=== PATIENT | female | born 1950 | race Hispanic/Latino ===

== ENCOUNTER 2017-04-01 07:57 | Outpatient (CLI) | payer MEDICARE ==
--- NOTE | 2017-04-01 09:55 | RAD ---
PA AND LATERAL VIEWS OF CHEST: Date: 04/01/17 HISTORY: Dyspnea. FINDINGS: Comparison made with exam of 12/23/16. The heart size is enlarged. The aorta is tortuous. The lungs are well expanded without confluent are as of consolidation, pneumothorax, or pleural effusions. The mild pleural thickening on the right in the lung base with associated extrapleural fat that is better seen on the CT chest of 10/01/16 is s table. No focal areas of consolidation, pneumothorax, hakan pulmonary edema, or pleural effusions ar e identified. There are degenerative changes in the spine. IMPRESSION: No acute process. POS: JONATHAN
== END 2017-04-01 07:58 | disposition home or self-care (01) ==
LOC: RAD 07:57
PROVIDERS: ATTEND Internal Medicine Critical Care Medicine
DX: R06.00 Dyspnea, unspecified (principal)
CPT/HCPCS: 71020

== ENCOUNTER 2017-04-26 21:08 | Emergency (ER) | payer MEDICARE ==
[2017-04-26 22:30] LABS: Bilirubin Negative (Negative); Blood, Urine Small (Negative); Glucose, Urine (Dipstick) 100 mg/dL (Negative); Ketone, Urine Negative (Negative); Nitrite Positive (Negative); Protein, Urine (Dipstick) > or equal to 300 mg/dL (Neg-Trace); Urobilinogen 0.2 mg/dL (0.2-1.0)
[2017-04-26 22:42] LABS: Bacteria/HPF 4+ HPF (None Seen); Squamous Epithelial 0-3 HPF (0-3)
[2017-04-26 22:43] LABS: Hyaline Casts/LPF 0-3 HYALINE CAST LPF (0-3 Hyaline)
[2017-04-26] MEDS ORDERED: cefTRIAXone\\ROCEPHIN 1 GM VIAL ONE (22:57)
[2017-04-26] MEDS ORDERED: Sodium Chloride 0.9% 100 ML ONE (22:57)
[2017-04-26 23:20] LABS: #Basophils 0.1 thou/uL (0.0-0.2); #Eosinphils 0.3 thou/uL (0.0-0.7); #Lymphocytes 3.1 thou/uL (1.20-3.40); #Monocytes 0.9 thou/uL (0.11-0.59); #Neutrophils 5.6 thou/uL (1.40-6.50); %Basophils 0.6 % (0.0-1.0); %Eosinophils 2.9 % (0.0-10.0); %Lymphocytes 31.6 % (21.0-51.0); %Monocytes 8.8 % (0.0-10.0); Hematocrit 34.8 % (36.0-47.0); Mean Platelet Volume 7.1 fL (7.4-10.4); Red Blood Cell (RBC) Count 3.93 mill/uL (4.20-5.40)
[2017-04-26 23:34] LABS: Lactic Acid - Sepsis 0.8 mmol/L (0.5-2.2)
[2017-04-26 23:38] LABS: ALT (SGPT) 11 U/L (8-55); AST (SGOT) 18 U/L (5-34); Alkaline Phosphatase 148 U/L (40-150); Anion Gap 13 mmol/L (10-20); BUN (Urea Nitrogen) 45 mg/dL (9.8-20.1); Bilirubin, Total 0.2 mg/dL (0.2-1.2); Calc. Creatinine Clearance 0 mL/min (70-130); Calcium 8.3 mg/dL (7.8-10.44); Carbon Dioxide 20 mmol/L (23-31); Chloride 111 mmol/L (98-107); Estimated GFR-MDRD 17; Globulin 4.3 g/dL (2.4-3.5); Protein, Total 7.4 g/dL (6.0-8.3)
== END 2017-04-27 00:23 | disposition home or self-care (01) ==
LOC: ERS 21:08
DX: E11.649 Type 2 diabetes mellitus with hypoglycemia without coma (principal); N39.0 Urinary tract infection, site not specified; E78.5 Hyperlipidemia, unspecified; G51.0 Bell's palsy; I11.0 Hypertensive heart disease with heart failure; I50.9 Heart failure, unspecified; G47.30 Sleep apnea, unspecified; F41.9 Anxiety disorder, unspecified; F32.9 Major depressive disorder, single episode, unspecified; Z87.891 Personal history of nicotine dependence; Z79.82 Long term (current) use of aspirin; Z79.84 Long term (current) use of oral hypoglycemic drugs; Z79.899 Other long term (current) drug therapy
CPT/HCPCS: 36416; 80053; 81003; 81015; 83605; 85025; 87040; 87077; 87086; 87186; 96365; J0696; J7050

== ENCOUNTER 2017-06-04 18:05 | Inpatient (IN) | payer MEDICARE ==
[2017-06-04 19:01] LABS: #Basophils 0.1 thou/uL (0.0-0.2); #Eosinphils 0.3 thou/uL (0.0-0.7); #Lymphocytes 1.7 thou/uL (1.20-3.40); #Monocytes 0.6 thou/uL (0.11-0.59); #Neutrophils 3.9 thou/uL (1.40-6.50); %Basophils 1.1 % (0.0-1.0); %Eosinophils 4.1 % (0.0-10.0); %Lymphocytes 26.1 % (21.0-51.0); %Monocytes 9.8 % (0.0-10.0); Hematocrit 30.8 % (36.0-47.0); Mean Platelet Volume 6.8 fL (7.4-10.4); Red Blood Cell (RBC) Count 3.41 mill/uL (4.20-5.40); White Blood Cell (WBC) Count 6.6 thou/uL (4.8-10.8)
[2017-06-04 19:31] LABS: ALT (SGPT) 11 U/L (8-55); AST (SGOT) 27 U/L (5-34); Alkaline Phosphatase 187 U/L (40-150); Anion Gap 10 mmol/L (10-20); BUN (Urea Nitrogen) 37 mg/dL (9.8-20.1); Bilirubin, Total 0.3 mg/dL (0.2-1.2); Calc. Creatinine Clearance 0 mL/min (70-130); Calcium 7.9 mg/dL (7.8-10.44); Carbon Dioxide 21 mmol/L (23-31); Chloride 115 mmol/L (98-107); Estimated GFR-MDRD 21; Globulin 3.7 g/dL (2.4-3.5); Lipase 19 U/L (8-78); Magnesium 1.9 mg/dL (1.6-2.6); Protein, Total 6.5 g/dL (6.0-8.3)
[2017-06-04 19:34] LABS: Troponin I Less than 0.010 ng/mL (< 0.028)
--- NOTE | 2017-06-04 19:44 | RAD ---
CHEST TWO VIEW 06/04/17 HISTORY: Cough. COMPARISON: Chest two view 04/01/17. FINDINGS: The heart size is enlarged. Mild pulmonary venous congestion. No pneumothorax. There is peripheral pleural thickening along the right lateral hemithorax. This is similar. Mild spon dylosis thoracic spine. IMPRESSION: Cardiomegaly and mild edema. POS: H
[2017-06-04 20:05] LABS: Bilirubin Negative (Negative); Blood, Urine Moderate (Negative); Glucose, Urine (Dipstick) 250 mg/dL (Negative); Ketone, Urine Negative (Negative); Nitrite Negative (Negative); Protein, Urine (Dipstick) > or equal to 300 mg/dL (Neg-Trace); Urobilinogen 0.2 mg/dL (0.2-1.0)
[2017-06-04 20:07] LABS: Bacteria/HPF 4+ HPF (None Seen); Squamous Epithelial 0-3 HPF (0-3)
[2017-06-04 20:19] LABS: Hyaline Casts/LPF 0-3 HYALINE CAST LPF (0-3 Hyaline)
[2017-06-04] MEDS ORDERED: Metolazone 5 MG TAB PO SCH (20:30)
[2017-06-04] MEDS ORDERED: Meropenem 500 MG, Admixture Fee 1 EACH in Sterile Water 10 ML SLOW IVP SCH (20:45)
[2017-06-04] MEDS ORDERED: Meropenem 1 GM in Sodium Chloride 0.9% 100 ML IVPB SCH (22:00)
--- NOTE | 2017-06-04 22:32 | PDOC.EVN ---
Event Note - Event Note Event Note: [id number] h&p dictated 1. Acute on chronic diastolic CHF 2. ckd STAGE 4 3. UTI 4. Acute bronchitis plan: see orders
[2017-06-04] MEDS ORDERED: Ondansetron HCl/PF 4 MG/2 ML Vial IVP PRN (22:39)
[2017-06-04] MEDS ORDERED: Acetaminophen 325 MG TAB PO PRN (22:39)
[2017-06-04 23:20] VITALS: BMI 46.5
[2017-06-04] MEDS: cloNIDine 0.1 MG TAB PO PRN (23:50)
[2017-06-05 04:39] LABS: #Eosinphils 0.3 thou/uL (0.0-0.7); #Monocytes 0.8 thou/uL (0.11-0.59); #Neutrophils 4.5 thou/uL (1.40-6.50); %Basophils 0.6 % (0.0-1.0); %Eosinophils 4.3 % (0.0-10.0); %Lymphocytes 26.2 % (21.0-51.0); %Monocytes 10.2 % (0.0-10.0); Hematocrit 29.4 % (36.0-47.0); Mean Platelet Volume 7.4 fL (7.4-10.4); Red Blood Cell (RBC) Count 3.23 mill/uL (4.20-5.40); White Blood Cell (WBC) Count 7.6 thou/uL (4.8-10.8)
[2017-06-05 04:55] LABS: ALT (SGPT) 10 U/L (8-55); AST (SGOT) 15 U/L (5-34); Alkaline Phosphatase 165 U/L (40-150); Anion Gap 7 mmol/L (10-20); BUN (Urea Nitrogen) 35 mg/dL (9.8-20.1); BUN/Creatinine Ratio 15.49; Bilirubin, Total 0.3 mg/dL (0.2-1.2); Calc. Creatinine Clearance 41 mL/min (70-130); Calcium 7.6 mg/dL (7.8-10.44); Carbon Dioxide 22 mmol/L (23-31); Chloride 115 mmol/L (98-107); Estimated GFR-MDRD 22; Globulin 3.5 g/dL (2.4-3.5); Phosphorus 5.3 mg/dL (2.3-4.7)
[2017-06-05] MEDS ORDERED: Furosemide 40 MG/4 ML VIAL SLOW IVP SCH (06:00)
[2017-06-05] MEDS ORDERED: Meropenem 500 MG in Sodium Chloride 0.9% 100 ML IVPB SCH (06:00)
[2017-06-05] MEDS ORDERED: Meropenem 1 GM in Sodium Chloride 0.9% 100 ML IVPB SCH (06:00)
--- NOTE | 2017-06-05 06:00 | HP ---
DATE OF ADMISSION: 06/04/2017 CHIEF COMPLAINT: Bilateral lower extremity swelling, dyspnea. HISTORY OF PRESENT ILLNESS: The patient is a 67-year-old female with past medical history of CKD, di abetes mellitus type 2, hypertension, chronic respiratory failure, obstructive sleep apnea now came t o the ER complaining of bilateral lower extremity swelling. The patient always has bilateral lower e xtremity swelling, but the swelling got more pronounced at last few weeks. The patient also complain s of dyspnea more pronounced, last few days. Denies any chest pain. Denies any palpations. Complai ns some cough, cough with some sputum production, sputum green in color. Denies any chills. Denies any fever, complains of some runny nose. Denies any chest pain, denies any chest tightness. Complai ns of some dysuria also. PAST MEDICAL HISTORY: As per HPI. PAST SURGICAL HISTORY: Cholecystectomy. SOCIAL HISTORY: Denies smoking, denies alcohol, illicit drugs. FAMILY HISTORY: Denes any heart problems. REVIEW OF SYSTEMS: Constitutional: Denies any fever, denies any chills. Eyes: Denies any vision p roblems. Ears: Denies any hearing loss. Neck: Denies any neck pain. Cardiovascular System: Claude es any chest pain. Respiratory System: Positive for dyspnea. Positive for cough and sputum product ion. Gastrointestinal: Denies nausea, vomiting. Musculoskeletal: Positive for bilateral lower ext remity swelling. Cranial Nerve System: Denies syncope. Psychiatric: Denies anxiety. Integument: Denies any rash. Genitourinary: Denies dysuria. All other review of systems are reviewed and nega tive. PHYSICAL EXAMINATION: CONSTITUTIONAL/VITAL SIGNS: At the time of H&P performed, blood pressure is 151/68, respiratory rate 20, pulse ox 95%, heart rate 80. GENERAL: The patient appears comfortable. HEENT: Anterior nares patent. Nose normal. Ears normal. Teeth intact. Tongue is moist. NECK: Mane pple. No JVD. CARDIOVASCULAR SYSTEM: S1, S2 present. Regular rate and rhythm, no murmurs, no rubs, no gallops. RESPIRATORY SYSTEM: Positive for crackles. No wheezes, no rhonchi. Diminished at the bases. GASTROINTESTINAL: Soft, nontender, no guarding, no organomegaly, no masses felt. MUSCULOSKELETAL: Bilateral 2+ edema present. INTEGUMENTARY: No rashes seen. PSYCHIATRIC: Mood is appropriate at this time. CRANIAL NERVE SYSTEM: Cranial nerves intact. Follows commands. Strength intact. Sensory intact. LABORATORY DATA: At the time of H&P performed, white count 6.6, hemoglobin 10.1, platelet count is 1 88. BMP showed sodium 141, potassium 5.1, chloride 115, CO2 of 21, BUN of 37, creatinine 2.36. AST 27, ALT 11, alkaline phosphatase 187, albumin 2.8. Urine greater than 50 to too numerous to count wb c's, greater than 300 protein. Chest x-ray positive for cardiomegaly and mild edema. ASSESSMENT AND PLAN: The patient is 67-year-old female, now came to the hospital because of fluid ov erload. 1. Acute on chronic diastolic heart failure. Plan to start patient on IV Lasix. Plan to monitor th e patient closely. Plan to monitor I's and O's. Plan to check cardiac enzymes q.6 hours. We will f ollow the patient. 2. Chronic kidney disease, stage 3 to stage 4. Monitor creatinine closely. Creatinine close to bas kyara. Continue current report. We will go ahead and consult Nephrology to evaluate the patient. 3. Urinary tract infection. Place the patient on IV antibiotics. 4. Acute bronchitis. Plan to start the patient on sputum plan to send sputum for culture and sensitivity. Plan to place the patient on IV antibiotics. Plan to check flu test also. 5. History of obstructive sleep apnea. Continue oxygen nasal cannula. The case was discussed in detail with the patient. The patient is FULL CODE.
--- NOTE | 2017-06-05 06:04 | CON ---
DATE OF CONSULTATION: 06/04/2017 CONSULTING PHYSICIAN: Harvey Ramirez M.D. REQUESTING PHYSICIAN: Dr. Gloria. REASON FOR CONSULTATION: Hypervolemia in a patient with advanced chronic kidney disease. IMPRESSION: 1. Advanced chronic kidney disease, stage 3/4. 2. Hypervolemia likely in the context of nephrotic syndrome due to diabetic nephropathy. 3. Nephrotic range proteinuria in the context of diabetic nephropathy. 4. Multidrug-resistant urinary tract infection. 5. Diabetes mellitus, type 2 more or less diet controlled, at this point since patient started losin g weight. PLAN: 1. Parenteral diuresis to circumvent the limiting effect of congestive gastroenteropathy on oral diu retics. 2. IV antibiotics likely meropenem and based on the recent sensitivity of the urine culture. 3. Low-salt diet. 4. Renal function panel to be checked tomorrow. 5. Further management will be dependent on the clinical course. HISTORY OF PRESENT ILLNESS: A 67-year-old female patient who recently started having some problems w ith her electrolytes, especially as it relates to hyperkalemia, for which I started the patient on __ ___ as an outpatient with improvement in hyperkalemia. However, the patient continued to complain of worsening fluid retention to the point of having bilateral lower extremity pain and some degree of s hortness of breath on exertion. The patient also does have urinary tract infection, which seems to b e resistant to multiple medications and will be benefiting from parenteral treatment based on the rec ent sensitivity. Because of all this, the patient presented to the ER where decision is likely to be taken to admit this patient for further management. PAST MEDICAL HISTORY: Significant for advanced chronic kidney disease stage 3/4, diabetes mellitus d iet-controlled, diabetic nephropathy, hypervolemia, morbid obesity, multidrug-resistant urinary tract infection, hypertension. MEDICATIONS: Reviewed and as documented on [employer]. ALLERGIES: No known drug allergies. FAMILY HISTORY: Not significantly related to the presenting illness. SOCIAL HISTORY: No alcohol, no tobacco, no illicit drug use. REVIEW OF SYSTEMS: As documented in the body of the history. All the other systems were reviewed an d found not to be significantly related to the presenting illness. PHYSICAL EXAMINATION: GENERAL: The patient was found not to be in severe respiratory distress, hemodynamically stable, afe brile. HEENT: Unremarkable with moist oral mucosa. Neck is supple. No conjunctival injection or icterus. CARDIOVASCULAR SYSTEM: First and second heart sounds were heard. RESPIRATORY SYSTEM: Clear to auscultation. DIGESTIVE SYSTEM: Revealed an obese abdomen with positive bowel sounds. EXTREMITIES: Showed 4+ bilateral lower extremity edema. NEUROLOGIC: Alert and oriented. No lateralizing signs. LYMPHATICS: No peripheral lymphadenopathy. SUMMARY: A 67-year-old female patient with moderately advanced chronic kidney disease, who presented here with worsening hypervolemia as well as multidrug-resistant urinary tract infection. Thank you for this consultation. We will follow with you.
[2017-06-05] MEDS: Furosemide 40 MG/4 ML VIAL SLOW IVP SCH ×2 (06:16→14:43)
[2017-06-05] MEDS ORDERED: Metolazone 5 MG TAB PO SCH (08:30)
--- NOTE | 2017-06-05 08:47 | PDOC.PN ---
- Subjective Encounter Start Date: 06/05/17 Encounter Start Time: 08:45 -: old records requested/rev Pt seen and examined, chart reviewed in its entirety. This is my first visit with this patient. Hx of CKD, followed By Dr Ramirez. He was called last night and saw. No changes noted. Pt has a history of admit last thanksgiving for CHF exacerbation. Pt denies any change in diet or medications. Cr at 2.3 for the last 2 months, was 1.X 6 months ago. No recent echo Pt denies F/C, no n/V/D/C, decreased pain to BLE and less edema this morning, urinating well with lasix. 10 point ROS performed and neg for all systems except as above - Objective Resuscitation Status: FULL MAR Reviewed: Yes Vital Signs & Weight: Vital Signs (12 hours) Temp Pulse Resp BP BP Pulse Ox 06/05/17 07:58 97.6 F 68 18 166/81 H 97 06/05/17 04:10 98.0 F 70 18 133/64 97 06/05/17 01:15 75 144/67 H 06/04/17 23:50 188/83 H 06/04/17 23:28 188/83 H I&O: 06/04/17 06/05/17 06/06/17 06:59 06:59 06:59 Intake Total 814 Output Total 800 Balance 14 Result Diagrams: 06/05/17 04:08 06/05/17 04:08 Radiology Reviewed by me: Yes EKG Reviewed by me: Yes Phys Exam - Physical Examination Constitutional: NAD HEENT: PERRLA, moist MMs, sclera anicteric, oral pharynx no lesions Neck: no nodes, supple, full ROM cannot assess JVD due to obesity Respiratory: no wheezing, no rhonchi bibasialr crackles, decreased bilateral BS Cardiovascular: RRR, no significant murmur, no rub Gastrointestinal: soft, non-tender, no distention, positive bowel sounds Musculoskeletal: pulses present, edema present 3+ to distal thigh Neurological: non-focal, normal sensation, moves all 4 limbs Lymphatic: no nodes Psychiatric: normal affect, A&O x 3 Skin: no rash, normal turgor, cap refill <2 seconds Dx/Plan (1) Acute on chronic diastolic (congestive) heart failure Code(s): I50.33 - ACUTE ON CHRONIC DIASTOLIC (CONGESTIVE) HEART FAILURE Status : Acute Comment: echo, lasix, watch lytes, Cr. weight, I/O (2) Acute on chronic respiratory failure with hypoxemia Code(s): J96.21 - ACUTE AND CHRONIC RESPIRATORY FAILURE WITH HYPOXIA Status: Acute Comment: wean O2 as tolerated (3) UTI (urinary tract infection) Status: Acute Qualifiers: Urinary tract infection type: acute cystitis Hematuria presence: without hematuria Qualified Code(s): N30.00 - Acute cystitis without hematuria Comment: hx ecoli resistant to cephalosporins and cephamycins, cipro. sens to Zosyn. strealine form meropenem and levoflxo to zosyn alone, follow uip UCx (4) CKD (chronic kidney disease) stage 3, GFR 30-59 ml/min Status: Chronic Comment: ? [place] on CKD. [place] [facility] following (5) DM type 2 (diabetes mellitus, type 2) Status: Chronic Qualifiers: Diabetes mellitus complication status: with kidney complications Diabetes mellitus complication detail: with chronic kidney disease Diabetes mellitus custodial insulin use: without ad terminal makeup operator use Chronic kidney disease stage: stage 3 (moderate) Qualified Code(s): E11.22 - Type 2 diabetes mellitus with diabetic chronic kidney disease; N18.3 - Chronic kidney disease, stage 3 ( moderate); N18.3 - Chronic kidney disease, stage 3 (moderate) (6) HTN (hypertension) Code(s): I10 - ESSENTIAL (PRIMARY) HYPERTENSION Status: Chronic Qualifiers: Hypertension type: essential hypertension Qualified Code(s): I10 - Essential (primary) hypertension (7) Morbid obesity Code(s): E66.01 - MORBID (SEVERE) OBESITY DUE TO EXCESS CALORIES Status: Chronic (8) ARMINDA (obstructive sleep apnea) Code(s): G47.33 - OBSTRUCTIVE SLEEP APNEA (ADULT) (PEDIATRIC) Status: Chronic Comment: Home CPAP not functioning. Will palce on CPAP here at empiric 10cm - Plan cont current plan of care, continue antibiotics, PT/OT, respiratory therapy, incentive spirometry * .
[2017-06-05] MEDS: Enoxaparin Sodium 30 MG/0.3 ML SYRINGE SC SCH (09:09)
[2017-06-05 10:18] LABS: Troponin I 0.014 ng/mL (< 0.028)
[2017-06-05] MEDS ORDERED: hydrALAZINE 20 MG/ML VIAL SLOW IVP PRN (11:45)
[2017-06-05] MEDS ORDERED: Amlodipine 10 MG TAB PO SCH (11:45)
[2017-06-05] MEDS: Piperacillin/Tazobactam 3.375 GM in Sodium Chloride 0.9% 100 ML IVPB SCH ×3 (13:11→23:51)
[2017-06-05 17:59] LABS: Troponin I Less than 0.010 ng/mL (< 0.028)
[2017-06-06 04:34] LABS: #Eosinphils 0.4 thou/uL (0.0-0.7); #Lymphocytes 2.1 thou/uL (1.20-3.40); #Monocytes 0.8 thou/uL (0.11-0.59); #Neutrophils 4.2 thou/uL (1.40-6.50); %Eosinophils 5.1 % (0.0-10.0); %Lymphocytes 28.2 % (21.0-51.0); Mean Platelet Volume 7.2 fL (7.4-10.4); Red Blood Cell (RBC) Count 3.28 mill/uL (4.20-5.40); White Blood Cell (WBC) Count 7.5 thou/uL (4.8-10.8)
[2017-06-06 04:49] LABS: Anion Gap 8 mmol/L (10-20); BUN (Urea Nitrogen) 38 mg/dL (9.8-20.1); BUN/Creatinine Ratio 15.08; Calc. Creatinine Clearance 36 mL/min (70-130); Calcium 7.7 mg/dL (7.8-10.44); Carbon Dioxide 23 mmol/L (23-31); Chloride 113 mmol/L (98-107); Estimated GFR-MDRD 19; Phosphorus 5.8 mg/dL (2.3-4.7)
[2017-06-06] MEDS: Piperacillin/Tazobactam 3.375 GM in Sodium Chloride 0.9% 100 ML IVPB SCH ×4 (05:45→23:35)
[2017-06-06] MEDS: Furosemide 40 MG/4 ML VIAL SLOW IVP SCH ×2 (05:45→14:09)
--- NOTE | 2017-06-06 06:37 | PRG ---
DATE OF SERVICE: 06/05/2017 SUBJECTIVE: The patient seen and examined today and noted with the following vital signs. PHYSICAL EXAMINATION: VITAL SIGNS: Afebrile with temperature 98, pulse 70, respiratory rate 18, O2 SAT 96%, blood pressure 164/74. HEENT: Unremarkable with moist oral mucosa. Neck was supple. No conjunctival injection or icterus. CARDIOVASCULAR: First and second heart sounds were heard. RESPIRATORY: Clear to auscultation. ABDOMEN: Digestive system revealed a benign abdomen. EXTREMITIES: No . NEUROLOGIC: Alert and oriented. No lateralizing signs. IMPRESSION: 1. Hypervolemia, on diuretics. 2. Low salt diet. 3. Resume antihypertensive medications to optimize hemodynamics.
[2017-06-06] MEDS: Enoxaparin Sodium 30 MG/0.3 ML SYRINGE SC SCH (08:54)
[2017-06-06] MEDS: Metolazone 5 MG TAB PO SCH (08:54)
[2017-06-06] MEDS ORDERED: Amlodipine 10 MG TAB PO SCH (09:00)
[2017-06-06] MEDS ORDERED: HumaLOG 300 UNITS/3 ML VIAL SC PRN (11:28)
[2017-06-06] MEDS ORDERED: Dextrose 50% Abboject 50 ML SYRINGE SLOW IVP PRN (11:28)
[2017-06-06] MEDS ORDERED: Dextrose 5% in Water 1,000 ML IV PRN (11:28)
--- NOTE | 2017-06-06 14:30 | PRG ---
DATE OF SERVICE: 06/06/2017 SUBJECTIVE: The patient was seen and examined at the bedside. She was sitting in the recliner. She complains about the nasal congestion and not being able to breathe. She woke up in the middle of e night, kind of panicky, not being able to breathe through her nose. OBJECTIVE: VITAL SIGNS: Blood pressure is 167/75, temperature is 97.8, pulse is 73, respiratory rate is 20, and O2 saturation is 95% on 2 liters. HEENT: Head is atraumatic, normocephalic. Eyes: PERRLA. Sclerae nonicteric. Conjunctivae pinkish . Oral mucosa is moist. NECK: Supple. LUNGS: Clear. HEART: S1, S2 normal, no S3, no S4, no murmur. ABDOMEN: Obese, bowel sounds are present. No organomegaly. EXTREMITIES: 2+ peripheral edema similar bilateral, pitting. NEUROLOGIC: She is alert and oriented x4. There is not any motor or sensory deficit present. Crani al nerves are intact. LABORATORY DATA: Showed a white count of 7.5, hemoglobin 9.8, hematocrit 30.0, platelet count is 199 ,000. Sodium of 139, potassium 5.4, chloride 113, CO2 of 23, BUN 38, creatinine 2.52, calcium 7.7, p hosphorus 5.8, albumin 2.7. Microbiology: Urine culture E. coli, resistant to all p.o. possible med s, sensitive to meropenem, Zosyn, gentamicin, and amikacin and tobramycin. IMPRESSION: 1. Acute on chronic diastolic congestive heart failure. 2. Acute on chronic respiratory failure with hypoxemia. We will stop her oxygen by nasal cannula an d check her pulse oximetry without oxygen supplementation. 3. Urinary tract infection with resistant organism Escherichia coli, sensitive only to meropenem and Zosyn, resistant to multiple other medications. 4. Chronic kidney disease, worse with [address] Gabriel follows: 5. Diabetes mellitus type 2, well controlled. 6. Morbid obesity. 7. Obstructive sleep apnea. PLAN: Continue current antibiotic which is Zosyn. Obtain ID consultation regarding possible change to inpatient status and continue IV antibiotics. We will talk to the polysom tech regarding her diur etic dose since her creatinine is up significantly today. Most likely would have to cut back on the dose. We will try to wean her off O2 today.
--- NOTE | 2017-06-06 15:07 | CON ---
DATE OF CONSULTATION: 06/06/2017 REASON FOR CONSULTATION: Urinary tract findings. HISTORY OF PRESENT ILLNESS: A 67-year-old familiar to me from prior visits who has a history of obes ity, type 2 diabetes mellitus, hypertension, prior cellulitis of lower extremity with venous insuffic iency and abscess in the skin of the left leg as well as previous episode of pyelonephritis with obst ruction which required stenting of the ureter plus treatment with carbapenem for ESBL E. coli in 2015 . The patient was treated with Invanz for a few weeks in 07/2016. She came in with hypoxic respirat ory failure due to acute on chronic diastolic heart failure and community-acquired pneumonia. Then, in October of this year, she presented with worsening dyspnea and hypoxemia. She was treated with diur esis and in that episode she had an abnormal urinalysis and she was given empirically with levofloxac in. At this time, she presented with worsening dyspnea and swelling in the lower extremities. When specifically inquired, she said she had a little bit of itching or burning of the vaginal introitus w hen she was wiping herself, but did not refer to any true dysuria or suprapubic pain. She had had no fever either. No chills. Initial findings included BP 150/68, respiratory rate 20, pulse ox 95%, h eart rate 80. Appears comfortable. Heart exam normal. Respiratory examination with inspiratory starch crab ckles at the bases. She had though edema in lower extremities with findings consistent with venous s tasis, venous insufficiency. Initial labs with white cell count 6.6, hemoglobin 10, sodium 141, CO2 21, and creatinine 2.36. The patient currently is sitting by the bedside. She is awake, alert and o riented, appears chronically ill. No headaches, she has had bilateral eye injections for management of be either some form of retinopathy plus glaucoma. She has blurred vision which is a chronic findi ng. No sore throat, odynophagia, or dysphagia. Mild dyspnea. No chest pain, no back pain, no abdo jos pain or diarrhea. No genitourinary symptoms except for the sensation of burning when she wipes herself. Has not had any gynecological evaluation for the past few years and the lower extremity sy mptoms related to edema. No neurological symptoms. PAST MEDICAL HISTORY: Includes type 2 diabetes, obesity, hypertension, hyperlipidemia, GERD, celluli tis of lower extremities, abscess of left leg due to MRSA, invasive UTI with pyelonephritis and obstr uction which required stenting last year, pneumonia, diastolic dysfunction, and cardiomyopathy. PAST SURGICAL HISTORY: . FAMILY HISTORY: Diabetes and CVA. SOCIAL HISTORY: Former smoker, lives in [place]. CURRENT MEDICATIONS: Currently on Tylenol, Harrells, Norvasc, Lipitor, Catapres, enoxaparin, furosemide , hydralazine, metolazone, Zosyn, Kayexalate. PHYSICAL EXAMINATION: VITAL SIGNS: T-max 98.1, blood pressure 160/79, pulse 80, respirations 16-20, O2 sat 94-95%. GENERAL: Appears in no distress. SKIN: Shows the areas are consistent with stasis dermatitis in the lower extremities. Peripheral IV access. Does not have a Lazo catheter. HEENT: Ocular movements are conjugate. Oral cavity moist. NECK: Supple, no jugular venous distention. LUNGS: With symmetric air entry. No obvious crackles or wheezing. HEART: S1, S2, regular rate. ABDOMEN: Flat, soft, not distended. Panniculus is quite prominent. No ascites, no organomegaly. N o bladder distention. No suprapubic tenderness. I did not evaluate her vaginal introitus at this ti me. EXTREMITIES: She does have findings consistent with degenerative joint disease in knees and ankles. Pulses are 1+ in dorsalis pedis. NEUROLOGIC: Cognitive function appears to be intact. LABORATORY AND X-RAY FINDINGS: White cell count 7.5, hemoglobin 9.8, platelets 199 with normal diffe rential. Sodium 139, creatinine 2.52. AST and ALT normal, alkaline phosphatase 165, albumin 2.5. U rinalysis with trace leukocyte esterase, wbc count greater than 50, 4+ bacteria and culture with E. c christen. The susceptibility of the E. coli reveals resistant to most antimicrobials except for gentamici n, meropenem, Zosyn, tobramycin, and amikacin. ASSESSMENT: 1. Type 2 diabetes, prior episodes of urinary infection with pyelonephritis and bacteremia in the or st with obstruction which required stent placement, abnormal urinalysis, but no concomitant symptoms to suggest an evasive urinary tract infection. 2. Swelling of the lower extremities which is associated with cardiomyopathy and venous insufficienc y. DISCUSSION: The patient needs a reevaluation of the imaging of her right kidney to see if that area of hydronephrosis and obstruction has resolved. She was not able to tell me if the stent has been re moved. We will order a CT stone protocol for that and I would not continue antimicrobials beyond jossy orrow since even in the event of cystitis a short course of therapy should suffice. It is questionab le if she truly has symptoms of cystitis at this point in time. Evaluation of her introitus would be important to see if she has vaginitis that would be amenable to treatment with topical therapy rathe r than repeated courses of systemic antimicrobials which might lead to selection of other resistant p athogens in the future.
--- NOTE | 2017-06-06 15:29 | CT ---
NONCONTRAST CT ABDOMEN AND PELVIS: DATE: 06/06/17. HISTORY: Urinary tract infection and abdominal pain. History of kidney stent as well as history of prior pyel onephritis. COMPARISON: 05/28/16. FINDINGS: There is a small right pleural effusion with consolidation of the right lung base likely related to a telectasis as opposed to pneumonia, although this could not be entirely excluded. There is minimal a telectasis at the left lung base. Trace pericardial effusion versus pericardial thickening is present. Post cholecystectomy changes are now noted. As noted on the prior exam, there is mild right hydronephrosis and hydroureter with dilatation of the ureter down to the level of the junction of the mid and distal right ureter. The exact etiology for dilatation is uncertain, but, again, this is similar to the prior study. No renal or ureteral calcu albertina is visualized bilaterally. There is bilateral perinephric stranding which is overall symmetric a nd nonspecific. While this may be related to physiological stranding adjacent to each kidney, pyelon ephritis could not be excluded based on nonenhanced CT scan evaluation. The liver, spleen, pancreas, bilateral adrenal glands, uterus, and adnexal structures demonstrate nicole ssly normal nonenhanced CT appearance for the patient's age. Urinary bladder is distended. There is a focus of gas in the urinary bladder which may be related to recent catheterization, but clinical correlation is recommended. There is colonic diverticulosis again present. There is mild subcutaneous edema seen throughout the abdomen and pelvis. IMPRESSION: 1. Persistent mild right hydronephrosis and hydroureter of which the exact etiology is uncertain, bu t this is a stable finding. No renal or ureteral calculi are seen bilaterally. 2. Bilateral perinephric stranding. This is overall nonspecific and may be physiologic, but pyelone phritis could not be excluded based on noncontrast imaging. 3. Small right pleural effusion with probable passive atelectasis at the right lung base. 4. Cholecystectomy. 5. Colonic diverticulosis. 6. Gas within the nondependent portion of the urinary bladder which may relate to recent catheteriza tion, but clinical correlation is recommended. POS: ALIE
[2017-06-06] MEDS: Carvedilol 6.25 MG TAB PO SCH (17:15)
--- NOTE | 2017-06-06 19:46 | PRG ---
DATE OF SERVICE: 06/06/2017 SUBJECTIVE: The patient was seen and examined, seems to be doing better, noted with the following vi rica signs. OBJECTIVE: VITAL SIGNS: Afebrile, temperature 98.1, pulse 75, respiratory rate of 20, O2 sat of 94%, blood pres sure 119/79. HEENT: Unremarkable with moist oral mucosa. No conjunctival injection or icterus NECK: Supple. CARDIOVASCULAR: First and second heart sounds were heard. RESPIRATORY: Clear to auscultation. DIGESTIVE: Revealed an obese abdomen. EXTREMITIES: Showed 3-4+ bilateral lower extremity edema. LABORATORY DATA: Showed hemoglobin 9.8. Chemistry showed a creatinine of 2.52, BUN of 38, potassium 5.4, calcium 7.7, phosphorus of 5.8. IMPRESSION: 1. Advanced chronic kidney disease stage 4 in the context of problem #2. 2. Diabetic nephropathy. 3. Hyperkalemia. 4. Hyperphosphatemia. 5. Hypervolemia in the context of nephrotic syndrome resulted from diabetic nephropathy. PLAN: 1. We will continue with current diuretic regimen. 2. The patient to be on renal diet. 3. Low salt diet. 4. Adjust antihypertensive medications to optimize hemodynamics as the patient high blood pressure i s under control. 5. Further management to be dependent on the clinical course.
[2017-06-06] MEDS ORDERED: cloNIDine 0.1 MG TAB PO SCH (21:00)
[2017-06-06] MEDS: Oxymetazoline HCl 0.05% ( 15 ML ) NASAL SCH (21:19)
[2017-06-06] MEDS: cloNIDine 0.1 MG TAB PO PRN (21:23)
[2017-06-07 05:24] LABS: Anion Gap 12 mmol/L (10-20); BUN (Urea Nitrogen) 38 mg/dL (9.8-20.1); BUN/Creatinine Ratio 13.48; Calc. Creatinine Clearance 32 mL/min (70-130); Calcium 7.5 mg/dL (7.8-10.44); Carbon Dioxide 22 mmol/L (23-31); Chloride 113 mmol/L (98-107); Estimated GFR-MDRD 17; Phosphorus 5.7 mg/dL (2.3-4.7)
[2017-06-07] MEDS: Piperacillin/Tazobactam 3.375 GM in Sodium Chloride 0.9% 100 ML IVPB SCH ×3 (05:46→17:45)
[2017-06-07] MEDS: Furosemide 40 MG/4 ML VIAL SLOW IVP SCH ×2 (05:47→12:16)
[2017-06-07] MEDS: Carvedilol 6.25 MG TAB PO SCH ×2 (09:17→17:45)
[2017-06-07] MEDS: Metolazone 5 MG TAB PO SCH (09:19)
[2017-06-07] MEDS: Atorvastatin Calcium 20 MG TAB PO SCH (09:20)
[2017-06-07] MEDS: Enoxaparin Sodium 30 MG/0.3 ML SYRINGE SC SCH (09:20)
[2017-06-07] MEDS: NIFEdipine XL 60 MG TAB PO SCH (09:20)
[2017-06-07] MEDS: Oxymetazoline HCl 0.05% ( 15 ML ) NASAL SCH ×2 (09:21→20:11)
[2017-06-07] MEDS: cloNIDine 0.1 MG TAB PO PRN (13:14)
--- NOTE | 2017-06-07 19:42 | PRG ---
DATE OF SERVICE: 06/07/2017 SUBJECTIVE: The patient was seen and examined today and seems to be feeling better, noted with the josh colbert. OBJECTIVE: VITAL SIGNS: Afebrile with temperature of 97.2, pulse 65, respiratory rate of 16, O2 sat 92% with a blood pressure of 121/58. HEENT: Unremarkable with moist oral mucosa. No conjunctival injection or icterus. NECK: Supple. CARDIOVASCULAR SYSTEM: First and second heart sounds were heard. RESPIRATORY SYSTEM: Clear to auscultation. DIGESTIVE SYSTEM: Revealed an obese abdomen. EXTREMITIES: No peripheral edema. SKIN: No new gross rash. LYMPHATICS: No peripheral lymphadenopathy. EXTREMITIES: Showed 2+ bilateral lower extremity edema. IMPRESSION: 1. Acute on chronic kidney disease/progression of chronic kidney disease. 2. Morbid obesity. 3. Nephrotic syndrome in the context of diabetic nephropathy. 4. Multidrug-resistant urinary tract infection, followed by Infectious Disease. PLAN: 1. The patient to resume oral diuretics, Lasix b.i.d. The elevation in creatinine is partly due to hemoconcentration as patient has lost quite a bit of fluid, so the current creatinine might be a true reflection of the level of kidney function of this patient and not necessarily an injury from diuret ic use. 2. The patient to be on low phosphorus diet and low potassium diet. We will start this patient on a ctive vitamin D and phosphorus and binders, calcium-based. 3. Further management to be dependent on the clinical course including the control of the blood pres sure.
[2017-06-07] MEDS: Calcium Carbonate 500 MG ChewTAB PO SCH (20:11)
--- NOTE | 2017-06-07 20:56 | PRG ---
DATE OF SERVICE: 06/07/2017 SUBJECTIVE: The patient was seen and examined at the bedside. She is doing well. She is feeling be tter. She is able to ambulate. Her appetite is fine and she goes to the bathroom without any proble ms. OBJECTIVE: VITAL SIGNS: Blood pressure is 121/58, pulse is 65, temperature is 97.2, respiratory rate is 16, and O2 saturation is 92%. HEENT: head is atraumatic, normocephalic. Eyes: Pupils are responded to write properly. Sclerae i s nonicteric. Oral mucosa is moist. NECK: Supple, no lymphadenopathy. Thyroid is not palpable. LUNGS: At both bases several crackles bilaterally, no wheezing. CARDIOVASCULAR: S1, S2 normal. No S3, no S4. ABDOMEN: Soft, obese, nontender. EXTREMITIES: 2+ peripheral edema, symmetric bilaterally. NEUROLOGIC: Examination is Intact. LABORATORY DATA: Showed a glycemia ranging from 97-188. Sodium of 142, potassium 4.9, chloride 113, CO2 22, BUN 38, creatinine 2.82, calcium 7.5, phosphorus 5.7, albumin 2.8. IMAGES: CT of the abdomen and pelvis showed: 1. Persistent mild right hydronephrosis and hydroureter of which the exact etiology is uncertain, bu t it is stable finding. No renal or ureteral calculi seen bilaterally. 2. Bilateral perinephric stranding. It is overall nonspecific and may be physiologic, but pyeloneph ritis could not be excluded based on noncontrast imaging. 3. Small right pleural effusion with probable passive atelectasis at the right lung base. 4. Cholecystectomy. 5. Colonic diverticulosis. 6. Gas within the non-dependent portion of the urinary bladder, which may be related to recent daya terization. Echocardiogram showed left ventricle size normal, ejection fraction is visually estimate d at 60-65%. The left atrium is moderately dilated. Mitral regurgitation is mild, aortic valve scle rosis, but no stenosis and trace of aortic insufficiency. There is also moderately elevated pulmonar y artery pressure and mild tricuspid regurgitation. IMPRESSION: 1. Acute on chronic diastolic congestive heart failure with some fluid overload. 2. Acute on chronic respiratory failure with hypoxemia, improved. 3. Urinary tract infection with resistant organism E. coli sensitive only to meropenem and Zosyn and resistant to multiple other medications. The patient was seen by Dr. Selby, who recommended to do t he CT of the abdomen and pelvis, which showed findings which are probably chronic and the plan is to discontinue her antibiotic as soon as she is discharged home. 4. Chronic kidney disease worsening secondary to diuretics since her creatinine is even higher than what it was yesterday significantly high, I am stopping her metolazone and Lasix IV push and nephrolo gist will reassess her situation tomorrow and make a decision regarding the further treatment with do se to diuretics. 5. Diabetes mellitus type 2, well controlled. 6. Morbid obesity. 7. Obstructive sleep apnea. So, plan is as mentioned above. We are going to continue her Zosyn and when she is discharged, she w ill be off any antibiotics. Her diuretics are stopped. Continue O2 and increased ambulation. Reche ck her BMP tomorrow morning and based on the findings, we will recommend further management.
[2017-06-08] MEDS: Piperacillin/Tazobactam 3.375 GM in Sodium Chloride 0.9% 100 ML IVPB SCH ×5 (00:06→23:40)
[2017-06-08] MEDS: HYDROcodone/Acetaminophen 5/325 mg Tablet PO PRN (02:25)
[2017-06-08] MEDS: Furosemide 40 MG TAB PO SCH ×2 (08:12→13:32)
[2017-06-08] MEDS: Calcitriol 0.25 MCG CAP PO SCH (08:12)
[2017-06-08] MEDS: Carvedilol 6.25 MG TAB PO SCH ×2 (08:13→18:34)
[2017-06-08] MEDS: Calcium Carbonate 500 MG ChewTAB PO SCH ×3 (08:14→20:42)
[2017-06-08] MEDS: NIFEdipine XL 60 MG TAB PO SCH (08:14)
[2017-06-08] MEDS: Enoxaparin Sodium 30 MG/0.3 ML SYRINGE SC SCH (08:16)
[2017-06-08] MEDS: Oxymetazoline HCl 0.05% ( 15 ML ) NASAL SCH ×2 (08:16→20:41)
[2017-06-08] MEDS: Atorvastatin Calcium 20 MG TAB PO SCH (08:16)
[2017-06-08 08:20] LABS: Anion Gap 11 mmol/L (10-20); BUN (Urea Nitrogen) 43 mg/dL (9.8-20.1); Calc. Creatinine Clearance 29 mL/min (70-130); Calcium 7.6 mg/dL (7.8-10.44); Carbon Dioxide 24 mmol/L (23-31); Chloride 109 mmol/L (98-107); Estimated GFR-MDRD 15
--- NOTE | 2017-06-08 15:38 | PRG ---
DATE OF SERVICE: 06/08/2017 SUBJECTIVE: The patient is seen and examined at the bedside. She is doing better. She noticed sign ificant improvement on her swelling. Also, she noticed that she is not making that much urine like david loo. Her urine output was 1700 comparing to 2800 and 3100 before. OBJECTIVE: VITAL SIGNS: Blood pressure is 152/69, pulse is 94, temperature 97.5 and O2 is 92% on room air, resp iratory rate is 16. HEENT: Atraumatic and normocephalic. Eyes are PERRLA. Conjunctiva pink. Oral mucosa is smooth. NECK: Supple. No JVD. LUNGS: Somewhat diminished at both bases. No wheezing, no rales. HEART: S1, S2 normal, no S3, no S4. ABDOMEN: Soft, nontender. EXTREMITIES: Peripheral edema is approximately 2+, maybe slightly less. NEUROLOGIC: Intact. LABORATORY DATA: Showed sodium of 139, potassium 4.5, chloride 109, CO2 of 24, BUN 43, creatinine 3. 09, glucose 97. Glycemia is ranging from 122-188. IMPRESSION: 1. Volume overload with peripheral edema, responding to diuresis, but creatinine is going up. Dr. Katerina velásquez wants to continue diuretics orally. We will continue that. 2. Bilateral perinephric stranding, overall nonspecific finding on the CT which is discussed with Dr Mehnaz Selby who does not recommend to continue IV antibiotics beyond the hospital discharge. 3. Small right pleural effusion with small atelectasis in the right lung base. 4. Acute on chronic respiratory failure with hypoxemia, improved. 5. Urinary tract infection with resistant organism, Escherichia coli and again, the case was discuss ed with Dr. Selby who does not want to continue any antibiotics after the patient is discharged from the hospital. She had a CT of the abdomen and pelvis done which showed most likely chronic changes w hich does not need to be treated. 6. Chronic kidney disease, worsening secondary to diuretics. Nephrology recommends to continue p.o. Lasix. 7. Diabetes mellitus type 2, well controlled, at this point not on any medications. 8. Morbid obesity. 9. Obstructive sleep apnea. PLAN: The echocardiogram was reviewed and there is no any evidence of any systolic or diastolic hear t failure. This is most likely just renal insufficiency and fluid overload, so we are going to pierce nue current regimen with Zosyn IV and p.o. Aissatou and we will see what Dr. Gabriel recommends at th is point. She might be able to go home today or maybe tomorrow morning based on his recommendation.
[2017-06-09 05:10] LABS: Anion Gap 12 mmol/L (10-20); BUN (Urea Nitrogen) 49 mg/dL (9.8-20.1); BUN/Creatinine Ratio 15.66; Calc. Creatinine Clearance 29 mL/min (70-130); Calcium 7.9 mg/dL (7.8-10.44); Carbon Dioxide 23 mmol/L (23-31); Chloride 108 mmol/L (98-107); Estimated GFR-MDRD 15; Iron 37 ug/dL (50-170); Phosphorus 5.9 mg/dL (2.3-4.7)
[2017-06-09 05:12] LABS: Iron 40 ug/dL (50-170)
[2017-06-09] MEDS: Piperacillin/Tazobactam 3.375 GM in Sodium Chloride 0.9% 100 ML IVPB SCH (05:34)
[2017-06-09] MEDS: NIFEdipine XL 60 MG TAB PO SCH (09:08)
[2017-06-09] MEDS: Carvedilol 6.25 MG TAB PO SCH ×2 (09:08→18:23)
[2017-06-09] MEDS: Furosemide 40 MG TAB PO SCH ×2 (09:08→14:54)
[2017-06-09] MEDS: Calcium Carbonate 500 MG ChewTAB PO SCH ×3 (09:08→21:12)
[2017-06-09] MEDS: Calcitriol 0.25 MCG CAP PO SCH (09:08)
[2017-06-09] MEDS: Enoxaparin Sodium 30 MG/0.3 ML SYRINGE SC SCH (09:09)
[2017-06-09] MEDS: Atorvastatin Calcium 20 MG TAB PO SCH (09:09)
[2017-06-09] MEDS: Oxymetazoline HCl 0.05% ( 15 ML ) NASAL SCH ×2 (09:10→21:12)
[2017-06-09] MEDS ORDERED: Epoetin (ESRD) 20,000 UNITS/ML SC SCH (10:00)
--- NOTE | 2017-06-09 10:16 | PRG ---
DATE OF SERVICE: 06/09/2017 SUBJECTIVE: The patient was seen and examined, still concerned with peripheral edema and weight gain noted. PHYSICAL EXAMINATION: VITAL SIGNS: Afebrile with temperature 98.3, pulse 63, respiratory rate 20, O2 sat 93% with blood pr essure 153/66. HEENT EXAMINATION: Unremarkable with moist oral mucosa. Neck is supple. No conjunctival injection or icterus. CARDIOVASCULAR: First and second heart sounds were heard. RESPIRATORY: Clear to auscultation. DIGESTIVE: Revealed an obese abdomen. EXTREMITIES: Showed bilateral 2+ lower extremity edema. NEUROLOGIC: Alert and oriented. No lateralizing signs. LYMPHATICS: No peripheral lymphadenopathy. LABORATORY INVESTIGATIONS: Showed a creatinine of 3.13. IMPRESSION: 1. Moderately advanced chronic kidney disease stage 4. 2. Hypervolemia in the context of nephrotic syndrome due to problem #3. 3. Diabetic nephropathy. 4. Morbid obesity. PLAN: 1. Discontinue antibiotic treatments, Zosyn. 2. Renally dose all medications. 3. Continue other renal supportive measures. 4. Further management to be dependent on the clinical course. Condition of the patient at this time of dictation is guarded.
--- NOTE | 2017-06-09 18:00 | PDOC.PN ---
- Subjective Encounter Start Date: 06/09/17 Encounter Start Time: 17:50 Subjective: f/u for LE edema and Nephrotic syndrome on current Lasix 40mg BID. -: Renal function worsening. No SOB, fever. - Objective MAR Reviewed: Yes Vital Signs & Weight: Vital Signs (12 hours) Temp Pulse Resp BP Pulse Ox 06/09/17 15:56 97.9 F 67 18 141/65 H 95 06/09/17 11:02 97.7 F 68 16 149/69 H 94 L 06/09/17 09:08 98.3 F 63 20 06/09/17 07:20 98.3 F 63 20 159/74 H 93 L Weight Weight 225 lb I&O: 06/08/17 06/09/17 06/10/17 06:59 06:59 06:59 Intake Total 400 1420 Output Total 800 1600 Balance -400 -180 Result Diagrams: 06/06/17 03:50 06/09/17 04:04 Additional Labs: Accuchecks 06/09/17 06/09/17 06/08/17 17:09 11:05 21:34 POC Glucose 150 H 162 H 175 H Microbiology 06/04/17 19:42 Urine voided Urine Culture - Final Escherichia coli 06/04/17 18:40 Nasal swab Influenza Types A,B Direct EIA - Final Laboratory Tests 06/04/17 06/04/17 06/05/17 18:45 18:45 04:08 Hgb 10.1 L Creatinine 2.36 H 2.26 H Iron Ferritin 06/05/17 06/06/17 06/07/17 04:08 03:50 04:16 Hgb 9.7 L Creatinine 2.52 H 2.82 H Iron Ferritin 06/08/17 06/09/17 06/09/17 07:28 04:04 04:04 Hgb Creatinine 3.09 H Iron 37 L 40 L Ferritin 06/09/17 04:04 Hgb Creatinine Iron Ferritin 93.46 Radiology Reviewed by me: Yes (Echo - EF 60%, mild LAE) EKG Reviewed by me: Yes (Tele - SR) Phys Exam - Physical Examination Constitutional: NAD HEENT: PERRLA, oral pharynx no lesions Neck: no JVD, supple Respiratory: no wheezing, clear to auscultation bilateral Cardiovascular: RRR Gastrointestinal: soft, non-tender, no distention, positive bowel sounds 3+ Musculoskeletal: pulses present, edema present Neurological: normal sensation, moves all 4 limbs Psychiatric: A&O x 3 Skin: normal turgor, cap refill <2 seconds Dx/Plan (1) NOLA (acute kidney injury) Code(s): N17.9 - ACUTE KIDNEY FAILURE, UNSPECIFIED Status: Acute Comment: ? new baseline GFR, concern for needing HD in the near future (2) Nephrotic syndrome Code(s): N04.9 - NEPHROTIC SYNDROME WITH UNSPECIFIED MORPHOLOGIC CHANGES Status: Acute Comment: Follow renal function closely, Lasix 40mg BID (3) UTI (urinary tract infection) Status: Acute Qualifiers: Urinary tract infection type: acute cystitis Hematuria presence: without hematuria Qualified Code(s): N30.00 - Acute cystitis without hematuria Comment: Abx on hold (4) CKD (chronic kidney disease) stage 3, GFR 30-59 ml/min Status: Chronic Comment: ? NOLA on CKD. Nephrology following closely, may be a dialysis candidate in the future (5) DM type 2 (diabetes mellitus, type 2) Status: Chronic Qualifiers: Diabetes mellitus complication status: with kidney complications Diabetes mellitus complication detail: with chronic kidney disease Diabetes mellitus superintendent terminal insulin use: without group home use Chronic kidney disease stage: stage 3 (moderate) Qualified Code(s): E11.22 - Type 2 diabetes mellitus with diabetic chronic kidney disease; N18.3 - Chronic kidney disease, stage 3 ( moderate); N18.3 - Chronic kidney disease, stage 3 (moderate) Comment: Last A1C 5.3 (04/22), ISS - Plan out of bed/ambulate Renal function declining, d/w with Nephrology, may be new baseline -: Renal dose all meds -: D/C Lovenox -: OOB/ambulate -: AM lab: BMP * .
[2017-06-10 05:23] LABS: Anion Gap 12 mmol/L (10-20); BUN (Urea Nitrogen) 53 mg/dL (9.8-20.1); Calc. Creatinine Clearance 31 mL/min (70-130); Carbon Dioxide 22 mmol/L (23-31); Chloride 109 mmol/L (98-107); Estimated GFR-MDRD 16
[2017-06-10] MEDS: Oxymetazoline HCl 0.05% ( 15 ML ) NASAL SCH ×2 (09:02→21:48)
[2017-06-10] MEDS: Calcium Carbonate 500 MG ChewTAB PO SCH ×3 (09:03→21:47)
[2017-06-10] MEDS: Carvedilol 6.25 MG TAB PO SCH ×2 (09:03→17:01)
[2017-06-10] MEDS: Furosemide 40 MG TAB PO SCH ×2 (09:03→15:32)
[2017-06-10] MEDS: NIFEdipine XL 60 MG TAB PO SCH (09:03)
[2017-06-10] MEDS: Calcitriol 0.25 MCG CAP PO SCH (09:03)
[2017-06-10] MEDS: Atorvastatin Calcium 20 MG TAB PO SCH (09:03)
--- NOTE | 2017-06-10 17:19 | PRG ---
DATE OF SERVICE: 06/10/2017 SUBJECTIVE: The patient was seen and examined with no new complaint, noted with the following vital signs. OBJECTIVE: VITAL SIGNS: Afebrile with temperature 97.9, heart rate of 71, respiratory rate of 16, O2 sat of 93% with blood pressure 169/76. HEENT: Unremarkable. Moist oral mucosa. No conjunctival injection or icterus. NECK: Supple. CARDIOVASCULAR SYSTEM: First and second heart sounds were heard. RESPIRATORY SYSTEM: Clear to auscultation. DIGESTIVE SYSTEM: Revealed a benign abdomen with positive bowel sounds. EXTREMITIES: No peripheral edema. SKIN: No new gross rash. LYMPHATICS: No peripheral lymphadenopathy. EXTREMITIES: Showed 2+ bilateral lower extremity edema. LABORATORY INVESTIGATIONS: Showed a creatinine of 2.94 with BUN of 53. IMPRESSION: 1. Advanced chronic kidney disease, stage 4 in the context of problem #2. 2. Diabetic nephropathy. 3. Morbid obesity. 4. Hypervolemia in the context of nephrotic syndrome. PLAN: 1. Continue with the current regimen. 2. Very close outpatient Nephrology followup strongly recommended. 3. Low salt diet. 4. Further management will be dependent on the clinical course. 5. Increase the Procardia from 60 mg to 90 mg to improve the blood pressure control.
--- NOTE | 2017-06-10 19:36 | PDOC.PN ---
- Subjective Encounter Start Date: 06/10/17 Encounter Start Time: 17:50 Subjective: f/u for NOLA/CKD with nephrotic syndrome on Lasix. c/o some SOB and -: anxiety relieved with ambulating in halls. - Objective MAR Reviewed: Yes Vital Signs & Weight: Vital Signs (12 hours) Temp Pulse Resp BP Pulse Ox 06/10/17 15:51 97.7 F 72 18 169/95 H 93 L 06/10/17 11:10 98.1 F 71 16 169/76 H 93 L 06/10/17 09:45 153/92 H 96 06/10/17 09:03 70 06/10/17 07:35 97.7 F 70 16 Weight Weight 225 lb 12.8 oz I&O: 06/09/17 06/10/17 06/11/17 06:59 06:59 06:59 Intake Total 1420 1590 650 Output Total 1600 950 800 Balance -180 640 -150 Result Diagrams: 06/06/17 03:50 06/10/17 03:57 Additional Labs: Accuchecks 06/10/17 06/09/17 11:17 22:38 POC Glucose 141 H 112 H Microbiology 06/04/17 19:42 Urine voided Urine Culture - Final Escherichia coli 06/04/17 18:40 Nasal swab Influenza Types A,B Direct EIA - Final Laboratory Tests 06/04/17 06/04/17 06/05/17 18:45 18:45 04:08 Hgb 10.1 L Creatinine 2.36 H 2.26 H Iron Ferritin 06/05/17 06/06/17 06/07/17 04:08 03:50 04:16 Hgb 9.7 L Creatinine 2.52 H 2.82 H Iron Ferritin 06/08/17 06/09/17 06/09/17 07:28 04:04 04:04 Hgb Creatinine 3.09 H 3.13 H Iron 37 L 40 L Ferritin 06/09/17 04:04 Hgb Creatinine Iron Ferritin 93.46 EKG Reviewed by me: Yes (Tele - SR in 80's) Phys Exam - Physical Examination anxious, responsive HEENT: PERRLA, oral pharynx no lesions Neck: no JVD, supple Respiratory: no wheezing, clear to auscultation bilateral Cardiovascular: RRR Gastrointestinal: soft, non-tender, no distention, positive bowel sounds marked edema of LE's Musculoskeletal: pulses present, edema present Neurological: normal sensation, moves all 4 limbs Psychiatric: A&O x 3 Skin: normal turgor, cap refill <2 seconds Dx/Plan (1) NOLA (acute kidney injury) Code(s): N17.9 - ACUTE KIDNEY FAILURE, UNSPECIFIED Status: Acute Comment: ? new baseline GFR, concern for needing HD in the near future (2) Nephrotic syndrome Code(s): N04.9 - NEPHROTIC SYNDROME WITH UNSPECIFIED MORPHOLOGIC CHANGES Status: Acute Comment: Follow renal function closely, Lasix 40mg BID (3) UTI (urinary tract infection) Status: Acute Qualifiers: Urinary tract infection type: acute cystitis Hematuria presence: without hematuria Qualified Code(s): N30.00 - Acute cystitis without hematuria Comment: Abx on hold (4) CKD (chronic kidney disease) stage 3, GFR 30-59 ml/min Status: Chronic Comment: ? NOLA on CKD. Nephrology following closely, may be a dialysis candidate in the future (5) DM type 2 (diabetes mellitus, type 2) Status: Chronic Qualifiers: Diabetes mellitus complication status: with kidney complications Diabetes mellitus complication detail: with chronic kidney disease Diabetes mellitus penitentiary insulin use: without meat carver use Chronic kidney disease stage: stage 3 (moderate) Qualified Code(s): E11.22 - Type 2 diabetes mellitus with diabetic chronic kidney disease; N18.3 - Chronic kidney disease, stage 3 ( moderate); N18.3 - Chronic kidney disease, stage 3 (moderate) Comment: Last A1C 5.3 (04/22), ISS (6) Anxiety Code(s): F41.9 - ANXIETY DISORDER, UNSPECIFIED Status: Acute Comment: Trial Xanax 0.25mg BID - Plan out of bed/ambulate, DVT proph w/SCDs Stable overall -: Watch renal function closely -: ? HD candidate in near future -: OOB/ambulate -: Lasix 40mg po BID * AM lab: BMP * Likely home in 24h
[2017-06-10] MEDS: ALPRAZolam 0.25 MG TAB PO PRN (21:47)
[2017-06-11 06:42] LABS: Anion Gap 12 mmol/L (10-20); BUN (Urea Nitrogen) 54 mg/dL (9.8-20.1); Calc. Creatinine Clearance 31 mL/min (70-130); Calcium 8.5 mg/dL (7.8-10.44); Carbon Dioxide 24 mmol/L (23-31); Chloride 109 mmol/L (98-107); Estimated GFR-MDRD 16
[2017-06-11] MEDS ORDERED: Metolazone 5 MG TAB PO SCH (09:00)
[2017-06-11] MEDS ORDERED: Furosemide 100 MG/10 ML VIAL SLOW IVP SCH (09:00)
[2017-06-11] MEDS: NIFEdipine XL 90 MG TAB PO SCH (09:19)
[2017-06-11] MEDS: Calcitriol 0.25 MCG CAP PO SCH (09:20)
[2017-06-11] MEDS: Atorvastatin Calcium 20 MG TAB PO SCH (09:20)
[2017-06-11] MEDS: Carvedilol 6.25 MG TAB PO SCH ×2 (09:20→17:20)
[2017-06-11] MEDS: Calcium Carbonate 500 MG ChewTAB PO SCH ×3 (09:20→20:51)
[2017-06-11] MEDS: Oxymetazoline HCl 0.05% ( 15 ML ) NASAL SCH ×2 (09:20→20:50)
--- NOTE | 2017-06-11 09:32 | PRG ---
DATE OF SERVICE: 06/11/2017 The patient was seen and examined today, still having significant shortness of breath on minimal exer tion. Very concerned about her weight and leg swelling. PHYSICAL EXAMINATION: VITAL SIGNS: Afebrile with temperature 98.2, pulse 71, respiratory rate 20, O2 sat of 92% with blood pressure 137/66. HEENT: Unremarkable. CARDIOVASCULAR: First and second heart sounds were heard. RESPIRATORY: Clear to auscultation anteriorly. ABDOMEN: Digestive system revealed an obese abdomen. EXTREMITIES: Showed 3+ lower extremity edema. LYMPHATICS: No peripheral lymphadenopathy. LABORATORY INVESTIGATIONS: Showed a creatinine of 2.9. IMPRESSION: 1. Hypervolemia in the context of nephrotic syndrome due to problem #2. 2. Diabetic nephropathy. 3. Advanced chronic kidney disease stage 4. 4. Morbid obesity. PLAN: 1. We will escalate this patient's diuretics and start her on IV diuretics to circumvent absorptive limiting effect of congestive gastroenteropathy to oral diuretics. 2. Further management to be dependent on the clinical course.
--- NOTE | 2017-06-11 10:22 | PDOC.PN ---
- Subjective Encounter Start Date: 06/11/17 Encounter Start Time: 10:00 Subjective: f/u for NOLA/CKD with nephrotic syndrome. Slow progress with diuresis -: with transition to IV Lasix today. Feels tired and weak. No CP. -: Anxiety improved. - Objective MAR Reviewed: Yes Vital Signs & Weight: Vital Signs (12 hours) Temp Pulse Resp BP Pulse Ox 06/11/17 09:19 71 06/11/17 08:00 98.2 F 71 20 06/11/17 07:22 98.2 F 71 20 137/66 92 L 06/11/17 04:45 98.1 F 72 18 135/60 92 L 06/10/17 23:05 98.2 F 79 18 141/66 H 92 L Weight Weight 226 lb 3.2 oz I&O: 06/10/17 06/11/17 06/12/17 06:59 06:59 06:59 Intake Total 1590 1380 Output Total 950 2350 Balance 640 -970 Result Diagrams: 06/06/17 03:50 06/11/17 06:09 Additional Labs: Accuchecks 06/11/17 06/10/17 06/10/17 05:00 20:58 11:17 POC Glucose 137 H 151 H 141 H Microbiology 06/04/17 19:42 Urine voided Urine Culture - Final Escherichia coli 06/04/17 18:40 Nasal swab Influenza Types A,B Direct EIA - Final Laboratory Tests 06/04/17 06/04/17 06/05/17 18:45 18:45 04:08 Hgb 10.1 L Carbon Dioxide Creatinine 2.36 H 2.26 H Iron Ferritin 06/05/17 06/06/17 06/07/17 04:08 03:50 04:16 Hgb 9.7 L Carbon Dioxide Creatinine 2.52 H 2.82 H Iron Ferritin 06/08/17 06/09/17 06/09/17 07:28 04:04 04:04 Hgb Carbon Dioxide Creatinine 3.09 H 3.13 H Iron 37 L 40 L Ferritin 06/09/17 06/10/17 04:04 03:57 Hgb Carbon Dioxide 22 L Creatinine 2.94 H Iron Ferritin 93.46 EKG Reviewed by me: Yes (Tele - SR) Phys Exam - Physical Examination Constitutional: NAD HEENT: PERRLA, oral pharynx no lesions Neck: no JVD, supple diminished in bases Respiratory: no wheezing Cardiovascular: RRR Gastrointestinal: soft, non-tender, no distention, positive bowel sounds 3+ LE edema Musculoskeletal: pulses present, edema present Neurological: normal sensation, moves all 4 limbs Psychiatric: A&O x 3 Skin: normal turgor, cap refill <2 seconds Dx/Plan (1) NOLA (acute kidney injury) Code(s): N17.9 - ACUTE KIDNEY FAILURE, UNSPECIFIED Status: Acute Comment: ? new baseline GFR, concern for needing HD in the near future, Lasix 80mg IV q12h (2) Nephrotic syndrome Code(s): N04.9 - NEPHROTIC SYNDROME WITH UNSPECIFIED MORPHOLOGIC CHANGES Status: Acute Comment: Follow renal function closely, Lasix 80mg IV q12h (3) UTI (urinary tract infection) Status: Acute Qualifiers: Urinary tract infection type: acute cystitis Hematuria presence: without hematuria Qualified Code(s): N30.00 - Acute cystitis without hematuria Comment: Abx on hold (4) CKD (chronic kidney disease) stage 3, GFR 30-59 ml/min Status: Chronic Comment: ? NOLA on CKD. Nephrology following closely, may be a dialysis candidate in the future (5) DM type 2 (diabetes mellitus, type 2) Status: Chronic Qualifiers: Diabetes mellitus complication status: with kidney complications Diabetes mellitus complication detail: with chronic kidney disease Diabetes mellitus petroleum terminal plant operator insulin use: without petroleum terminal plant operator use Chronic kidney disease stage: stage 3 (moderate) Qualified Code(s): E11.22 - Type 2 diabetes mellitus with diabetic chronic kidney disease; N18.3 - Chronic kidney disease, stage 3 ( moderate); N18.3 - Chronic kidney disease, stage 3 (moderate) Comment: Last A1C 5.3 (04/22), ISS (6) Anxiety Code(s): F41.9 - ANXIETY DISORDER, UNSPECIFIED Status: Acute Comment: Trial Xanax 0.25mg BID, improved - Plan out of bed/ambulate Continue diuresis with Lasix 80mg IV q12h -: Continue Coreg 6.25mg BID -: Continue Nifedipine 90mg daily -: OOB/ambulate -: AM lab: BMP * .
[2017-06-11] MEDS: Furosemide 100 MG/10 ML VIAL SLOW IVP SCH (14:11)
[2017-06-11] MEDS: ALPRAZolam 0.25 MG TAB PO PRN (20:52)
[2017-06-12] MEDS: Furosemide 100 MG/10 ML VIAL SLOW IVP SCH (05:43)
[2017-06-12] MEDS: HYDROcodone/Acetaminophen 5/325 mg Tablet PO PRN (05:49)
[2017-06-12 05:59] LABS: Anion Gap 12 mmol/L (10-20); BUN (Urea Nitrogen) 56 mg/dL (9.8-20.1); Calc. Creatinine Clearance 30 mL/min (70-130); Calcium 8.2 mg/dL (7.8-10.44); Carbon Dioxide 23 mmol/L (23-31); Chloride 107 mmol/L (98-107); Estimated GFR-MDRD 15
[2017-06-12 07:30] VITALS: BP 160/70; TEMP 97.7
[2017-06-12] MEDS: Carvedilol 6.25 MG TAB PO SCH (08:50)
[2017-06-12] MEDS: Oxymetazoline HCl 0.05% ( 15 ML ) NASAL SCH (08:51)
[2017-06-12] MEDS: NIFEdipine XL 90 MG TAB PO SCH (08:51)
[2017-06-12] MEDS: Calcitriol 0.25 MCG CAP PO SCH (08:51)
[2017-06-12] MEDS: Atorvastatin Calcium 20 MG TAB PO SCH (08:51)
[2017-06-12] MEDS: Calcium Carbonate 500 MG ChewTAB PO SCH (08:51)
--- NOTE | 2017-06-12 12:27 | DIS ---
DATE OF ADMISSION: 06/07/2017 DATE OF DISCHARGE: 06/12/2017 DISCHARGE DIAGNOSES: 1. Acute kidney injury on chronic kidney disease stage 3-4. 2. Nephrotic syndrome. 3. Lower extremity edema secondarily to #1. 4. Question of acute cystitis with Escherichia coli. 5. Question of diabetes mellitus type 2 with hemoglobin A1c 5.3. 6. Morbid obesity. 7. Anxiety disorder. 8. Hypertension, labile. CONSULTATIONS: Dr. Harvey Ramirez with Nephrology Service. Dr. Toney Selby with Infectious D isease Service. PERTINENT LAB AND X-RAY FINDINGS: Creatinine ranged between 2.26-3.13, estimated GFR ranging between 15-21, phosphorus 5.3, magnesium 1.9, troponin I negative x3. BNP 41, lipase 19, albumin ranged bet ween 2.5-2.8, hemoglobin ranged between 9.7-10.1. Influenza A and B antigen 06/04/2017 negative. Ur ine culture dated 06/04/2017 showed greater than 100,000 colonies of E. coli. Portable chest x-ray d ated 06/04/2017 showed cardiomegaly with mild pulmonary edema. CT of the abdomen and pelvis dated showed mild right hydronephrosis and hydroureter, uncertain etiology. No renal or ureteral calculi identified. Bilateral perinephric stranding. Small right pleural effusion with passive atel ectasis. Gas noted in the urinary bladder consistent with prior catheterization. A 2D transthoracic echocardiogram dated 06/05/2017 showed ejection fraction of 60% to 65%. Moderate left atrial enlarg ement. Moderate elevated pulmonary artery pressure. HOSPITAL COURSE: The patient was initially admitted after presenting with increasing bilateral lower extremity edema with associated dyspnea and initial concern for congestive heart failure. The patie nt was placed on IV Lasix therapy and monitored for clinical improvement. The patient with a known b aseline chronic kidney disease stage 3-4, showing evidence of acute kidney injury with worsening daria l function, necessitating evaluation by the Nephrology Service. The patient was evaluated by the Nep hrology Service and treated with Lasix throughout the hospital course with varying p.o. and IV compon ents. The patient had minimal improvement in overall renal function without significant change and d aily weights. The patient's overall lower extremity edema with mild improvement with diuretic therap y; however, no specific etiology identified likely multifactorial nephrotic syndrome. No specific ev idence to suggest cardiac etiology of lower extremity edema as 2D transthoracic echocardiogram showed an ejection fraction of 60% to 65% range. Overall, the patient remained clinically stable through t he remainder of the hospital course and ready for discharge on 06/12/2017. DISCHARGE MEDICATIONS: 1. Lasix 40 mg 1 tablet p.o. b.i.d. 2. Xanax 0.25 mg p.o. b.i.d., #30 given, no refills. 3. Aspirin 81 mg p.o. daily. 4. Lipitor 20 mg p.o. at bedtime. 5. Calcium carbonate 1000 mg p.o. t.i.d. 6. Coreg 6.25 mg p.o. b.i.d. 7. Procardia XL 90 mg p.o. daily. 9. Oxymetazoline 1 spray in each naris b.i.d. p.r.n. FOLLOWUP: The patient will follow up with her primary care provider, Dr. Janeth Echols within 7 days of discharge. Patient will follow up with Dr. Harvey Ramirez within 7 days of discharge. CONDITION ON DISCHARGE: Stable. ACTIVITY: Ad tevin. DIET: ADA and heart healthy. CODE STATUS: FULL. DISPOSITION: Home 06/12/2017. Total time preparing and coordinating this discharge is 35 minutes.
== END 2017-06-12 13:55 | disposition home or self-care (01) | DRG 682 ==
LOC: ERS 18:05 → 2SW 22:43 → OBSVTOIN 06-07 14:42 → 2NO 06-11 16:31
PROVIDERS: ADMIT Internal Medicine; ATTEND Internal Medicine
DX: N17.9 Acute kidney failure, unspecified (principal); I50.33 Acute on chronic diastolic (congestive) heart failure; J96.21 Acute and chronic respiratory failure with hypoxia; J91.8 Pleural effusion in other conditions classified elsewhere; I13.0 Hypertensive heart and chronic kidney disease with heart failure and stage 1 through stage 4 chronic kidney disease, or unspecified chronic kidney disease; Z68.42 Body mass index [BMI] 45.0-49.9, adult; J98.11 Atelectasis; E11.22 Type 2 diabetes mellitus with diabetic chronic kidney disease; N04.9 Nephrotic syndrome with unspecified morphologic changes; E66.01 Morbid (severe) obesity due to excess calories; N30.90 Cystitis, unspecified without hematuria; E83.39 Other disorders of phosphorus metabolism; E87.5 Hyperkalemia; E87.70 Fluid overload, unspecified; N13.6 Pyonephrosis; J20.9 Acute bronchitis, unspecified; N18.9 Chronic kidney disease, unspecified; G47.33 Obstructive sleep apnea (adult) (pediatric); K57.30 Diverticulosis of large intestine without perforation or abscess without bleeding; F41.9 Anxiety disorder, unspecified; B96.20 Unspecified Escherichia coli [E. coli] as the cause of diseases classified elsewhere; Z90.49 Acquired absence of other specified parts of digestive tract; Z87.891 Personal history of nicotine dependence; Z16.24 Resistance to multiple antibiotics; Z83.3 Family history of diabetes mellitus; Z82.3 Family history of stroke
CPT/HCPCS: 36415; 36416; 71020; 74176; 80048; 80053; 80069; 81003; 81015; 82553; 82728; 83540; 83550; 83690; 83735; 83880; 84484; 85025; 87077; 87086; 87186; 93005; 93306; 94760; 96374; A4216; J1650; J1940; J2185; J2543; J7050; Q4081

== ENCOUNTER 2017-06-15 19:49 | Inpatient (IN) | payer MEDICARE ==
[2017-06-15] MEDS ORDERED: Naloxone HCl 0.4 mg/ml Vial ONE (20:46)
[2017-06-15 20:57] LABS: #Eosinphils 0.1 thou/uL (0.0-0.7); #Lymphocytes 1.7 thou/uL (1.20-3.40); #Monocytes 0.9 thou/uL (0.11-0.59); #Neutrophils 11.7 thou/uL (1.40-6.50); %Basophils 0.3 % (0.0-1.0); %Eosinophils 0.5 % (0.0-10.0); %Lymphocytes 11.7 % (21.0-51.0); %Monocytes 6.3 % (0.0-10.0); %Neutrophils 81.3 % (42.0-75.0); Hemoglobin 9.8 g/dL (12.0-16.0); Mean Corpuscular HGB CONC 32.6 g/dL (32.0-36.0); Mean Corpuscular Hemoglobin 29.6 pg (27.0-31.0); Mean Corpuscular Volume 90.9 fl (81.0-99.0); Mean Platelet Volume 7.6 fL (7.4-10.4); Platelet Count 269 thou/uL (130-400); RBC Distribution Width 13.4 % (11.5-14.5); Red Blood Cell (RBC) Count 3.32 mill/uL (4.20-5.40); White Blood Cell (WBC) Count 14.4 thou/uL (4.8-10.8)
[2017-06-15 21:18] LABS: ALT (SGPT) 16 U/L (8-55); AST (SGOT) 20 U/L (5-34); Albumin 3.2 g/dL (3.4-4.8); Alkaline Phosphatase 233 U/L (40-150); Anion Gap 16 mmol/L (10-20); BUN (Urea Nitrogen) 69 mg/dL (9.8-20.1); Bilirubin, Total 0.4 mg/dL (0.2-1.2); CK (CPK) 91 U/L (29-168); Calc. Creatinine Clearance 0 mL/min (70-130); Calcium 7.5 mg/dL (7.8-10.44); Carbon Dioxide 20 mmol/L (23-31); Chloride 102 mmol/L (98-107); Estimated GFR-MDRD 12; Globulin 4.4 g/dL (2.4-3.5); Glucose 189 mg/dL (80-115); Lipase 19 U/L (8-78); Magnesium 2.2 mg/dL (1.6-2.6); Protein, Total 7.6 g/dL (6.0-8.3); Sodium 133 mmol/L (136-145)
[2017-06-15 21:21] LABS: CKMB 1.3 ng/mL (0-6.6)
[2017-06-15 21:29] LABS: Acetaminophen Less than 6.0 mcg/mL (10.0-30.0); Alcohol Less than 10 mg/dL (Less than 10); Salicylate Less than 8.0 mg/dL (15.0-30.0)
[2017-06-15 21:34] LABS: pH, Arterial 7.26 (7.35-7.45)
[2017-06-15 21:35] LABS: Actual Bicarbonate (HCO3a) 23.2 mEq/L (22-26); CO2 Tension 53.1 mmHg (35.0-45.0); Hematocrit-ABG 31.6 % (36.0-47.0); Hemoglobin (Hb) 9.4 g/dL (12.0-16.0); O2 Tension (PaO2) 55.8 mmHg (80.0-100.0)
[2017-06-15 21:36] LABS: ALV-art Gradient 104.385 (0-20); Analyzer IN Cardio ER; Puncture Site RRA
[2017-06-15] MEDS ORDERED: Furosemide 40 MG/4 ML VIAL ONE (21:47)
--- NOTE | 2017-06-15 21:47 | RAD ---
RIGHT FRONTAL CHEST: Date: 06/15/17 COMPARISON: 12/23/16. HISTORY: Syncope, collapse. FINDINGS: There is new interstitial opacity in the perihilar regions and both lung bases, right greater than le ft. There is also new subtle air space disease suspected in the right lung base and bilateral perihil ar regions. The cardiac silhouette is prominent, a stable finding. IMPRESSION: Findings suggesting interval development of interstitial and mild alveolar pulmonary edema. Infection or aspiration cannot be excluded. Recommend follow-up imaging following treatment to document resolu tion. POS: [facility]
--- NOTE | 2017-06-15 21:48 | CT ---
HEAD CT WITHOUT CONTRAST: Date: 06/15/17 COMPARISON: 11/11/13. HISTORY: Altered mental status. TECHNIQUE: Serial axial CT imaging at 5 mm intervals from vertex through skull base without contrast. FINDINGS: Mild mucosal thickening noted involving bilateral ethmoid air cells and right maxillary sinus. No dis placed calvarial fracture seen. No intracranial hemorrhage, midline shift, mass effect, or ventricular enlargement. IMPRESSION: No acute findings. POS: [facility]
[2017-06-15 22:13] LABS: Bilirubin Negative (Negative); Blood, Urine Small (Negative); Clarity TURBID (Clear); Glucose, Urine (Dipstick) 250 mg/dL (Negative); Leukocyte Small (Negative); Nitrite Negative (Negative); Protein, Urine (Dipstick) > or equal to 300 mg/dL (Neg-Trace); Specific Gravity, Urine 1.024 (1.002-1.036); Urobilinogen 0.2 mg/dL (0.2-1.0); pH, Urine 5.5 (5.0-9.0)
--- NOTE | 2017-06-15 22:16 | CT ---
CT OF CHEST NONCONTRAST: Date: 06/15/17 INDICATION: Syncopal episode. FINDINGS: There is a mild right pleural effusion and minimal left pleural fluid. Multifocal bilateral alveolar consolidation is present indicative of atypical, multifocal, bilateral pneumonia. There is component of nodularity to the alveolar opacification. No pneumothorax. There is mild pericardial fluid. Region al soft tissues, including vasculature and lymph nodes, are limited in assessment by noncontrast tech nique. There is mild enlargement of regional, thoracic lymph nodes involving the thorax, as well as t he imaged base of neck. Scattered vascular disease noted. Evidence of prior cholecystectomy. There is osseous degenerative change. IMPRESSION: 1. Multifocal bilateral alveolar opacification consistent with multifocal atypical pneumonia of the lungs, bilaterally. Given the presence of nodularity, imaging follow-up to confirm resolution, if nec essary, as underlying neoplasm cannot be entirely excluded. 2. Adenopathy which may be reactive. This may be further assessed at time of short-term follow-up. 3. Bilateral pleural fluid, right greater than left. CODE T.
[2017-06-15 22:22] LABS: RBC/HPF 0-3 HPF (0-3); Squamous Epithelial 21-50 HPF (0-3); Yeast-AUWi Flag 2.8 (0-25.0)
[2017-06-15 22:25] LABS: Pathc Cast-AUWi Flag 7.13 (0-2.49)
[2017-06-15] MEDS ORDERED: Heparin 5,000 UNITS/ML VIAL ONE (22:25)
[2017-06-15 22:32] LABS: Bacteria/HPF 4+ HPF (None Seen); Hyaline Casts/LPF 0-3 HYALINE CAST LPF (0-3 Hyaline); Transitional Epithelial 0-3 HPF (0-3); Yeast-All Forms None Seen HPF (None Seen)
[2017-06-15 22:33] LABS: Other Casts/LPF 7-10 COARSE GRAN LPF (0-3 Hyaline)
[2017-06-15 22:38] LABS: Amphetamine Not Detected (NotDetected); Barbiturates Screen Not Detected (NotDetected); Benzodiazepine Screen Not Detected (NotDetected); Cocaine Metabolite Screen Not Detected (NotDetected); Medtox Control Line Valid? VALID (VALID); Medtox Reader # READER 1; Methadone Not Detected (NotDetected); Methamphetamine Not Detected (NotDetected); Opiate Screen Not Detected (NotDetected); Oxycodone Screen Not Detected (NotDetected); Phencyclidine (PCP) Not Detected (NotDetected); THC/Cannabinoid Screen Not Detected (NotDetected); Tricyclic Screen Not Detected (NotDetected)
[2017-06-15] MEDS ORDERED: Morphine 4 MG/ML VIAL ONE (23:54)
[2017-06-15] MEDS ORDERED: Ondansetron HCl/PF 4 MG/2 ML Vial ONE (23:54)
--- NOTE | 2017-06-15 23:54 | ULT ---
BILATERAL LOWER EXTREMITY VENOUS DOPPLER ULTRASOUND: Date: 06/15/17 COMPARISON: None. HISTORY: Shortness of breath, swelling, edema of lower extremities. TECHNIQUE: Multiplanar Grier scale sonographic imaging of the venous structures of bilateral lower extremities ob tained with color flow and spectral analysis. FINDINGS: Bilateral common femoral veins, femoral veins, popliteal veins, greater saphenous veins, profunda fem oral veins, posterior tibial veins, and anterior tibial veins are patent. Normal blood flow, augmenta tion, and compression noted within the deep venous system bilaterally. IMPRESSION: No evidence for deep venous thrombosis of either lower extremity. POS: [facility]
[2017-06-16] MEDS ORDERED: Ondansetron ODT 4 MG TAB SL PRN (02:08)
[2017-06-16] MEDS ORDERED: Ondansetron HCl/PF 4 MG/2 ML Vial IVP PRN (02:08)
[2017-06-16] MEDS ORDERED: Nitroglycerin 0.4 MG TAB (25 Tab Bottle) PO PRN (04:07)
[2017-06-16] MEDS ORDERED: Dextrose 5% in Water 1,000 ML IV PRN (04:07)
[2017-06-16] MEDS ORDERED: Dextrose 50% Abboject 50 ML SYRINGE SLOW IVP PRN (04:07)
[2017-06-16] MEDS ORDERED: Insulin Regular 300 UNITS/3 ML VIAL SC PRN (04:07)
--- NOTE | 2017-06-16 04:07 | PDOC.EVN ---
Event Note - Event Note Event Note: Patient seen and examined. Note dictated. IMPRESSION: 1. Acute hypoxic Resp failure 2. HCAP - ?Pneumococcal 3. Acute/Chronic diastolic HF Full code. DPOA - family
[2017-06-16] MEDS ORDERED: Senokot 8.6 MG TAB PO PRN (04:09)
[2017-06-16] MEDS ORDERED: Eucerin (Mineral Oil/Petrolatum,White) 30 gm Jar TOP PRN (04:12)
[2017-06-16] MEDS ORDERED: Cefepime 1 GM in Sodium Chloride 0.9% 100 ML IVPB SCH (04:15)
[2017-06-16] MEDS ORDERED: Cefepime 1 GM, Admixture Fee 1 EACH in Sterile Water 10 ML SLOW IVP SCH (04:30)
--- NOTE | 2017-06-16 04:30 | HP ---
DATE OF ADMISSION: 06/15/2017 The patient was seen and examined on 06/15/2017. CHIEF COMPLAINT: Syncopal episode. HISTORY OF PRESENT ILLNESS: The patient is a 67-year-old female with chronic kidney disease stage 3, diabetes mellitus type 2, hypertension, and chronic diastolic heart failure, who presented to the em ergency room with syncopal episode. She was discharged from this facility 3 days ago. The patient had a syncopal episode earlier today while she was at home. The patient was trying to ge t up from the chair and was unable to support herself and fell down without significant injuries. Sh e denied any chest pain, palpitations. At this time, patient is on noninvasive positive pressure adrianne tilation and not much information is available. In the emergency room, initial vital signs showed temperature of 98.5, respiration of 26, pulse rate of 77 with blood pressure of 126/64 with O2 saturation of 50% on room air. Her O2 saturation improve d to 96% on nonrebreather. Blood gases in the ER showed pH of 7.26 with pCO2 of 53.1, pO2 of 55.8 wi th bicarbonate of 23.8. Creatinine was 3.65 with BUN 69. WBC count was 14.4 with left shift. Her c hest x-ray was consistent with pulmonary edema. Chest CT noncontrast showed multifocal atypical pneu monia along with bilateral pleural effusion. CT scan of the brain was negative. Bilateral lower ext remity Doppler was negative for DVT. She received Levaquin, Rocephin, 80 mg of Lasix with Narcan. P er ER record, the patient had also taken some Xanax earlier today. PAST MEDICAL HISTORY: 1. Morbid obesity. 2. Chronic diastolic heart failure. 3. Diabetes mellitus type 2. 4. Obstructive sleep apnea. 5. Chronic anemia. 6. Chronic kidney disease stage 3. 7. Recent hospitalization for acute kidney injury. 8. Anxiety. PAST SURGICAL HISTORY: 1. . 2. Cystoscopy with stent placement. 3. Cholecystectomy. ALLERGIES: No known drug allergies. CURRENT MEDICATIONS: Xanax as needed, aspirin 81 mg daily, Lipitor 20 mg daily, Carvedilol 6.25 mg b .i.d., Lasix 40 mg b.i.d., Procardia-XL 90 mg daily, oxymetazoline twice a day and Tums as needed. SOCIAL HISTORY: The patient currently lives at home with her family. No smoking, alcohol or drug us e. FAMILY HISTORY: Positive for hypertension. REVIEW OF SYSTEMS: Limited at this time due to current clinical status. PHYSICAL EXAMINATION: VITAL SIGNS: As discussed above. GENERAL: A 67-year-old female on noninvasive positive pressure ventilation. Mentation gradually imp roving. HEENT: Head atraumatic, normocephalic. Sclerae anicteric. Moist mucous membranes. No oral lesion. NECK: Supple. JVD cannot be assessed due to body habitus. No carotid bruits. LUNGS: Showed bibasilar crackles with scattered rhonchi and wheezing. Lungs were symmetrical, decre ased air entry at bases. HEART: S1, S2 present, regular, 2/6 systolic murmur over the mitral area. ABDOMEN: Soft, nontender, bowel sounds present. EXTREMITIES: Bilateral lower extremity edema 3 to 4+ without any calf tenderness. SKIN: Warm and dry. LYMPH NODES: No palpable lymph nodes in the neck. NEUROLOGIC: Grossly nonfocal, moves all four extremities. PSYCHIATRIC: The patient was confused earlier and her mentation is gradually improving. MUSCULOSKELETAL: No joint swelling or tenderness. SKIN: Warm and dry. LABORATORY FINDINGS: As discussed above. D-dimer was 1.46. Chemistries showed sodium 133 with pota ssium 5, chloride of 102, bicarbonate 20. BNP was 327, albumin of 3.2. Urinalysis showed greater th an 50 wbc's with 21 to 50 squamous cells, 4+ bacteria. Urine drug screen was negative. IMPRESSION: 1. Acute hypoxic respiratory failure secondary to volume overload/healthcare associated pneumonia. 2. Healthcare associated pneumonia. 3. Acute kidney injury on chronic kidney disease stage 3 with volume overload. 4. Acute on chronic diastolic heart failure. 5. Morbid obesity with a BMI of 46.9. 6. Diabetes mellitus type 2. 7. Obstructive sleep apnea. 8. Chronic anemia. 9. Urinary tract infection. 10. Elevated D-dimer with negative bilateral lower extremity Doppler. CT angiogram of the chest can not be obtained due to renal insufficiency. 11. Anxiety. PLAN: The patient will be monitored in the intermediate care unit. We will continue noninvasive pos itive pressure ventilation. We will initiate Lasix drip due to GFR of around 10. Nephrology and Pul monary will be consulted. Empiric antibiotics to cover for healthcare associated pneumonia. Influen za testing. We will monitor labs on a daily basis. Fluid restriction. We will resume home selected home medications. Plan of care was discussed with the patient and the family at the bedside. They stated understanding .
[2017-06-16] MEDS: Nitroglycerin 2% Ointment 1 INCH/1 GM Packet TOP SCH ×3 (04:56→20:39)
[2017-06-16 05:22] LABS: #Eosinphils 0.1 thou/uL (0.0-0.7); #Lymphocytes 2.5 thou/uL (1.20-3.40); #Monocytes 1.3 thou/uL (0.11-0.59); #Neutrophils 8.1 thou/uL (1.40-6.50); %Basophils 0.3 % (0.0-1.0); %Eosinophils 0.8 % (0.0-10.0); %Lymphocytes 20.8 % (21.0-51.0); %Monocytes 10.6 % (0.0-10.0); %Neutrophils 67.5 % (42.0-75.0); Hemoglobin 8.3 g/dL (12.0-16.0); Mean Corpuscular HGB CONC 33.4 g/dL (32.0-36.0); Mean Corpuscular Hemoglobin 30.3 pg (27.0-31.0); Mean Corpuscular Volume 90.6 fl (81.0-99.0); Mean Platelet Volume 7.5 fL (7.4-10.4); Platelet Count 222 thou/uL (130-400); RBC Distribution Width 13.3 % (11.5-14.5); Red Blood Cell (RBC) Count 2.73 mill/uL (4.20-5.40)
[2017-06-16 05:38] LABS: Albumin 2.6 g/dL (3.4-4.8); Anion Gap 11 mmol/L (10-20); BUN (Urea Nitrogen) 73 mg/dL (9.8-20.1); BUN/Creatinine Ratio 20.17; Calc. Creatinine Clearance 26 mL/min (70-130); Calcium 7.2 mg/dL (7.8-10.44); Carbon Dioxide 25 mmol/L (23-31); Chloride 104 mmol/L (98-107); Estimated GFR-MDRD 13; Glucose 110 mg/dL (80-115); Phosphorus 6.7 mg/dL (2.3-4.7); Potassium 4.8 mmol/L (3.5-5.1); Sodium 135 mmol/L (136-145)
[2017-06-16] MEDS: Famotidine/PF 20 mg/2ml Vial SLOW IVP SCH (09:14)
[2017-06-16] MEDS: Docusate 100 MG CAP PO SCH ×2 (09:14→20:39)
[2017-06-16] MEDS: Cefdinir 300 MG CAP PO SCH ×2 (09:14→20:39)
[2017-06-16] MEDS: Heparin 5,000 UNITS/ML VIAL SC SCH ×3 (09:15→20:39)
--- NOTE | 2017-06-16 09:31 | CON ---
DATE OF CONSULTATION: 06/16/2017 A 67-year-old morbidly obese female, patient, who sees Dr. Buchanan in the office. She a pparently was scheduled to see Dr. Buchanan in September. She was recently discharged from the hospital on 06/12/2017, few days ago with a discharge diagnoses of renal failure, nephrotic syndrome, edema, diab etes, obesity, anxiety, hypertension. She says she came back to the hospital yesterday feeling weak and tired. It is unclear what happened. This morning she is back awake, alert, responsive. Denies any chest pa in, chills or sweats. She is unable to correlate the exact episode of what happened yesterday except she was feeling bad. PAST MEDICAL HISTORY: Extensive past medical history includes diabetes, hypertension, sleep apnea, d id not have any insurance or money to pay for a sleep study, has never done one. Rudd's palsy, chron ic obstructive pulmonary disease, severe deconditioning. PAST SURGICAL HISTORY: Gallbladder, kidneys, stents. She has severe limitation to activity. MEDICATIONS: Her list of medicines recently discharged home on includes; Procardia-XL 90, Lasix 40 t wice a day, Coreg 6.25, calcium, atorvastatin, aspirin, Xanax. She has now been started on Maxipime. Presumed pneumonia. REVIEW OF SYSTEMS: Otherwise negative. PHYSICAL EXAMINATION: GENERAL: Awake, alert, responsive. VITAL SIGNS: Sats 90%, pulse 72, blood pressure 140/82, respirations 18. CHEST: Chest reveals decreased breath sounds without any wheezing. CARDIAC: Normal S1, S2. No gallops. X-ray shows a questionable right-sided pneumonia. LABORATORY: Shows a white count of 12,000, H&H 8 and 24, platelet count 222, PO2 55, PCO2 53, pH 7.2 6. Creatinine is 3, BUN is 73. BNP 332. IMPRESSION: 1. Right-sided pneumonia. Recent discharge from the hospital. Question whether this is pneumonia v ersus fluid overload. 2. Renal failure. 3. Chronic obstructive pulmonary disease. 4. Diabetes. 5. Nephrotic syndrome. 6. Sleep apnea. PLAN: Switch over to oral antibiotics. She does not appear to be septic. Continue neb treatments, supportive care. Early ambulation. I will follow.
--- NOTE | 2017-06-16 17:32 | PDOC.PN ---
- Subjective Encounter Start Date: 06/16/17 Encounter Start Time: 17:30 Subjective: f/u for volume overload in context of NOLA/CKD III with nephrotic syndrome -: on prior Lasix. Initially tx for acute hypoxic resp failure. - Objective Resuscitation Status: Resuscitation Status FULL:Full Resuscitation MAR Reviewed: Yes Vital Signs & Weight: Vital Signs (12 hours) Temp Pulse Resp Pulse Ox 06/16/17 15:32 98.1 F 06/16/17 14:31 73 19 98 06/16/17 11:00 98.3 F 06/16/17 07:42 98.1 F 71 19 97 06/16/17 07:00 98.1 F 06/16/17 06:00 24 H Weight Weight 232 lb 2.348 oz Most Recent Monitor Data Heart Rate from ECG 71 NIBP 149/71 NIBP BP-Mean 81 Respiration from ECG 19 SpO2 92 I&O: 06/15/17 06/16/17 06/17/17 06:59 06:59 06:59 Intake Total 10 530 Output Total 700 1095 Balance -690 -565 Result Diagrams: 06/16/17 04:56 06/16/17 04:56 Additional Labs: Accuchecks 06/16/17 11:16 POC Glucose 119 H Microbiology 06/16/17 07:13 Nasal swab Influenza Types A,B Direct EIA - Final 06/04/17 19:42 Urine voided Urine Culture - Final Escherichia coli 06/04/17 18:40 Nasal swab Influenza Types A,B Direct EIA - Final Laboratory Tests 06/04/17 06/04/17 06/05/17 18:45 18:45 04:08 WBC Hgb 10.1 L Carbon Dioxide Creatinine 2.36 H 2.26 H Phosphorus Magnesium Iron Ferritin C-Reactive Protein TSH 3rd Generation 06/05/17 06/06/17 06/07/17 04:08 03:50 04:16 WBC Hgb 9.7 L Carbon Dioxide Creatinine 2.52 H 2.82 H Phosphorus Magnesium Iron Ferritin C-Reactive Protein TSH 3rd Generation 06/08/17 06/09/17 06/09/17 07:28 04:04 04:04 WBC Hgb Carbon Dioxide Creatinine 3.09 H 3.13 H Phosphorus Magnesium Iron 37 L 40 L Ferritin C-Reactive Protein TSH 3rd Generation 06/09/17 06/10/17 06/15/17 04:04 03:57 20:38 WBC Hgb Carbon Dioxide 22 L Creatinine 2.94 H Phosphorus Magnesium Iron Ferritin 93.46 C-Reactive Protein TSH 3rd Generation 3.4120 06/15/17 06/15/17 06/16/17 20:38 20:38 04:56 WBC 14.4 H Hgb 9.8 L Carbon Dioxide Creatinine 3.65 H Phosphorus 6.7 H Magnesium 2.0 Iron Ferritin C-Reactive Protein TSH 3rd Generation 06/16/17 04:56 WBC Hgb Carbon Dioxide Creatinine Phosphorus Magnesium Iron Ferritin C-Reactive Protein 5.73 H TSH 3rd Generation Radiology Reviewed by me: Yes (PCXR - bilat pulm edema) EKG Reviewed by me: Yes (Tele - SR in 's) Phys Exam - Physical Examination Constitutional: NAD HEENT: PERRLA, oral pharynx no lesions Neck: no JVD, supple bibasilar crackles Cardiovascular: RRR Gastrointestinal: soft, non-tender, no distention, positive bowel sounds Musculoskeletal: pulses present, edema present Neurological: normal sensation, moves all 4 limbs Psychiatric: A&O x 3 Skin: normal turgor, cap refill <2 seconds Dx/Plan (1) NOLA (acute kidney injury) Code(s): N17.9 - ACUTE KIDNEY FAILURE, UNSPECIFIED Status: Acute Comment: ? new baseline GFR, concern for needing HD in the near future, Lasix 40mg IV q12h , consult Nephrology service (2) Acute on chronic diastolic (congestive) heart failure Code(s): I50.33 - ACUTE ON CHRONIC DIASTOLIC (CONGESTIVE) HEART FAILURE Status : Acute Comment: EF 60-65%, diastolic predominance and elevated pulmonary pressure, Lasix 40mg IV q12h (3) Acute on chronic respiratory failure with hypoxemia Code(s): J96.21 - ACUTE AND CHRONIC RESPIRATORY FAILURE WITH HYPOXIA Status: Acute Comment: wean O2 as tolerated (4) Nephrotic syndrome Code(s): N04.9 - NEPHROTIC SYNDROME WITH UNSPECIFIED MORPHOLOGIC CHANGES Status: Acute Comment: Follow renal function closely, Lasix 40mg IV q12h (5) CKD (chronic kidney disease) stage 3, GFR 30-59 ml/min Status: Chronic Comment: NLOA on CKD. Nephrology following closely, may be a dialysis candidate in the future (6) HTN (hypertension) Code(s): I10 - ESSENTIAL (PRIMARY) HYPERTENSION Status: Chronic Qualifiers: Hypertension type: essential hypertension Qualified Code(s): I10 - Essential (primary) hypertension (7) Morbid obesity Code(s): E66.01 - MORBID (SEVERE) OBESITY DUE TO EXCESS CALORIES Status: Chronic - Plan continue antibiotics, PT/OT, respiratory therapy, out of bed/ambulate Stable currently -: Continue Lasix 40mg IV q12h -: Continu Omnicef -: PT for functional assessment -: Nephrology consult * AM lab: BMP, CBC, Mg++
[2017-06-16] MEDS ORDERED: Furosemide 40 MG/4 ML VIAL SLOW IVP SCH (17:45)
[2017-06-17] MEDS ORDERED: Cefepime 0.5 GM, Admixture Fee 1 EACH in Sterile Water 10 ML SLOW IVP SCH (04:00)
[2017-06-17 05:19] LABS: #Eosinphils 0.2 thou/uL (0.0-0.7); #Lymphocytes 1.9 thou/uL (1.20-3.40); #Monocytes 1.4 thou/uL (0.11-0.59); #Neutrophils 7.6 thou/uL (1.40-6.50); %Basophils 0.3 % (0.0-1.0); %Eosinophils 2.2 % (0.0-10.0); %Lymphocytes 17.2 % (21.0-51.0); %Monocytes 12.3 % (0.0-10.0); %Neutrophils 67.9 % (42.0-75.0); Hemoglobin 9.1 g/dL (12.0-16.0); Mean Corpuscular HGB CONC 33.1 g/dL (32.0-36.0); Mean Corpuscular Hemoglobin 29.6 pg (27.0-31.0); Mean Corpuscular Volume 89.5 fl (81.0-99.0); Mean Platelet Volume 7.9 fL (7.4-10.4); Platelet Count 242 thou/uL (130-400); RBC Distribution Width 13.5 % (11.5-14.5); Red Blood Cell (RBC) Count 3.07 mill/uL (4.20-5.40); White Blood Cell (WBC) Count 11.1 thou/uL (4.8-10.8)
[2017-06-17] MEDS: Nitroglycerin 2% Ointment 1 INCH/1 GM Packet TOP SCH ×3 (05:35→21:54)
[2017-06-17] MEDS: Furosemide 40 MG/4 ML VIAL SLOW IVP SCH ×2 (05:42→14:29)
[2017-06-17 05:54] LABS: Albumin 2.7 g/dL (3.4-4.8); Anion Gap 14 mmol/L (10-20); BUN (Urea Nitrogen) 71 mg/dL (9.8-20.1); BUN/Creatinine Ratio 19.78; Calc. Creatinine Clearance 26 mL/min (70-130); Calcium 7.3 mg/dL (7.8-10.44); Carbon Dioxide 24 mmol/L (23-31); Chloride 104 mmol/L (98-107); Estimated GFR-MDRD 13; Glucose 104 mg/dL (80-115); Magnesium 2.1 mg/dL (1.6-2.6); Phosphorus 5.8 mg/dL (2.3-4.7); Potassium 4.5 mmol/L (3.5-5.1); Sodium 137 mmol/L (136-145)
--- NOTE | 2017-06-17 07:24 | CON ---
DATE OF CONSULTATION: 06/16/2017 CONSULTING PHYSICIAN: Dr. Harvey Ramirez. REQUESTING PHYSICIAN: Dr. Mcgovern. REASON FOR CONSULTATION: Advanced chronic kidney disease and respiratory failure. IMPRESSION: 1. Advanced chronic kidney disease, stage 4. 2. Hypervolemia in the context of nephrotic syndrome from diabetic nephropathy. 3. Morbid obesity. 4. Hypoxic respiratory failure likely in the context of obstructive sleep apnea. PLAN: 1. Patient to continue diuretics. 2. Renally dosed all medications. 3. Avoid potentially nephrotoxic agents. 4. Sleep studies slowly recommended in this patient. 5. We will begin to arrange for possible long-term access in the form of AV fistula in case the luzmaria ent's kidney functions slides down towards the point of requiring renal replacement therapy, there wi ll already be an access that is already mature. HISTORY OF PRESENT ILLNESS: This is a 67-year-old female patient who was recently discharged from [facility], having been managed with multidrug-resistant urinary tract infection as well as morbid o besity/hypervolemia. Patient went home and has been experiencing some weakness, for which patient wa s asking family members to be aware, but otherwise patient denies any other complaints. Patient pres ented today, very hypoxic, responded well to sleep with BiPAP machine. The patient having vasc ular depletion. As a result of the advanced kidney disease, the decision has been taken to involve R urbano in the management of this case. PAST MEDICAL HISTORY, FAMILY HISTORY AND SOCIAL HISTORY: Remain unchanged from recent hospitalizatio n. REVIEW OF SYSTEMS: As documented in the body of the history. The other systems reviewed were found not to be significantly related to the presenting illness. PHYSICAL EXAMINATION: GENERAL: The patient was found not to be in any obvious distress noted with the following vital sign s. VITAL SIGNS: Blood pressure 145/60, heart rate of 78, afebrile, temperature 98, O2 saturation of 96% . HEENT: Unremarkable. Moist oral mucosa. NECK: Supple. CARDIOVASCULAR SYSTEM: First and second heart sounds were heard. RESPIRATORY SYSTEM: Clear to auscultation. DIGESTIVE SYSTEM: Revealed a benign abdomen. EXTREMITIES: Showed 2+ pitting edema. SUMMARY: This is a 67-year-old morbidly obese patient who presented here with respiratory failure. Thank you for this consultation. We will follow with you.
[2017-06-17] MEDS: Docusate 100 MG CAP PO SCH ×2 (09:19→21:54)
[2017-06-17] MEDS: Cefdinir 300 MG CAP PO SCH ×2 (09:19→21:54)
[2017-06-17] MEDS: Heparin 5,000 UNITS/ML VIAL SC SCH ×3 (09:20→21:55)
[2017-06-17] MEDS: Famotidine/PF 20 mg/2ml Vial SLOW IVP SCH (09:20)
[2017-06-17] MEDS: Insulin Regular 300 UNITS/3 ML VIAL SC PRN ×2 (11:11→17:21)
--- NOTE | 2017-06-17 12:59 | EKG ---
Test Reason : Blood Pressure : / mmHG Vent. Rate : 069 BPM Atrial Rate : 069 BPM P-R Int : 156 ms QRS Dur : 086 ms QT Int : 408 ms P-R-T Axes : 009 066 034 degrees QTc Int : 437 ms Normal sinus rhythm with sinus arrhythmia Low voltage QRS Cannot rule out Anterior infarct , age undetermined Abnormal ECG Confirmed by ANG BARRERA ([id number]), videotape editor GUSTAVO LENTZ ([id number]) on 06/17/2017 12:58:45 PM Referred By: Confirmed By:ANG BARRERA
--- NOTE | 2017-06-17 16:08 | PDOC.PN ---
- Subjective Encounter Start Date: 06/17/17 Encounter Start Time: 16:00 Subjective: f/u for volume overload in context of nephrotic syndrome and acute/ chronic -: hypoxic resp failure with diastolic dysfunction EF 60%, currently on Lasix -: 40mg IV q12h. Less SOB but still coughing. - Objective Resuscitation Status: Resuscitation Status FULL:Full Resuscitation MAR Reviewed: Yes Vital Signs & Weight: Vital Signs (12 hours) Temp Pulse Resp BP BP Pulse Ox 06/17/17 12:21 164/79 H 06/17/17 12:00 98.8 F 82 17 146/61 H 100 06/17/17 08:46 99 06/17/17 08:43 80 17 99 06/17/17 08:15 99.2 F 83 17 100 06/17/17 07:56 99.2 F 83 17 157/65 H 100 Weight Weight 231 lb 8 oz Most Recent Monitor Data Heart Rate from ECG 81 NIBP 163/71 NIBP BP-Mean 82 Respiration from ECG 27 SpO2 97 I&O: 06/16/17 06/17/17 06/18/17 06:59 06:59 06:59 Intake Total 10 1090 Output Total 700 3315 Balance -509 -5135 Result Diagrams: 06/17/17 04:40 06/17/17 04:40 Additional Labs: Accuchecks 06/17/17 06/17/17 06/16/17 10:39 05:48 20:55 POC Glucose 181 H 116 H 134 H 06/16/17 06/16/17 16:01 11:16 POC Glucose 106 119 H Microbiology 06/16/17 07:13 Nasal swab Influenza Types A,B Direct EIA - Final 06/04/17 19:42 Urine voided Urine Culture - Final Escherichia coli 06/04/17 18:40 Nasal swab Influenza Types A,B Direct EIA - Final Laboratory Tests 06/04/17 06/04/17 06/05/17 18:45 18:45 04:08 WBC Hgb 10.1 L Carbon Dioxide Creatinine 2.36 H 2.26 H Phosphorus Magnesium Iron Ferritin C-Reactive Protein TSH 3rd Generation 06/05/17 06/06/17 06/07/17 04:08 03:50 04:16 WBC Hgb 9.7 L Carbon Dioxide Creatinine 2.52 H 2.82 H Phosphorus Magnesium Iron Ferritin C-Reactive Protein TSH 3rd Generation 06/08/17 06/09/17 06/09/17 07:28 04:04 04:04 WBC Hgb Carbon Dioxide Creatinine 3.09 H 3.13 H Phosphorus Magnesium Iron 37 L 40 L Ferritin C-Reactive Protein TSH 3rd Generation 06/09/17 06/10/17 06/15/17 04:04 03:57 20:38 WBC Hgb Carbon Dioxide 22 L Creatinine 2.94 H Phosphorus Magnesium Iron Ferritin 93.46 C-Reactive Protein TSH 3rd Generation 3.4120 06/15/17 06/15/17 06/16/17 20:38 20:38 04:56 WBC 14.4 H Hgb 9.8 L Carbon Dioxide Creatinine 3.65 H 3.62 H Phosphorus 6.7 H Magnesium 2.0 Iron Ferritin C-Reactive Protein TSH 3rd Generation 06/16/17 06/17/17 04:56 04:40 WBC Hgb Carbon Dioxide Creatinine Phosphorus 5.8 H Magnesium 2.1 Iron Ferritin C-Reactive Protein 5.73 H TSH 3rd Generation EKG Reviewed by me: Yes (Tele - SR in 's) Phys Exam - Physical Examination Constitutional: NAD alert, talkative HEENT: PERRLA, oral pharynx no lesions Neck: no JVD, supple diminished in bases Cardiovascular: RRR Gastrointestinal: soft, non-tender, no distention, positive bowel sounds Musculoskeletal: pulses present, edema present Neurological: normal sensation, moves all 4 limbs Psychiatric: A&O x 3 Skin: normal turgor, cap refill <2 seconds Dx/Plan (1) NOLA (acute kidney injury) Code(s): N17.9 - ACUTE KIDNEY FAILURE, UNSPECIFIED Status: Acute Comment: ? new baseline GFR, concern for needing HD in the near future, change Lasix 40mg IV q8h (2) Acute on chronic diastolic (congestive) heart failure Code(s): I50.33 - ACUTE ON CHRONIC DIASTOLIC (CONGESTIVE) HEART FAILURE Status : Acute Comment: EF 60-65%, diastolic predominance and elevated pulmonary pressure, Lasix 40mg IV q8h (3) Acute on chronic respiratory failure with hypoxemia Code(s): J96.21 - ACUTE AND CHRONIC RESPIRATORY FAILURE WITH HYPOXIA Status: Acute Comment: wean O2 as tolerated (4) Nephrotic syndrome Code(s): N04.9 - NEPHROTIC SYNDROME WITH UNSPECIFIED MORPHOLOGIC CHANGES Status: Acute Comment: Follow renal function closely, Lasix 40mg IV q8h (5) CKD (chronic kidney disease) stage 3, GFR 30-59 ml/min Status: Chronic Comment: NOLA on CKD. Nephrology following closely, may be a dialysis candidate in the future (6) HTN (hypertension) Code(s): I10 - ESSENTIAL (PRIMARY) HYPERTENSION Status: Chronic Qualifiers: Hypertension type: essential hypertension Qualified Code(s): I10 - Essential (primary) hypertension (7) Morbid obesity Code(s): E66.01 - MORBID (SEVERE) OBESITY DUE TO EXCESS CALORIES Status: Chronic - Plan continue antibiotics, PT/OT, socially responsible investment adviser, out of bed/ambulate Stable overall -: Lasix 40mg IV q8h -: Continue Omnicef 300mg BID -: PT for mobilization -: AM lab: BMP, CBC * .
[2017-06-17] MEDS: Ondansetron HCl/PF 4 MG/2 ML Vial IVP PRN (17:44)
--- NOTE | 2017-06-17 21:54 | PRG ---
DATE OF SERVICE: 06/17/2017 SUBJECTIVE: The patient was seen and examined with the following vital signs. OBJECTIVE: VITAL SIGNS: Temperature 98, pulse 82, respiratory rate 17, O2 sat 100%, blood pressure 146/61. HEENT: Unremarkable. CARDIOVASCULAR: First and second heart sounds were heard. RESPIRATORY: Clear to auscultation anteriorly. DIGESTIVE: Revealed an obese abdomen. NEUROLOGIC: Alert and oriented. No lateralizing signs. LABORATORY INVESTIGATION: Showed hemoglobin of 9.1. Chemistry showed a creatinine of 3.59, BUN of 7 1, phosphorus of 5.8, calcium is 7.5. IMPRESSION: 1. Advanced chronic kidney disease stage 4. 2. Diabetic nephropathy. 3. Hyperphosphatemia secondary hyperparathyroidism. 4. Morbid obesity. 5. Severe obstructive sleep apnea resulting in hypoxic respiratory failure. PLAN: 1. The patient is to benefit from a sleep study for possible positive pressure ventilation. 2. Weight loss. 3. We will continue with current regimen of diuretics. 4. If it becomes too become obvious that this patient is not responding well to current diuretic ___ __ medication.
[2017-06-18] MEDS: Nitroglycerin 2% Ointment 1 INCH/1 GM Packet TOP SCH ×3 (03:40→21:12)
[2017-06-18] MEDS: Loratadine 10 MG TAB PO PRN (04:14)
[2017-06-18 06:07] LABS: #Eosinphils 0.3 thou/uL (0.0-0.7); #Lymphocytes 1.6 thou/uL (1.20-3.40); #Neutrophils 5.9 thou/uL (1.40-6.50); %Basophils 0.5 % (0.0-1.0); %Eosinophils 3.1 % (0.0-10.0); %Lymphocytes 18.4 % (21.0-51.0); %Monocytes 11.5 % (0.0-10.0); %Neutrophils 66.4 % (42.0-75.0); Mean Corpuscular Hemoglobin 30.4 pg (27.0-31.0); Mean Corpuscular Volume 89.5 fl (81.0-99.0); Mean Platelet Volume 7.4 fL (7.4-10.4); Platelet Count 241 thou/uL (130-400); RBC Distribution Width 13.6 % (11.5-14.5); Red Blood Cell (RBC) Count 2.95 mill/uL (4.20-5.40); White Blood Cell (WBC) Count 8.9 thou/uL (4.8-10.8)
[2017-06-18] MEDS: Furosemide 40 MG/4 ML VIAL SLOW IVP SCH ×2 (06:17→13:35)
[2017-06-18 06:20] LABS: Albumin 2.5 g/dL (3.4-4.8); Anion Gap 13 mmol/L (10-20); BUN (Urea Nitrogen) 65 mg/dL (9.8-20.1); BUN/Creatinine Ratio 20.12; Calc. Creatinine Clearance 28 mL/min (70-130); Calcium 7.7 mg/dL (7.8-10.44); Carbon Dioxide 25 mmol/L (23-31); Chloride 107 mmol/L (98-107); Estimated GFR-MDRD 14; Glucose 135 mg/dL (80-115); Phosphorus 5.6 mg/dL (2.3-4.7); Potassium 4.1 mmol/L (3.5-5.1); Sodium 141 mmol/L (136-145)
[2017-06-18] MEDS: Heparin 5,000 UNITS/ML VIAL SC SCH ×3 (09:48→21:13)
[2017-06-18] MEDS: Insulin Regular 300 UNITS/3 ML VIAL SC PRN ×2 (09:48→12:13)
[2017-06-18] MEDS: Polyethylene Glycol 3350 17 GM Packet PO PRN (09:49)
[2017-06-18] MEDS: Cefdinir 300 MG CAP PO SCH ×2 (09:49→21:12)
[2017-06-18] MEDS: Docusate 100 MG CAP PO SCH ×2 (09:49→21:12)
[2017-06-18] MEDS: Famotidine/PF 20 mg/2ml Vial SLOW IVP SCH (10:07)
--- NOTE | 2017-06-18 12:13 | PDOC.PN ---
- Subjective Encounter Start Date: 06/18/17 Encounter Start Time: 10:45 Subjective: I FEEL COLD - Objective Resuscitation Status: Resuscitation Status FULL:Full Resuscitation MAR Reviewed: Yes Vital Signs & Weight: Vital Signs (12 hours) Temp Pulse Resp BP BP Pulse Ox 06/18/17 07:50 79 18 177/85 H 98 06/18/17 07:26 82 18 96 06/18/17 06:16 76 20 166/78 H 06/18/17 04:00 99.1 F 84 18 177/84 H 96 06/18/17 00:52 81 20 176/77 H 06/18/17 00:23 79 18 96 Weight Weight 226 lb 4.8 oz Most Recent Monitor Data Heart Rate from ECG 81 NIBP 163/71 NIBP BP-Mean 82 Respiration from ECG 27 SpO2 97 I&O: 06/17/17 06/18/17 06/19/17 06:59 06:59 06:59 Intake Total 1090 732 Output Total 9559 6652 Balance -9705 -2027 Result Diagrams: 06/18/17 05:43 06/18/17 05:43 Additional Labs: Accuchecks 06/18/17 06/17/17 06/17/17 05:51 21:53 16:54 POC Glucose 158 H 163 H 153 H Phys Exam - Physical Examination Constitutional: NAD HEENT: PERRLA, moist MMs, sclera anicteric Neck: supple, full ROM Respiratory: no rhonchi, clear to auscultation bilateral Cardiovascular: RRR, no significant murmur Gastrointestinal: soft, non-tender, positive bowel sounds Musculoskeletal: no edema Neurological: non-focal, moves all 4 limbs Psychiatric: normal affect, A&O x 3 Skin: no rash Dx/Plan (1) NOLA (acute kidney injury) Code(s): N17.9 - ACUTE KIDNEY FAILURE, UNSPECIFIED Status: Resolved Comment : ? new baseline GFR, concern for needing HD in the near future, change Lasix 40mg IV q8h (2) Acute on chronic diastolic (congestive) heart failure Code(s): I50.33 - ACUTE ON CHRONIC DIASTOLIC (CONGESTIVE) HEART FAILURE Status : Acute Comment: EF 60-65%, diastolic predominance and elevated pulmonary pressure, Lasix 40mg IV q8h (3) Acute on chronic respiratory failure with hypoxemia Code(s): J96.21 - ACUTE AND CHRONIC RESPIRATORY FAILURE WITH HYPOXIA Status: Acute Comment: wean O2 as tolerated (4) Nephrotic syndrome Code(s): N04.9 - NEPHROTIC SYNDROME WITH UNSPECIFIED MORPHOLOGIC CHANGES Status: Acute Comment: Follow renal function closely, Lasix 40mg IV q8h (5) CKD (chronic kidney disease) stage 3, GFR 30-59 ml/min Status: Chronic Comment: NOLA on CKD. Nephrology following closely, may be a dialysis candidate in the future (6) DM type 2 (diabetes mellitus, type 2) Status: Chronic Qualifiers: Diabetes mellitus complication status: with kidney complications Diabetes mellitus complication detail: with chronic kidney disease Diabetes mellitus alf insulin use: without watermelon inspector use Chronic kidney disease stage: stage 3 (moderate) Qualified Code(s): E11.22 - Type 2 diabetes mellitus with diabetic chronic kidney disease; N18.3 - Chronic kidney disease, stage 3 ( moderate); N18.3 - Chronic kidney disease, stage 3 (moderate) Comment: Last A1C 5.3 (04/22), ISS (7) HTN (hypertension) Code(s): I10 - ESSENTIAL (PRIMARY) HYPERTENSION Status: Chronic Qualifiers: Hypertension type: essential hypertension Qualified Code(s): I10 - Essential (primary) hypertension (8) Morbid obesity Code(s): E66.01 - MORBID (SEVERE) OBESITY DUE TO EXCESS CALORIES Status: Chronic (9) ARMINDA (obstructive sleep apnea) Code(s): G47.33 - OBSTRUCTIVE SLEEP APNEA (ADULT) (PEDIATRIC) Status: Chronic Comment: Home CPAP not functioning. Will palce on CPAP here at empiric 10cm - Plan cont current plan of care ACCELERATED HTN PERSISTS, APPRECIATE RECCS FROM RENAL * .
[2017-06-18] MEDS: Diabetic Tussin 200 MG/10 ML UDCUP PO PRN ×2 (13:34→21:24)
[2017-06-18] MEDS: hydrALAZINE 20 MG/ML VIAL SLOW IVP PRN ×2 (13:38→17:50)
[2017-06-18] MEDS ORDERED: Amlodipine 5 MG TAB PO SCH (15:15)
[2017-06-18] MEDS: Calcium Carbonate 500 MG ChewTAB PO SCH (21:12)
--- NOTE | 2017-06-19 00:58 | PRG ---
DATE OF SERVICE: 06/18/2017 SUBJECTIVE: The patient was seen and examined. Noted with the following vital signs. OBJECTIVE: VITAL SIGNS: Afebrile with temperature 98.7, pulse 80, blood pressure , respiratory rate of 16, O2 saturation of 96%. HEENT: Unremarkable with moist oral mucosa. No conjunctival injection or icterus. NECK: Supple. CARDIOVASCULAR SYSTEM: First and second heart sounds were heard. RESPIRATORY SYSTEM: Clear to auscultation. DIGESTIVE SYSTEM: Revealed an obese abdomen. EXTREMITIES: Showed 2+ generalized edema. LABORATORY INVESTIGATIONS: Reviewed, hemoglobin of 9.0. Chemistry showed a creatinine of 3.2, BUN o f 65, phosphorus of 5.6, and calcium of 7.7. IMPRESSION: 1. Advanced chronic kidney disease, stage 4. 2. Hypervolemia with diuretics. 3. Hypertension, suboptimally controlled. 4. Diabetic nephropathy. PLAN: 1. The patient to continue with current parenteral diuresis. Start oral hypoglycemic agents and ora l diuretics. 2. Adjust the patient's antihypertensive medications to optimize hemodynamics. 3. Further management to be dependent on the clinical course.
[2017-06-19] MEDS: Nitroglycerin 2% Ointment 1 INCH/1 GM Packet TOP SCH ×3 (05:05→20:09)
[2017-06-19 05:47] LABS: #Eosinphils 0.5 thou/uL (0.0-0.7); #Lymphocytes 1.8 thou/uL (1.20-3.40); #Neutrophils 6.4 thou/uL (1.40-6.50); %Basophils 0.5 % (0.0-1.0); %Eosinophils 5.1 % (0.0-10.0); %Lymphocytes 18.7 % (21.0-51.0); %Monocytes 10.2 % (0.0-10.0); %Neutrophils 65.5 % (42.0-75.0); Hemoglobin 8.8 g/dL (12.0-16.0); Mean Corpuscular HGB CONC 33.2 g/dL (32.0-36.0); Mean Corpuscular Hemoglobin 30.1 pg (27.0-31.0); Mean Corpuscular Volume 90.6 fl (81.0-99.0); Mean Platelet Volume 7.5 fL (7.4-10.4); Platelet Count 269 thou/uL (130-400); RBC Distribution Width 13.7 % (11.5-14.5); Red Blood Cell (RBC) Count 2.93 mill/uL (4.20-5.40); White Blood Cell (WBC) Count 9.8 thou/uL (4.8-10.8)
[2017-06-19 05:50] LABS: Albumin 2.6 g/dL (3.4-4.8); Anion Gap 12 mmol/L (10-20); BUN (Urea Nitrogen) 60 mg/dL (9.8-20.1); BUN/Creatinine Ratio 19.61; Calc. Creatinine Clearance 30 mL/min (70-130); Calcium 7.9 mg/dL (7.8-10.44); Carbon Dioxide 25 mmol/L (23-31); Chloride 107 mmol/L (98-107); Estimated GFR-MDRD 15; Glucose 116 mg/dL (80-115); Potassium 4.4 mmol/L (3.5-5.1); Sodium 140 mmol/L (136-145)
[2017-06-19] MEDS: Furosemide 40 MG/4 ML VIAL SLOW IVP SCH ×2 (06:40→14:31)
[2017-06-19] MEDS ORDERED: Amlodipine 5 MG TAB PO SCH (09:00)
[2017-06-19] MEDS: NIFEdipine XL 90 MG TAB PO SCH (09:17)
[2017-06-19] MEDS: Famotidine 20 MG TAB PO SCH (09:17)
[2017-06-19] MEDS: Calcium Carbonate 500 MG ChewTAB PO SCH ×3 (09:17→20:06)
[2017-06-19] MEDS: Docusate 100 MG CAP PO SCH ×2 (09:17→20:08)
[2017-06-19] MEDS: Carvedilol 6.25 MG TAB PO SCH ×2 (09:17→16:56)
[2017-06-19] MEDS: Heparin 5,000 UNITS/ML VIAL SC SCH ×3 (09:17→20:08)
[2017-06-19] MEDS: Cefdinir 300 MG CAP PO SCH ×2 (09:17→20:07)
[2017-06-19] MEDS: Loratadine 10 MG TAB PO PRN (09:25)
[2017-06-19] MEDS: Polyethylene Glycol 3350 17 GM Packet PO PRN (09:25)
[2017-06-19] MEDS: Acetaminophen 325 MG TAB PO PRN ×2 (11:50→20:08)
[2017-06-19] MEDS: Insulin Regular 300 UNITS/3 ML VIAL SC PRN ×2 (11:51→16:59)
--- NOTE | 2017-06-19 12:19 | PDOC.PN ---
- Subjective Encounter Start Date: 06/19/17 Encounter Start Time: : Subjective: C/O BODYACHES, NASAL CONGESTION - Objective Resuscitation Status: Resuscitation Status FULL:Full Resuscitation MAR Reviewed: Yes Vital Signs & Weight: Vital Signs (12 hours) Temp Pulse Resp BP Pulse Ox 06/19/17 08:00 97.8 F 76 20 06/19/17 07:53 97.8 F 76 20 178/71 H 94 L Weight Weight 226 lb 4.8 oz Most Recent Monitor Data Heart Rate from ECG 81 NIBP 163/71 NIBP BP-Mean 82 Respiration from ECG 27 SpO2 97 I&O: 06/18/17 06/19/17 06/20/17 06:59 06:59 06:59 Intake Total 732 975 Output Total 5657 1550 Balance -4943 -575 Result Diagrams: 06/19/17 04:45 06/19/17 04:45 Additional Labs: Accuchecks 06/18/17 11:42 POC Glucose 156 H Phys Exam - Physical Examination Constitutional: NAD HEENT: moist MMs EPISTAXIS Neck: supple, full ROM Respiratory: clear to auscultation bilateral SCANT RHONCHI Cardiovascular: RRR Gastrointestinal: soft, non-tender, positive bowel sounds Musculoskeletal: edema present Neurological: non-focal, moves all 4 limbs Psychiatric: normal affect, A&O x 3 Skin: no rash Dx/Plan (1) Acute on chronic diastolic (congestive) heart failure Code(s): I50.33 - ACUTE ON CHRONIC DIASTOLIC (CONGESTIVE) HEART FAILURE Status : Acute Comment: EF 60-65%, diastolic predominance and elevated pulmonary pressure, Lasix 40mg IV q8h (2) Acute on chronic respiratory failure with hypoxemia Code(s): J96.21 - ACUTE AND CHRONIC RESPIRATORY FAILURE WITH HYPOXIA Status: Acute Comment: wean O2 as tolerated (3) Nephrotic syndrome Code(s): N04.9 - NEPHROTIC SYNDROME WITH UNSPECIFIED MORPHOLOGIC CHANGES Status: Acute Comment: Follow renal function closely, Lasix 40mg IV q8h (4) CKD (chronic kidney disease) stage 3, GFR 30-59 ml/min Status: Chronic Comment: NOLA on CKD. Nephrology following closely, may be a dialysis candidate in the future (5) DM type 2 (diabetes mellitus, type 2) Status: Chronic Qualifiers: Diabetes mellitus complication status: with kidney complications Diabetes mellitus complication detail: with chronic kidney disease Diabetes mellitus shelter insulin use: without watermelon harvesting supervisor use Chronic kidney disease stage: stage 3 (moderate) Qualified Code(s): E11.22 - Type 2 diabetes mellitus with diabetic chronic kidney disease; N18.3 - Chronic kidney disease, stage 3 ( moderate); N18.3 - Chronic kidney disease, stage 3 (moderate) Comment: Last A1C 5.3 (04/22), ISS (6) HTN (hypertension) Code(s): I10 - ESSENTIAL (PRIMARY) HYPERTENSION Status: Chronic Qualifiers: Hypertension type: essential hypertension Qualified Code(s): I10 - Essential (primary) hypertension (7) Morbid obesity Code(s): E66.01 - MORBID (SEVERE) OBESITY DUE TO EXCESS CALORIES Status: Chronic (8) ARMINDA (obstructive sleep apnea) Code(s): G47.33 - OBSTRUCTIVE SLEEP APNEA (ADULT) (PEDIATRIC) Status: Chronic Comment: Home CPAP not functioning. Will palce on CPAP here at empiric 10cm - Plan cont current plan of care VIRAL SYNDROME, BP BETTER WITH PROCARDIA, -: HOME TOMORROW ONCE CLEARED BY RENAL * .
[2017-06-19] MEDS: Sodium Chloride 0.65% Nasal 44 ML BOT EA NARE PRN (14:30)
[2017-06-19 17:40] LABS: Bilirubin Negative (Negative); Blood, Urine Moderate (Negative); Clarity TURBID (Clear); Glucose, Urine (Dipstick) 250 mg/dL (Negative); Leukocyte Moderate (Negative); Nitrite Negative (Negative); Protein, Urine (Dipstick) > or equal to 300 mg/dL (Neg-Trace); Specific Gravity, Urine 1.024 (1.002-1.036); Urobilinogen 0.2 mg/dL (0.2-1.0); pH, Urine 5.5 (5.0-9.0)
[2017-06-19 17:45] LABS: Bacteria/HPF Rare-Few HPF (None Seen); Pathc Cast-AUWi Flag 2.03 (0-2.49); Squamous Epithelial 0-3 HPF (0-3)
[2017-06-19 17:46] LABS: Yeast-AUWi Flag 74.4 (0-25.0)
[2017-06-19 17:59] LABS: Hyaline Casts/LPF 0-3 HYALINE CAST LPF (0-3 Hyaline); Yeast-All Forms None Seen HPF (None Seen)
[2017-06-20] MEDS: Nitroglycerin 2% Ointment 1 INCH/1 GM Packet TOP SCH ×3 (04:00→20:30)
[2017-06-20] MEDS: Furosemide 40 MG/4 ML VIAL SLOW IVP SCH ×2 (05:38→14:16)
--- NOTE | 2017-06-20 06:41 | PRG ---
DATE OF SERVICE: 06/19/2017 SUBJECTIVE: The patient was seen and examined. PHYSICAL EXAMINATION: VITAL SIGNS: Pulse is 80, respirations 20, O2 saturation 97%, blood pressure 120/69. CARDIOVASCULAR: First and second heart sounds . RESPIRATORY: Clear to auscultation. DIGESTIVE: . SKIN: No new gross rash. LYMPHATICS: No peripheral adenopathy. . LABORATORY INVESTIGATION: Showed hemoglobin of 8.8. Chemistry showed a creatinine of 3.06, BUN 60. Phosphorus 5.0. IMPRESSION: 1. Advanced chronic kidney disease stage 4/5 in the context of problem #2. 2. Diabetic nephropathy with nephrotic range proteinuria. 3. Hypervolemia, all related to problem , responding to diuretics. 4. Morbid obesity. PLAN: 1. Will begin to deescalate diuresis in the form of for switching over from parenteral diuretics to oral diuretics. 2. Low salt diet. 3. Very close outpatient Nephrology followup. 4. The patient to benefit from sleep study and possible use of CPAP or BiPAP as patient seems to hav e significant sleep apnea. 5. We will consider a long-term dialysis access in the form of a fistula. 6. in preparation for long-term plan. 7. Further management to be dependent on the clinical course.
[2017-06-20] MEDS: NIFEdipine XL 90 MG TAB PO SCH (08:11)
[2017-06-20] MEDS: Cefdinir 300 MG CAP PO SCH ×2 (08:11→20:31)
[2017-06-20] MEDS: Carvedilol 6.25 MG TAB PO SCH ×2 (08:11→17:09)
[2017-06-20] MEDS: Docusate 100 MG CAP PO SCH ×2 (08:11→20:31)
[2017-06-20] MEDS: Famotidine 20 MG TAB PO SCH (08:11)
[2017-06-20] MEDS: Calcium Carbonate 500 MG ChewTAB PO SCH ×3 (08:11→20:31)
[2017-06-20] MEDS: Heparin 5,000 UNITS/ML VIAL SC SCH ×3 (08:12→20:31)
[2017-06-20] MEDS ORDERED: Magnesium Citrate 300 ML BOT PO SCH (10:30)
--- NOTE | 2017-06-20 10:37 | PDOC.PN ---
- Subjective Encounter Start Date: 06/20/17 Encounter Start Time: 10:15 Subjective: CONTINUED BACK AND LOWER ABDOMINAL PAIN. CONSTIPATION - Objective Resuscitation Status: Resuscitation Status FULL:Full Resuscitation MAR Reviewed: Yes Vital Signs & Weight: Vital Signs (12 hours) Temp Pulse Resp BP BP BP Pulse Ox 06/20/17 08:11 79 159/86 H 06/20/17 08:00 98.1 F 79 22 H 159/86 H 95 06/20/17 04:00 147/66 H 06/20/17 02:17 97 06/20/17 00:29 137/58 L Weight Weight 217 lb 14.4 oz Most Recent Monitor Data Heart Rate from ECG 81 NIBP 163/71 NIBP BP-Mean 82 Respiration from ECG 27 SpO2 97 I&O: 06/19/17 06/20/17 06/21/17 06:59 06:59 06:59 Intake Total 975 1270 Output Total 1550 1050 Balance -575 220 Result Diagrams: 06/19/17 04:45 06/19/17 04:45 Additional Labs: Accuchecks 06/20/17 06/19/17 06/19/17 04:18 20:59 16:59 POC Glucose 116 H 141 H 155 H 06/19/17 06/19/17 16:03 11:33 POC Glucose 187 H 173 H Phys Exam - Physical Examination Constitutional: NAD HEENT: PERRLA, moist MMs, sclera anicteric Neck: supple, full ROM Respiratory: no wheezing, no rhonchi, clear to auscultation bilateral Cardiovascular: RRR TAN Gastrointestinal: soft, positive bowel sounds OBESE Musculoskeletal: edema present Neurological: non-focal, moves all 4 limbs Psychiatric: normal affect, A&O x 3 Skin: no rash Dx/Plan (1) Acute on chronic diastolic (congestive) heart failure Code(s): I50.33 - ACUTE ON CHRONIC DIASTOLIC (CONGESTIVE) HEART FAILURE Status : Acute Comment: EF 60-65%, diastolic predominance and elevated pulmonary pressure, Lasix 40mg IV q8h (2) Acute on chronic respiratory failure with hypoxemia Code(s): J96.21 - ACUTE AND CHRONIC RESPIRATORY FAILURE WITH HYPOXIA Status: Acute Comment: wean O2 as tolerated (3) Nephrotic syndrome Code(s): N04.9 - NEPHROTIC SYNDROME WITH UNSPECIFIED MORPHOLOGIC CHANGES Status: Acute Comment: Follow renal function closely, Lasix 40mg IV q8h (4) CKD (chronic kidney disease) stage 3, GFR 30-59 ml/min Status: Chronic Comment: NOLA on CKD. Nephrology following closely, may be a dialysis candidate in the future (5) DM type 2 (diabetes mellitus, type 2) Status: Chronic Qualifiers: Diabetes mellitus complication status: with kidney complications Diabetes mellitus complication detail: with chronic kidney disease Diabetes mellitus skilled nursing insulin use: without skilled nursing use Chronic kidney disease stage: stage 3 (moderate) Qualified Code(s): E11.22 - Type 2 diabetes mellitus with diabetic chronic kidney disease; N18.3 - Chronic kidney disease, stage 3 ( moderate); N18.3 - Chronic kidney disease, stage 3 (moderate) Comment: Last A1C 5.3 (04/22), ISS (6) HTN (hypertension) Code(s): I10 - ESSENTIAL (PRIMARY) HYPERTENSION Status: Chronic Qualifiers: Hypertension type: essential hypertension Qualified Code(s): I10 - Essential (primary) hypertension (7) Morbid obesity Code(s): E66.01 - MORBID (SEVERE) OBESITY DUE TO EXCESS CALORIES Status: Chronic (8) ARMINDA (obstructive sleep apnea) Code(s): G47.33 - OBSTRUCTIVE SLEEP APNEA (ADULT) (PEDIATRIC) Status: Chronic Comment: Home CPAP not functioning. Will palce on CPAP here at empiric 10cm (9) Constipation Code(s): K59.00 - CONSTIPATION, UNSPECIFIED Status: Acute (10) Cystitis Code(s): N30.90 - CYSTITIS, UNSPECIFIED WITHOUT HEMATURIA Status: Acute - Plan cont current plan of care, continue antibiotics, out of bed/ambulate BP BETTER CONTROL, CONTINUE FLUIDS AND MIRALAX UNTIL BM. -: HOME ONCE CLEARED BY RENAL. CEFDINIR SHOULD COVER PATHOGENS FOR -: CYSTITIS. WILL FOLLOW * .
[2017-06-20] MEDS: Insulin Regular 300 UNITS/3 ML VIAL SC PRN (14:17)
[2017-06-21] MEDS: Acetaminophen 325 MG TAB PO PRN ×2 (00:04→08:12)
--- NOTE | 2017-06-21 00:12 | PRG ---
DATE OF SERVICE: 06/20/2017 SUBJECTIVE: The patient seen and examined and noted with the following vital signs. PHYSICAL EXAMINATION: VITAL SIGNS: Afebrile with temperature 97.9, respiratory rate 20, blood pressure 132/68. HEENT: Unremarkable. CARDIOVASCULAR: First and second heart sounds were heard. RESPIRATORY SYSTEM: Clear to auscultation. DIGESTIVE: Revealed a benign abdomen. SKIN: No gross rash. LYMPHATICS: No peripheral lymphadenopathy. LABORATORY INVESTIGATIONS: Showed no renal function panel today. IMPRESSION: 1. Advanced chronic kidney disease stage 4/5 in the context of problem #2. 2. Diabetic nephropathy. 3. Hypervolemia. 4. Hypertension. PLAN: 1. The patient's diuretics needs to be switched over to oral. 2. Mag citrate for constipation. 3. Very close outpatient Nephrology followup. 4. Further management to be dependent on the clinical course.
[2017-06-21] MEDS: Nitroglycerin 2% Ointment 1 INCH/1 GM Packet TOP SCH ×3 (04:08→20:20)
[2017-06-21 05:31] LABS: #Eosinphils 0.6 thou/uL (0.0-0.7); #Lymphocytes 2.4 thou/uL (1.20-3.40); #Neutrophils 7.4 thou/uL (1.40-6.50); %Basophils 0.2 % (0.0-1.0); %Eosinophils 5.2 % (0.0-10.0); %Lymphocytes 21.1 % (21.0-51.0); %Monocytes 8.4 % (0.0-10.0); %Neutrophils 65.2 % (42.0-75.0); Hemoglobin 8.6 g/dL (12.0-16.0); Mean Corpuscular HGB CONC 32.8 g/dL (32.0-36.0); Mean Corpuscular Volume 91.4 fl (81.0-99.0); Mean Platelet Volume 7.1 fL (7.4-10.4); Platelet Count 265 thou/uL (130-400); RBC Distribution Width 13.5 % (11.5-14.5); Red Blood Cell (RBC) Count 2.88 mill/uL (4.20-5.40); White Blood Cell (WBC) Count 11.3 thou/uL (4.8-10.8)
[2017-06-21 06:00] LABS: Anion Gap 12 mmol/L (10-20); BUN (Urea Nitrogen) 68 mg/dL (9.8-20.1); Calc. Creatinine Clearance 23 mL/min (70-130); Calcium 7.7 mg/dL (7.8-10.44); Carbon Dioxide 29 mmol/L (23-31); Chloride 104 mmol/L (98-107); Estimated GFR-MDRD 12; Glucose 95 mg/dL (80-115); Potassium 5.2 mmol/L (3.5-5.1); Sodium 140 mmol/L (136-145)
[2017-06-21] MEDS: Heparin 5,000 UNITS/ML VIAL SC SCH ×2 (08:06→15:08)
[2017-06-21] MEDS: Calcium Carbonate 500 MG ChewTAB PO SCH ×3 (08:06→20:19)
[2017-06-21] MEDS: Famotidine 20 MG TAB PO SCH (08:07)
[2017-06-21] MEDS: Cefdinir 300 MG CAP PO SCH (08:07)
[2017-06-21] MEDS: Carvedilol 6.25 MG TAB PO SCH ×2 (08:07→17:31)
[2017-06-21] MEDS: Docusate 100 MG CAP PO SCH ×2 (08:08→20:20)
[2017-06-21] MEDS: NIFEdipine XL 90 MG TAB PO SCH (08:12)
[2017-06-21] MEDS: Furosemide 80 MG TAB PO SCH ×2 (08:12→15:08)
[2017-06-21] MEDS ORDERED: Meropenem 1 GM in Sodium Chloride 0.9% 100 ML IVPB SCH (08:54)
--- NOTE | 2017-06-21 08:58 | PDOC.PN ---
- Subjective Encounter Start Date: 06/21/17 Encounter Start Time: 08:57 Subjective: CONTINUES TO C/O FLANK AND LOWER ABD PAIN - Objective Resuscitation Status: Resuscitation Status FULL:Full Resuscitation MAR Reviewed: Yes Vital Signs & Weight: Vital Signs (12 hours) Temp Pulse Resp BP BP Pulse Ox 06/21/17 08:12 72 164/85 H 06/21/17 08:07 164/85 H 06/21/17 07:46 98.0 F 72 18 164/85 H 94 L 06/21/17 05:06 97.9 F 70 18 146/71 H 95 06/21/17 04:06 92 L 06/21/17 00:00 98.5 F 80 18 148/77 H 92 L Weight Weight 217 lb 14.4 oz Most Recent Monitor Data Heart Rate from ECG 81 NIBP 163/71 NIBP BP-Mean 82 Respiration from ECG 27 SpO2 97 I&O: 06/20/17 06/21/17 06/22/17 06:59 06:59 06:59 Intake Total 1270 2970 Output Total 1050 975 Balance 220 1994 Result Diagrams: 06/21/17 04:28 06/21/17 04:28 Additional Labs: Accuchecks 06/21/17 06/20/17 06/20/17 04:22 17:29 12:57 POC Glucose 101 150 H 186 H Phys Exam - Physical Examination Constitutional: NAD HEENT: PERRLA, moist MMs, sclera anicteric Neck: no nodes, full ROM Respiratory: wheezing present Cardiovascular: RRR Gastrointestinal: soft, positive bowel sounds MILD TERNDERNESS UNDER PANNUS Musculoskeletal: edema present Neurological: non-focal, moves all 4 limbs Psychiatric: normal affect, A&O x 3 Skin: no rash Dx/Plan (1) Acute on chronic diastolic (congestive) heart failure Code(s): I50.33 - ACUTE ON CHRONIC DIASTOLIC (CONGESTIVE) HEART FAILURE Status : Acute Comment: EF 60-65%, diastolic predominance and elevated pulmonary pressure, Lasix 40mg IV q8h (2) Acute on chronic respiratory failure with hypoxemia Code(s): J96.21 - ACUTE AND CHRONIC RESPIRATORY FAILURE WITH HYPOXIA Status: Acute Comment: wean O2 as tolerated (3) Nephrotic syndrome Code(s): N04.9 - NEPHROTIC SYNDROME WITH UNSPECIFIED MORPHOLOGIC CHANGES Status: Acute Comment: Follow renal function closely, Lasix 40mg IV q8h (4) CKD (chronic kidney disease) stage 3, GFR 30-59 ml/min Status: Chronic Comment: NOLA on CKD. Nephrology following closely, may be a dialysis candidate in the future (5) DM type 2 (diabetes mellitus, type 2) Status: Chronic Qualifiers: Diabetes mellitus complication status: with kidney complications Diabetes mellitus complication detail: with chronic kidney disease Diabetes mellitus superintendent marine oil terminal insulin use: without superintendent marine oil terminal use Chronic kidney disease stage: stage 3 (moderate) Qualified Code(s): E11.22 - Type 2 diabetes mellitus with diabetic chronic kidney disease; N18.3 - Chronic kidney disease, stage 3 ( moderate); N18.3 - Chronic kidney disease, stage 3 (moderate) Comment: Last A1C 5.3 (04/22), ISS (6) HTN (hypertension) Code(s): I10 - ESSENTIAL (PRIMARY) HYPERTENSION Status: Chronic Qualifiers: Hypertension type: essential hypertension Qualified Code(s): I10 - Essential (primary) hypertension (7) Morbid obesity Code(s): E66.01 - MORBID (SEVERE) OBESITY DUE TO EXCESS CALORIES Status: Chronic (8) ARMINDA (obstructive sleep apnea) Code(s): G47.33 - OBSTRUCTIVE SLEEP APNEA (ADULT) (PEDIATRIC) Status: Chronic Comment: Home CPAP not functioning. Will palce on CPAP here at empiric 10cm (9) Constipation Code(s): K59.00 - CONSTIPATION, UNSPECIFIED Status: Acute (10) Cystitis Code(s): N30.90 - CYSTITIS, UNSPECIFIED WITHOUT HEMATURIA Status: Acute Comment: ESBL E.COLI FROM URINE CX - Plan cont current plan of care ESBL E.COLI ISOLATED FROM URINE. WILL START MERREM TODAY, INITIATE -: CONTACT PRECAUTIONS. DEFER TO RENAL FOR VOLUME STATUS. * .
[2017-06-21] MEDS: MEROPENEM 1 GM/50 ML 1 GM in Premix Bag 1 BAG IVPB SCH ×2 (10:25→20:19)
[2017-06-21] MEDS: Insulin Regular 300 UNITS/3 ML VIAL SC PRN ×2 (11:57→17:32)
--- NOTE | 2017-06-21 20:05 | PRG ---
DATE OF SERVICE: 06/21/2017 SUBJECTIVE: The patient was seen and examined. No new complaints except that of the area of [place]. OBJECTIVE: VITAL SIGNS: Afebrile with temperature 98, pulse 82, respiratory rate of 18, blood pressure 154/85, O2 sat 94%. HEENT: Unremarkable with moist oral mucosa. No conjunctival injection or icterus. NECK: Supple. CARDIOVASCULAR SYSTEM: First and second heart sounds were heard. RESPIRATORY SYSTEM: Clear to auscultation. DIGESTIVE SYSTEM: Revealed an obese abdomen. EXTREMITIES: Shows no peripheral edema. LABORATORY INVESTIGATIONS: Potassium 5.2, creatinine 3.73, BUN of 68. Hemoglobin 8.6. IMPRESSION: 1. Advanced chronic kidney disease stage IV/V in the context of problem #2. 2. Diabetic nephropathy with nephrotic range proteinuria. 3. Multidrug resistant urinary tract infection. 4. Morbid obesity. 5. Hypervolemia. PLAN: 1. Parenteral antibiotics treatment to address his multidrug resistant bacteria. 2. Low potassium diet. 3. Change heparin to renally-dosed Lovenox. 4. Pay very close attention to the potassium level. If the potassium continues to rise, he may requ danielle medical treatment and if that fails, renal replacement therapy becomes . 5. We will begin to make preparation towards long-term dialysis access. 6. Further management will be dependent on the clinical course.
[2017-06-22] MEDS: Nitroglycerin 2% Ointment 1 INCH/1 GM Packet TOP SCH (04:09)
[2017-06-22 05:27] LABS: Anion Gap 13 mmol/L (10-20); BUN (Urea Nitrogen) 68 mg/dL (9.8-20.1); Calc. Creatinine Clearance 23 mL/min (70-130); Calcium 7.9 mg/dL (7.8-10.44); Carbon Dioxide 27 mmol/L (23-31); Chloride 104 mmol/L (98-107); Estimated GFR-MDRD 12; Glucose 96 mg/dL (80-115); Potassium 5.7 mmol/L (3.5-5.1); Sodium 138 mmol/L (136-145)
[2017-06-22 05:33] LABS: #Eosinphils 0.5 thou/uL (0.0-0.7); #Lymphocytes 2.3 thou/uL (1.20-3.40); #Neutrophils 8.6 thou/uL (1.40-6.50); %Basophils 0.2 % (0.0-1.0); %Eosinophils 3.7 % (0.0-10.0); %Monocytes 7.7 % (0.0-10.0); %Neutrophils 69.5 % (42.0-75.0); Hemoglobin 8.7 g/dL (12.0-16.0); Mean Corpuscular HGB CONC 32.6 g/dL (32.0-36.0); Mean Corpuscular Hemoglobin 29.9 pg (27.0-31.0); Mean Corpuscular Volume 91.6 fl (81.0-99.0); Mean Platelet Volume 7.4 fL (7.4-10.4); Platelet Count 259 thou/uL (130-400); RBC Distribution Width 13.4 % (11.5-14.5); Red Blood Cell (RBC) Count 2.91 mill/uL (4.20-5.40); White Blood Cell (WBC) Count 12.4 thou/uL (4.8-10.8)
[2017-06-22] MEDS: Calcium Carbonate 500 MG ChewTAB PO SCH ×3 (08:19→20:18)
[2017-06-22] MEDS: Furosemide 80 MG TAB PO SCH ×2 (08:19→13:27)
[2017-06-22] MEDS: Carvedilol 6.25 MG TAB PO SCH ×2 (08:19→18:23)
[2017-06-22] MEDS: Docusate 100 MG CAP PO SCH ×3 (08:19→21:57)
[2017-06-22] MEDS: Famotidine 20 MG TAB PO SCH (08:19)
[2017-06-22] MEDS: NIFEdipine XL 90 MG TAB PO SCH (08:20)
[2017-06-22] MEDS: MEROPENEM 1 GM/50 ML 1 GM in Premix Bag 1 BAG IVPB SCH ×2 (08:20→20:18)
[2017-06-22] MEDS ORDERED: Enoxaparin Sodium 40 MG/0.4 ML SYRINGE SC SCH (09:00)
[2017-06-22] MEDS ORDERED: Polyethylene Glycol 3350 17 GM Packet PO PRN (13:09)
[2017-06-22 13:47] LABS: Potassium 5.4 mmol/L (3.5-5.1)
[2017-06-22] MEDS: Diabetic Tussin 200 MG/10 ML UDCUP PO PRN (18:23)
[2017-06-22] MEDS: Acetaminophen 325 MG TAB PO PRN (20:18)
[2017-06-22] MEDS: Senokot S 8.6-50 MG TAB PO SCH ×2 (20:18→21:57)
--- NOTE | 2017-06-22 21:06 | PDOC.PN ---
- Subjective Encounter Start Date: 06/22/17 Encounter Start Time: 14:00 Patient seen and examined. Feels gen weak. Lightheaded on ambulation. No overnight events - Objective Resuscitation Status: Resuscitation Status FULL:Full Resuscitation MAR Reviewed: Yes Vital Signs & Weight: Vital Signs (12 hours) Temp Pulse Resp BP BP BP Pulse Ox 06/22/17 19:30 98.0 F 73 22 H 142/69 H 94 L 06/22/17 18:23 140/67 06/22/17 17:12 69 140/67 Weight Weight 221 lb 11.2 oz Most Recent Monitor Data Heart Rate from ECG 81 NIBP 163/71 NIBP BP-Mean 82 Respiration from ECG 27 SpO2 97 I&O: 06/21/17 06/22/17 06/23/17 06:59 06:59 06:59 Intake Total 2970 1770 970 Output Total 975 847 Balance 1994 923 970 Result Diagrams: 06/22/17 04:15 06/23/17 03:36 Additional Labs: Accuchecks 06/22/17 06/22/17 06/22/17 16:11 11:33 06:21 POC Glucose 126 H 118 H 100 06/21/17 06/20/17 20:17 20:23 POC Glucose 151 H 199 H Phys Exam - Physical Examination Constitutional: NAD Respiratory: no wheezing, no rhonchi Cardiovascular: RRR, no rub Gastrointestinal: soft, non-tender, positive bowel sounds Musculoskeletal: edema present Neurological: moves all 4 limbs Psychiatric: A&O x 3 Dx/Plan - Plan DVT proph w/lovenox, DVT proph w/SCDs IMPRESSION: 1. Acute hypoxic respiratory failure/Pulm edema/Acute on Chronic Diastolic HF 2. HCAP 3. NOLA/CKD3 with hyperkalemia 4. ARMINDA - home CPAP not functioning 5. ESBL UTI 5. Other issues per H&P PLAN: * Check Orthostatics * Cont pulse Ox - Lightheadedness prob due to hypoxia * AM labs * Repeat Potassium later today * Cont to monitor * Cont other home meds as below * Case d/w Nephro. * Consult ID for UTI - ?true infection vs colonization Review of Systems - Review of Systems Respiratory: negative: Cough, Dry, Shortness of Breath, Hemoptysis, SOB with Excertion, Pleuritic Pain, Sputum, Wheezing Cardiovascular: Light Headedness. negative: Chest Pain, Palpitations, Orthopnea , Paroxysmal Noc. Dyspnea, Edema - Medications/Allergies Allergies/Adverse Reactions: Allergies Allergy/AdvReac Type Severity Reaction Status Date / Time No Known Allergies Allergy Verified 06/16/17 01:56 Medications: Current Medications Acetaminophen (Tylenol) 650 mg PO Q4H PRN PRN Reason: Headache/Fever or Pain Last Admin: 06/22/17 20:18 Dose: 650 mg Albuterol/Ipratropium (Duoneb) 3 ml NEB Q4H PRN PRN Reason: SOB &/or Wheezing Calcium Carbonate (Tums) 1,000 mg PO TID [facility] Last Admin: 06/22/17 20:18 Dose: Not Given Carvedilol (Coreg) 6.25 mg PO BID-[facility] Last Admin: 06/22/17 18:23 Dose: 6.25 mg Dextrose/Water (Dextrose 50%) 25 gm SLOW IVP PRN PRN PRN Reason: Hypoglycemia Docusate Sodium (Colace) 100 mg PO BID [facility] Last Admin: 06/22/17 20:18 Dose: Not Given Enoxaparin Sodium (Lovenox) 30 mg SC 0900 [facility] Famotidine (Pepcid) 20 mg PO QAM [facility] Last Admin: 06/22/17 08:19 Dose: 20 mg Furosemide (Lasix) 80 mg PO 0900,1400 [facility] Last Admin: 06/22/17 13:27 Dose: 80 mg Glucagon (Glucagon) 1 mg IM PRN PRN PRN Reason: Hypoglycemia Guaifenesin (Robitussin Sf) 200 mg PO Q4H PRN PRN Reason: Cough Last Admin: 06/22/17 18:23 Dose: 200 mg Hydralazine HCl (Apresoline) 10 mg SLOW IVP Q4H PRN PRN Reason: SBP Greater Than 180 Last Admin: 06/18/17 17:50 Dose: 10 mg Dextrose/Water (D5w) 1,000 mls @ 0 mls/hr IV .Q0M PRN; As Directed PRN Reason: Hypoglycemia Meropenem 1 gm/ Device 50 mls @ 50 mls/hr IVPB Q12HR [facility] Last Admin: 06/22/17 20:18 Dose: 50 mls Insulin Human Regular (Humulin R) 0 units SC .MILD SLIDING SCALE PRN PRN Reason: Mild Correctional Scale Last Admin: 06/21/17 17:32 Dose: 3 unit Insulin Human Regular (Humulin R) 0 units SC .BEDTIME SLIDING SC PRN PRN Reason: Bedtime Correctional Scale Loratadine (Claritin) 10 mg PO DAILYPRN PRN PRN Reason: Sinus Symptoms Last Admin: 06/19/17 09:25 Dose: 10 mg Mineral Oil/White Petrolatum (Eucerin Cream) 0 gm TOP BIDPRN PRN PRN Reason: Dry Skin Miscellaneous Medication (Pharmacy To Dose) 1 each IVPB ONE PRN PRN Reason: Pharmacy to dose Stop: 06/26/17 04:12 Nifedipine (Procardia Xl) 90 mg PO DAILY [facility] Last Admin: 06/22/17 08:20 Dose: 90 mg Nitroglycerin (Nitrostat) 0.4 mg PO Q5MIN PRN PRN Reason: Chest Pain Ondansetron HCl (Zofran) 4 mg IVP Q6H PRN PRN Reason: Nausea/Vomiting Last Admin: 06/17/17 17:44 Dose: 4 mg Patiromer Calcium Sorbitex [Veltassa] 8.4 Gm 0 each PO DAILY [facility] Polyethylene Glycol (Miralax) 17 gm PO DAILY PRN PRN Reason: Constipation Saccharomyces Boulardii (Florastor) 250 mg PO DAILY [facility] Senna (Senokot) 2 tab PO HSPRN PRN PRN Reason: Constipation Last Admin: 06/17/17 06:11 Dose: 2 tab Senna/Docusate Sodium (Senokot S) 1 tab PO BID [facility] Last Admin: 06/22/17 20:18 Dose: Not Given Sodium Chloride (Flush - Normal Saline) 10 ml IVF PRN PRN PRN Reason: Saline Flush Last Admin: 06/22/17 20:18 Dose: 10 ml Sodium Chloride ([place] Nasal [place] 0.65%) 0 ml EA NARE PRN PRN PRN Reason: Nasal Dryness Last Admin: 06/19/17 14:30 Dose: 1 spr
[2017-06-23] MEDS: Diabetic Tussin 200 MG/10 ML UDCUP PO PRN (00:36)
[2017-06-23] MEDS: Sodium Chloride 0.65% Nasal 44 ML BOT EA NARE PRN (00:37)
[2017-06-23 04:40] LABS: Anion Gap 14 mmol/L (10-20); BUN (Urea Nitrogen) 69 mg/dL (9.8-20.1); Calc. Creatinine Clearance 24 mL/min (70-130); Calcium 7.8 mg/dL (7.8-10.44); Carbon Dioxide 26 mmol/L (23-31); Chloride 105 mmol/L (98-107); Estimated GFR-MDRD 12; Glucose 89 mg/dL (80-115); Potassium 5.8 mmol/L (3.5-5.1); Sodium 139 mmol/L (136-145)
--- NOTE | 2017-06-23 07:18 | PRG ---
DATE OF SERVICE: 06/22/2017 SUBJECTIVE: The patient was seen and examined today, claimed not to be feeling well, noted with the following vital signs. PHYSICAL EXAMINATION: VITAL SIGNS: Afebrile with temperature 98, pulse 73, respiratory rate of 22, O2 sat 94%, blood press ure 142/99. HEENT AND NECK: Unremarkable with moist oral mucosa. Neck is supple. No conjunctival injection or icterus. CARDIOVASCULAR: First and second heart sounds were heard. RESPIRATORY: Clear to auscultation. DIGESTIVE: An obese abdomen with positive bowel sounds. EXTREMITIES: Showed 1-2+ bilateral lower extremity edema. LABORATORY DATA: Hemoglobin of 8.7. Chemistry showed a potassium of 5.7, creatinine 3.77, BUN 68. IMPRESSION: 1. Advanced chronic kidney disease stage 4, likely stage 5. 2. Hyperkalemia in the context of advanced chronic kidney disease. 3. Diabetic nephropathy /nephrotic range proteinuria. PLAN: 1. The patient to be started on Veltassa. 2. Low potassium diet. 3. A 24-hour urine for creatinine clearance and protein assessment. 4. If the creatinine comes back very poor, we will begin to make arrangements for possible renal rep lacement therapy initiation. 5. Further managment will be dependent on the clinical course.
[2017-06-23] MEDS: Docusate 100 MG CAP PO SCH (07:57)
[2017-06-23] MEDS: Saccharomyces boulardii 250 MG CAP PO SCH (07:58)
[2017-06-23] MEDS: Senokot S 8.6-50 MG TAB PO SCH ×3 (07:58→21:23)
[2017-06-23] MEDS: Famotidine 20 MG TAB PO SCH (07:59)
[2017-06-23] MEDS: Carvedilol 6.25 MG TAB PO SCH ×2 (07:59→16:44)
[2017-06-23] MEDS: NIFEdipine XL 90 MG TAB PO SCH (08:00)
[2017-06-23] MEDS: Furosemide 80 MG TAB PO SCH ×2 (08:00→13:01)
[2017-06-23] MEDS: Enoxaparin Sodium 30 MG/0.3 ML SYRINGE SC SCH (08:01)
[2017-06-23] MEDS: Calcium Carbonate 500 MG ChewTAB PO SCH ×3 (08:01→21:23)
[2017-06-23] MEDS: MEROPENEM 1 GM/50 ML 1 GM in Premix Bag 1 BAG IVPB SCH ×2 (08:01→21:24)
[2017-06-23] MEDS: Patiromer Calcium Sorbitex [Veltassa] 8.4 GM PO SCH (12:57)
[2017-06-23] MEDS ORDERED: Bisacodyl 10 MG SUPP PR PRN (13:04)
[2017-06-23] MEDS ORDERED: Polyethylene Glycol 3350 17 GM Packet PO SCH (13:15)
[2017-06-23] MEDS: Epoetin (ESRD) 20,000 UNITS/ML SC SCH (14:20)
--- NOTE | 2017-06-23 14:30 | CON ---
DATE OF CONSULTATION: 06/23/2017 REASON FOR CONSULTATION: Urinary tract findings. HISTORY OF PRESENT ILLNESS: A 67-year-old known to us from prior visits who has a history of obesity , type 2 diabetes mellitus, cardiomyopathy, hypertension, episode of pyelonephritis with obstruction, which required stenting and Carbapenem treatment for ESBL E. coli in 2015. She received Invanz for a few weeks in 07/2016. She was admitted at the beginning of 2016 with hypoxic respiratory failure d ue to pneumonia associated with acute on chronic diastolic heart failure. In 10/2016, she developed worsening dyspnea and hypoxemia, treated with diuresis. At that time, she had an abnormal urinalysis and was treated empirically with levofloxacin. Then in June, she presented with worsening dyspne a and swelling in lower extremities. She had a little bit of burning when she wiped herself in the v aginal area, but denied any true dysuria or suprapubic pain. Also had had no fever or chills. Our i mpression then was that she at the most had cystitis and she did receive a few days of meropenem. Th patient was released with a diagnosis of acute on chronic renal insufficiency, nephrotic syndrome, lower extremity edema, possible cystitis secondary to Escherichia coli with an ESBL phenotype. CT st one protocol then showed some areas of stranding around the perinephric areas most likely due to yasmin a, although pyelonephritis could not be ruled out. All the stone had been cleared. There was mild h ydronephrosis. The patient went home on Lasix, Xanax, aspirin, Lipitor, Procardia, and [facility] her in a recliner in her bedroom and she was drowsy with altered mental status. The y tried to get her up, but she could not hold her scrums and hold her weight, had a near syncopal adria nt and was brought by EMS. Initial findings included BP 126/64, pulse 77, respiratory rate 26 labore d, O2 sat 50% room air. Physical examination showed pinpoint pupils bilaterally. Lung sounds are cl ear. Heart exam showed regular rate. Abdomen was not tender. INITIAL LABORATORY DATA: White cell count 12,000, hemoglobin 8.3, platelets 222 with 20% lymphocytes , 67% neutrophils. Creatinine 3.78, certainly much higher than normal levels in 12/2016. The patien t had a venogram, CT of chest in 06/15/2017 prior to this admission with bilateral pleural fluid, mul tifocal bilateral alveolar opacification. Currently, Ms. Levi is sitting by the bedside. She is awake and alert. Denies headaches, no visual symptoms, sore throat, odynophagia, dysphagia. Mild dyspnea, no chest pain, no abdominal pain. Fole y catheter has been inserted. Denies any perceived sensation of dysuria prior to admission. Had not had any fever. PAST MEDICAL HISTORY: Type 2 diabetes, obesity, hypertension, hyperlipidemia, GERD, cellulitis of lo wer extremities, lymphedema, abscess left leg secondary to MRSA, urinary tract infection with pyelone phritis obstruction, which required stenting last year. She had lithotripsy and all those stones hav e been removed, cystitis, ESBL colonization of the urinary bladder, and cardiomyopathy. PAST SURGICAL HISTORY: . FAMILY HISTORY: Diabetes and CVA. SOCIAL HISTORY: Former smoker. ALLERGIES: No known drug allergies. CURRENT MEDICATIONS: DuoNeb, Tums, Coreg, dextrose, Lovenox, Pepcid, Lasix, insulin, meropenem. PHYSICAL EXAMINATION: VITAL SIGNS: Temperature has been normal through the hospital stay. Blood pressure 160/88, pulse 63 , respirations 18, O2 sat 94%. SKIN: No significant findings. Lazo catheter in place. Peripheral IV access, slight periorbital e berto. HEENT: Pupils are equal. Oral cavity moist, still quite a few teeth in place. NECK: Supple, no jugular venous distention. LUNGS: Bibasilar inspiratory crackles up to 1/3 of right and left hemithorax. CARDIAC: S1, S2, regular rate. No S3 or S4. ABDOMEN: Soft and not distended or tender. No ascites. No organomegaly. No bladder distention. EXTREMITIES: No joint inflammatory activity. She has lymphedema and edema in lower extremities. No evidence of cellulitis. Pulses are 1+ in dorsalis pedis. Symmetric strength in upper and lower ext remities. NEUROLOGIC: Cognitive function appears to be intact. LABORATORY AND X-RAY FINDINGS: Sodium 139, creatinine 3.78. White cell count is up to 12.4, hemoglo bin 8.7, platelets 259, 69% neutrophils. INR was not done. A pH 7.26, pCO2 53, pO2 55.8 the day of admission. Microbiology with the same E. coli that she had been noted with before. ASSESSMENT AND PLAN: 1. Cardiomyopathy. 2. Hypoventilation syndrome. 3. Volume overload. 4. Worsening renal insufficiency. 5. 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 May have higher upper tract colonization as well. I do not think there is sufficient evid ence were identified pyelonephritis at this time. DISCUSSION: This is difficult case. She does have mild neutrophilia and pyuria, and she probably campbell s chronic colonization of the urinary bladder by the extended spectrum beta-lactamases Escherichia co li. We may have to treat her again for a longer period of time this time. In that case, she would n eed a PICC line insertion, although I believe that the most likely reason for admission was due to th e hypoventilation syndrome and CO2 narcosis associated with her altered mental status. It is very li balta that she has upper tract colonization since the same organism has been isolated since 02/2015. This would require protracted IV antimicrobial administration with either Invanz or meropenem in the outpatient setting.
[2017-06-23 16:33] LABS: Collection Duration 24 hrs; Urine Total Volume 1575 mL (250-2400)
[2017-06-23 16:36] LABS: Body Surface Area 1.9
[2017-06-23 17:16] LABS: Creatinine, Urine 56.9 mg/dL (47-110)
--- NOTE | 2017-06-23 17:30 | PDOC.PN ---
- Subjective Encounter Start Date: 06/23/17 Encounter Start Time: 13:30 Patient seen and examined. No new complaints. No overnight events - Objective Resuscitation Status: Resuscitation Status FULL:Full Resuscitation MAR Reviewed: Yes Vital Signs & Weight: Vital Signs (12 hours) Temp Pulse Resp BP BP BP Pulse Ox 06/23/17 16:44 160/81 H 06/23/17 16:36 98.3 F 70 16 138/70 06/23/17 16:00 67 20 160/81 H 96 06/23/17 11:43 97.9 F 63 18 161/88 H 155/78 H 94 L 06/23/17 09:45 65 20 136/73 95 06/23/17 08:00 98.0 F 69 20 175/81 H 96 06/23/17 07:59 175/81 H 06/23/17 07:38 98.0 F 69 16 175/81 H 96 Weight Weight 215 lb Most Recent Monitor Data Heart Rate from ECG 81 NIBP 163/71 NIBP BP-Mean 82 Respiration from ECG 27 SpO2 97 I&O: 06/22/17 06/23/17 06/24/17 06:59 06:59 06:59 Intake Total 1770 1440 1250 Output Total 811 215 8579 Balance 923 540 150 Result Diagrams: 06/22/17 04:15 06/23/17 15:00 Additional Labs: Accuchecks 06/23/17 06/23/17 06/23/17 16:27 11:11 05:40 POC Glucose 109 121 H 95 06/22/17 19:27 POC Glucose 148 H Phys Exam - Physical Examination Constitutional: NAD Respiratory: no wheezing, no rhonchi Cardiovascular: RRR, no rub Gastrointestinal: soft, non-tender, positive bowel sounds Musculoskeletal: edema present Neurological: moves all 4 limbs Dx/Plan - Plan DVT proph w/lovenox, DVT proph w/SCDs IMPRESSION: 1. Acute hypoxic respiratory failure/Pulm edema/Acute on Chronic Diastolic HF 2. HCAP 3. NOLA/CKD3 with hyperkalemia 4. ARMINDA - home CPAP not functioning 5. ESBL UTI PLAN: * Await ID input * Orthostatics negatve per RN * AM labs * Repeat Potassium in AM - no need to repeat today per Nephrology * Cont to monitor * Cont other home meds as below Review of Systems - Review of Systems Respiratory: SOB with Excertion. negative: Cough, Dry, Shortness of Breath, Hemoptysis, Pleuritic Pain, Sputum, Wheezing Cardiovascular: Light Headedness. negative: Chest Pain, Palpitations, Orthopnea , Paroxysmal Noc. Dyspnea, Edema, Other - Medications/Allergies Allergies/Adverse Reactions: Allergies Allergy/AdvReac Type Severity Reaction Status Date / Time No Known Allergies Allergy Verified 06/16/17 01:56 Medications: Current Medications Acetaminophen (Tylenol) 650 mg PO Q4H PRN PRN Reason: Headache/Fever or Pain Last Admin: 06/22/17 20:18 Dose: 650 mg Albuterol/Ipratropium (Duoneb) 3 ml NEB Q4H PRN PRN Reason: SOB &/or Wheezing Bisacodyl (Dulcolax) 10 mg [place] DAILYPRN PRN PRN Reason: Constipation Calcium Carbonate (Tums) 1,000 mg PO TID [facility] Last Admin: 06/23/17 14:19 Dose: 1,000 mg Carvedilol (Coreg) 6.25 mg PO BID-[facility] Last Admin: 06/23/17 16:44 Dose: 6.25 mg Dextrose/Water (Dextrose 50%) 25 gm SLOW IVP PRN PRN PRN Reason: Hypoglycemia Enoxaparin Sodium (Lovenox) 30 mg SC 0900 [facility] Last Admin: 06/23/17 08:01 Dose: 30 mg Epoetin Gamal (Procrit) 7,500 units SC Q7D [facility] Last Admin: 06/23/17 14:20 Dose: 7,500 units Famotidine (Pepcid) 20 mg PO QAM [facility] Last Admin: 06/23/17 07:59 Dose: 20 mg Furosemide (Lasix) 80 mg PO 0900,1400 [facility] Last Admin: 06/23/17 13:01 Dose: 80 mg Glucagon (Glucagon) 1 mg IM PRN PRN PRN Reason: Hypoglycemia Guaifenesin (Robitussin Sf) 200 mg PO Q4H PRN PRN Reason: Cough Last Admin: 06/23/17 00:36 Dose: 200 mg Hydralazine HCl (Apresoline) 10 mg SLOW IVP Q4H PRN PRN Reason: SBP Greater Than 180 Last Admin: 06/18/17 17:50 Dose: 10 mg Dextrose/Water (D5w) 1,000 mls @ 0 mls/hr IV .Q0M PRN; As Directed PRN Reason: Hypoglycemia Meropenem 1 gm/ Device 50 mls @ 50 mls/hr IVPB Q12HR [facility] Last Admin: 06/23/17 08:01 Dose: 50 mls Insulin Human Regular (Humulin R) 0 units SC .MILD SLIDING SCALE PRN PRN Reason: Mild Correctional Scale Last Admin: 06/21/17 17:32 Dose: 3 unit Insulin Human Regular (Humulin R) 0 units SC .BEDTIME SLIDING SC PRN PRN Reason: Bedtime Correctional Scale Loratadine (Claritin) 10 mg PO DAILYPRN PRN PRN Reason: Sinus Symptoms Last Admin: 06/19/17 09:25 Dose: 10 mg Mineral Oil/White Petrolatum (Eucerin Cream) 0 gm TOP BIDPRN PRN PRN Reason: Dry Skin Miscellaneous Medication (Pharmacy To Dose) 1 each IVPB ONE PRN PRN Reason: Pharmacy to dose Stop: 06/26/17 04:12 Nifedipine (Procardia Xl) 90 mg PO DAILY [facility] Last Admin: 06/23/17 08:00 Dose: 90 mg Nitroglycerin (Nitrostat) 0.4 mg PO Q5MIN PRN PRN Reason: Chest Pain Ondansetron HCl (Zofran) 4 mg IVP Q6H PRN PRN Reason: Nausea/Vomiting Last Admin: 06/17/17 17:44 Dose: 4 mg Patiromer Calcium Sorbitex [Veltassa] 8.4 Gm 0 each PO DAILY [facility] Last Admin: 06/23/17 12:57 Dose: 1 each Polyethylene Glycol (Miralax) 17 gm PO DAILY [facility] Saccharomyces Boulardii (Florastor) 250 mg PO DAILY [facility] Last Admin: 06/23/17 07:58 Dose: 250 mg Senna (Senokot) 2 tab PO HSPRN PRN PRN Reason: Constipation Last Admin: 06/17/17 06:11 Dose: 2 tab Senna/Docusate Sodium (Senokot S) 1 tab PO BID [facility] Last Admin: 06/23/17 13:02 Dose: 1 tab Sodium Chloride (Flush - Normal Saline) 10 ml IVF PRN PRN PRN Reason: Saline Flush Last Admin: 06/22/17 20:18 Dose: 10 ml Sodium Chloride ([place] Nasal [place] 0.65%) 0 ml EA NARE PRN PRN PRN Reason: Nasal Dryness Last Admin: 06/23/17 00:37 Dose: 2 spr
[2017-06-23 17:49] LABS: Protein - 24 Hr 6347 mg/24 hr (Less than 300); Protein, Urine 403 mg/dL (1-14)
[2017-06-24] MEDS: Diabetic Tussin 200 MG/10 ML UDCUP PO PRN ×2 (00:35→20:01)
[2017-06-24 04:46] LABS: Anion Gap 13 mmol/L (10-20); BUN (Urea Nitrogen) 66 mg/dL (9.8-20.1); Calc. Creatinine Clearance 25 mL/min (70-130); Carbon Dioxide 27 mmol/L (23-31); Chloride 102 mmol/L (98-107); Estimated GFR-MDRD 13; Glucose 85 mg/dL (80-115); Potassium 5.3 mmol/L (3.5-5.1); Sodium 137 mmol/L (136-145)
[2017-06-24] MEDS: NIFEdipine XL 90 MG TAB PO SCH (08:26)
[2017-06-24] MEDS: Senokot S 8.6-50 MG TAB PO SCH ×2 (08:27→20:02)
[2017-06-24] MEDS: Carvedilol 6.25 MG TAB PO SCH ×2 (08:27→16:51)
[2017-06-24] MEDS: Calcium Carbonate 500 MG ChewTAB PO SCH ×3 (08:28→20:02)
[2017-06-24] MEDS: Furosemide 80 MG TAB PO SCH ×2 (08:28→14:29)
[2017-06-24] MEDS: Saccharomyces boulardii 250 MG CAP PO SCH (08:28)
[2017-06-24] MEDS: Famotidine 20 MG TAB PO SCH (08:28)
[2017-06-24] MEDS: Polyethylene Glycol 3350 17 GM Packet PO SCH ×2 (08:29→08:30)
[2017-06-24] MEDS: Patiromer Calcium Sorbitex [Veltassa] 8.4 GM PO SCH (08:30)
[2017-06-24] MEDS: MEROPENEM 1 GM/50 ML 1 GM in Premix Bag 1 BAG IVPB SCH ×2 (08:31→20:02)
[2017-06-24] MEDS: Enoxaparin Sodium 30 MG/0.3 ML SYRINGE SC SCH (08:38)
[2017-06-24] MEDS: Loratadine 10 MG TAB PO PRN (08:47)
--- NOTE | 2017-06-24 12:32 | PRG ---
DATE OF SERVICE: 06/23/2017 SUBJECTIVE: The patient seen and examined. Noted with the following vital signs. PHYSICAL EXAMINATION: VITAL SIGNS: Afebrile. Temperature 98.3, pulse 72, respiratory rate of 18, blood pressure 160/81. HEENT: Unremarkable with moist oral mucosa. No conjunctival injection or icterus. NECK: Supple. CARDIOVASCULAR: . RESPIRATORY: Clear to auscultation. DIGESTIVE SYSTEM: . EXTREMITIES: LABORATORY DATA: BUN 69, creatinine of 3.78, potassium of 5.8. IMPRESSION 1. Advanced chronic kidney disease in the context of diabetic nephropathy. 2. Diabetic nephropathy with nephrotic range proteinuria. 3. Hyperkalemia. 4. Morbid obesity. 5. Hypervolemia. PLAN: 1. Begin plan watermelon inspector dialysis regimen. 2. Continue current antibiotics. 3. Possible .
--- NOTE | 2017-06-24 22:58 | PDOC.PN ---
- Subjective Encounter Start Date: 06/24/17 Encounter Start Time: 12:00 Patient seen and examined. No new complaints. Overnight events noted - Had a brief anxiety attack. No CP/SOB. - Objective Resuscitation Status: Resuscitation Status FULL:Full Resuscitation MAR Reviewed: Yes Vital Signs & Weight: Vital Signs (12 hours) Temp Pulse Resp BP BP Pulse Ox 06/24/17 20:00 98.1 F 67 18 146/75 H 94 L 06/24/17 16:51 156/76 H Weight Weight 219 lb Most Recent Monitor Data Heart Rate from ECG 81 NIBP 163/71 NIBP BP-Mean 82 Respiration from ECG 27 SpO2 97 I&O: 06/23/17 06/24/17 06/25/17 06:59 06:59 06:59 Intake Total 1440 1250 1250 Output Total 900 2000 1300 Balance 540 -750 -50 Result Diagrams: 06/22/17 04:15 06/24/17 03:18 Additional Labs: Accuchecks 06/24/17 06/24/17 06/24/17 20:30 11:35 04:41 POC Glucose 136 H 119 H 108 Phys Exam - Physical Examination Constitutional: NAD Respiratory: no wheezing, no rhonchi Bibasilar rales Cardiovascular: RRR, no rub Gastrointestinal: soft, non-tender, positive bowel sounds Musculoskeletal: edema present Neurological: moves all 4 limbs Dx/Plan - Plan PT/OT, DVT proph w/lovenox, DVT proph w/SCDs IMPRESSION: 1. Acute hypoxic respiratory failure/Pulm edema/Acute on Chronic Diastolic HF 2. HCAP 3. NOLA/CKD3 with hyperkalemia - on Veltassa 4. ARMINDA - home CPAP not functioning 5. ESBL UTI - on Meropenem PLAN: * longterm antibiotics - prob Lr catheter * D/w ID and Nephro * Probably need fpc dialysis * AM labs * Cont to monitor * Cont other home meds as below * Increase Sen-S dose Review of Systems - Review of Systems Respiratory: SOB with Excertion. negative: Cough, Dry, Shortness of Breath, Hemoptysis, Pleuritic Pain, Sputum, Wheezing Cardiovascular: light headedness. negative: chest pain, palpitations, orthopnea , paroxysmal nocturnal dyspnea, edema - Medications/Allergies Allergies/Adverse Reactions: Allergies Allergy/AdvReac Type Severity Reaction Status Date / Time No Known Allergies Allergy Verified 06/16/17 01:56 Medications: Current Medications Acetaminophen (Tylenol) 650 mg PO Q4H PRN PRN Reason: Headache/Fever or Pain Last Admin: 06/22/17 20:18 Dose: 650 mg Albuterol/Ipratropium (Duoneb) 3 ml NEB Q4H PRN PRN Reason: SOB &/or Wheezing Bisacodyl (Dulcolax) 10 mg [place] DAILYPRN PRN PRN Reason: Constipation Last Admin: 06/24/17 14:31 Dose: 10 mg Calcium Carbonate (Tums) 1,000 mg PO TID [facility] Last Admin: 06/24/17 20:02 Dose: 1,000 mg Carvedilol (Coreg) 6.25 mg PO BID-[facility] Last Admin: 06/24/17 16:51 Dose: 6.25 mg Dextrose/Water (Dextrose 50%) 25 gm SLOW IVP PRN PRN PRN Reason: Hypoglycemia Enoxaparin Sodium (Lovenox) 30 mg SC 0900 [facility] Last Admin: 06/24/17 08:38 Dose: 30 mg Epoetin Gamal (Procrit) 7,500 units SC Q7D [facility] Last Admin: 06/23/17 14:20 Dose: 7,500 units Famotidine (Pepcid) 20 mg PO QAM [facility] Last Admin: 06/24/17 08:28 Dose: 20 mg Furosemide (Lasix) 80 mg PO 0900,1400 [facility] Last Admin: 06/24/17 14:29 Dose: 80 mg Glucagon (Glucagon) 1 mg IM PRN PRN PRN Reason: Hypoglycemia Guaifenesin (Robitussin Sf) 200 mg PO Q4H PRN PRN Reason: Cough Last Admin: 06/24/17 20:01 Dose: 200 mg Hydralazine HCl (Apresoline) 10 mg SLOW IVP Q4H PRN PRN Reason: SBP Greater Than 180 Last Admin: 06/18/17 17:50 Dose: 10 mg Dextrose/Water (D5w) 1,000 mls @ 0 mls/hr IV .Q0M PRN; As Directed PRN Reason: Hypoglycemia Meropenem 1 gm/ Device 50 mls @ 50 mls/hr IVPB Q12HR [facility] Last Admin: 06/24/17 20:02 Dose: 50 mls Insulin Human Regular (Humulin R) 0 units SC .MILD SLIDING SCALE PRN PRN Reason: Mild Correctional Scale Last Admin: 06/21/17 17:32 Dose: 3 unit Insulin Human Regular (Humulin R) 0 units SC .BEDTIME SLIDING SC PRN PRN Reason: Bedtime Correctional Scale Loratadine (Claritin) 10 mg PO DAILYPRN PRN PRN Reason: Sinus Symptoms Last Admin: 06/24/17 08:47 Dose: 10 mg Mineral Oil/White Petrolatum (Eucerin Cream) 0 gm TOP BIDPRN PRN PRN Reason: Dry Skin Miscellaneous Medication (Pharmacy To Dose) 1 each IVPB ONE PRN PRN Reason: Pharmacy to dose Stop: 06/26/17 04:12 Nifedipine (Procardia Xl) 90 mg PO DAILY [facility] Last Admin: 06/24/17 08:26 Dose: 90 mg Nitroglycerin (Nitrostat) 0.4 mg PO Q5MIN PRN PRN Reason: Chest Pain Ondansetron HCl (Zofran) 4 mg IVP Q6H PRN PRN Reason: Nausea/Vomiting Last Admin: 06/17/17 17:44 Dose: 4 mg Patiromer Calcium Sorbitex [Veltassa] 8.4 Gm 0 each PO DAILY [facility] Last Admin: 06/24/17 08:30 Dose: 1 each Polyethylene Glycol (Miralax) 17 gm PO DAILY [facility] Last Admin: 06/24/17 08:30 Dose: 17 gm Saccharomyces Boulardii (Florastor) 250 mg PO DAILY [facility] Last Admin: 06/24/17 08:28 Dose: 250 mg Senna (Senokot) 2 tab PO HSPRN PRN PRN Reason: Constipation Last Admin: 06/17/17 06:11 Dose: 2 tab Senna/Docusate Sodium (Senokot S) 2 tab PO BID [facility] Sodium Chloride (Flush - Normal Saline) 10 ml IVF PRN PRN PRN Reason: Saline Flush Last Admin: 06/22/17 20:18 Dose: 10 ml Sodium Chloride ([place] Nasal [place] 0.65%) 0 ml EA NARE PRN PRN PRN Reason: Nasal Dryness Last Admin: 06/23/17 00:37 Dose: 2 spr
[2017-06-25 05:42] LABS: #Basophils 0.1 thou/uL (0.0-0.2); #Eosinphils 0.6 thou/uL (0.0-0.7); #Lymphocytes 1.9 thou/uL (1.20-3.40); #Monocytes 0.8 thou/uL (0.11-0.59); #Neutrophils 5.3 thou/uL (1.40-6.50); %Basophils 0.8 % (0.0-1.0); %Eosinophils 6.6 % (0.0-10.0); %Lymphocytes 21.5 % (21.0-51.0); %Monocytes 9.6 % (0.0-10.0); %Neutrophils 61.5 % (42.0-75.0); Hemoglobin 8.9 g/dL (12.0-16.0); Mean Corpuscular HGB CONC 32.7 g/dL (32.0-36.0); Mean Corpuscular Hemoglobin 29.5 pg (27.0-31.0); Mean Corpuscular Volume 90.4 fl (81.0-99.0); Mean Platelet Volume 7.4 fL (7.4-10.4); Platelet Count 233 thou/uL (130-400); Red Blood Cell (RBC) Count 3.02 mill/uL (4.20-5.40); White Blood Cell (WBC) Count 8.7 thou/uL (4.8-10.8)
[2017-06-25 06:17] LABS: Albumin 2.7 g/dL (3.4-4.8); Anion Gap 15 mmol/L (10-20); BUN (Urea Nitrogen) 64 mg/dL (9.8-20.1); BUN/Creatinine Ratio 18.88; Calc. Creatinine Clearance 26 mL/min (70-130); Calcium 8.2 mg/dL (7.8-10.44); Carbon Dioxide 24 mmol/L (23-31); Chloride 106 mmol/L (98-107); Estimated GFR-MDRD 14; Glucose 79 mg/dL (80-115); Phosphorus 6.2 mg/dL (2.3-4.7); Potassium 5.2 mmol/L (3.5-5.1); Sodium 140 mmol/L (136-145)
--- NOTE | 2017-06-25 06:27 | PRG ---
DATE OF SERVICE: 06/24/2017 SUBJECTIVE: The patient was seen and examined today, not feeling very well at all. He seems to have quite a bit of complaints. The patient has not really been able to lay flat and is struggling to br eathe. OBJECTIVE: VITAL SIGNS: Noted with the following vital signs. Afebrile with temperature 98, pulse 72, blood pr essure 175/93, respiratory rate of 20, and O2 sat 96%. HEENT: Unremarkable with moist oral mucosa. No conjunctival injection or icterus. NECK: Supple. CARDIOVASCULAR SYSTEM: First and second heart sounds were heard. RESPIRATORY SYSTEM: Clear to auscultation. DIGESTIVE SYSTEM: Revealed an obese abdomen. EXTREMITIES: Showed 2-3+ peripheral edema. LABORATORY INVESTIGATION: Showed a hemoglobin of 8.7 of yesterday. Chemistry showed potassium 5.3, BUN of 66 with creatinine of 3.48. Follow-up urine study revealed creatinine clearance to be 15, and follow-up protein to be more than 6 grams. IMPRESSION: 1. Advanced chronic kidney disease, stage 5. 2. Hypervolemia. 3. Hyperkalemia, which seems to be improved on treatment with Veltassa. 4. Nephrotic range proteinuria in the context of diabetic nephropathy. PLAN: 1. Given the fact this patient has began to become very symptomatic and quality of life is grossly b een affected by the advanced kidney disease. I did discuss with this patient the possibility of hemo dialysis initiation at least to address the hypervolemia as well as the potential uremic toxins. The patient is very emotional, but would like to discuss with the family and get back to me to make the decision whether to proceed with dialysis. 2. For now, we will continue with diuretics.
[2017-06-25] MEDS: Famotidine 20 MG TAB PO SCH (09:00)
[2017-06-25] MEDS: NIFEdipine XL 90 MG TAB PO SCH (09:00)
[2017-06-25] MEDS: Saccharomyces boulardii 250 MG CAP PO SCH (09:00)
[2017-06-25] MEDS: Senokot S 8.6-50 MG TAB PO SCH ×2 (09:00→20:34)
[2017-06-25] MEDS: Carvedilol 6.25 MG TAB PO SCH ×2 (09:01→16:15)
[2017-06-25] MEDS: Furosemide 80 MG TAB PO SCH ×2 (09:01→15:57)
[2017-06-25] MEDS: MEROPENEM 1 GM/50 ML 1 GM in Premix Bag 1 BAG IVPB SCH ×2 (09:01→20:34)
[2017-06-25] MEDS: Calcium Carbonate 500 MG ChewTAB PO SCH ×3 (09:01→20:33)
[2017-06-25] MEDS: Enoxaparin Sodium 30 MG/0.3 ML SYRINGE SC SCH (09:01)
[2017-06-25] MEDS: Polyethylene Glycol 3350 17 GM Packet PO SCH (09:01)
[2017-06-25] MEDS: Patiromer Calcium Sorbitex [Veltassa] 8.4 GM PO SCH (10:46)
--- NOTE | 2017-06-25 17:13 | PDOC.PN ---
- Subjective Encounter Start Date: 06/25/17 Encounter Start Time: 16:00 Patient seen and examined. Had BM. No CP. No overnight events - Objective Resuscitation Status: Resuscitation Status FULL:Full Resuscitation MAR Reviewed: Yes Vital Signs & Weight: Vital Signs (12 hours) Temp Pulse Resp BP BP BP BP 06/25/17 16:32 98.3 F 68 18 168/81 H 06/25/17 12:16 98.3 F 65 18 143/83 H 149/69 H 151/68 H 06/25/17 09:01 189/73 H 06/25/17 09:00 73 189/73 H 06/25/17 08:00 98.3 F 65 18 06/25/17 07:47 98.1 F 73 18 189/73 H Pulse Ox 06/25/17 16:32 95 06/25/17 12:16 95 06/25/17 09:01 06/25/17 09:00 06/25/17 08:00 95 06/25/17 07:47 93 L Weight Weight 219 lb Most Recent Monitor Data Heart Rate from ECG 81 NIBP 163/71 NIBP BP-Mean 82 Respiration from ECG 27 SpO2 97 I&O: 06/24/17 06/25/17 06/26/17 06:59 06:59 06:59 Intake Total 1250 1650 Output Total 2000 2500 Balance -750 -850 Result Diagrams: 06/25/17 05:00 06/25/17 05:00 Additional Labs: Accuchecks 06/25/17 06/25/17 06/24/17 16:57 04:50 20:30 POC Glucose 141 H 93 136 H Phys Exam - Physical Examination Constitutional: NAD Respiratory: no wheezing, no rhonchi Cardiovascular: RRR, no rub Gastrointestinal: soft, positive bowel sounds Musculoskeletal: edema present Neurological: non-focal, moves all 4 limbs Dx/Plan - Plan plan discussed w/ family, flowers catheter, PT/OT, out of bed/ambulate, DVT proph w/lovenox IMPRESSION: 1. Acute hypoxic respiratory failure/Pulm edema/Acute on Chronic Diastolic HF 2. HCAP 3. NOLA/CKD3 with hyperkalemia - on Veltassa 4. ARMINDA - home CPAP not functioning 5. ESBL UTI - on Meropenem PLAN: * Patient probably agrees with dialysis - have some more questions for Dr Gabriel * Cont Meropenem * senior care antibiotics - ? Lr catheter * AM labs * Cont other home meds as below * Cont to monitor Review of Systems - Review of Systems Respiratory: SOB with Excertion. negative: Cough, Dry, Shortness of Breath, Hemoptysis, Pleuritic Pain, Sputum, Wheezing Cardiovascular: negative: chest pain, palpitations, orthopnea, paroxysmal nocturnal dyspnea, edema, light headedness Gastrointestinal: negative: Nausea, Vomiting, Abdominal Pain, Diarrhea, Constipation, Melena, Hematochezia - Medications/Allergies Allergies/Adverse Reactions: Allergies Allergy/AdvReac Type Severity Reaction Status Date / Time No Known Allergies Allergy Verified 06/16/17 01:56 Medications: Current Medications Acetaminophen (Tylenol) 650 mg PO Q4H PRN PRN Reason: Headache/Fever or Pain Last Admin: 06/22/17 20:18 Dose: 650 mg Albuterol/Ipratropium (Duoneb) 3 ml NEB Q4H PRN PRN Reason: SOB &/or Wheezing Bisacodyl (Dulcolax) 10 mg [place] DAILYPRN PRN PRN Reason: Constipation Last Admin: 06/24/17 14:31 Dose: 10 mg Calcium Carbonate (Tums) 1,000 mg PO TID [facility] Last Admin: 06/25/17 15:57 Dose: 1,000 mg Carvedilol (Coreg) 6.25 mg PO BID-[facility] Last Admin: 06/25/17 09:01 Dose: 6.25 mg Dextrose/Water (Dextrose 50%) 25 gm SLOW IVP PRN PRN PRN Reason: Hypoglycemia Enoxaparin Sodium (Lovenox) 30 mg SC 0900 [facility] Last Admin: 06/25/17 09:01 Dose: 30 mg Epoetin Gamal (Procrit) 7,500 units SC Q7D [facility] Last Admin: 06/23/17 14:20 Dose: 7,500 units Famotidine (Pepcid) 20 mg PO QAM [facility] Last Admin: 06/25/17 09:00 Dose: 20 mg Furosemide (Lasix) 80 mg PO 0900,1400 [facility] Last Admin: 06/25/17 15:57 Dose: 80 mg Glucagon (Glucagon) 1 mg IM PRN PRN PRN Reason: Hypoglycemia Guaifenesin (Robitussin Sf) 200 mg PO Q4H PRN PRN Reason: Cough Last Admin: 06/24/17 20:01 Dose: 200 mg Hydralazine HCl (Apresoline) 10 mg SLOW IVP Q4H PRN PRN Reason: SBP Greater Than 180 Last Admin: 06/18/17 17:50 Dose: 10 mg Dextrose/Water (D5w) 1,000 mls @ 0 mls/hr IV .Q0M PRN; As Directed PRN Reason: Hypoglycemia Meropenem 1 gm/ Device 50 mls @ 50 mls/hr IVPB Q12HR [facility] Last Admin: 06/25/17 09:01 Dose: 50 mls Insulin Human Regular (Humulin R) 0 units SC .MILD SLIDING SCALE PRN PRN Reason: Mild Correctional Scale Last Admin: 06/21/17 17:32 Dose: 3 unit Insulin Human Regular (Humulin R) 0 units SC .BEDTIME SLIDING SC PRN PRN Reason: Bedtime Correctional Scale Loratadine (Claritin) 10 mg PO DAILYPRN PRN PRN Reason: Sinus Symptoms Last Admin: 06/24/17 08:47 Dose: 10 mg Mineral Oil/White Petrolatum (Eucerin Cream) 0 gm TOP BIDPRN PRN PRN Reason: Dry Skin Miscellaneous Medication (Pharmacy To Dose) 1 each IVPB ONE PRN PRN Reason: Pharmacy to dose Stop: 06/26/17 04:12 Nifedipine (Procardia Xl) 90 mg PO DAILY [facility] Last Admin: 06/25/17 09:00 Dose: 90 mg Nitroglycerin (Nitrostat) 0.4 mg PO Q5MIN PRN PRN Reason: Chest Pain Ondansetron HCl (Zofran) 4 mg IVP Q6H PRN PRN Reason: Nausea/Vomiting Last Admin: 06/17/17 17:44 Dose: 4 mg Patiromer Calcium Sorbitex [Veltassa] 8.4 Gm 0 each PO DAILY [facility] Last Admin: 06/25/17 10:46 Dose: 1 each Polyethylene Glycol (Miralax) 17 gm PO DAILY [facility] Last Admin: 06/25/17 09:01 Dose: 17 gm Saccharomyces Boulardii (Florastor) 250 mg PO DAILY [facility] Last Admin: 06/25/17 09:00 Dose: 250 mg Senna (Senokot) 2 tab PO HSPRN PRN PRN Reason: Constipation Last Admin: 06/17/17 06:11 Dose: 2 tab Senna/Docusate Sodium (Senokot S) 2 tab PO BID [facility] Last Admin: 06/25/17 09:00 Dose: 2 tab Sodium Chloride (Flush - Normal Saline) 10 ml IVF PRN PRN PRN Reason: Saline Flush Last Admin: 06/22/17 20:18 Dose: 10 ml Sodium Chloride ([place] Nasal [place] 0.65%) 0 ml EA NARE PRN PRN PRN Reason: Nasal Dryness Last Admin: 06/23/17 00:37 Dose: 2 spr
[2017-06-26] MEDS: Carvedilol 6.25 MG TAB PO SCH ×2 (05:55→16:26)
[2017-06-26 06:03] LABS: Anion Gap 16 mmol/L (10-20); BUN (Urea Nitrogen) 57 mg/dL (9.8-20.1); Calc. Creatinine Clearance 29 mL/min (70-130); Calcium 8.3 mg/dL (7.8-10.44); Carbon Dioxide 22 mmol/L (23-31); Chloride 110 mmol/L (98-107); Estimated GFR-MDRD 16; Glucose 68 mg/dL (80-115); Potassium 5.5 mmol/L (3.5-5.1); Sodium 142 mmol/L (136-145)
--- NOTE | 2017-06-26 06:40 | PRG ---
DATE OF SERVICE: 06/25/2017 SUBJECTIVE: The patient was seen and examined, still feeling very well. Noted with the following vi rica signs. PHYSICAL EXAMINATION: VITAL SIGNS: Afebrile with temperature 98.1, pulse 74, respiratory rate of 18, O2 sat of 94%, blood pressure 175/78. HEENT: Unremarkable. CARDIOVASCULAR SYSTEM: First and second heart sounds were heard. RESPIRATORY SYSTEM: Clear to auscultation. DIGESTIVE SYSTEM: Revealed an obese abdomen. EXTREMITIES: Showed 2-3+ bilateral lower extremity edema. LYMPHATICS: No peripheral lymphadenopathy. IMPRESSION: 1. Advanced chronic kidney disease, stage 5. 2. Hypervolemia in the context of . 3. Diabetic nephropathy. 4. Morbid obesity. PLAN: 1. After discussing with the patient today, the patient did confirm that she needs hemodialysis in o rd to at least feel better and have a better handle on this; therefore, surgical consult has been p laced to secure dialysis access. 2. Further management to be dependent on the clinical course.
[2017-06-26] MEDS: Calcium Carbonate 500 MG ChewTAB PO SCH ×3 (10:02→20:06)
[2017-06-26] MEDS: NIFEdipine XL 90 MG TAB PO SCH (10:02)
[2017-06-26] MEDS: Saccharomyces boulardii 250 MG CAP PO SCH (10:02)
[2017-06-26] MEDS: Furosemide 80 MG TAB PO SCH ×2 (10:02→16:29)
[2017-06-26] MEDS: MEROPENEM 1 GM/50 ML 1 GM in Premix Bag 1 BAG IVPB SCH ×2 (10:03→20:07)
[2017-06-26] MEDS: Famotidine 20 MG TAB PO SCH (10:03)
[2017-06-26] MEDS: Enoxaparin Sodium 30 MG/0.3 ML SYRINGE SC SCH (10:04)
[2017-06-26] MEDS: Patiromer Calcium Sorbitex [Veltassa] 8.4 GM PO SCH (10:04)
[2017-06-26] MEDS: Senokot S 8.6-50 MG TAB PO SCH ×2 (10:05→20:07)
--- NOTE | 2017-06-26 19:59 | PDOC.PN ---
- Subjective Encounter Start Date: 06/26/17 Encounter Start Time: 11:00 Patient seen and examined. No new complaints. No overnight events - Objective Resuscitation Status: Resuscitation Status FULL:Full Resuscitation MAR Reviewed: Yes Vital Signs & Weight: Vital Signs (12 hours) Temp Pulse Resp BP BP BP BP 06/26/17 16:26 162/78 H 06/26/17 16:00 97.8 F 72 18 152/75 H 06/26/17 12:00 97.6 F 70 18 151/75 H 06/26/17 10:02 68 185/95 H 06/26/17 08:00 97.6 F 70 18 185/95 H 177/94 H BP Pulse Ox 06/26/17 16:26 06/26/17 16:00 95 06/26/17 12:00 94 L 06/26/17 10:02 06/26/17 08:00 165/77 H 97 Weight Admit Weight 232 lb 1.6 oz Weight 218 lb Most Recent Monitor Data Heart Rate from ECG 81 NIBP 163/71 NIBP BP-Mean 82 Respiration from ECG 27 SpO2 97 I&O: 06/25/17 06/26/17 06/27/17 06:59 06:59 06:59 Intake Total 1650 1350 240 Output Total 2500 2150 Balance -850 -800 240 Result Diagrams: 06/25/17 05:00 06/27/17 05:20 Additional Labs: Accuchecks 06/26/17 06/26/17 06/26/17 15:50 12:49 04:54 POC Glucose 91 85 78 06/25/17 20:26 POC Glucose 176 H Phys Exam - Physical Examination Constitutional: NAD Respiratory: no wheezing, no rhonchi Cardiovascular: RRR, no rub Gastrointestinal: soft, non-tender, positive bowel sounds Musculoskeletal: edema present Neurological: moves all 4 limbs Dx/Plan - Plan DVT proph w/lovenox IMPRESSION: 1. Acute hypoxic respiratory failure/Pulm edema/Acute on Chronic Diastolic HF 2. HCAP 3. NOLA/CKD3 with hyperkalemia - on Veltassa 4. ARMINDA - home CPAP not functioning 5. ESBL UTI - on Meropenem PLAN: * Dialysis catheter in AM * Cont Meropenem * AM labs * Cont other home meds as below * Cont to monitor * Outpt dialysis setup Review of Systems - Review of Systems Respiratory: negative: Cough, Dry, Shortness of Breath, Hemoptysis, SOB with Excertion, Pleuritic Pain, Sputum, Wheezing Cardiovascular: negative: chest pain, palpitations, orthopnea, paroxysmal nocturnal dyspnea, edema, light headedness - Medications/Allergies Allergies/Adverse Reactions: Allergies Allergy/AdvReac Type Severity Reaction Status Date / Time No Known Allergies Allergy Verified 06/16/17 01:56 Medications: Current Medications Acetaminophen (Tylenol) 650 mg PO Q4H PRN PRN Reason: Headache/Fever or Pain Last Admin: 06/22/17 20:18 Dose: 650 mg Albuterol/Ipratropium (Duoneb) 3 ml NEB Q4H PRN PRN Reason: SOB &/or Wheezing Bisacodyl (Dulcolax) 10 mg [place] DAILYPRN PRN PRN Reason: Constipation Last Admin: 06/24/17 14:31 Dose: 10 mg Calcium Carbonate (Tums) 1,000 mg PO TID [facility] Last Admin: 06/26/17 16:29 Dose: 1,000 mg Carvedilol (Coreg) 12.5 mg PO BID-[facility] Last Admin: 06/26/17 16:26 Dose: 12.5 mg Dextrose/Water (Dextrose 50%) 25 gm SLOW IVP PRN PRN PRN Reason: Hypoglycemia Enoxaparin Sodium (Lovenox) 30 mg SC 0900 [facility] Last Admin: 06/26/17 10:04 Dose: Not Given Epoetin Gamal (Procrit) 7,500 units SC Q7D [facility] Last Admin: 06/23/17 14:20 Dose: 7,500 units Famotidine (Pepcid) 20 mg PO QAM [facility] Last Admin: 06/26/17 10:03 Dose: 20 mg Furosemide (Lasix) 80 mg PO 0900,1400 [facility] Last Admin: 06/26/17 16:29 Dose: 80 mg Glucagon (Glucagon) 1 mg IM PRN PRN PRN Reason: Hypoglycemia Guaifenesin (Robitussin Sf) 200 mg PO Q4H PRN PRN Reason: Cough Last Admin: 06/24/17 20:01 Dose: 200 mg Hydralazine HCl (Apresoline) 10 mg SLOW IVP Q4H PRN PRN Reason: SBP Greater Than 180 Last Admin: 06/18/17 17:50 Dose: 10 mg Dextrose/Water (D5w) 1,000 mls @ 0 mls/hr IV .Q0M PRN; As Directed PRN Reason: Hypoglycemia Meropenem 1 gm/ Device 50 mls @ 50 mls/hr IVPB Q12HR [facility] Last Admin: 06/26/17 10:03 Dose: 50 mls Insulin Human Regular (Humulin R) 0 units SC .MILD SLIDING SCALE PRN PRN Reason: Mild Correctional Scale Last Admin: 06/21/17 17:32 Dose: 3 unit Insulin Human Regular (Humulin R) 0 units SC .BEDTIME SLIDING SC PRN PRN Reason: Bedtime Correctional Scale Loratadine (Claritin) 10 mg PO DAILYPRN PRN PRN Reason: Sinus Symptoms Last Admin: 06/24/17 08:47 Dose: 10 mg Mineral Oil/White Petrolatum (Eucerin Cream) 0 gm TOP BIDPRN PRN PRN Reason: Dry Skin Nifedipine (Procardia Xl) 90 mg PO DAILY [facility] Last Admin: 06/26/17 10:02 Dose: 90 mg Nitroglycerin (Nitrostat) 0.4 mg PO Q5MIN PRN PRN Reason: Chest Pain Ondansetron HCl (Zofran) 4 mg IVP Q6H PRN PRN Reason: Nausea/Vomiting Last Admin: 06/17/17 17:44 Dose: 4 mg Patiromer Calcium Sorbitex [Veltassa] 8.4 Gm 0 each PO DAILY [facility] Last Admin: 06/26/17 10:04 Dose: 1 each Polyethylene Glycol (Miralax) 17 gm PO DAILY [facility] Last Admin: 06/25/17 09:01 Dose: 17 gm Saccharomyces Boulardii (Florastor) 250 mg PO DAILY [facility] Last Admin: 06/26/17 10:02 Dose: 250 mg Senna (Senokot) 2 tab PO HSPRN PRN PRN Reason: Constipation Last Admin: 06/17/17 06:11 Dose: 2 tab Senna/Docusate Sodium (Senokot S) 2 tab PO BID [facility] Last Admin: 06/26/17 10:05 Dose: Not Given Sodium Chloride (Flush - Normal Saline) 10 ml IVF PRN PRN PRN Reason: Saline Flush Last Admin: 06/22/17 20:18 Dose: 10 ml Sodium Chloride ([place] Nasal [place] 0.65%) 0 ml EA NARE PRN PRN PRN Reason: Nasal Dryness Last Admin: 06/23/17 00:37 Dose: 2 spr
[2017-06-26] MEDS: Acetaminophen 325 MG TAB PO PRN (20:06)
[2017-06-26] MEDS: Loratadine 10 MG TAB PO PRN (20:06)
[2017-06-27 06:20] LABS: Anion Gap 15 mmol/L (10-20); BUN (Urea Nitrogen) 53 mg/dL (9.8-20.1); Calc. Creatinine Clearance 32 mL/min (70-130); Calcium 8.5 mg/dL (7.8-10.44); Carbon Dioxide 22 mmol/L (23-31); Chloride 110 mmol/L (98-107); Estimated GFR-MDRD 17; Glucose 81 mg/dL (80-115); Potassium 5.5 mmol/L (3.5-5.1); Sodium 141 mmol/L (136-145)
[2017-06-27] MEDS: Carvedilol 6.25 MG TAB PO SCH ×2 (06:23→17:09)
--- NOTE | 2017-06-27 06:32 | PRG ---
DATE OF SERVICE: 06/26/2017 SUBJECTIVE: The patient is seen and examined today with no new complaints except the complaint of be ing n.p.o. for a long time . Otherwise, noted with the following vital signs. OBJECTIVE: VITAL SIGNS: Afebrile with a temperature of 97.8, pulse 72, respiratory rate of 18, O2 sats 95% with a blood pressure 155/77. HEENT: Unremarkable with moist oral mucosa. No conjunctival injection or icterus. NECK: Supple. CARDIOVASCULAR SYSTEM: First and second heart sounds heard. RESPIRATORY SYSTEM: Clear to auscultation. DIGESTIVE SYSTEM: Revealed an obese abdomen. . IMPRESSION: 1. Nephrotic syndrome. 2. Advanced chronic kidney disease, stage 5. 3. Morbid obesity. 4. Hypovolemia. PLAN: 1. To have a dialysis catheter placed and initiate hemodialysis . 2. Continue other renal supportive measures. 3. .
[2017-06-27] MEDS: Calcium Carbonate 500 MG ChewTAB PO SCH ×3 (07:56→21:37)
[2017-06-27] MEDS: MEROPENEM 1 GM/50 ML 1 GM in Premix Bag 1 BAG IVPB SCH ×2 (07:57→21:37)
[2017-06-27] MEDS: Enoxaparin Sodium 30 MG/0.3 ML SYRINGE SC SCH (07:57)
[2017-06-27] MEDS: Senokot S 8.6-50 MG TAB PO SCH ×2 (08:00→21:37)
[2017-06-27] MEDS: Famotidine 20 MG TAB PO SCH (08:00)
[2017-06-27] MEDS: Polyethylene Glycol 3350 17 GM Packet PO SCH (08:00)
[2017-06-27] MEDS: Furosemide 80 MG TAB PO SCH ×2 (08:00→17:09)
[2017-06-27] MEDS: Saccharomyces boulardii 250 MG CAP PO SCH (08:00)
[2017-06-27] MEDS ORDERED: Bupivacaine/Epinephrine 0.25% 30 ML VIAL ONE ×2 (08:47→09:57)
[2017-06-27] MEDS ORDERED: Lidocaine 2% PF 5 ML VIAL ONE (08:47)
--- NOTE | 2017-06-27 08:59 | CON ---
DATE OF CONSULTATION: 06/27/2017 REASON FOR CONSULTATION: Renal failure and need for long-term IV antibiotics. HISTORY: Ms. Levi is a 67-year-old woman with multiple medical problems, who presented with a syncop al episode. She was discharged home, but then came back due to feeling bad. It is unclear whether s he had another actual episode of syncope that she has had ongoing problems with increasing fluid over load and shortness of breath, and her chronic kidney disease has progressed to the stage that her nep hrologist feels that dialysis is necessary. 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 She has been treated with multiple courses of antibiotics for this since 2014, an d Dr. Selby has recommended a prolonged course of IV antibiotics. PAST MEDICAL HISTORY: Chronic heart failure, diabetes, obstructive sleep apnea without formal sleep testing due to insurance issues, morbid obesity, chronic anemia, chronic kidney disease, worsening an xiety, chronic resistant UTI. PAST SURGICAL HISTORY: Laparoscopic cholecystectomy and and a cystoscopy with stent placem ent for pyelonephritis with obstruction. ALLERGIES: No known drug allergies. OUTPATIENT MEDICATIONS: Include aspirin, Lipitor, carvedilol, Lasix, Procardia, oxymetazoline, Tums, and p.r.n. Xanax. SOCIAL HISTORY: She does not smoke, drink, or use illicit drugs. She is living at home with family. FAMILY HISTORY: Hypertension in her father, also had renal problems, but never went on dialysis. REVIEW OF SYSTEMS: Ten-system review of systems was negative except per HPI. The patient is feeling better and feels like her breathing is at baseline. She has severe anxiety when she tries to lie fl at and can only lie flat for a few minutes at a time. She has severe lower extremity swelling, but d uplex was negative for DVT and she states that this is stable. PHYSICAL EXAMINATION: VITAL SIGNS: Patient has been afebrile through her hospital stay. Heart rate 64, respirations 22, 9 7% saturated on 2 liters of oxygen, blood pressure 158/81. GENERAL: Reveals a chronically ill-appearing woman in no acute distress. She is not flushed, toxic, jaundiced, or icteric. HEENT: Unremarkable. NECK: Supple, without lymphadenopathy or thyroid nodules. HEART: Regular in its rate and rhythm without murmurs, rubs, or gallops. LUNGS: Clear to auscultation anteriorly with crackles in both bases. ABDOMEN: Soft, nontender, nondistended. EXTREMITIES: Markedly edematous with loss of surface landmarks and pitting edema almost to the knee. She has radial dominant filling on the right, but fairly even filling on the left with Danis's test ing. Good-sized palpable forearm veins, but she does have antecubital veins palpable. She is right- handed. NEUROLOGIC: No focal deficits, but mild subjective numbness in her fingertips bilaterally. PSYCHIATRIC: Alert, oriented, and appropriate. LABORATORY DATA: Her white count is normal at 8.7, hematocrit chronically low at 27, platelets blaine l at 233. Potassium is 5.5, which is unchanged. BUN and creatinine 53 and 2.75, which is also about her baseline. Bicarbonate is slightly low at 22. IMAGING: Last chest x-ray was on the and this showed, right greater than left, bilateral pleura l fluid and multifocal bibasilar alveolar opacification, which Pulmonary felt was likely fluid overlo ad, although atypical pneumonia could not be excluded. Vein mapping is ordered, but is still pending . ASSESSMENT: Chronic renal failure with complicating heart failure and severe fluid overload, which h as not been responding to IV Lasix. After discussion with her baggage smasher, the patient has decided to start dialysis. A tunneled hemodialysis catheter will be necessary for this, and she will require a fistula for long-term access. Both procedures were discussed with the patient and their inherent risks were discussed. These include but are not limited to bleeding, infection, risks of anesthesia, hemothorax, pneumothorax, need for additional procedures to obtain or maintain a patent fistula, daren lure of the fistula to develop need for transposition of an upper arm fistula was created and arteria l steal, which can lead to permanent ischemic damage to the hand. The patient understands and accept s these risks and wishes to proceed. In addition, she will require a Lr catheter for long-term IV antibiotics. Due to her chronic urinary tract infection, only a [place] fistula would be attempted today; if no appropriate veins are found, a fistula on the other side would be attempted and only as a last resort would a graft be placed.
[2017-06-27] MEDS ORDERED: Midazolam HCl 2 mg/2 ml Vial ONE (09:56)
[2017-06-27] MEDS ORDERED: Fentanyl 100 MCG/2 ML VIAL ONE ×2 (09:56→10:15)
[2017-06-27] MEDS ORDERED: Heparin 10,000 UNITS/1 ML VIAL ONE (09:57)
[2017-06-27] MEDS ORDERED: Sodium Chloride 0.9% 20 ML ONE (09:57)
[2017-06-27] MEDS ORDERED: Lidocaine 1% (PF) 30 ML VIAL ONE (09:57)
[2017-06-27] MEDS ORDERED: Protamine Sulfate 50 MG/5 ML VIAL ONE (09:57)
[2017-06-27] MEDS ORDERED: Heparin 5,000 UNITS/ML VIAL ONE (09:57)
[2017-06-27] MEDS ORDERED: Propofol 500 MG/50 ML VIAL ONE ×2 (10:18→12:51)
[2017-06-27] MEDS ORDERED: Tuberculin PPD 0.1 ML VIAL I-DERMAL SCH (10:45)
[2017-06-27] MEDS ORDERED: Heparin 1,000 UNITS/ML VIAL ONE (11:11)
--- NOTE | 2017-06-27 11:19 | ULT ---
BILATERAL UPPER EXTREMITY VEIN MAPPING: Date: 06/27/17 HISTORY: End-stage renal disease; evaluate for dialysis access. FINDINGS: RIGHT UPPER EXTREMITY CEPHALIC VEIN Proximal Arm: 3.4 mm Mid Arm: 2.2 mm Distal Arm: 2.8 mm Antecubital Fossa: 3.8 mm Proximal Forearm: 1.6 mm Mid Forearm: 2.5 mm Distal Forearm: 1.0 mm BASILIC VEIN Proximal Arm: 2.4 mm Mid Arm: 1.5 mm Distal Arm: 2.3 mm Antecubital Fossa: 0.6 mm Proximal Forearm: 0.7 mm Mid Forearm: 0.6 mm Distal Forearm: 0.6 mm LEFT UPPER EXTREMITY CEPHALIC VEIN Proximal Arm: 2.9 mm Mid Arm: 2.8 mm Distal Arm: 2.3 mm Antecubital Fossa: 3.0 mm Proximal Forearm: 2.1 mm Mid Forearm: 2.6 mm Distal Forearm: 1.0 mm BASILIC VEIN Proximal Arm: 2.9 mm Mid Arm: 2.4 mm Distal Arm: 3.4 mm Antecubital Fossa: 1.7 mm Proximal Forearm: 0.9 mm Mid Forearm: 0.4 mm Distal Forearm: 0.7 mm RIGHT BRACHIAL ARTERY: 4.6 mm RIGHT RADIAL ARTERY: 2.8 mm RIGHT ULNAR ARTERY: 2.4 mm LEFT BRACHIAL ARTERY: 4.4 mm LEFT RADIAL ARTERY: 2.1 mm LEFT ULNAR ARTERY: 1.9 mm IMPRESSION: Vein mapping as discussed above. POS: [facility]
[2017-06-27] MEDS ORDERED: Ondansetron HCl/PF 4 MG/2 ML Vial IVP SCH (13:31)
[2017-06-27] MEDS ORDERED: hydrALAZINE 20 MG/ML VIAL ONE (13:45)
--- NOTE | 2017-06-27 14:55 | RAD ---
AP VIEW OF CHEST: Date: 06/27/17 HISTORY: Status post dialysis catheter placement. FINDINGS: AP view of chest obtained. Comparison made to previous exam from 06/15/17. AP view of chest demonstrates placement of a right jugular and left jugular dialysis catheter. Both t ips distally appear to be overlying the SVC. Cardiomegaly is noted. Pulmonary vascular congestion is seen. There is continued small right-sided pleural effusion. There has been interval development of a left-sided pleural effusion, which was not present on the patient's previous radiograph from [facility] 12 days earlier. IMPRESSION: 1. Cardiomegaly and pulmonary vascular congestion. 2. Bilateral pleural effusions. 3. No evidence of post catheter placement pneumothorax. POS: [facility]
--- NOTE | 2017-06-27 15:36 | PDOC.OP ---
Operative Note - Operative Note Operative Note: PROCEDURE: Placement of right internal jugular tunneled hemodialysis catheter and left internal jugular Lr catheter with ultrasound and fluoroscopic guidance and left radiocephalic AV fistula. SURGEON: Gregorio Redd M.D. DATE OF PROCEDURE: PREOPERATIVE DIAGNOSIS: Acute/Chronic renal failure, multi drug resistant UTI. POSTOPERATIVE DIAGNOSIS: Acute/Chronic renal failure, multi drug resistant UTI. HISTORY: Patient with chronic renal failure which has acutely worsened. She is in severe fluid overload and dialysis has been recommended. A tunneled hemodialysis catheter for initiation of dialysis, as well as a fistula for long- term access, have been requested by the patients wafer mounter. In addition the patient has a resistant UTI for which long-term antibiotics are required so a Lr catheter has been requested as well. PROCEDURE: After informed consent was obtained and appropriate preoperative antibiotics were administered, the patient was taken to the Operating Room, placed in the supine position and monitored anesthesia care was administered. The neck and chest were prepped and draped in a standard sterile fashion and the patient placed in Trendelenburg position. A sterile ultrasound probe was used to identify the patent compressible right IJ vein which was accessed under direct ultrasound guidance. A wire was threaded through the needle and confirmed by ultrasound to be within the patent compressible vessel with the tip in the vena cava by fluoroscopy. Local anesthesia was infused to the skin and subcutaneous tissues of the right neck and chest. An infraclavicular incision was made and a catheter tunneled from the infraclavicular to the right IJ access site. The right IJ was sequentially dilated over the wire following which a dilator and sheath were placed over the wire and the dilator and wire removed leaving the sheath in place. The catheter was tunneled through the sheath which was then split and removed leaving the catheter in place. This was confirmed by fluoroscopy to be in good position in the superior vena cava with no kinking of the course of the catheter. Both ports easily aspirated dark venous nonpulsatile blood and easily flushed without resistance. Heparin was instilled to the quantity specified on the hub, and the hub was secured to the skin with 3-0 nylon sutures. The skin incision at the neck was closed in two layers with 4-0 Monocryl suture and Dermabond dressings were placed. The skin at the exit site was snugged up around the catheter with 4-0 Monocryl suture and Dermabond was placed there as well. Once the Dermabond was dry, a Biopatch and Tegaderm dressing was placed at the exit site. The left internal jugular 2 lumen Lr catheter was then placed using the same technique. Attention was then turned to the left AV fistula. . A preoperative block had been performed by Anesthesia and the adequacy of block was confirmed. The arm was prepped and draped in a standard sterile fashion and an incision made between the palpable cephalic vein and radial artery. Dissection was carried out to the cephalic vein, which appeared to be of adequate quality and caliber to support a fistula; however, a stenotic segment was encountered just above the level of the wrist. Sterile ultrasound was obtained and the vein above that stenotic segment appeared normal in caliber so the incision was extended proximally and the more proximal cephalic vein was dissected free circumferentially, ligated, and divided distally, and spatulated with Brown scissors. This was serially interrogated with cardiac dilators and easily accepted up to a 3.5 mm cardiac dilator. This was flushed with heparinized saline and clamped with a bulldog clamp. The radial artery was then dissected free and found to be of adequate quality and caliber to support a fistula. Heparin was administered systemically and allowed to circulate for 3 minutes following which the radial artery was clamped proximally and distally. An anterior arteriotomy was created with an 11 blade scalpel and extended with Brown scissors. An end-to-side anastomosis created with a running 6-0 Prolene suture with excellent technical result. Prior to tying down the anastomosis, the inflow was released to flush the anastomosis. Flow was established first through the fistula and then through the distal radial artery. Hemostasis at the site was confirmed, and an excellent thrill was felt in the cephalic vein outflow and an excellent bruit was heard with Doppler as well up to the proximal forearm. Hemostasis at the operative site was again confirmed. The incision was closed with a running 3-0 subcutaneous and running 4-0 subcuticular Monocryl sutures. Dermabond dressings were placed and the patient was taken to the recovery room in good condition. Estimated blood loss was minimal. There were no complications. There were no specimens.
[2017-06-27] MEDS ORDERED: Bupivacaine PF 0.5% 30 ML VIAL ONE (16:48)
[2017-06-27] MEDS ORDERED: Bupivacaine HCl 0.5%/Epinephrine 1:200,000/PF 30 ml Vial ONE (16:48)
[2017-06-27] MEDS ORDERED: Propofol 200 MG/20 ML VIAL ONE (17:05)
[2017-06-27] MEDS: Patiromer Calcium Sorbitex [Veltassa] 8.4 GM PO SCH (17:08)
[2017-06-27] MEDS: NIFEdipine XL 90 MG TAB PO SCH (17:08)
[2017-06-27 19:11] LABS: HBSAg Index 0.21 S/CO (0-0.99); Hep B Surf Ag Non-Reactive S/CO (NonReactive)
[2017-06-27 19:47] LABS: Hep B Core Total Ab Reactive (NonReactive); Hep B Core Total Index 3.66 S/CO (0-0.79); Hep B Surf AB Reactive (NonReactive)
--- NOTE | 2017-06-27 20:22 | PDOC.EVN ---
Event Note - Event Note Event Note: Patient not seen today - in procedure.
[2017-06-27] MEDS: Acetaminophen 325 MG TAB PO PRN (21:38)
[2017-06-28] MEDS: Acetaminophen 325 MG TAB PO PRN ×3 (01:24→21:48)
[2017-06-28 05:13] LABS: #Eosinphils 0.7 thou/uL (0.0-0.7); #Lymphocytes 2.1 thou/uL (1.20-3.40); #Monocytes 0.8 thou/uL (0.11-0.59); #Neutrophils 5.6 thou/uL (1.40-6.50); %Basophils 0.3 % (0.0-1.0); %Eosinophils 7.1 % (0.0-10.0); %Lymphocytes 22.5 % (21.0-51.0); Hemoglobin 8.4 g/dL (12.0-16.0); Mean Corpuscular HGB CONC 32.5 g/dL (32.0-36.0); Mean Corpuscular Hemoglobin 29.4 pg (27.0-31.0); Mean Corpuscular Volume 90.3 fl (81.0-99.0); Mean Platelet Volume 7.3 fL (7.4-10.4); Platelet Count 220 thou/uL (130-400); RBC Distribution Width 12.9 % (11.5-14.5); Red Blood Cell (RBC) Count 2.87 mill/uL (4.20-5.40); White Blood Cell (WBC) Count 9.2 thou/uL (4.8-10.8)
[2017-06-28 05:34] LABS: Anion Gap 12 mmol/L (10-20); BUN (Urea Nitrogen) 36 mg/dL (9.8-20.1); Calc. Creatinine Clearance 40 mL/min (70-130); Carbon Dioxide 25 mmol/L (23-31); Chloride 107 mmol/L (98-107); Estimated GFR-MDRD 23; Glucose 86 mg/dL (80-115); Potassium 4.9 mmol/L (3.5-5.1); Sodium 139 mmol/L (136-145)
--- NOTE | 2017-06-28 08:16 | PRG ---
DATE OF SERVICE: 06/26/2017 SUBJECTIVE: The patient seen and examined, noted with the following vital signs. PHYSICAL EXAMINATION: VITAL SIGNS: Afebrile with temperature 97.2, pulse 70, respiratory rate of 20, O2 sat 95%, blood pre ssure 156/80. HEENT: Unremarkable. CARDIOVASCULAR: First and second heart sounds were heard. RESPIRATORY: Clear to auscultation. ABDOMEN: Revealed a benign abdomen with positive bowel sounds. EXTREMITIES: Showed 3+ bilateral lower extremity edema. LYMPHATICS: No peripheral lymphadenopathy. IMPRESSION: 1. Advanced chronic kidney disease stage V in the context of diabetic nephropathy. 2. Hyperkalemia. 3. Mild metabolic acidosis. 4. Anasarca due to nephrotic range proteinuria in the context of diabetic nephropathy. 5. Anemia of chronic kidney disease. PLAN: 1. The patient to be initiated on hemodialysis today to address the severe hypervolemia azotem ia. 2. We will begin to make arrangements for outpatient dialysis placement. 3. Further management to be dependent on the clinical course.
--- NOTE | 2017-06-28 08:33 | PRG ---
DATE OF SERVICE: 06/27/2017 SUBJECTIVE: The patient seems to have tolerated the first session of hemodialysis well and noted to be hemodynamically stable. OBJECTIVE: HEENT: Unremarkable. CARDIOVASCULAR: First and second heart sounds were heard. RESPIRATORY: Clear to auscultation. ABDOMEN: Digestive system revealed an obese abdomen. EXTREMITIES: Still showed 2-3+ bilateral lower extremity edema. LABORATORY INVESTIGATIONS: Showed a creatinine down to 2.18 in response to hemodialysis of yesterday . IMPRESSION: 1. Advanced chronic kidney disease stage V in the context of problem #2. 2. Diabetic nephropathy. 3. Hypervolemia. 4. Anasarca. 5. Anemia of chronic kidney disease. 6. Morbid obesity. PLAN: 1. The patient tolerated hemodialysis, and we will begin to make arrangements for outpatient dialysi s . 2. We will discontinue Lasix at this point. 3. Further management will be dependent on the clinical course.
[2017-06-28] MEDS: Carvedilol 6.25 MG TAB PO SCH ×2 (10:52→15:47)
[2017-06-28] MEDS: Saccharomyces boulardii 250 MG CAP PO SCH (10:52)
[2017-06-28] MEDS: Polyethylene Glycol 3350 17 GM Packet PO SCH (10:52)
[2017-06-28] MEDS: Calcium Carbonate 500 MG ChewTAB PO SCH ×3 (10:52→21:48)
[2017-06-28] MEDS: Famotidine 20 MG TAB PO SCH (10:52)
[2017-06-28] MEDS: Enoxaparin Sodium 30 MG/0.3 ML SYRINGE SC SCH (10:53)
[2017-06-28] MEDS: Senokot S 8.6-50 MG TAB PO SCH ×2 (10:54→21:48)
[2017-06-28] MEDS: NIFEdipine XL 90 MG TAB PO SCH (10:54)
[2017-06-28] MEDS: Meropenem 1 GM, Admixture Fee 1 EACH in Sterile Water 20 ML IVPB SCH (11:00)
[2017-06-28] MEDS: MEROPENEM 1 GM/50 ML 1 GM in Premix Bag 1 BAG IVPB SCH (11:05)
[2017-06-28] MEDS ORDERED: Heparin 1,000 UNITS/ML VIAL ONE (11:11)
[2017-06-28] MEDS ORDERED: MEROPENEM 1 GM/50 ML 1 GM in Premix Bag 1 BAG IVPB SCH (12:00)
[2017-06-28] MEDS: Ondansetron HCl/PF 4 MG/2 ML Vial IVP PRN (12:37)
--- NOTE | 2017-06-28 22:35 | PDOC.PN ---
- Subjective Encounter Start Date: 06/28/17 Encounter Start Time: 14:30 Patient seen and examined. Feels gen weak after dialysis. No overnight events - Objective Resuscitation Status: Resuscitation Status FULL:Full Resuscitation MAR Reviewed: Yes Vital Signs & Weight: Vital Signs (12 hours) Temp Pulse Resp BP BP BP Pulse Ox 06/28/17 20:11 98.3 F 93 16 115/70 93 L 06/28/17 17:08 97.7 F 59 L 16 104/66 96 06/28/17 17:05 59 L 06/28/17 15:47 161/81 H 06/28/17 10:54 74 175/76 H 06/28/17 10:52 175/76 H Weight Admit Weight 232 lb 1.6 oz Weight 218 lb Most Recent Monitor Data Heart Rate from ECG 81 NIBP 163/71 NIBP BP-Mean 82 Respiration from ECG 27 SpO2 97 I&O: 06/27/17 06/28/17 06/29/17 06:59 06:59 06:59 Intake Total 610 400 500 Output Total 900 900 200 Balance -290 -500 300 Result Diagrams: 06/28/17 04:58 06/29/17 04:56 Additional Labs: Accuchecks 06/28/17 06/28/17 06/28/17 16:02 11:05 05:25 POC Glucose 140 H 85 88 Phys Exam - Physical Examination Constitutional: NAD Respiratory: no wheezing, no rhonchi Cardiovascular: RRR, no rub Gastrointestinal: soft, non-tender, positive bowel sounds Musculoskeletal: no edema Neurological: moves all 4 limbs Dx/Plan - Plan DVT proph w/SCDs IMPRESSION: 1. Acute hypoxic respiratory failure/Pulm edema/Acute on Chronic Diastolic HF 2. HCAP 3. NOLA/CKD3 with hyperkalemia/ESRD - Started on dialysis 4. ARMINDA - home CPAP not functioning 5. ESBL UTI - on Meropenem PLAN: * s/p Dialysis catheter * Cont Meropenem * AM labs * Cont other home meds as below * Cont to monitor * Outpt dialysis setup Review of Systems - Review of Systems Respiratory: SOB with Excertion. negative: Cough, Dry, Shortness of Breath, Hemoptysis, Pleuritic Pain, Sputum, Wheezing Cardiovascular: negative: chest pain, palpitations, orthopnea, paroxysmal nocturnal dyspnea, edema, light headedness - Medications/Allergies Allergies/Adverse Reactions: Allergies Allergy/AdvReac Type Severity Reaction Status Date / Time No Known Allergies Allergy Verified 06/16/17 01:56 Medications: Current Medications Acetaminophen (Tylenol) 650 mg PO Q4H PRN PRN Reason: Headache/Fever or Pain Last Admin: 06/28/17 21:48 Dose: 650 mg Albuterol/Ipratropium (Duoneb) 3 ml NEB Q4H PRN PRN Reason: SOB &/or Wheezing Bisacodyl (Dulcolax) 10 mg [place] DAILYPRN PRN PRN Reason: Constipation Last Admin: 06/24/17 14:31 Dose: 10 mg Calcium Carbonate (Tums) 1,000 mg PO TID [facility] Last Admin: 06/28/17 21:48 Dose: 1,000 mg Carvedilol (Coreg) 12.5 mg PO BID-[facility] Last Admin: 06/28/17 15:47 Dose: 12.5 mg Dextrose/Water (Dextrose 50%) 25 gm SLOW IVP PRN PRN PRN Reason: Hypoglycemia Enoxaparin Sodium (Lovenox) 30 mg SC 0900 [facility] Last Admin: 06/28/17 10:53 Dose: 30 mg Epoetin Gamal (Procrit) 7,500 units SC Q7D [facility] Last Admin: 06/23/17 14:20 Dose: 7,500 units Famotidine (Pepcid) 20 mg PO QAM [facility] Last Admin: 06/28/17 10:52 Dose: 20 mg Glucagon (Glucagon) 1 mg IM PRN PRN PRN Reason: Hypoglycemia Guaifenesin (Robitussin Sf) 200 mg PO Q4H PRN PRN Reason: Cough Last Admin: 06/24/17 20:01 Dose: 200 mg Hydralazine HCl (Apresoline) 10 mg SLOW IVP Q4H PRN PRN Reason: SBP Greater Than 180 Last Admin: 06/18/17 17:50 Dose: 10 mg Dextrose/Water (D5w) 1,000 mls @ 0 mls/hr IV .Q0M PRN; As Directed PRN Reason: Hypoglycemia Meropenem 1 gm/ Miscellaneous Medication 1 each/ Sterile Water 20 mls @ 240 mls /hr IVPB 1200,2359 [facility] Last Admin: 06/28/17 11:00 Dose: 20 mls Insulin Human Regular (Humulin R) 0 units SC .MILD SLIDING SCALE PRN PRN Reason: Mild Correctional Scale Last Admin: 06/21/17 17:32 Dose: 3 unit Insulin Human Regular (Humulin R) 0 units SC .BEDTIME SLIDING SC PRN PRN Reason: Bedtime Correctional Scale Loratadine (Claritin) 10 mg PO DAILYPRN PRN PRN Reason: Sinus Symptoms Last Admin: 06/26/17 20:06 Dose: 10 mg Mineral Oil/White Petrolatum (Eucerin Cream) 0 gm TOP BIDPRN PRN PRN Reason: Dry Skin Nifedipine (Procardia Xl) 90 mg PO DAILY [facility] Last Admin: 06/28/17 10:54 Dose: 90 mg Nitroglycerin (Nitrostat) 0.4 mg PO Q5MIN PRN PRN Reason: Chest Pain Read Ppd Test Site 0 each PO ONE [facility] Stop: 06/29/17 09:01 Ondansetron HCl (Zofran) 4 mg IVP Q6H PRN PRN Reason: Nausea/Vomiting Last Admin: 06/28/17 12:37 Dose: 4 mg Polyethylene Glycol (Miralax) 17 gm PO DAILY [facility] Last Admin: 06/28/17 10:52 Dose: Not Given Saccharomyces Boulardii (Florastor) 250 mg PO DAILY [facility] Last Admin: 06/28/17 10:52 Dose: 250 mg Senna (Senokot) 2 tab PO HSPRN PRN PRN Reason: Constipation Last Admin: 06/17/17 06:11 Dose: 2 tab Senna/Docusate Sodium (Senokot S) 2 tab PO BID [facility] Last Admin: 06/28/17 21:48 Dose: Not Given Sodium Chloride (Flush - Normal Saline) 10 ml IVF PRN PRN PRN Reason: Saline Flush Last Admin: 06/22/17 20:18 Dose: 10 ml Sodium Chloride ([place] Nasal [place] 0.65%) 0 ml EA NARE PRN PRN PRN Reason: Nasal Dryness Last Admin: 06/23/17 00:37 Dose: 2 spr
[2017-06-29 05:44] LABS: Anion Gap 11 mmol/L (10-20); BUN (Urea Nitrogen) 28 mg/dL (9.8-20.1); Calc. Creatinine Clearance 34 mL/min (70-130); Calcium 8.3 mg/dL (7.8-10.44); Carbon Dioxide 28 mmol/L (23-31); Chloride 103 mmol/L (98-107); Estimated GFR-MDRD 18; Glucose 110 mg/dL (80-115); Potassium 4.7 mmol/L (3.5-5.1); Sodium 137 mmol/L (136-145)
[2017-06-29] MEDS: Carvedilol 6.25 MG TAB PO SCH ×2 (08:00→15:58)
[2017-06-29] MEDS: Calcium Carbonate 500 MG ChewTAB PO SCH ×3 (09:00→20:56)
[2017-06-29] MEDS ORDERED: READ PPD TEST SITE PO SCH (09:00)
--- NOTE | 2017-06-29 11:24 | PRG ---
DATE OF SERVICE: 06/29/2017 SUBJECTIVE: The patient was seen and examined. OBJECTIVE: VITAL SIGNS: Afebrile with temperature 98, pulse 67, respiratory rate of 20, O2 sat of 96% with bloo d pressure 123/77. GENERAL: The patient seems to be doing well on dialysis. HEENT: Unremarkable. CARDIOVASCULAR: First and second heart sounds were heard. RESPIRATORY: Clear to auscultation. ABDOMEN: Digestive system revealed a benign abdomen. EXTREMITIES: Showed 2+ peripheral edema, which is improving. LYMPHATICS: No peripheral lymphadenopathy. IMPRESSION: 1. Advanced chronic kidney disease, stage 5/end-stage renal disease. 2. Diabetic nephropathy with nephrotic range proteinuria. 3. Hypervolemia responding to dialysis with ultrafiltration. 4. Morbid obesity. PLAN: 1. The patient to continue with current dialysis plan. Today will be day 3 of the hemodialysis with a goal ultrafiltration of about 4 liters. The patient likely to skip dialysis tomorrow and then res ume dialysis of Friday and afterwards will remain on a Friday, schedule, until the patient is appropriately placed for continued outpatient hemodialysis. 2. Further management will be dependent on the clinical course.
[2017-06-29] MEDS: Saccharomyces boulardii 250 MG CAP PO SCH (13:24)
[2017-06-29] MEDS: Enoxaparin Sodium 30 MG/0.3 ML SYRINGE SC SCH (13:24)
[2017-06-29] MEDS: Meropenem 1 GM, Admixture Fee 1 EACH in Sterile Water 20 ML IVPB SCH ×4 (13:24)
[2017-06-29] MEDS: Polyethylene Glycol 3350 17 GM Packet PO SCH (13:26)
[2017-06-29] MEDS: Senokot S 8.6-50 MG TAB PO SCH ×2 (13:26→20:55)
[2017-06-29] MEDS: Famotidine 20 MG TAB PO SCH (13:26)
[2017-06-29] MEDS: NIFEdipine XL 90 MG TAB PO SCH (13:27)
--- NOTE | 2017-06-29 20:33 | PDOC.PN ---
- Subjective Encounter Start Date: 06/29/17 Encounter Start Time: 10:30 Patient seen and examined during dialysis. No new complaints. No overnight events. Feels gen weak - Objective Resuscitation Status: Resuscitation Status FULL:Full Resuscitation MAR Reviewed: Yes Vital Signs & Weight: Vital Signs (12 hours) Temp Pulse Resp BP Pulse Ox 06/29/17 18:53 104/66 06/29/17 17:14 98.3 F 62 18 99/61 97 06/29/17 15:58 106/57 L 06/29/17 13:00 97.9 F 68 20 06/29/17 12:52 97.9 F 68 20 156/80 H 97 Weight Admit Weight 232 lb 1.6 oz Weight 218 lb Most Recent Monitor Data Heart Rate from ECG 81 NIBP 163/71 NIBP BP-Mean 82 Respiration from ECG 27 SpO2 97 I&O: 06/28/17 06/29/17 06/30/17 06:59 06:59 06:59 Intake Total 400 680 600 Output Total 900 230 Balance -500 450 600 Result Diagrams: 06/28/17 04:58 06/29/17 04:56 Additional Labs: Accuchecks 06/29/17 06/29/17 06/29/17 17:00 12:49 05:24 POC Glucose 146 H 93 113 H 06/29/17 06/28/17 04:46 20:14 POC Glucose 120 H 134 H Phys Exam - Physical Examination Constitutional: NAD Respiratory: no wheezing, no rhonchi Cardiovascular: RRR, no rub Gastrointestinal: soft, non-tender, positive bowel sounds Musculoskeletal: edema present Dx/Plan - Plan cont current plan of care, DVT proph w/lovenox, DVT proph w/SCDs IMPRESSION: 1. Acute hypoxic respiratory failure/Pulm edema/Acute on Chronic Diastolic HF - improving 2. HCAP 3. NOLA/CKD3 with hyperkalemia/ESRD - Started on dialysis 4. ARMINDA - home CPAP not functioning 5. ESBL UTI - on Meropenem PLAN: * Cont Meropenem * Await outpt dialysis * Procardia XL dced * Cont other home meds as below * Cont to monitor * Cont PT Review of Systems - Review of Systems Respiratory: negative: Cough, Dry, Shortness of Breath, Hemoptysis, SOB with Excertion, Pleuritic Pain, Sputum, Wheezing Cardiovascular: negative: chest pain, palpitations, orthopnea, paroxysmal nocturnal dyspnea, edema, light headedness - Medications/Allergies Allergies/Adverse Reactions: Allergies Allergy/AdvReac Type Severity Reaction Status Date / Time No Known Allergies Allergy Verified 06/16/17 01:56 Medications: Current Medications Acetaminophen (Tylenol) 650 mg PO Q4H PRN PRN Reason: Headache/Fever or Pain Last Admin: 06/28/17 21:48 Dose: 650 mg Albuterol/Ipratropium (Duoneb) 3 ml NEB Q4H PRN PRN Reason: SOB &/or Wheezing Bisacodyl (Dulcolax) 10 mg [place] DAILYPRN PRN PRN Reason: Constipation Last Admin: 06/24/17 14:31 Dose: 10 mg Calcium Carbonate (Tums) 1,000 mg PO TID [facility] Last Admin: 06/29/17 13:24 Dose: 1,000 mg Carvedilol (Coreg) 12.5 mg PO BID-[facility] Last Admin: 06/29/17 15:58 Dose: Not Given Dextrose/Water (Dextrose 50%) 25 gm SLOW IVP PRN PRN PRN Reason: Hypoglycemia Enoxaparin Sodium (Lovenox) 30 mg SC 0900 [facility] Last Admin: 06/29/17 13:24 Dose: 30 mg Epoetin Gamal (Procrit) 7,500 units SC Q7D [facility] Last Admin: 06/23/17 14:20 Dose: 7,500 units Famotidine (Pepcid) 20 mg PO QAM [facility] Last Admin: 06/29/17 13:26 Dose: 20 mg Glucagon (Glucagon) 1 mg IM PRN PRN PRN Reason: Hypoglycemia Guaifenesin (Robitussin Sf) 200 mg PO Q4H PRN PRN Reason: Cough Last Admin: 06/24/17 20:01 Dose: 200 mg Hydralazine HCl (Apresoline) 10 mg SLOW IVP Q4H PRN PRN Reason: SBP Greater Than 180 Last Admin: 06/18/17 17:50 Dose: 10 mg Dextrose/Water (D5w) 1,000 mls @ 0 mls/hr IV .Q0M PRN; As Directed PRN Reason: Hypoglycemia Meropenem 1 gm/ Miscellaneous Medication 1 each/ Sterile Water 20 mls @ 240 mls /hr IVPB 1200,2359 [facility] Last Admin: 06/29/17 13:24 Dose: 20 mls Insulin Human Regular (Humulin R) 0 units SC .MILD SLIDING SCALE PRN PRN Reason: Mild Correctional Scale Last Admin: 06/21/17 17:32 Dose: 3 unit Insulin Human Regular (Humulin R) 0 units SC .BEDTIME SLIDING SC PRN PRN Reason: Bedtime Correctional Scale Loratadine (Claritin) 10 mg PO DAILYPRN PRN PRN Reason: Sinus Symptoms Last Admin: 06/26/17 20:06 Dose: 10 mg Mineral Oil/White Petrolatum (Eucerin Cream) 0 gm TOP BIDPRN PRN PRN Reason: Dry Skin Nitroglycerin (Nitrostat) 0.4 mg PO Q5MIN PRN PRN Reason: Chest Pain Ondansetron HCl (Zofran) 4 mg IVP Q6H PRN PRN Reason: Nausea/Vomiting Last Admin: 06/28/17 12:37 Dose: 4 mg Polyethylene Glycol (Miralax) 17 gm PO DAILY [facility] Last Admin: 06/29/17 13:26 Dose: Not Given Saccharomyces Boulardii (Florastor) 250 mg PO DAILY [facility] Last Admin: 06/29/17 13:24 Dose: 250 mg Senna (Senokot) 2 tab PO HSPRN PRN PRN Reason: Constipation Last Admin: 06/17/17 06:11 Dose: 2 tab Senna/Docusate Sodium (Senokot S) 2 tab PO BID [facility] Last Admin: 06/29/17 13:26 Dose: Not Given Sodium Chloride (Flush - Normal Saline) 10 ml IVF PRN PRN PRN Reason: Saline Flush Last Admin: 06/29/17 13:28 Dose: 10 ml Sodium Chloride ([place] Nasal [place] 0.65%) 0 ml EA NARE PRN PRN PRN Reason: Nasal Dryness Last Admin: 06/23/17 00:37 Dose: 2 spr
[2017-06-29] MEDS ORDERED: HYDROcodone/Acetaminophen 5/325 mg Tablet PO PRN (23:11)
[2017-06-30] MEDS: Meropenem 1 GM, Admixture Fee 1 EACH in Sterile Water 20 ML IVPB SCH ×2 (00:28→12:22)
[2017-06-30] MEDS: Acetaminophen 325 MG TAB PO PRN (00:29)
[2017-06-30] MEDS: Loratadine 10 MG TAB PO PRN (03:14)
[2017-06-30] MEDS: Carvedilol 6.25 MG TAB PO SCH ×2 (09:16→17:31)
[2017-06-30] MEDS: Enoxaparin Sodium 30 MG/0.3 ML SYRINGE SC SCH (09:16)
[2017-06-30] MEDS: Calcium Carbonate 500 MG ChewTAB PO SCH ×3 (09:16→20:19)
[2017-06-30] MEDS: Saccharomyces boulardii 250 MG CAP PO SCH (09:17)
[2017-06-30] MEDS: Famotidine 20 MG TAB PO SCH (09:17)
[2017-06-30] MEDS: Polyethylene Glycol 3350 17 GM Packet PO SCH (09:18)
[2017-06-30] MEDS: Senokot S 8.6-50 MG TAB PO SCH ×2 (09:22→19:27)
--- NOTE | 2017-06-30 09:52 | PDOC.PN ---
- Subjective Encounter Start Date: 06/30/17 Encounter Start Time: 09:49 Patient seen and examined. No new complaints. No overnight events - Objective Resuscitation Status: Resuscitation Status FULL:Full Resuscitation MAR Reviewed: Yes Vital Signs & Weight: Vital Signs (12 hours) Pulse Resp BP BP BP 06/30/17 07:14 68 20 144/76 H 134/69 123/66 Weight Admit Weight 232 lb 1.6 oz Weight 218 lb Most Recent Monitor Data Heart Rate from ECG 81 NIBP 163/71 NIBP BP-Mean 82 Respiration from ECG 27 SpO2 97 I&O: 06/29/17 06/30/17 07/01/17 06:59 06:59 06:59 Intake Total 680 890 Output Total 230 Balance 450 890 Result Diagrams: 06/28/17 04:58 06/29/17 04:56 Additional Labs: Accuchecks 06/30/17 06/29/17 06/29/17 04:39 20:51 17:00 POC Glucose 111 H 153 H 146 H 06/29/17 12:49 POC Glucose 93 Phys Exam - Physical Examination Constitutional: NAD Respiratory: no wheezing, no rhonchi Cardiovascular: RRR, no rub Scat rales at bases Gastrointestinal: soft, non-tender, positive bowel sounds Musculoskeletal: edema present (improving) Neurological: moves all 4 limbs Dx/Plan - Plan PT/OT, DVT proph w/lovenox, DVT proph w/SCDs IMPRESSION: 1. Acute hypoxic respiratory failure/Pulm edema/Acute on Chronic Diastolic HF - improving 2. HCAP - completed Atbx 3. NOLA/CKD3 with hyperkalemia/ESRD - Started on dialysis 4. ARMINDA - home CPAP not functioning 5. ESBL UTI - on Meropenem PLAN: * Dialysis Tue/Thur/Sat - Await outpt dialysis * Cont Meropenem - total 4 weeks duration of [place] * Cont Coreg * Procardia XL dced * Cont other home meds as below * Cont to monitor Review of Systems - Review of Systems Respiratory: negative: Cough, Dry, Shortness of Breath, Hemoptysis, SOB with Excertion, Pleuritic Pain, Sputum, Wheezing Cardiovascular: negative: chest pain, palpitations, orthopnea, paroxysmal nocturnal dyspnea, edema, light headedness - Medications/Allergies Allergies/Adverse Reactions: Allergies Allergy/AdvReac Type Severity Reaction Status Date / Time No Known Allergies Allergy Verified 06/16/17 01:56 Medications: Current Medications Acetaminophen (Tylenol) 650 mg PO Q4H PRN PRN Reason: Headache/Fever or Pain Last Admin: 06/30/17 00:29 Dose: 650 mg Hydrocodone Bitart/Acetaminophen ([place] 5/325) 1 tab PO Q6H PRN PRN Reason: Moderate Pain (4-6) Albuterol/Ipratropium (Duoneb) 3 ml NEB Q4H PRN PRN Reason: SOB &/or Wheezing Bisacodyl (Dulcolax) 10 mg [place] DAILYPRN PRN PRN Reason: Constipation Last Admin: 06/24/17 14:31 Dose: 10 mg Calcium Carbonate (Tums) 1,000 mg PO TID [facility] Last Admin: 06/30/17 09:16 Dose: 1,000 mg Carvedilol (Coreg) 12.5 mg PO BID-[facility] Last Admin: 06/30/17 09:16 Dose: 12.5 mg Dextrose/Water (Dextrose 50%) 25 gm SLOW IVP PRN PRN PRN Reason: Hypoglycemia Enoxaparin Sodium (Lovenox) 30 mg SC 0900 [facility] Last Admin: 06/30/17 09:16 Dose: 30 mg Epoetin Gamal (Procrit) 7,500 units SC Q7D [facility] Last Admin: 06/23/17 14:20 Dose: 7,500 units Famotidine (Pepcid) 20 mg PO QAM [facility] Last Admin: 06/30/17 09:17 Dose: 20 mg Glucagon (Glucagon) 1 mg IM PRN PRN PRN Reason: Hypoglycemia Guaifenesin (Robitussin Sf) 200 mg PO Q4H PRN PRN Reason: Cough Last Admin: 06/24/17 20:01 Dose: 200 mg Hydralazine HCl (Apresoline) 10 mg SLOW IVP Q4H PRN PRN Reason: SBP Greater Than 180 Last Admin: 06/18/17 17:50 Dose: 10 mg Dextrose/Water (D5w) 1,000 mls @ 0 mls/hr IV .Q0M PRN; As Directed PRN Reason: Hypoglycemia Meropenem 1 gm/ Miscellaneous Medication 1 each/ Sterile Water 20 mls @ 240 mls /hr IVPB 1200,2359 [facility] Last Admin: 06/30/17 00:28 Dose: 20 mls Insulin Human Regular (Humulin R) 0 units SC .MILD SLIDING SCALE PRN PRN Reason: Mild Correctional Scale Last Admin: 06/21/17 17:32 Dose: 3 unit Insulin Human Regular (Humulin R) 0 units SC .BEDTIME SLIDING SC PRN PRN Reason: Bedtime Correctional Scale Loratadine (Claritin) 10 mg PO DAILYPRN PRN PRN Reason: Sinus Symptoms Last Admin: 06/30/17 03:14 Dose: 10 mg Mineral Oil/White Petrolatum (Eucerin Cream) 0 gm TOP BIDPRN PRN PRN Reason: Dry Skin Nitroglycerin (Nitrostat) 0.4 mg PO Q5MIN PRN PRN Reason: Chest Pain Ondansetron HCl (Zofran) 4 mg IVP Q6H PRN PRN Reason: Nausea/Vomiting Last Admin: 06/28/17 12:37 Dose: 4 mg Polyethylene Glycol (Miralax) 17 gm PO DAILY [facility] Last Admin: 06/30/17 09:18 Dose: 17 gm Saccharomyces Boulardii (Florastor) 250 mg PO DAILY [facility] Last Admin: 06/30/17 09:17 Dose: 250 mg Senna (Senokot) 2 tab PO HSPRN PRN PRN Reason: Constipation Last Admin: 06/17/17 06:11 Dose: 2 tab Senna/Docusate Sodium (Senokot S) 2 tab PO BID [facility] Last Admin: 06/30/17 09:22 Dose: 2 tab Sodium Chloride (Flush - Normal Saline) 10 ml IVF PRN PRN PRN Reason: Saline Flush Last Admin: 06/29/17 13:28 Dose: 10 ml Sodium Chloride ([place] Nasal [place] 0.65%) 0 ml EA NARE PRN PRN PRN Reason: Nasal Dryness Last Admin: 06/23/17 00:37 Dose: 2 spr
[2017-06-30] MEDS: Epoetin (ESRD) 20,000 UNITS/ML SC SCH (12:22)
[2017-06-30 17:24] VITALS: BMI 40.4
[2017-07-01] MEDS: Meropenem 1 GM, Admixture Fee 1 EACH in Sterile Water 20 ML IVPB SCH ×2 (00:11→14:16)
[2017-07-01] MEDS: Acetaminophen 325 MG TAB PO PRN ×2 (00:23→18:44)
[2017-07-01] MEDS: Loratadine 10 MG TAB PO PRN ×2 (02:17→21:17)
[2017-07-01 06:03] LABS: #Lymphocytes 2.1 thou/uL (1.20-3.40); #Monocytes 0.7 thou/uL (0.11-0.59); #Neutrophils 4.6 thou/uL (1.40-6.50); %Basophils 0.7 % (0.0-1.0); %Lymphocytes 25.8 % (21.0-51.0); %Monocytes 8.5 % (0.0-10.0); Hemoglobin 9.7 g/dL (12.0-16.0); Mean Corpuscular HGB CONC 33.2 g/dL (32.0-36.0); Mean Corpuscular Hemoglobin 30.1 pg (27.0-31.0); Mean Corpuscular Volume 90.5 fl (81.0-99.0); Mean Platelet Volume 7.4 fL (7.4-10.4); Platelet Count 229 thou/uL (130-400); RBC Distribution Width 13.1 % (11.5-14.5); Red Blood Cell (RBC) Count 3.22 mill/uL (4.20-5.40); White Blood Cell (WBC) Count 7.9 thou/uL (4.8-10.8)
[2017-07-01 06:04] LABS: #Basophils 0.1 thou/uL (0.0-0.2); #Eosinphils 0.6 thou/uL (0.0-0.7)
[2017-07-01 06:29] LABS: Albumin 2.9 g/dL (3.4-4.8); Anion Gap 14 mmol/L (10-20); BUN (Urea Nitrogen) 33 mg/dL (9.8-20.1); BUN/Creatinine Ratio 8.33; Calc. Creatinine Clearance 20 mL/min (70-130); Calcium 8.2 mg/dL (7.8-10.44); Carbon Dioxide 26 mmol/L (23-31); Chloride 105 mmol/L (98-107); Estimated GFR-MDRD 11; Glucose 92 mg/dL (80-115); Phosphorus 5.9 mg/dL (2.3-4.7); Potassium 4.8 mmol/L (3.5-5.1); Sodium 140 mmol/L (136-145)
[2017-07-01] MEDS: Calcium Carbonate 500 MG ChewTAB PO SCH ×3 (07:51→21:08)
[2017-07-01] MEDS: Carvedilol 6.25 MG TAB PO SCH (07:51)
[2017-07-01] MEDS: Senokot S 8.6-50 MG TAB PO SCH ×2 (07:52→21:08)
[2017-07-01] MEDS: Famotidine 20 MG TAB PO SCH (07:53)
[2017-07-01] MEDS: Polyethylene Glycol 3350 17 GM Packet PO SCH (07:53)
[2017-07-01] MEDS: Saccharomyces boulardii 250 MG CAP PO SCH (07:53)
[2017-07-01] MEDS: Enoxaparin Sodium 30 MG/0.3 ML SYRINGE SC SCH (08:02)
[2017-07-01] MEDS ORDERED: Heparin 10,000 UNITS/ 10 ML VIAL ONE (09:00)
--- NOTE | 2017-07-01 16:42 | PRG ---
DATE OF SERVICE: 07/01/2017 SUBJECTIVE: Patient is seen and examined, complaining of occasional dizziness. PHYSICAL EXAMINATION: VITAL SIGNS: Afebrile with temperature 97.9, pulse 74, respiratory rate of 18, O2 saturation 98%, bl ood pressure 170/83. GENERAL: The patient did well at dialysis today. Removed about 3.5 liters of fluid. HEENT: Unremarkable with moist oral mucosa. Neck is supple. No conjunctival injection or icterus. CARDIOVASCULAR: First and second heart sounds were heard. RESPIRATORY: Clear to auscultation. ABDOMEN: Digestive system revealed a benign abdomen with positive bowel sounds. EXTREMITIES: Showed improved lower extremity edema. IMPRESSION: 1. Advanced chronic kidney disease stage 5/end-stage renal disease. 2. Hypervolemia which has responded well to the ultrafiltration with dialysis. 3. Nephrotic syndrome in the context of diabetic nephropathy. 4. Hypertension, suboptimally controlled. PLAN: 1. Wean patient's oxygen off. 2. Hemodialysis now on Friday, schedule with ultrafiltration as tolerated by hemodynamics. 3. manager portable consult for outpatient dialysis placement. 4. Increase the Coreg from 12.5 to 25 mg. 5. Further management to be dependent on the clinical course.
[2017-07-01] MEDS: Carvedilol 25 MG TAB PO SCH (17:53)
--- NOTE | 2017-07-01 19:22 | PDOC.PN ---
- Subjective Encounter Start Date: 07/01/17 Encounter Start Time: 11:00 Patient seen and examined during dialysis. No new complaints. No overnight events. - Objective Resuscitation Status: Resuscitation Status FULL:Full Resuscitation MAR Reviewed: Yes Vital Signs & Weight: Vital Signs (12 hours) Temp Pulse Resp BP BP Pulse Ox 07/01/17 17:55 71 161/76 H 94 L 07/01/17 17:51 86 L 07/01/17 08:00 97.9 F 74 18 170/83 H 98 Weight Admit Weight 232 lb 1.6 oz Weight 200 lb Most Recent Monitor Data Heart Rate from ECG 81 NIBP 163/71 NIBP BP-Mean 82 Respiration from ECG 27 SpO2 97 I&O: 06/30/17 07/01/17 07/02/17 06:59 06:59 06:59 Intake Total 890 1220 Output Total 3500 Balance 890 1220 -3500 Result Diagrams: 07/01/17 05:43 07/01/17 05:43 Phys Exam - Physical Examination Constitutional: NAD Respiratory: no wheezing, no rhonchi Few rales at bases Cardiovascular: RRR, no rub Gastrointestinal: soft, non-tender, positive bowel sounds Musculoskeletal: edema present Neurological: moves all 4 limbs Dx/Plan - Plan DVT proph w/lovenox, DVT proph w/SCDs IMPRESSION: 1. Acute hypoxic respiratory failure/Pulm edema/Acute on Chronic Diastolic HF - improving 2. HCAP - completed Atbx 3. NOLA/CKD3 with hyperkalemia/ESRD - Started on dialysis 4. ARMINDA - home CPAP not functioning 5. ESBL UTI - on Meropenem PLAN: * Coreg dose increased * Dialysis Tue/Thur/Sat - Await outpt dialysis * Cont Meropenem - total 4 weeks duration of Invanz at sd * Cont other home meds as below Review of Systems - Review of Systems Respiratory: SOB with Excertion. negative: Cough, Dry, Shortness of Breath, Hemoptysis, Pleuritic Pain, Sputum, Wheezing Cardiovascular: negative: chest pain, palpitations, orthopnea, paroxysmal nocturnal dyspnea, edema, light headedness - Medications/Allergies Allergies/Adverse Reactions: Allergies Allergy/AdvReac Type Severity Reaction Status Date / Time No Known Allergies Allergy Verified 06/16/17 01:56 Medications: Current Medications Acetaminophen (Tylenol) 650 mg PO Q4H PRN PRN Reason: Headache/Fever or Pain Last Admin: 07/01/17 18:44 Dose: 650 mg Hydrocodone Bitart/Acetaminophen ([place] 5/325) 1 tab PO Q6H PRN PRN Reason: Moderate Pain (4-6) Albuterol/Ipratropium (Duoneb) 3 ml NEB Q4H PRN PRN Reason: SOB &/or Wheezing Bisacodyl (Dulcolax) 10 mg [place] DAILYPRN PRN PRN Reason: Constipation Last Admin: 06/24/17 14:31 Dose: 10 mg Calcium Carbonate (Tums) 1,000 mg PO TID [facility] Last Admin: 07/01/17 14:57 Dose: 1,000 mg Carvedilol (Coreg) 25 mg PO BID-[facility] Last Admin: 07/01/17 17:53 Dose: 25 mg Dextrose/Water (Dextrose 50%) 25 gm SLOW IVP PRN PRN PRN Reason: Hypoglycemia Enoxaparin Sodium (Lovenox) 30 mg SC 0900 [facility] Last Admin: 07/01/17 08:02 Dose: 30 mg Epoetin Gamal (Procrit) 7,500 units SC Q7D [facility] Last Admin: 06/30/17 12:22 Dose: 7,500 units Famotidine (Pepcid) 20 mg PO QAM [facility] Last Admin: 07/01/17 07:53 Dose: 20 mg Glucagon (Glucagon) 1 mg IM PRN PRN PRN Reason: Hypoglycemia Guaifenesin (Robitussin Sf) 200 mg PO Q4H PRN PRN Reason: Cough Last Admin: 06/24/17 20:01 Dose: 200 mg Hydralazine HCl (Apresoline) 10 mg SLOW IVP Q4H PRN PRN Reason: SBP Greater Than 180 Last Admin: 06/18/17 17:50 Dose: 10 mg Dextrose/Water (D5w) 1,000 mls @ 0 mls/hr IV .Q0M PRN; As Directed PRN Reason: Hypoglycemia Meropenem 1 gm/ Miscellaneous Medication 1 each/ Sterile Water 20 mls @ 240 mls /hr IVPB 1200,2359 [facility] Last Admin: 07/01/17 14:16 Dose: 20 mls Loratadine (Claritin) 10 mg PO DAILYPRN PRN PRN Reason: Sinus Symptoms Last Admin: 07/01/17 02:17 Dose: 10 mg Mineral Oil/White Petrolatum (Eucerin Cream) 0 gm TOP BIDPRN PRN PRN Reason: Dry Skin Nitroglycerin (Nitrostat) 0.4 mg PO Q5MIN PRN PRN Reason: Chest Pain Ondansetron HCl (Zofran) 4 mg IVP Q6H PRN PRN Reason: Nausea/Vomiting Last Admin: 06/28/17 12:37 Dose: 4 mg Polyethylene Glycol (Miralax) 17 gm PO DAILY [facility] Last Admin: 07/01/17 07:53 Dose: Not Given Saccharomyces Boulardii (Florastor) 250 mg PO DAILY [facility] Last Admin: 07/01/17 07:53 Dose: 250 mg Senna (Senokot) 2 tab PO HSPRN PRN PRN Reason: Constipation Last Admin: 06/17/17 06:11 Dose: 2 tab Senna/Docusate Sodium (Senokot S) 2 tab PO BID [facility] Last Admin: 07/01/17 07:52 Dose: Not Given Sodium Chloride (Flush - Normal Saline) 10 ml IVF PRN PRN PRN Reason: Saline Flush Last Admin: 07/01/17 14:17 Dose: 10 ml Sodium Chloride ([place] Nasal [place] 0.65%) 0 ml EA NARE PRN PRN PRN Reason: Nasal Dryness Last Admin: 06/23/17 00:37 Dose: 2 spr
[2017-07-02] MEDS: Meropenem 1 GM, Admixture Fee 1 EACH in Sterile Water 20 ML IVPB SCH ×2 (00:31→12:29)
[2017-07-02] MEDS: Acetaminophen 325 MG TAB PO PRN ×2 (07:54→12:28)
[2017-07-02] MEDS: Saccharomyces boulardii 250 MG CAP PO SCH (07:59)
[2017-07-02] MEDS: Carvedilol 25 MG TAB PO SCH ×2 (07:59→17:52)
[2017-07-02] MEDS: Famotidine 20 MG TAB PO SCH (07:59)
[2017-07-02] MEDS: Calcium Carbonate 500 MG ChewTAB PO SCH ×3 (08:00→20:09)
[2017-07-02] MEDS: Enoxaparin Sodium 30 MG/0.3 ML SYRINGE SC SCH (08:01)
[2017-07-02] MEDS: Polyethylene Glycol 3350 17 GM Packet PO SCH (08:02)
[2017-07-02] MEDS: Senokot S 8.6-50 MG TAB PO SCH ×2 (08:02→20:09)
--- NOTE | 2017-07-02 08:40 | PRG ---
DATE OF SERVICE: 07/02/2017 The patient was seen and examined today with no new complaint noted. PHYSICAL EXAMINATION: VITAL SIGNS: Afebrile with temperature 98, pulse 77, respiratory rate 20, O2 sat 97% with a blood pr essure of 150/68. HEENT: Unremarkable with moist oral mucosa. Neck is supple. No conjunctival injection or icterus. CARDIOVASCULAR: First and second heart sounds were heard. RESPIRATORY: Clear to auscultation. DIGESTIVE: Revealed an obese abdomen. EXTREMITIES: Showed very minimal peripheral edema. NEUROLOGIC: Alert and oriented. No lateralizing sign. IMPRESSION: 1. End-stage renal disease on hemodialysis. Doing very well with ultrafiltration. 2. Hypertension seems to be suboptimally controlled. 3. Morbid obesity. 4. Obstructive sleep apnea, most likely. PLAN: 1. The patient to benefit from sleep study and CPAP machine as an outpatient if confirmed to have si gnificant sleep apnea. 2. No hemodialysis today. The patient is now on a Friday, schedule. 3. Once patient is accepted in the outpatient dialysis unit from the renal standpoint, the patient w ill be good to be discharged. 4. Further management to be dependent on the clinical course.
--- NOTE | 2017-07-02 12:51 | PDOC.PN ---
- Subjective Encounter Start Date: 07/02/17 Encounter Start Time: 11:30 Patient seen and examined. Headache +. No overnight events - Objective Resuscitation Status: Resuscitation Status FULL:Full Resuscitation MAR Reviewed: Yes Vital Signs & Weight: Vital Signs (12 hours) Temp Pulse Resp BP BP BP Pulse Ox 07/02/17 12:00 97.5 F L 65 20 146/79 H 95 07/02/17 08:00 98.2 F 67 20 177/74 H 96 07/02/17 05:00 168/79 H 07/02/17 04:00 98.5 F 69 16 185/76 H 98 Weight Admit Weight 232 lb 1.6 oz Weight 199 lb Most Recent Monitor Data Heart Rate from ECG 81 NIBP 163/71 NIBP BP-Mean 82 Respiration from ECG 27 SpO2 97 I&O: 07/01/17 07/02/17 07/03/17 06:59 06:59 06:59 Intake Total 1220 720 Output Total 3800 Balance 1220 -3080 Result Diagrams: 07/01/17 05:43 07/01/17 05:43 Phys Exam - Physical Examination Constitutional: NAD Respiratory: no wheezing, no rhonchi Cardiovascular: RRR, no rub Gastrointestinal: soft, non-tender, positive bowel sounds Musculoskeletal: edema present (improving) Neurological: moves all 4 limbs Dx/Plan - Plan DVT proph w/SCDs IMPRESSION: 1. Acute hypoxic respiratory failure/Pulm edema/Acute on Chronic Diastolic HF - improving 2. HCAP - completed Atbx 3. NOLA/CKD3 with hyperkalemia/ESRD - Started on dialysis 4. ARMINDA - home CPAP not functioning 5. ESBL UTI - on Meropenem PLAN: * Await outpt dialysis/Atbx setup * Dialysis Tue/Thur/Sat * Total 4 weeks duration of Invanz at dc * Cont other home meds as below * . Review of Systems - Review of Systems Respiratory: negative: Cough, Dry, Shortness of Breath, Hemoptysis, SOB with Excertion, Pleuritic Pain, Sputum, Wheezing Cardiovascular: negative: chest pain, palpitations, orthopnea, paroxysmal nocturnal dyspnea, edema, light headedness - Medications/Allergies Allergies/Adverse Reactions: Allergies Allergy/AdvReac Type Severity Reaction Status Date / Time No Known Allergies Allergy Verified 06/16/17 01:56 Medications: Current Medications Acetaminophen (Tylenol) 650 mg PO Q4H PRN PRN Reason: Headache/Fever or Pain Last Admin: 07/02/17 12:28 Dose: 650 mg Hydrocodone Bitart/Acetaminophen ([place] 5/325) 1 tab PO Q6H PRN PRN Reason: Moderate Pain (4-6) Albuterol/Ipratropium (Duoneb) 3 ml NEB Q4H PRN PRN Reason: SOB &/or Wheezing Bisacodyl (Dulcolax) 10 mg [place] DAILYPRN PRN PRN Reason: Constipation Last Admin: 06/24/17 14:31 Dose: 10 mg Calcium Carbonate (Tums) 1,000 mg PO TID [facility] Last Admin: 07/02/17 08:00 Dose: 1,000 mg Carvedilol (Coreg) 25 mg PO BID-[facility] Last Admin: 07/02/17 07:59 Dose: 25 mg Dextrose/Water (Dextrose 50%) 25 gm SLOW IVP PRN PRN PRN Reason: Hypoglycemia Enoxaparin Sodium (Lovenox) 30 mg SC 0900 [facility] Last Admin: 07/02/17 08:01 Dose: 30 mg Epoetin Gamal (Procrit) 7,500 units SC Q7D [facility] Last Admin: 06/30/17 12:22 Dose: 7,500 units Famotidine (Pepcid) 20 mg PO QAM [facility] Last Admin: 07/02/17 07:59 Dose: 20 mg Glucagon (Glucagon) 1 mg IM PRN PRN PRN Reason: Hypoglycemia Guaifenesin (Robitussin Sf) 200 mg PO Q4H PRN PRN Reason: Cough Last Admin: 06/24/17 20:01 Dose: 200 mg Hydralazine HCl (Apresoline) 10 mg SLOW IVP Q4H PRN PRN Reason: SBP Greater Than 180 Last Admin: 06/18/17 17:50 Dose: 10 mg Dextrose/Water (D5w) 1,000 mls @ 0 mls/hr IV .Q0M PRN; As Directed PRN Reason: Hypoglycemia Meropenem 1 gm/ Miscellaneous Medication 1 each/ Sterile Water 20 mls @ 240 mls /hr IVPB 1200,2359 [facility] Last Admin: 07/02/17 12:29 Dose: 20 mls Loratadine (Claritin) 10 mg PO DAILYPRN PRN PRN Reason: Sinus Symptoms Last Admin: 07/01/17 21:17 Dose: 10 mg Mineral Oil/White Petrolatum (Eucerin Cream) 0 gm TOP BIDPRN PRN PRN Reason: Dry Skin Nitroglycerin (Nitrostat) 0.4 mg PO Q5MIN PRN PRN Reason: Chest Pain Ondansetron HCl (Zofran) 4 mg IVP Q6H PRN PRN Reason: Nausea/Vomiting Last Admin: 06/28/17 12:37 Dose: 4 mg Polyethylene Glycol (Miralax) 17 gm PO DAILY [facility] Last Admin: 07/02/17 08:02 Dose: Not Given Saccharomyces Boulardii (Florastor) 250 mg PO DAILY [facility] Last Admin: 07/02/17 07:59 Dose: 250 mg Senna (Senokot) 2 tab PO HSPRN PRN PRN Reason: Constipation Last Admin: 06/17/17 06:11 Dose: 2 tab Senna/Docusate Sodium (Senokot S) 2 tab PO BID [facility] Last Admin: 07/02/17 08:02 Dose: Not Given Sodium Chloride (Flush - Normal Saline) 10 ml IVF PRN PRN PRN Reason: Saline Flush Last Admin: 07/02/17 08:01 Dose: 10 ml Sodium Chloride ([place] Nasal [place] 0.65%) 0 ml EA NARE PRN PRN PRN Reason: Nasal Dryness Last Admin: 06/23/17 00:37 Dose: 2 spr
[2017-07-02] MEDS: Loratadine 10 MG TAB PO PRN (20:09)
[2017-07-03] MEDS: Diabetic Tussin 200 MG/10 ML UDCUP PO PRN
[2017-07-03] MEDS: Meropenem 1 GM, Admixture Fee 1 EACH in Sterile Water 20 ML IVPB SCH ×2 (00:01→13:22)
[2017-07-03] MEDS: Carvedilol 25 MG TAB PO SCH ×2 (08:00→17:13)
[2017-07-03] MEDS: Calcium Carbonate 500 MG ChewTAB PO SCH ×3 (09:00→20:05)
[2017-07-03] MEDS: Polyethylene Glycol 3350 17 GM Packet PO SCH (13:10)
[2017-07-03] MEDS: Enoxaparin Sodium 30 MG/0.3 ML SYRINGE SC SCH (13:11)
[2017-07-03] MEDS: Saccharomyces boulardii 250 MG CAP PO SCH (13:11)
[2017-07-03] MEDS: Famotidine 20 MG TAB PO SCH (13:11)
[2017-07-03] MEDS: Senokot S 8.6-50 MG TAB PO SCH ×2 (13:11→20:05)
[2017-07-03] MEDS: Acetaminophen 325 MG TAB PO PRN ×2 (20:05)
--- NOTE | 2017-07-03 22:02 | PRG ---
DATE OF SERVICE: 07/03/2017 SUBJECTIVE: The patient was seen and examined today at dialysis and doing well. Noted with the foll owing vital signs. PHYSICAL EXAMINATION: VITAL SIGNS: Afebrile, temperature 98, pulse 70, respiratory rate 20, O2 sat of 98% with blood press ure 147/71. HEENT EXAMINATION: Unremarkable with moist oral mucosa. Neck was supple. No conjunctival injection or icterus. CARDIOVASCULAR SYSTEM: First and second heart sounds were heard. RESPIRATORY: Clear to auscultation. DIGESTIVE: Revealed a benign abdomen with positive bowel sounds. EXTREMITIES: Showed much improved lower extremity edema. IMPRESSION: 1. End-stage renal disease on hemodialysis. 2. Hypervolemia responded well to ultrafiltration during hemodialysis. 3. Morbid obesity. PLAN: 1. The patient currently undergoing hemodialysis with ultrafiltration as tolerated. 2. From the renal standpoint once the patient is accepted by the outpatient dialysis unit, the patie nt will be good for discharge.
--- NOTE | 2017-07-03 22:50 | PDOC.PN ---
- Subjective Encounter Start Date: 07/03/17 Encounter Start Time: 10:45 Patient seen and examined during dialysis. No new complaints. No overnight events - Objective Resuscitation Status: Resuscitation Status FULL:Full Resuscitation MAR Reviewed: Yes Vital Signs & Weight: Vital Signs (12 hours) Temp Pulse Resp BP Pulse Ox 07/03/17 20:00 98.2 F 64 18 121/64 98 07/03/17 17:12 69 20 147/71 H 98 07/03/17 13:00 98.0 F 70 20 125/75 94 L Weight Admit Weight 232 lb 1.6 oz Weight 189 lb Most Recent Monitor Data Heart Rate from ECG 81 NIBP 163/71 NIBP BP-Mean 82 Respiration from ECG 27 SpO2 97 I&O: 07/02/17 07/03/17 07/04/17 06:59 06:59 06:59 Intake Total 720 1751 600 Output Total 3800 400 Balance -3080 1351 600 Result Diagrams: 07/04/17 03:19 07/04/17 03:19 EKG Reviewed by me: Yes (Tele SR) Phys Exam - Physical Examination Constitutional: NAD Respiratory: no wheezing, no rhonchi Cardiovascular: RRR, no rub Gastrointestinal: soft, non-tender, positive bowel sounds Musculoskeletal: edema present Dx/Plan - Plan DVT proph w/lovenox, DVT proph w/SCDs IMPRESSION: 1. Acute hypoxic respiratory failure/Pulm edema/Acute on Chronic Diastolic HF - improving 2. HCAP - completed Atbx 3. NOLA/CKD3 with hyperkalemia/ESRD - Started on dialysis 4. ARMINDA - home CPAP not functioning 5. ESBL UTI - on Meropenem PLAN: * Stable for dc after dialysis setup * Await outpt dialysis/Atbx setup * Dialysis days - Fri//Fri * Total 4 weeks duration of Invanz at dc * Cont other home meds as below * O2 assessment at dc Review of Systems - Review of Systems Respiratory: negative: Cough, Dry, Shortness of Breath, Hemoptysis, SOB with Excertion, Pleuritic Pain, Sputum, Wheezing Cardiovascular: negative: chest pain, palpitations, orthopnea, paroxysmal nocturnal dyspnea, edema, light headedness - Medications/Allergies Allergies/Adverse Reactions: Allergies Allergy/AdvReac Type Severity Reaction Status Date / Time No Known Allergies Allergy Verified 06/16/17 01:56 Medications: Current Medications Acetaminophen (Tylenol) 650 mg PO Q4H PRN PRN Reason: Headache/Fever or Pain Last Admin: 07/03/17 20:05 Dose: 650 mg Hydrocodone Bitart/Acetaminophen ([place] 5/325) 1 tab PO Q6H PRN PRN Reason: Moderate Pain (4-6) Albuterol/Ipratropium (Duoneb) 3 ml NEB Q4H PRN PRN Reason: SOB &/or Wheezing Bisacodyl (Dulcolax) 10 mg [place] DAILYPRN PRN PRN Reason: Constipation Last Admin: 06/24/17 14:31 Dose: 10 mg Calcium Carbonate (Tums) 1,000 mg PO TID [facility] Last Admin: 07/03/17 20:05 Dose: 1,000 mg Carvedilol (Coreg) 25 mg PO BID-[facility] Last Admin: 07/03/17 17:13 Dose: 25 mg Dextrose/Water (Dextrose 50%) 25 gm SLOW IVP PRN PRN PRN Reason: Hypoglycemia Enoxaparin Sodium (Lovenox) 30 mg SC 0900 [facility] Last Admin: 07/03/17 13:11 Dose: 30 mg Epoetin Gamal (Procrit) 7,500 units SC Q7D [facility] Last Admin: 06/30/17 12:22 Dose: 7,500 units Famotidine (Pepcid) 20 mg PO QAM [facility] Last Admin: 07/03/17 13:11 Dose: 20 mg Glucagon (Glucagon) 1 mg IM PRN PRN PRN Reason: Hypoglycemia Guaifenesin (Robitussin Sf) 200 mg PO Q4H PRN PRN Reason: Cough Last Admin: 07/03/17 00:00 Dose: 200 mg Heparin Sodium (Porcine) (Heparin Lock Flush 100 Units/Ml) 500 units IVF PRN PRN PRN Reason: Heparin Flush Last Admin: 07/03/17 20:52 Dose: 500 unit Hydralazine HCl (Apresoline) 10 mg SLOW IVP Q4H PRN PRN Reason: SBP Greater Than 180 Last Admin: 06/18/17 17:50 Dose: 10 mg Dextrose/Water (D5w) 1,000 mls @ 0 mls/hr IV .Q0M PRN; As Directed PRN Reason: Hypoglycemia Meropenem 1 gm/ Miscellaneous Medication 1 each/ Sterile Water 20 mls @ 240 mls /hr IVPB 1200,2359 [facility] Last Admin: 07/03/17 13:22 Dose: 20 mls Loratadine (Claritin) 10 mg PO DAILYPRN PRN PRN Reason: Sinus Symptoms Last Admin: 07/02/17 20:09 Dose: 10 mg Mineral Oil/White Petrolatum (Eucerin Cream) 0 gm TOP BIDPRN PRN PRN Reason: Dry Skin Nitroglycerin (Nitrostat) 0.4 mg PO Q5MIN PRN PRN Reason: Chest Pain Ondansetron HCl (Zofran) 4 mg IVP Q6H PRN PRN Reason: Nausea/Vomiting Last Admin: 06/28/17 12:37 Dose: 4 mg Polyethylene Glycol (Miralax) 17 gm PO DAILY [facility] Last Admin: 07/03/17 13:10 Dose: Not Given Saccharomyces Boulardii (Florastor) 250 mg PO DAILY [facility] Last Admin: 07/03/17 13:11 Dose: 250 mg Senna (Senokot) 2 tab PO HSPRN PRN PRN Reason: Constipation Last Admin: 06/17/17 06:11 Dose: 2 tab Senna/Docusate Sodium (Senokot S) 2 tab PO BID [facility] Last Admin: 07/03/17 20:05 Dose: 2 tab Sodium Chloride (Flush - Normal Saline) 10 ml IVF PRN PRN PRN Reason: Saline Flush Last Admin: 07/03/17 20:06 Dose: 10 ml Sodium Chloride ([place] Nasal [place] 0.65%) 0 ml EA NARE PRN PRN PRN Reason: Nasal Dryness Last Admin: 06/23/17 00:37 Dose: 2 spr
[2017-07-04] MEDS: Diabetic Tussin 200 MG/10 ML UDCUP PO PRN (00:16)
[2017-07-04] MEDS: Meropenem 1 GM, Admixture Fee 1 EACH in Sterile Water 20 ML IVPB SCH ×3 (00:16→23:10)
[2017-07-04 04:33] LABS: #Basophils 0.1 thou/uL (0.0-0.2); #Eosinphils 0.7 thou/uL (0.0-0.7); #Monocytes 0.9 thou/uL (0.11-0.59); %Basophils 0.7 % (0.0-1.0); %Eosinophils 7.1 % (0.0-10.0); %Lymphocytes 30.9 % (21.0-51.0); %Neutrophils 52.2 % (42.0-75.0); Hemoglobin 9.1 g/dL (12.0-16.0); Mean Corpuscular HGB CONC 33.6 g/dL (32.0-36.0); Mean Corpuscular Hemoglobin 29.8 pg (27.0-31.0); Mean Corpuscular Volume 88.7 fl (81.0-99.0); Mean Platelet Volume 7.6 fL (7.4-10.4); Platelet Count 220 thou/uL (130-400); RBC Distribution Width 12.9 % (11.5-14.5); Red Blood Cell (RBC) Count 3.05 mill/uL (4.20-5.40); White Blood Cell (WBC) Count 9.6 thou/uL (4.8-10.8)
[2017-07-04] MEDS: Acetaminophen 325 MG TAB PO PRN (04:41)
[2017-07-04 04:49] LABS: Anion Gap 13 mmol/L (10-20); BUN (Urea Nitrogen) 17 mg/dL (9.8-20.1); Calc. Creatinine Clearance 28 mL/min (70-130); Calcium 8.4 mg/dL (7.8-10.44); Carbon Dioxide 32 mmol/L (23-31); Chloride 95 mmol/L (98-107); Estimated GFR-MDRD 17; Glucose 97 mg/dL (80-115); Potassium 3.9 mmol/L (3.5-5.1); Sodium 136 mmol/L (136-145)
[2017-07-04] MEDS: Saccharomyces boulardii 250 MG CAP PO SCH (08:21)
[2017-07-04] MEDS: Calcium Carbonate 500 MG ChewTAB PO SCH ×3 (08:21→20:47)
[2017-07-04] MEDS: Carvedilol 25 MG TAB PO SCH ×2 (08:21→16:49)
[2017-07-04] MEDS: Famotidine 20 MG TAB PO SCH (08:21)
[2017-07-04] MEDS: Senokot S 8.6-50 MG TAB PO SCH ×2 (08:21→20:47)
[2017-07-04] MEDS: Polyethylene Glycol 3350 17 GM Packet PO SCH (08:22)
[2017-07-04] MEDS: Enoxaparin Sodium 30 MG/0.3 ML SYRINGE SC SCH (08:22)
--- NOTE | 2017-07-04 19:56 | PDOC.PN ---
- Subjective Encounter Start Date: 07/04/17 Encounter Start Time: 11:00 Patient seen and examined. No new complaints. No overnight events - Objective Resuscitation Status: Resuscitation Status FULL:Full Resuscitation MAR Reviewed: Yes Vital Signs & Weight: Vital Signs (12 hours) Temp Pulse Resp BP BP BP Pulse Ox 07/04/17 16:00 74 161/77 H 07/04/17 10:37 94 L 07/04/17 08:00 97.4 F L 65 18 139/64 166/79 H 169/79 H 94 L Weight Admit Weight 232 lb 1.6 oz Weight 186 lb Most Recent Monitor Data Heart Rate from ECG 81 NIBP 163/71 NIBP BP-Mean 82 Respiration from ECG 27 SpO2 97 I&O: 07/03/17 07/04/17 07/05/17 06:59 06:59 06:59 Intake Total 1751 1115 700 Output Total 400 Balance 1351 1115 700 Result Diagrams: 07/04/17 03:19 07/04/17 03:19 Phys Exam - Physical Examination Constitutional: NAD Respiratory: no wheezing, no rhonchi Cardiovascular: RRR, no rub Gastrointestinal: soft, non-tender, positive bowel sounds Musculoskeletal: edema present Neurological: moves all 4 limbs Dx/Plan - Plan continue antibiotics, out of bed/ambulate, DVT proph w/lovenox, DVT proph w/SCDs IMPRESSION: 1. Acute hypoxic respiratory failure/Pulm edema/Acute on Chronic Diastolic HF - started on dialysis 2. HCAP - completed Atbx 3. NOLA/CKD3 with hyperkalemia/ESRD - on dialysis 4. ARMINDA - home CPAP not functioning 5. ESBL UTI - on Meropenem 6. Chronic resp failure on home O2 PLAN: * talent development manager updated me around 5 pm that Outpt dialysis has been setup for MWF (instead of Friday - she will get dialysed on this friday). Also, Atbx has been setup for [facility]. * Will dc on 07/05 * Total 4 weeks duration of Invanz at or (until Jul) * Cont other home meds as below * Advised patient to get CPAP maching fixed. Review of Systems - Review of Systems Respiratory: negative: Cough, Dry, Shortness of Breath, Hemoptysis, SOB with Excertion, Pleuritic Pain, Sputum, Wheezing Cardiovascular: negative: chest pain, palpitations, orthopnea, paroxysmal nocturnal dyspnea, edema, light headedness - Medications/Allergies Allergies/Adverse Reactions: Allergies Allergy/AdvReac Type Severity Reaction Status Date / Time No Known Allergies Allergy Verified 06/16/17 01:56 Medications: Current Medications Acetaminophen (Tylenol) 650 mg PO Q4H PRN PRN Reason: Headache/Fever or Pain Last Admin: 07/04/17 04:41 Dose: 650 mg Hydrocodone Bitart/Acetaminophen ([place] 5/325) 1 tab PO Q6H PRN PRN Reason: Moderate Pain (4-6) Albuterol/Ipratropium (Duoneb) 3 ml NEB Q4H PRN PRN Reason: SOB &/or Wheezing Bisacodyl (Dulcolax) 10 mg [place] DAILYPRN PRN PRN Reason: Constipation Last Admin: 06/24/17 14:31 Dose: 10 mg Calcium Carbonate (Tums) 1,000 mg PO TID [facility] Last Admin: 07/04/17 16:49 Dose: 1,000 mg Carvedilol (Coreg) 25 mg PO BID-[facility] Last Admin: 07/04/17 16:49 Dose: 25 mg Dextrose/Water (Dextrose 50%) 25 gm SLOW IVP PRN PRN PRN Reason: Hypoglycemia Enoxaparin Sodium (Lovenox) 30 mg SC 2100 [facility] Epoetin Gamal (Procrit) 7,500 units SC Q7D [facility] Last Admin: 06/30/17 12:22 Dose: 7,500 units Famotidine (Pepcid) 20 mg PO QAM [facility] Last Admin: 07/04/17 08:21 Dose: 20 mg Glucagon (Glucagon) 1 mg IM PRN PRN PRN Reason: Hypoglycemia Guaifenesin (Robitussin Sf) 200 mg PO Q4H PRN PRN Reason: Cough Last Admin: 07/04/17 00:16 Dose: 200 mg Heparin Sodium (Porcine) (Heparin Lock Flush 100 Units/Ml) 500 units IVF PRN PRN PRN Reason: Heparin Flush Last Admin: 07/03/17 20:52 Dose: 500 unit Hydralazine HCl (Apresoline) 10 mg SLOW IVP Q4H PRN PRN Reason: SBP Greater Than 180 Last Admin: 06/18/17 17:50 Dose: 10 mg Dextrose/Water (D5w) 1,000 mls @ 0 mls/hr IV .Q0M PRN; As Directed PRN Reason: Hypoglycemia Meropenem 1 gm/ Miscellaneous Medication 1 each/ Sterile Water 20 mls @ 240 mls /hr IVPB 1200,2359 [facility] Last Admin: 07/04/17 12:38 Dose: 20 mls Loratadine (Claritin) 10 mg PO DAILYPRN PRN PRN Reason: Sinus Symptoms Last Admin: 07/02/17 20:09 Dose: 10 mg Mineral Oil/White Petrolatum (Eucerin Cream) 0 gm TOP BIDPRN PRN PRN Reason: Dry Skin Nitroglycerin (Nitrostat) 0.4 mg PO Q5MIN PRN PRN Reason: Chest Pain Ondansetron HCl (Zofran) 4 mg IVP Q6H PRN PRN Reason: Nausea/Vomiting Last Admin: 06/28/17 12:37 Dose: 4 mg Polyethylene Glycol (Miralax) 17 gm PO DAILY [facility] Last Admin: 07/04/17 08:22 Dose: 17 gm Saccharomyces Boulardii (Florastor) 250 mg PO DAILY [facility] Last Admin: 07/04/17 08:21 Dose: 250 mg Senna (Senokot) 2 tab PO HSPRN PRN PRN Reason: Constipation Last Admin: 06/17/17 06:11 Dose: 2 tab Senna/Docusate Sodium (Senokot S) 2 tab PO BID [facility] Last Admin: 07/04/17 08:21 Dose: 2 tab Sodium Chloride (Flush - Normal Saline) 10 ml IVF PRN PRN PRN Reason: Saline Flush Last Admin: 07/04/17 12:38 Dose: 10 ml Sodium Chloride ([place] Nasal [place] 0.65%) 0 ml EA NARE PRN PRN PRN Reason: Nasal Dryness Last Admin: 06/23/17 00:37 Dose: 2 spr
[2017-07-05] MEDS: Loratadine 10 MG TAB PO PRN (03:55)
[2017-07-05 08:57] VITALS: TEMP 98
[2017-07-05] MEDS: Carvedilol 25 MG TAB PO SCH (08:57)
[2017-07-05] MEDS: Famotidine 20 MG TAB PO SCH (08:58)
[2017-07-05] MEDS: Senokot S 8.6-50 MG TAB PO SCH (08:58)
[2017-07-05] MEDS: Calcium Carbonate 500 MG ChewTAB PO SCH (08:58)
[2017-07-05] MEDS: Polyethylene Glycol 3350 17 GM Packet PO SCH (08:58)
[2017-07-05] MEDS: Saccharomyces boulardii 250 MG CAP PO SCH (10:29)
[2017-07-05] MEDS: Diabetic Tussin 200 MG/10 ML UDCUP PO PRN (10:29)
--- NOTE | 2017-07-05 11:05 | DIS ---
DATE OF ADMISSION: 06/15/2017 DATE OF DISCHARGE: 07/05/2017 ADMITTING DIAGNOSIS: Acute hypoxic respiratory failure secondary to volume overload. DISCHARGE DIAGNOSIS: Acute hypoxic respiratory failure secondary to volume overload. SECONDARY DIAGNOSES: 1. Healthcare-associated pneumonia. 2. Acute kidney injury with new end-stage renal disease, on hemodialysis. 3. Acute on chronic diastolic heart failure. 4. Morbid obesity. 5. Type 2 diabetes mellitus. 6. Obstructive sleep apnea. 7. Chronic anemia. 8. Extended-spectrum beta-lactamases urinary tract infection. INVESTIGATIONS DONE DURING THIS ADMISSION: CT angiogram of the chest ruling out pulmonary embolism. CONSULTATIONS: 1. Nephrology consultation with Dr. Gabriel. 2. Pulmonary consultation by Dr. Manohar Ballesteros. 3. Infectious Disease consultation by Dr. Toney Selby. 4. Vascular surgeon has been consulted, Dr. Gregorio Redd, for a tunneled hemodialysis catheter. HISTORY OF PRESENT ILLNESS AND HOSPITAL COURSE: This is a 67-year-old white female who has a history of chronic kidney disease stage 3, type 2 diabetes mellitus, hypertension, chronic diastolic heart f ailure, presented to the ED with syncopal episode and was noted to have acute respiratory distress wi th volume overload state. The patient was initially admitted to the ICU and was started on IV Lasix and was started on BiPAP and closely monitored. Chest x-ray showed clear evidence of pulmonary edema and also 2D echo was done which showed a good EF with diastolic dysfunction. The patient was starte d on 80 of Lasix. Because of the worsening renal functions with Lasix, Nephrology was consulted and also Pulmonary was following the patient. The patient was also noted to have healthcare-associated p neumonia and the patient was started on broad spectrum IV antibiotics. During this course of the hos pitalization, the patient's renal functions got worsened to the point that the patient was needing di uresis and so Nephrology suggested the patient should be on hemodialysis. The patient was started on hemodialysis following a tunneled catheter placement by Vascular Surgery. During this hospitalizati on, the patient also had worsening sepsis. The patient was also noted to have ESBL UTI and also heal thcare-associated pneumonia. Because of resistant E. coli the patient was having, Infectious Disease was consulted who recommended total 4 weeks of IV antibiotics. The patient needed which Invanz was chosen as antibiotic and the last day for the antibiotic was 07/19/2016. The patient showed good pro vernell and she continued on the Lasix 40 mg b.i.d. until she follows up with Nephrology. The patient continues to have edema which significantly improved from the day of admission. Her respirations wer e doing fine on the day of discharge and her hemodialysis was set up for Friday, but her actual sched ule is Friday, Friday, and Friday. The patient is also scheduled for infusion center for IV antib iotics once daily for 4 weeks, the last day ending on 07/19/2016. PHYSICAL EXAMINATION: On date of discharge: VITAL SIGNS: Blood pressures are 146/75, heart rate is 74, respirations 20, saturation 92%. GENERAL: The patient is moderately built and moderately nourished. She does not appear to be in acu te distress. CARDIOVASCULAR: S1 and S2 normal. No murmurs, rubs, or gallops. LUNGS: Bilateral air entry was equal. No wheezing, no crackles. ABDOMEN: Soft, nontender, no guarding, no rebound tenderness. Bowel sounds normal. MUSCULOSKELETAL: The patient has pedal edema to 3+. DISCHARGE MEDICATIONS: 1. Coreg 25 mg p.o. b.i.d. 2. Calcium carbonate 1000 mg p.o. t.i.d. 3. Aspirin 81 mg p.o. daily. 4. Alprazolam 0.25 mg daily. 5. Atorvastatin 20 mg daily. 6. Lasix 40 mg p.o. b.i.d. 7. Oxymetazoline 1 spray nasally twice a daily. 8. Nifedipine 90 mg p.o. daily. 9. Patiromer calcium sorbitex 8.4 mg powdered pack daily. DISCHARGE INSTRUCTIONS: 1. Continue activity as tolerated. Advised to limit the fluid intake as per Nephrology recommendati ons. 2. Advised low salt diet. 3. Advised to stick to the renal diet as suggested by Nephrology. 4. The patient will follow up with Nephrology for hemodialysis. Her next scheduled hemodialysis is on 07/05/2017 and she would go per recommendations from Nephrology from there. 5. The patient will continue at the infusion center for IV antibiotics and she would go home with th e PICC line. 6. Activity as tolerated. 7. Advised to return to the ER for any worsening shortness of breath. I spent 35 minutes on this patient on the day of discharge.
[2017-07-05] MEDS: Meropenem 1 GM, Admixture Fee 1 EACH in Sterile Water 20 ML IVPB SCH (12:38)
[2017-07-05 13:15] VITALS: BP 161/83
[2017-07-05] MEDS ORDERED: Enoxaparin Sodium 30 MG/0.3 ML SYRINGE SC SCH (21:00)
== END 2017-07-05 12:51 | disposition home or self-care (01) | DRG 264 ==
LOC: ERS 19:49 → CCU 22:30 → IMCU/EMU 06-16 23:33 → 2NO 06-18 00:08 → T4-B 06-18 17:17
PROVIDERS: ADMIT Internal Medicine; ATTEND Internal Medicine
PROC: 5A09557 Assistance with Respiratory Ventilation, Greater than 96 Consecutive Hours, Continuous Positive Airway Pressure (ICD-10-PCS; 2017-06-16)
PROC: 031C0ZF Bypass Left Radial Artery to Lower Arm Vein, Open Approach (ICD-10-PCS; principal; 2017-06-27)
PROC: 02HV33Z Insertion of Infusion Device into Superior Vena Cava, Percutaneous Approach (ICD-10-PCS; 2017-06-27)
PROC: 5A1D70Z Performance of Urinary Filtration, Intermittent, Less than 6 Hours Per Day (ICD-10-PCS; 2017-06-27)
DX: I13.2 Hypertensive heart and chronic kidney disease with heart failure and with stage 5 chronic kidney disease, or end stage renal disease (principal); J96.21 Acute and chronic respiratory failure with hypoxia; N17.9 Acute kidney failure, unspecified; J18.9 Pneumonia, unspecified organism; E11.22 Type 2 diabetes mellitus with diabetic chronic kidney disease; N18.6 End stage renal disease; E66.01 Morbid (severe) obesity due to excess calories; I42.9 Cardiomyopathy, unspecified; E83.39 Other disorders of phosphorus metabolism; I50.33 Acute on chronic diastolic (congestive) heart failure; Z68.42 Body mass index [BMI] 45.0-49.9, adult; N13.30 Unspecified hydronephrosis; J44.0 Chronic obstructive pulmonary disease with (acute) lower respiratory infection; E86.1 Hypovolemia; N30.90 Cystitis, unspecified without hematuria; E11.9 Type 2 diabetes mellitus without complications; B96.20 Unspecified Escherichia coli [E. coli] as the cause of diseases classified elsewhere; Z99.81 Dependence on supplemental oxygen; E87.5 Hyperkalemia; D63.1 Anemia in chronic kidney disease; K59.00 Constipation, unspecified; Z16.24 Resistance to multiple antibiotics; D64.9 Anemia, unspecified; G47.33 Obstructive sleep apnea (adult) (pediatric); F41.9 Anxiety disorder, unspecified; R80.9 Proteinuria, unspecified; Z99.2 Dependence on renal dialysis; Z82.49 Family history of ischemic heart disease and other diseases of the circulatory system
CPT/HCPCS: 36415; 36416; 51702; 70450; 71010; 71250; 80048; 80053; 80069; 80306; 80307; 81001; 81003; 81015; 82553; 82575; 82805; 83605; 83690; 83735; 83880; 84156; 84443; 84484; 85025; 85379; 86140; 86580; 86704; 86706; 87077; 87086; 87186; 87340; 90935; 93005; 93798; 93970; 94640; 94660; 94760; 96365; 96372; 96375; 99292; A4216; C1751; C1752; C1769; G0257; G0365; G8978-GP-CI; G8979-GP-CI; G8980-GP-CI; G8987-GO-CJ; G8988-GO-CI; J0360; J0670; J0692; J0696; J1642; J1644; J1650; J1815; J1940; J1956; J2001; J2185; J2250; J2270; J2310; J2405; J2704; J2720; J3010; J7620; Q4081; S0020; S0028

== ENCOUNTER 2018-06-11 23:34 | Inpatient (IN) | payer MEDICARE, MEDICAID ==
[2018-06-12 00:14] LABS: #Eosinphils 0.3 thou/uL (0.0-0.7); #Lymphocytes 2.2 thou/uL (1.20-3.40); #Monocytes 1.3 thou/uL (0.11-0.59); #Neutrophils 10.8 thou/uL (1.40-6.50); %Basophils 0.2 % (0.0-1.0); %Eosinophils 1.8 % (0.0-10.0); %Lymphocytes 15.1 % (21.0-51.0); %Monocytes 9.1 % (0.0-10.0); %Neutrophils 73.8 % (42.0-75.0); Hemoglobin 10.9 g/dL (12.0-16.0); Mean Corpuscular HGB CONC 33.8 g/dL (32.0-36.0); Mean Corpuscular Hemoglobin 32.9 pg (27.0-31.0); Mean Corpuscular Volume 97.2 fL (78.0-98.0); Mean Platelet Volume 7.9 fL (7.4-10.4); Platelet Count 240 thou/uL (130-400); RBC Distribution Width 14.6 % (11.5-14.5); Red Blood Cell (RBC) Count 3.31 mill/uL (4.20-5.40); White Blood Cell (WBC) Count 14.7 thou/uL (4.8-10.8)
[2018-06-12 00:34] LABS: ALT (SGPT) 21 U/L (8-55); AST (SGOT) 24 U/L (5-34); Albumin 3.8 g/dL (3.4-4.8); Alkaline Phosphatase 150 U/L (40-150); Anion Gap 16 mmol/L (10-20); BUN (Urea Nitrogen) 50 mg/dL (9.8-20.1); Bilirubin, Total 0.5 mg/dL (0.2-1.2); CK (CPK) 84 U/L (29-168); Calc. Creatinine Clearance 0 mL/min (70-130); Calcium 8.3 mg/dL (7.8-10.44); Carbon Dioxide 26 mmol/L (23-31); Chloride 96 mmol/L (98-107); Estimated GFR-MDRD 6; Globulin 4.4 g/dL (2.4-3.5); Glucose 184 mg/dL (80-115); Potassium 4.3 mmol/L (3.5-5.1); Protein, Total 8.2 g/dL (6.0-8.3); Sodium 134 mmol/L (136-145)
[2018-06-12] MEDS ORDERED: Cefepime 1 GM VIAL ONE (01:33)
[2018-06-12] MEDS ORDERED: Acetaminophen 500 MG TAB ONE (01:33)
[2018-06-12] MEDS ORDERED: methylPREDNISolone Sod Succ/PF 125 MG/2 ML VIAL ONE (01:33)
[2018-06-12] MEDS ORDERED: Water For Inject, Bacteriostat 30 ML ONE (01:35)
[2018-06-12] MEDS ORDERED: Ondansetron PF 4 MG/2 ML Vial IVP PRN ×2 (03:26→10:48)
[2018-06-12] MEDS ORDERED: Ondansetron ODT 4 MG TAB SL PRN (03:26)
[2018-06-12] MEDS ORDERED: Vancomycin HCl 1 GM in Premix Bag 1 BAG IVPB SCH (04:00)
[2018-06-12 04:09] VITALS: BMI 43.7
--- NOTE | 2018-06-12 08:59 | RAD ---
AP CHEST History: Pneumonia. Date: 06-12-18 Comparison: 06-15-17 FINDINGS: AP chest demonstrates cardiomegaly and pulmonary vasculature congestion. No evidence of effusions, pn eumonia, or pneumothorax is seen. IMPRESSION: Cardiomegaly and pulmonary vascular congestion. POS: H
[2018-06-12] MEDS ORDERED: hydrALAZINE 20 MG/ML VIAL SLOW IVP PRN (10:48)
[2018-06-12] MEDS ORDERED: HumaLOG 300 UNITS/3 ML VIAL SC PRN (10:48)
[2018-06-12] MEDS ORDERED: Dextrose 50% Abboject 50 ML SYRINGE SLOW IVP PRN (10:48)
[2018-06-12] MEDS ORDERED: Ondansetron ODT 4 MG TAB PO PRN (10:48)
[2018-06-12] MEDS ORDERED: Benzonatate 100 MG CAP PO PRN (10:48)
[2018-06-12] MEDS ORDERED: Acetaminophen 500 MG TAB PO PRN (10:48)
[2018-06-12] MEDS ORDERED: Dextrose 5% in Water 1,000 ML IV PRN (10:48)
[2018-06-12] MEDS ORDERED: predniSONE 20 MG TAB PO SCH (11:00)
[2018-06-12] MEDS: cefTRIAXone\\ROCEPHIN 2 GM in Sodium Chloride 0.9% 100 ML IVPB SCH (11:23)
[2018-06-12] MEDS: Calcium Acetate 667 MG CAP PO SCH ×2 (11:23→17:24)
[2018-06-12] MEDS: HumaLOG 300 UNITS/3 ML VIAL SC PRN ×2 (11:25→17:25)
[2018-06-12] MEDS: Azithromycin 500 MG in Sodium Chloride 0.9% 250 ML 250 ML IVPB SCH ×3 (14:53→17:24)
--- NOTE | 2018-06-12 17:20 | HP ---
PRIMARY CARE PROVIDER: Dr. Echols. PRIMARY CHART CLERK: Dr. Harvey Ramirez. CHIEF COMPLAINT: Cough and shortness of breath. HISTORY OF PRESENT ILLNESS: This is a 68-year-old female, who presented to [facility] Emergency Department complaining of increasing cough, congestion, and body aches over the last 4 days. The patient was apparently prescribed Tessalon Perles without much relief of her symptoms. The patient admits to progressive cough with associated nausea and emesis. The patient admits to body aches and undocumented fever. The patient states she intermittently wears oxygen at home up to 2 L/minute by nasal cannula and was prescribed this approximately a year ago prior to initiation of maintenance hemodialysis. The patient states she has been consistent with her hemodialysis sessions on Friday, Friday, and Friday. She denied any known sick contacts, but states she frequently is at the dialysis clinic with someone who may be ill. The patient received influenza and pneumonia vaccinations this season and states only one prior episode of documented pneumonia. The patient denies any current tobacco use or family members with similar symptoms. In the emergency department, the patient underwent general evaluation including chest imaging showing bilateral infiltrates and edema. The patient received IV vancomycin, cefepime, Solu-Medrol, intravenous normal saline and DuoNebs. The patient was referred to the Hospitalist Service for admission. PAST MEDICAL HISTORY: 1. End-stage renal disease, on maintenance hemodialysis Friday, Friday, and Friday. 2. Diabetes mellitus type 2. 3. Chronic hypoxic respiratory failure, on oxygen supplementation 2 L/minute by nasal cannula. 4. Hyperlipidemia. 5. History of Rudd palsy. 6. Hypertension. 7. Morbid obesity. PAST SURGICAL HISTORY: 1. Status post section. 2. Status post AV fistula placement. 3. Status post cystoscopy with stent placement. 4. Status post cholecystectomy. CURRENT MEDICATIONS: 1. Lipitor 20 mg p.o. at bedtime. 2. Tessalon Perles 100 mg p.o. t.i.d. p.r.n. 3. Phoslo 1992mg p.o. t.i.d. with meals. 4. Coreg 3.125 mg p.o. b.i.d. 5. Flonase nasal spray one spray in each naris b.i.d. 6. Glipizide 5 mg p.o. q.a.m. 7. Ventolin HFA one puff inhaled q.4 hours p.r.n. 8. Enteric-coated aspirin 81 mg p.o. daily. ALLERGIES: NO KNOWN DRUG ALLERGIES. FAMILY HISTORY: Positive for hypertension. SOCIAL HISTORY: The patient resides in the [place], [place] area. No current alcohol, tobacco, or illicit drug use. Remote history of tobacco use. REVIEW OF SYSTEMS: CONSTITUTIONAL: Negative for weight loss or gain, ability to conduct usual activities. SKIN: Negative for rash, itching. EYES: Negative for double vision, pain. ENT/MOUTH: Negative for nose bleeding, neck stiffness, pain, tenderness. CARDIOVASCULAR: Negative for palpitations, dyspnea on exertion, orthopnea. RESPIRATORY: Negative for shortness of breath, wheezing, cough, hemoptysis, fever or night sweats. GASTROINTESTINAL: Negative for poor appetite, abdominal pain, heartburn, nausea , vomiting, constipation, or diarrhea. GENITOURINARY: Negative for urgency, frequency, dysuria, nocturia. MUSCULOSKELETAL: Negative for pain, swelling. NEUROLOGIC/PSYCHIATRIC: Negative for anxiety, depression. ALLERGY/IMMUNOLOGIC: Negative for skin rash, bleeding tendency. Otherwise, negative except as stated per HPI. PHYSICAL EXAMINATION: VITAL SIGNS: Currently, blood pressure 147/71, pulse 92, respiratory rate 18, temperature 97.7 degrees Fahrenheit, and O2 saturation 93% on 2 L/minute via nasal cannula. GENERAL APPEARANCE: This is a 68-year-old female, alert and oriented x3, pleasant, in no acute distress. HEENT: Pupils are equal, round, reactive to light and accommodation. Extraocular muscles are intact. No scleral icterus. No conjunctival injection. Nares patent. OP is clear. Teeth in fair repair. NECK: Supple. No cervical adenopathy. No thyromegaly. No carotid bruits. No JVD appreciated. Cervical spine with full active and passive range of motion. No meningeal signs appreciated. CHEST: Diminished breath sounds in the bases bilaterally. Scattered coarse sounds. CARDIOVASCULAR: S1 and S2 without noted murmur, rub, or gallop. Heart sounds distant. ABDOMEN: Obese, soft, nontender, and nondistended. Bowel sounds are positive in all 4 quadrants. There is no hepatosplenomegaly. No abdominal bruits. No rebound or guarding appreciated. EXTREMITIES: Warm and dry with fair turgor. Positive pitting edema to the lower extremities. Pulses are palpable distally at the dorsalis pedis, posterior tibial, and popliteal arteries bilaterally. Left upper extremity AV fistula in place with palpable thrill. NEUROLOGIC: Cranial nerves 2 through 12 were grossly intact. No focal or lateralizing signs appreciated. PERTINENT LAB FINDINGS AND X-RAY FINDINGS: Sodium 134, potassium 4.3, chloride 96, CO2 of 26, BUN 50, creatinine 6.96, estimated GFR of 6, glucose 184, and lactic acid level 0.9. LFTs within normal limits. Troponin I negative x1. BNP 41. CBC showed a white blood cell count of 14.7, hemoglobin 11, hematocrit 32, and platelet count 240 with 74% neutrophils. Influenza A and B antigen on 06/12/2018, negative. Portable chest x-ray dated 06/11/2018 showed cardiomegaly with pulmonary vascular prominence. EKG dated 06/12/2018 by my interpretation shows sinus mechanism with heart rates in the 90s. Attenuated R-waves noted in the precordial leads. Left axis deviation noted. ASSESSMENT AND PLAN: 1. Bacterial pneumonia. Suspected given the patient's presentation and chest imaging findings. Suspect gram-positive cocci. Continue Rocephin 2 g IV q.24 hours with additional Zithromax 500 mg IV daily. Add DuoNebs q.4 hours. Prednisone 40 mg p.o. daily. Blood cultures pending x2. Continue oxygen supplementation to maintain O2 saturations greater than or equal to 90%. 2. Chronic hypoxic respiratory failure. Continue oxygen supplementation as stated previously. DuoNebs q.4 hours. See #1 above. 3. End-stage renal disease with hemodialysis. We will consult Nephrology Service for timing of next hemodialysis session. 4. Diabetes mellitus type 2. Insulin sliding scale for reflexive coverage. Continue glipizide 5 mg daily. Check Accu-Cheks a.c. and h.s. 5. Hypertension. Resume home antihypertensive regimen and monitor clinical response. 6. Prophylaxis. SCDs while in bed. Pepcid 20 mg p.o. b.i.d. Influenza and pneumonia vaccination up-to-date. 7. Code status is full. Surrogate medical decision maker is patient's son. Job ID: [id number] [facility]
[2018-06-12] MEDS ORDERED: Sodium Chloride 0.9% 10 ML ONE (20:07)
[2018-06-12] MEDS: Atorvastatin Calcium 20 MG TAB PO SCH (20:57)
[2018-06-12] MEDS: Carvedilol 3.125 MG TAB PO SCH (20:57)
[2018-06-12] MEDS: Fluticasone Propionate Nasal Spray 16 gm Bottle NASAL SCH (20:58)
[2018-06-13] MEDS: Insulin Regular 300 UNITS/3 ML VIAL SC SCH (00:44)
[2018-06-13] MEDS: HumaLOG 300 UNITS/3 ML VIAL SC PRN ×3 (06:15→16:59)
[2018-06-13 06:40] LABS: Anion Gap 18 mmol/L (10-20); BUN (Urea Nitrogen) 45 mg/dL (9.8-20.1); Calc. Creatinine Clearance 16 mL/min (70-130); Calcium 8.7 mg/dL (7.8-10.44); Carbon Dioxide 26 mmol/L (23-31); Chloride 94 mmol/L (98-107); Estimated GFR-MDRD 8; Glucose 438 mg/dL (80-115); Potassium 4.8 mmol/L (3.5-5.1); Sodium 133 mmol/L (136-145)
[2018-06-13 06:54] LABS: Band 5 % (5-11); Hemoglobin 10.3 g/dL (12.0-16.0); Lymphocytes 7 % (21-51); MDiff Complete? YES; Mean Corpuscular HGB CONC 32.9 g/dL (32.0-36.0); Mean Corpuscular Hemoglobin 32.2 pg (27.0-31.0); Mean Corpuscular Volume 98.1 fL (78.0-98.0); Mean Platelet Volume 8.7 fL (7.4-10.4); Monocytes 7 % (0-10); Neutrophil 81 % (42-75); Platelet Count 236 thou/uL (130-400); RBC Distribution Width 14.4 % (11.5-14.5); Red Blood Cell (RBC) Count 3.19 mill/uL (4.20-5.40); White Blood Cell (WBC) Count 16.7 thou/uL (4.8-10.8)
[2018-06-13] MEDS: Calcium Acetate 667 MG CAP PO SCH ×3 (09:26→16:51)
[2018-06-13] MEDS: Carvedilol 3.125 MG TAB PO SCH ×2 (09:27→20:29)
[2018-06-13] MEDS: Famotidine 20 MG TAB PO SCH (09:27)
[2018-06-13] MEDS: predniSONE 20 MG TAB PO SCH (09:27)
[2018-06-13] MEDS: Fluticasone Propionate Nasal Spray 16 gm Bottle NASAL SCH ×2 (09:28→20:29)
[2018-06-13] MEDS: glipiZIDE 5 MG TAB PO SCH (10:40)
--- NOTE | 2018-06-13 10:52 | PDOC.PN ---
- Subjective Encounter Start Date: 06/13/18 Encounter Start Time: 10:35 Subjective: f/u for bilat PNA, chronic hypoxic resp failure and ESRD with HD. Feels -: weak and still coughing. Some chills and throat pain. Tolerated HD - Objective Resuscitation Status - Order Detail: 06/12/18 10:38 Resuscitation Status Routine Resuscitation Status: FULL: Full Resuscitation MAR Reviewed: Yes Vital Signs & Weight: Vital Signs (12 hours) Temp Pulse Resp BP Pulse Ox 06/13/18 08:01 97.8 F 78 17 134/74 97 06/13/18 07:50 100 06/13/18 07:48 73 12 06/13/18 03:16 97.6 F 74 19 141/80 H 92 L Weight Weight 213 lb 1.6 oz I&O: 06/12/18 06/13/18 06/14/18 06:59 06:59 06:59 Intake Total 200 1410 Output Total 3050 Balance 200 -1640 Result Diagrams: 06/13/18 04:42 06/13/18 04:42 Additional Labs: Accuchecks 06/12/18 06/12/18 17:19 11:03 POC Glucose 214 H Greater than 550 H* Microbiology 06/12/18 00:03 Nasal swab Influenza Types A,B Direct EIA - Final 06/12/18 01:30 Venous blood - Right Arm Blood Culture - Preliminary Specimen has been received and culture in progress. No Growth to date. 06/12/18 01:27 Venous blood - Right Hand Blood Culture - Preliminary Specimen has been received and culture in progress. No Growth to date. Laboratory Tests 06/12/18 06/12/18 00:05 00:05 WBC 14.7 H Hgb 10.9 L Sodium 134 L Creatinine 6.96 H EKG Reviewed by me: Yes (Tele - SR) Phys Exam - Physical Examination Constitutional: NAD HEENT: PERRLA, sclera anicteric, oral pharynx no lesions Neck: no nodes, no JVD, supple, full ROM scattered coarse sounds bilat, occ wheezing S1, S2 Cardiovascular: RRR, no significant murmur, no rub, gallop Gastrointestinal: soft, non-tender, no distention, positive bowel sounds Musculoskeletal: no edema, pulses present Neurological: normal sensation, moves all 4 limbs Psychiatric: A&O x 3 Skin: normal turgor, cap refill <2 seconds Dx/Plan (1) CAP (community acquired pneumonia) Code(s): J18.9 - PNEUMONIA, UNSPECIFIED ORGANISM Status: Acute Comment: Bacterial pneumonia with suspected gram + cocci, continue Rocephin/Zithromax, Duonebs (2) Chronic respiratory failure with hypoxia Code(s): J96.11 - CHRONIC RESPIRATORY FAILURE WITH HYPOXIA Status: Chronic Comment: Continue O2 supplementation 2L/min NC, current baseline requirement (3) ESRD (end stage renal disease) on dialysis Code(s): N18.6 - END STAGE RENAL DISEASE; Z99.2 - DEPENDENCE ON RENAL DIALYSIS Status: Chronic Comment: HD per Renal service, tolerated session 06/12/18 (4) DM type 2 (diabetes mellitus, type 2) Status: Chronic Qualifiers: Diabetes mellitus computer technician insulin use: without intermediate use Diabetes mellitus complication status: with kidney complications Diabetes mellitus complication detail: with chronic kidney disease Chronic kidney disease stage : stage 3 (moderate) Qualified Code(s): E11.22 - Type 2 diabetes mellitus with diabetic chronic kidney disease; N18.3 - Chronic kidney disease, stage 3 ( moderate); N18.3 - Chronic kidney disease, stage 3 (moderate) Comment: Labile given steroids, continue ISS, Glipizide, ADA (5) HTN (hypertension) Code(s): I10 - ESSENTIAL (PRIMARY) HYPERTENSION Status: Chronic Qualifiers: Hypertension type: essential hypertension Qualified Code(s): I10 - Essential (primary) hypertension Comment: Stable, continue Coreg 3.125mg BID - Plan continue antibiotics, respiratory therapy, out of bed/ambulate Stable overall -: Continue Rocephin/Zithromax -: Continue Prednisone 40mg daily -: Continue Duonebs -: Likely home in 24h * .
[2018-06-13] MEDS ORDERED: Cepastat Lozenges 1 LOZ PO PRN (10:56)
[2018-06-13] MEDS: cefTRIAXone\\ROCEPHIN 2 GM in Sodium Chloride 0.9% 100 ML IVPB SCH (12:50)
--- NOTE | 2018-06-13 12:52 | EKG ---
Test Reason : SHORTNESS BREATH Blood Pressure : / mmHG Vent. Rate : 092 BPM Atrial Rate : 092 BPM P-R Int : 158 ms QRS Dur : 086 ms QT Int : 368 ms P-R-T Axes : 034 -14 030 degrees QTc Int : 455 ms Normal sinus rhythm Confirmed by TORIN DELONG ([id number]), content editor ASTON JENKINS ([id number]) on 06/13/2018 12:51:53 PM Referred By: Confirmed By:TORIN DELONG
[2018-06-13] MEDS: Azithromycin 500 MG in Sodium Chloride 0.9% 250 ML 250 ML IVPB SCH (16:51)
[2018-06-13] MEDS ORDERED: Sodium Chloride 0.9% 10 ML ONE (20:21)
[2018-06-13] MEDS: Atorvastatin Calcium 20 MG TAB PO SCH (20:29)
[2018-06-13] MEDS ORDERED: HumaLOG 300 UNITS/3 ML VIAL SC SCH (21:45)
--- NOTE | 2018-06-13 21:55 | PRG ---
DATE OF SERVICE: 06/13/2018 SUBJECTIVE: The patient was seen and examined, seems to be feeling better, but now complaining of sore throat. Otherwise, the patient noted with the following. OBJECTIVE: VITAL SIGNS: Afebrile, temperature 97.8; pulse 85; respiratory rate of 20; O2 saturation of 93%; blood pressure 132/80. HEENT: Unremarkable. CARDIOVASCULAR SYSTEM: First and second heart sounds were heard. RESPIRATORY SYSTEM: Clear to auscultation. DIGESTIVE SYSTEM: Reviewed, benign abdomen. EXTREMITIES: No peripheral edema. SKIN: No new bruise or rash. LYMPHATICS: No peripheral lymphadenopathy. IMPRESSION: 1. End-stage renal disease, on hemodialysis. 2. Bronchitis versus pneumonitis, seems to responding to antibiotics. 3. Hypertension. PLAN: 1. Continue hemodialysis, was schedule on Friday, Friday, and Friday. 2. Further management will be dependent on the clinical course. Job ID: [id number]
[2018-06-14] MEDS ORDERED: HumaLOG 300 UNITS/3 ML VIAL SC SCH (01:00)
[2018-06-14] MEDS: Insulin Regular 300 UNITS/3 ML VIAL SC SCH (01:09)
[2018-06-14 08:27] VITALS: TEMP 97.7
[2018-06-14] MEDS: glipiZIDE 5 MG TAB PO SCH (09:15)
[2018-06-14] MEDS: Calcium Acetate 667 MG CAP PO SCH ×2 (09:15→12:04)
[2018-06-14] MEDS: Carvedilol 3.125 MG TAB PO SCH (09:16)
[2018-06-14] MEDS: Famotidine 20 MG TAB PO SCH (09:16)
[2018-06-14] MEDS: predniSONE 20 MG TAB PO SCH (09:16)
[2018-06-14] MEDS: Fluticasone Propionate Nasal Spray 16 gm Bottle NASAL SCH (09:17)
[2018-06-14] MEDS: cefTRIAXone\\ROCEPHIN 2 GM in Sodium Chloride 0.9% 100 ML IVPB SCH (12:01)
[2018-06-14] MEDS: HumaLOG 300 UNITS/3 ML VIAL SC PRN (12:01)
[2018-06-14 12:47] VITALS: BP 147/72
--- NOTE | 2018-06-14 13:51 | DIS ---
DATE OF ADMISSION: 06/12/2018 DATE OF DISCHARGE: 06/14/2018 DISCHARGE DIAGNOSES: 1. Community-acquired bacterial pneumonia, suspected gram-positive cocci, improved. 2. Chronic hypoxic respiratory failure, stable. 3. End-stage renal disease, on hemodialysis. 4. Diabetes mellitus type 2, labile secondary to steroids. 5. Hypertension, stable. CONSULTATIONS: Dr. Harvey Ramirez with Nephrology Service. PERTINENT LAB AND X-RAY FINDINGS: Creatinine ranged between 5.28 to 6.96. Estimated GFR ranged between 6 to 8. Lactic acid level 0.9. LFTs within normal limits. BNP 41. CBC showed a white blood cell count ranging between 14.7 to 16.7, hemoglobin 10.3. Blood cultures x2 dated 06/12/2018, showed no growth to date. Influenza A and B antigen dated 06/12/2018, negative. Portable chest x-ray dated 06/11/2018, showed cardiomegaly with pulmonary vascular prominence. HOSPITAL COURSE: The patient was admitted to the Telemetry Unit after initially presenting with increased cough and shortness of breath in the context of known chronic hypoxic respiratory failure, on oxygen supplementation at 2 L/minute via nasal cannula. The patient underwent chest imaging showing questionable infiltrate in bilateral lung solomon concerning for pneumonitis/bacterial pneumonia. The patient was placed on Rocephin and Zithromax and IV Solu-Medrol. The patient also received bronchodilator therapy with DuoNebs and antitussive agents. The patient did clinically improve in approximately 48 hours with stable vital signs and no evidence of documented fever. The patient continued on her baseline oxygen supplementation at 2 L/minute via nasal cannula with O2 saturations in the upper 90% range. The patient was noted with labile glucose trend due to steroid influence and was initiated on Levemir in addition to glipizide for discharge. The patient may need additional titration of her diabetic regimen on an ongoing basis after discharge. I have examined the patient at the time of discharge and discussed followup instructions, at which point, the patient verbalized understanding and in agreement. The patient is ready for discharge on 06/14/2018. DISCHARGE MEDICATIONS: 1. Lipitor 20 mg p.o. q.h.s. 2. Tessalon Perles 100 mg p.o. t.i.d. p.r.n. 3. PhosLo 1992 mg p.o. t.i.d. with meals. 4. Coreg 3.125 mg p.o. b.i.d. 5. Flonase 1 spray in each naris daily. 6. Glipizide 5 mg p.o. daily. 7. Ventolin HFA 1 puff inhaled q.4 hours p.r.n. 8. Enteric-coated aspirin 81 mg p.o. daily. 9. Omnicef 300 mg p.o. daily x7 days. 10. Levemir 10 units subcutaneously b.i.d. 11. Prednisone 20 mg 2 tabs p.o. daily x2 days, followed by 1 tab p.o. daily x2 days, followed by half a tab p.o. daily x2 days. FOLLOWUP: The patient may follow up with her primary care provider, Dr. Janeth Echols, within 7 days of discharge. CONDITION ON DISCHARGE: Stable. ACTIVITY: Ad-tevin. DIET: ADA and renal. CODE STATUS: Full. DISPOSITION: Home on 06/14/2018. TIME SPENT: Total time preparing and coordinating discharge, 32 minutes. Job ID: [id number]
--- NOTE | 2018-06-14 21:19 | CON ---
DATE OF CONSULTATION: REQUESTING PHYSICIAN: Hospitalist. REASON FOR CONSULTATION: Need for maintenance hemodialysis. IMPRESSION: End-stage renal disease, hemodialysis-dependent, Friday, Friday, and Friday. PLAN: 1. The patient to be dialyzed in accordance with her schedule on Friday, Friday, and Friday, today. 2. Further management will be dependent on the clinical course. HISTORY OF PRESENT ILLNESS: A 68-year-old female patient with end-stage renal disease, hemodialysis-dependent, who presented here with cough productive of greenish sputum. The patient is also having some shortness of breath need for maintenance hemodialysis. Decision has been taken to involve Renal in the management of this case. PAST MEDICAL HISTORY: Significant for end-stage renal disease, hemodialysis-dependent on Friday, Friday, and Friday; hypertension; diabetes mellitus. MEDICATIONS: Reviewed and are documented in Perfect. ALLERGIES: NO KNOWN DRUG ALLERGIES. FAMILY HISTORY: Nonsignificant related to presenting illness. SOCIAL HISTORY: No alcohol, no tobacco, no illicit drug use. PHYSICAL EXAMINATION: GENERAL: The patient was found to be VITAL SIGNS: Afebrile, temperature 97.8; pulse 89; respiratory rate of 16; O2 saturation of . HEENT: Unremarkable. CARDIOVASCULAR: First and second heart sounds were heard. RESPIRATORY: Clear to auscultation. DIGESTIVE SYSTEM: Revealed a benign abdomen with positive bowel sounds. EXTREMITIES: No peripheral edema. SKIN: No new bruise or rash. LYMPHATICS: No peripheral lymphadenopathy. Job ID: [id number]
== END 2018-06-14 14:18 | disposition home or self-care (01) | DRG 193 ==
LOC: ERS 23:34 → 2NO 06-12 01:00
PROVIDERS: ADMIT Hospitalist; ATTEND Hospitalist
DX: J15.9 Unspecified bacterial pneumonia (principal); N18.6 End stage renal disease; J96.11 Chronic respiratory failure with hypoxia; I12.0 Hypertensive chronic kidney disease with stage 5 chronic kidney disease or end stage renal disease; Z68.41 Body mass index [BMI] 40.0-44.9, adult; E11.22 Type 2 diabetes mellitus with diabetic chronic kidney disease; Z99.2 Dependence on renal dialysis; E09.9 Drug or chemical induced diabetes mellitus without complications; T38.0X5A Adverse effect of glucocorticoids and synthetic analogues, initial encounter; E66.01 Morbid (severe) obesity due to excess calories; E78.5 Hyperlipidemia, unspecified
CPT/HCPCS: 36415; 36416; 71045; 80048; 80053; 82550; 83605; 83880; 84484; 85007; 85025; 85027; 87040; 87804; 90935; 93005; 94640; 96365; 96375; G0257; J0456; J0692; J0696; J1815; J2930; J3370; J7050; J7506; J7620

== ENCOUNTER 2018-11-11 01:34 | Emergency (ER) | payer MEDICARE, MEDICAID ==
[2018-11-11 02:34] LABS: #Basophils 0.1 thou/uL (0.0-0.2); #Eosinphils 0.3 thou/uL (0.0-0.7); #Lymphocytes 3.1 thou/uL (1.20-3.40); #Monocytes 1.1 thou/uL (0.11-0.59); #Neutrophils 6.2 thou/uL (1.40-6.50); %Basophils 0.8 % (0.0-1.0); %Eosinophils 2.9 % (0.0-10.0); %Lymphocytes 28.5 % (21.0-51.0); %Neutrophils 57.8 % (42.0-75.0); Mean Corpuscular HGB CONC 34.3 g/dL (32.0-36.0); Mean Corpuscular Hemoglobin 33.5 pg (27.0-31.0); Mean Corpuscular Volume 97.7 fL (78.0-98.0); Platelet Count 177 thou/uL (130-400); RBC Distribution Width 14.2 % (11.5-14.5); Red Blood Cell (RBC) Count 2.98 mill/uL (4.20-5.40); White Blood Cell (WBC) Count 10.8 thou/uL (4.8-10.8)
[2018-11-11 02:57] LABS: ALT (SGPT) 11 U/L (8-55); AST (SGOT) 9 U/L (5-34); Albumin 3.9 g/dL (3.4-4.8); Alkaline Phosphatase 104 U/L (40-150); Anion Gap 17 mmol/L (10-20); BUN (Urea Nitrogen) 55 mg/dL (9.8-20.1); Bilirubin, Total 0.3 mg/dL (0.2-1.2); CK (CPK) 81 U/L (29-168); Calc. Creatinine Clearance 0 mL/min (70-130); Calcium 8.4 mg/dL (7.8-10.44); Carbon Dioxide 24 mmol/L (23-31); Chloride 102 mmol/L (98-107); Estimated GFR-MDRD 6; Globulin 3.2 g/dL (2.4-3.5); Glucose 237 mg/dL (80-115); Potassium 4.2 mmol/L (3.5-5.1); Protein, Total 7.1 g/dL (6.0-8.3); Sodium 139 mmol/L (136-145)
--- NOTE | 2018-11-11 04:19 | RAD ---
XR Chest 1 View Portable HISTORY: Chest pain COMPARISON: 06/22/2018 study FINDINGS: Heart size is enlarged with atherosclerotic changes of the aorta. The lungs are clear of an y infiltrative process. No signs of failure. IMPRESSION: Cardiomegaly.
== END 2018-11-11 03:19 | disposition home or self-care (01) ==
LOC: ERS 01:34
DX: J20.9 Acute bronchitis, unspecified (principal); I13.2 Hypertensive heart and chronic kidney disease with heart failure and with stage 5 chronic kidney disease, or end stage renal disease; I50.9 Heart failure, unspecified; N18.6 End stage renal disease; E78.5 Hyperlipidemia, unspecified; E11.9 Type 2 diabetes mellitus without complications; Z87.891 Personal history of nicotine dependence; F41.9 Anxiety disorder, unspecified; F32.9 Major depressive disorder, single episode, unspecified; Z79.899 Other long term (current) drug therapy; Z79.84 Long term (current) use of oral hypoglycemic drugs
CPT/HCPCS: 36415; 71045; 80053; 82550; 84484; 85025; 93005; 94640; J7620

== ENCOUNTER 2018-12-08 08:09 | Outpatient (CLI) | payer MEDICARE, MEDICAID ==
--- NOTE | 2018-12-08 08:46 | RAD ---
CHEST 2 VIEWS: Date: 12/08/18 HISTORY: Dyspnea. COMPARISON: 11/11/18. FINDINGS: Heart size is within normal limits. There is some right-sided stable pleural thickening. No confluent pneumonia, overt edema, or pleural effusion. IMPRESSION: Stable right-sided pleural thickening. No acute intrathoracic disease. Atherosclerosis of aorta. No n ew process. POS: OFF
== END 2018-12-08 08:10 | disposition home or self-care (01) ==
LOC: RAD 08:09
PROVIDERS: ATTEND Internal Medicine Critical Care Medicine
DX: R06.00 Dyspnea, unspecified (principal); J92.9 Pleural plaque without asbestos; I70.0 Atherosclerosis of aorta
CPT/HCPCS: 71046

== ENCOUNTER 2019-01-20 13:59 | Outpatient (CLI) | payer MEDICARE, MEDICAID ==
--- NOTE | 2019-01-20 15:51 | ULT ---
ULTRASOUND VENOUS DOPPLER LEFT LOWER EXTREMITY UNILATERAL: 01/20/19 HISTORY: Edema. COMPARISON: None. FINDINGS: Real time tay scale, color Doppler and spectral analysis of the left lower extremity venous system w as performed. The common femoral, femoral, proximal portions of the greater saphenous and deep femora l veins as well as the popliteal and posterior tibial veins were interrogated. Normal flow, augmentation and compression. IMPRESSION: No deep venous thrombosis. POS: HOME
== END 2019-01-20 14:00 | disposition home or self-care (01) ==
LOC: BICULT 13:59
PROVIDERS: ATTEND Internal Medicine Nephrology
DX: M79.89 Other specified soft tissue disorders (principal); I12.0 Hypertensive chronic kidney disease with stage 5 chronic kidney disease or end stage renal disease; N18.6 End stage renal disease

== ENCOUNTER 2019-03-29 20:21 | Observation (INO) | payer MEDICARE, MEDICAID ==
[2019-03-29 20:47] LABS: #Eosinphils 0.5 thou/uL (0.0-0.7); #Monocytes 0.7 thou/uL (0.11-0.59); %Basophils 0.2 % (0.0-1.0); %Eosinophils 5.6 % (0.0-10.0); %Lymphocytes 21.2 % (21.0-51.0); %Monocytes 8.1 % (0.0-10.0); %Neutrophils 64.9 % (42.0-75.0); Hemoglobin 11.9 g/dL (12.0-16.0); Mean Corpuscular HGB CONC 35.6 g/dL (32.0-36.0); Mean Corpuscular Hemoglobin 34.3 pg (27.0-31.0); Mean Corpuscular Volume 96.5 fL (78.0-98.0); Mean Platelet Volume 8.2 fL (7.4-10.4); Platelet Count 180 thou/uL (130-400); RBC Distribution Width 14.2 % (11.5-14.5); Red Blood Cell (RBC) Count 3.47 mill/uL (4.20-5.40); White Blood Cell (WBC) Count 9.2 thou/uL (4.8-10.8)
--- NOTE | 2019-03-29 21:03 | RAD ---
Exam: Chest one view HISTORY:Chest pain Comparison: 11/11/2018 FINDINGS: Cardiac silhouette:Cardiomegaly Aorta: Atherosclerosis of the aortic knob Pulmonary vessels: Normal Costophrenic angles: Clear LUNGS: No masses or consolidation. Pneumothorax: None Osseous abnormalities: None IMPRESSION: 1. Cardiomegaly without evidence of congestive heart failure 2. Atherosclerosis
[2019-03-29 21:09] LABS: ALT (SGPT) 12 U/L (8-55); AST (SGOT) 10 U/L (5-34); Albumin 4.1 g/dL (3.4-4.8); Alkaline Phosphatase 108 U/L (40-150); Anion Gap 16 mmol/L (10-20); BUN (Urea Nitrogen) 27 mg/dL (9.8-20.1); Bilirubin, Total 0.3 mg/dL (0.2-1.2); Calc. Creatinine Clearance 0 mL/min (70-130); Calcium 8.8 mg/dL (7.8-10.44); Carbon Dioxide 28 mmol/L (23-31); Chloride 97 mmol/L (98-107); Estimated GFR-MDRD 7; Globulin 3.9 g/dL (2.4-3.5); Glucose 287 mg/dL (80-115); Lipase 49 U/L (8-78); Potassium 3.5 mmol/L (3.5-5.1); Sodium 137 mmol/L (136-145)
[2019-03-29] MEDS ORDERED: Ondansetron ODT 4 MG TAB SL PRN (23:21)
[2019-03-29] MEDS ORDERED: Acetaminophen 325 MG TAB PO PRN (23:21)
[2019-03-29] MEDS ORDERED: Ondansetron PF 4 MG/2 ML Vial IVP PRN (23:21)
[2019-03-29] MEDS ORDERED: HYDROcodone/Acetaminophen 5/325 mg Tablet PO PRN ×2 (23:21)
[2019-03-29 23:43] VITALS: BMI 43.0
[2019-03-30 00:40] LABS: Troponin I Less than 0.010 ng/mL (< 0.028)
[2019-03-30 03:27] LABS: #Basophils 0.1 thou/uL (0.0-0.2); #Eosinphils 0.6 thou/uL (0.0-0.7); #Lymphocytes 2.3 thou/uL (1.20-3.40); #Monocytes 0.7 thou/uL (0.11-0.59); %Basophils 0.9 % (0.0-1.0); %Eosinophils 6.2 % (0.0-10.0); %Lymphocytes 24.2 % (21.0-51.0); %Monocytes 7.1 % (0.0-10.0); %Neutrophils 61.6 % (42.0-75.0); Hemoglobin 10.8 g/dL (12.0-16.0); Mean Corpuscular HGB CONC 34.4 g/dL (32.0-36.0); Mean Corpuscular Hemoglobin 33.4 pg (27.0-31.0); Mean Corpuscular Volume 97.2 fL (78.0-98.0); Mean Platelet Volume 8.8 fL (7.4-10.4); Platelet Count 194 thou/uL (130-400); RBC Distribution Width 14.2 % (11.5-14.5); Red Blood Cell (RBC) Count 3.23 mill/uL (4.20-5.40); White Blood Cell (WBC) Count 9.7 thou/uL (4.8-10.8)
[2019-03-30 03:49] LABS: Anion Gap 18 mmol/L (10-20); BUN (Urea Nitrogen) 32 mg/dL (9.8-20.1); Calc. Creatinine Clearance 13 mL/min (70-130); Calcium 8.8 mg/dL (7.8-10.44); Carbon Dioxide 26 mmol/L (23-31); Chloride 98 mmol/L (98-107); Estimated GFR-MDRD 7; Glucose 297 mg/dL (80-115); Potassium 3.9 mmol/L (3.5-5.1); Sodium 138 mmol/L (136-145)
[2019-03-30 03:51] LABS: Troponin I Less than 0.010 ng/mL (< 0.028)
[2019-03-30] MEDS ORDERED: PROVENTIL INHALER 6.7 G (200 INHALATIONS) INH PRN (08:25)
[2019-03-30] MEDS ORDERED: cefTRIAXone\\ROCEPHIN 1 GM in Sodium Chloride 0.9% 100 ML IVPB SCH (08:30)
[2019-03-30] MEDS ORDERED: Enoxaparin Sodium 40 MG/0.4 ML SYRINGE SC SCH (09:00)
[2019-03-30] MEDS ORDERED: Non-Formulary Item 1 EACH (Levemir Flexpen [Levemir Flexpen] 15 UNIT) SC SCH (09:00)
[2019-03-30] MEDS ORDERED: Ergocalciferol 1.25 MG(50,000 UNITS) CAP PO SCH (09:00)
[2019-03-30] MEDS: Enoxaparin Sodium 30 MG/0.3 ML SYRINGE SC SCH (09:12)
[2019-03-30] MEDS: Aspirin Chewable 81 MG TAB PO SCH (09:13)
[2019-03-30] MEDS: Carvedilol 3.125 MG TAB PO SCH ×2 (09:13→21:07)
[2019-03-30] MEDS: Furosemide 40 MG TAB PO SCH (09:13)
[2019-03-30] MEDS: Insulin Glargine 15 UNITS in Pre-Filled Syringe 1 EACH SC SCH ×2 (09:53→21:08)
[2019-03-30] MEDS: Calcium Acetate 667 MG CAP PO SCH ×2 (12:32→16:41)
[2019-03-30] MEDS: glipiZIDE 5 MG TAB PO SCH (16:41)
[2019-03-30] MEDS: Budesonide 0.25 MG/2 ML NEB INH SCH (18:16)
[2019-03-30] MEDS ORDERED: Prevnar 13-Val Conj/PF 0.5 ML SYRINGE IM ONE (21:00)
[2019-03-30] MEDS ORDERED: guaiFENesin/DM ER PO SCH (21:00)
[2019-03-30] MEDS ORDERED: Atorvastatin Calcium 20 MG TAB PO SCH (21:00)
--- NOTE | 2019-03-30 23:52 | CON ---
DATE OF CONSULTATION: REQUESTING PHYSICIAN: ER physician. REASON FOR CONSULTATION: Need for maintenance dialysis. IMPRESSION: 1. End-stage renal disease, on hemodialysis, Friday, Friday and Friday. 2. Cough with greenish sputum production . 3. Labile hemodynamics, possibly related to increased ultrafiltration at dialysis. PLAN: 1. There is no urgent indication for dialysis. 2. The patient to be scheduled for dialysis tomorrow and we will adjust the dry weight of this patient up. 3. Further management to be dependent on the clinical course. HISTORY OF PRESENT ILLNESS: This is a 69-year-old female patient with end-stage renal disease, hemodialysis dependent, who was dialyzed today and felt so bad and to the point that she had the leg cramping and had to be wheeled out of dialysis and patient's dry weight was recently increased; however, the patient still felt bad. In addition to this, patient also complain of cough productive of greenish sputum and chest pain for which patient presented to the ER. The patient has not been admitted, being treated for bronchitis. The need for maintenance hemodialysis necessitated this renal consultation. PAST MEDICAL HISTORY: Significant for end-stage renal disease, hemodialysis dependent, diabetes mellitus type 2, hypertension, morbid obesity. MEDICATIONS: Reviewed and as documented on [facility]. ALLERGIES: NO KNOWN DRUG ALLERGIES. FAMILY HISTORY: Not significantly related to present illness. SOCIAL HISTORY: No alcohol, no tobacco, no illicit drug use. PHYSICAL EXAMINATION: VITAL SIGNS: The patient was found not to be in any obvious distress. Hemodynamically stable with blood pressure of 107/67. HEENT: Examination unremarkable. CARDIOVASCULAR: First and second heart sounds were heard. RESPIRATORY: Clear to auscultation. GASTROINTESTINAL: Revealed a benign abdomen with positive bowel sounds. EXTREMITIES: No peripheral edema. SKIN: No new gross rash. LYMPHATICS: No peripheral lymphadenopathy. SUMMARY: A 69-year-old female patient with end-stage renal disease, who presented here with chest pain and a cough as well as labile hemodynamics. Thank you for this consultation. We will follow with you. Job ID: [id number]
[2019-03-31] MEDS: Budesonide 0.25 MG/2 ML NEB INH SCH (07:39)
--- NOTE | 2019-03-31 07:43 | HP ---
CHIEF COMPLAINT: Chest pain. HISTORY OF PRESENT ILLNESS: This patient is a 69-year-old female with end-stage renal disease, on dialysis Friday, Friday, Friday, and a chronic hypoxic respiratory failure on oxygen due to some type of restrictive lung disease. The patient states that Dr. Buchanan has taken her off home oxygen for now. She stated that she started feeling bad about a week ago rather and a few days ago she started developing some discomfort in her chest and started coughing, it seems to be progressing. Since that time, she has sputum that is produced that is green in color. When she does cough that tends to cause an increase in chest pain. Yesterday she had hemodialysis, I believe she had a fairly large volume of fluid removed and her blood pressure dropped. Subsequently, she went home after having to wait in dialysis center for time for a her blood pressure to stabilize. She fell asleep and when she awoke, she awoke abruptly feeling chest discomfort and shortness of breath. Checked her sats and she was at 88%. She did not have any fevers or chills and she presented to the emergency department. REVIEW OF SYSTEMS: Notable for some swelling in her legs, some relatively chronic constipation. She has very little urine output at this time. All other systems reviewed, all pertinent positives and negatives noted in the history of present illness. PAST MEDICAL HISTORY: 1. Notable for end-stage renal disease, on dialysis. 2. Type 2 diabetes. 3. Chronic hypoxic respiratory failure, previously on home oxygen. 4. Hyperlipidemia. 5. History of Rudd's palsy. 6. Hypertension. 7. Morbid obesity. PAST SURGICAL HISTORY: History of . She is status post AV fistula placement, which is working well. She had a cystoscopy with stents placed in the past and she is status post cholecystectomy. ALLERGIES: NONE. CURRENT MEDICATIONS: 1. PhosLo 3 p.o. t.i.d. 2. Mucinex DM p.r.n. 3. Glipizide 5 mg b.i.d. 4. Ventolin HFA one puff q.4 hours p.r.n. Levemir 15 units b.i.d. 5. Lasix 40 mg p.o. daily. 6. Ergocalciferol 1.25 mg q.7 days. 7. Coreg 3.25 b.i.d. 8. Pulmicort 0.25 inhaled b.i.d. 9. Atorvastatin 20 mg at bedtime. 10. Aspirin 81 mg daily. 11. Albuterol 0.63 mg per neb q.4 hours p.r.n. PHYSICAL EXAMINATION: VITAL SIGNS: Temperature was 97.5, pulse 69, respiration 16, O2 saturation 92% to 96% on 2 L nasal cannula, BP 112/54. GENERAL APPEARANCE: Age-appropriate female, obese. She is in no distress. She is getting a nebulizer treatment. She is very pleasant, cooperative. HEENT: MELI, no OP lesions. Dentures in place. NECK: Supple and symmetric without lymphadenopathy, JVD, or bruits. HEART : Heart is regular rate and rhythm without murmurs, gallops, or rubs. LUNGS: Some diminished breath sounds throughout. Scattered minimal rales throughout. HEART: Regular rate and rhythm with no murmurs. ABDOMEN: Soft, nontender, and nondistended. Positive bowel sounds. No masses. No organomegaly. EXTREMITIES: Trace edema in lower extremities without significant pitting. Pulses are slightly diminished, but present. Left upper extremity has AV fistula with a good thrill. NEUROLOGIC: Patient moves all extremities spontaneously with no focal deficit. She is cognitively intact. PSYCHIATRIC: Normal affect and behavior. LABORATORY DATA: White count 9.7, hemoglobin 10.8, platelets 194. Sodium 139, potassium 3.9, chloride 98, BUN 32, creatinine 6.21, glucose 297, calcium 8.8. Troponin 0.011, subsequent is 0.10 and 0.10. Albumin is 4.1. BNP 59.5, lipase 49. Chest x-ray, cardiomegaly with no CHF and some atherosclerosis. EKG shows Q-waves in 3 and AVF. Otherwise, sinus rhythm at 81 beats per minute without ectopy. IMPRESSION AND PLAN: 1. Chest pain. This appears to be more likely due to bronchitis rather than ischemia and she has had negative troponins. EKG shows no evidence of ischemic disease. She has had some workup in the past with a negative stress test in 2013 and an echocardiogram in May 2017 with ejection fraction of 60-65%, moderately elevated pulmonary artery pressure consistent with her history of restrictive lung disease. 2. We will keep her on telemetry for now. 3. Bronchitis significant in a patient with a history of restrictive lung disease and chronic hypoxic respiratory failure. We will go ahead and give her single dose of Rocephin given her renal disease. Continue with nebulizer treatments. 4. Diabetes mellitus. Continue her usual home medications with Accu-Cheks. 5. Hypertension again resuming her home medical regimen. 6. History of chronic hypoxic respiratory failure. We will continue supplemental oxygen as needed while we treat the bronchitis. 7. End-stage renal disease. I believe Dr. Gabriel has seen the patient already this morning. We will keep involved if it is long enough to need dialysis again. Job ID: [id number]
[2019-03-31] MEDS: Calcium Acetate 667 MG CAP PO SCH ×2 (08:52→13:26)
[2019-03-31] MEDS: Furosemide 40 MG TAB PO SCH (11:14)
[2019-03-31] MEDS: Carvedilol 3.125 MG TAB PO SCH (11:14)
[2019-03-31] MEDS: glipiZIDE 5 MG TAB PO SCH (11:19)
[2019-03-31] MEDS: Insulin Glargine 15 UNITS in Pre-Filled Syringe 1 EACH SC SCH (11:19)
[2019-03-31 13:10] VITALS: BP 108/56; TEMP 97.7
[2019-03-31] MEDS: Enoxaparin Sodium 30 MG/0.3 ML SYRINGE SC SCH (13:20)
[2019-03-31] MEDS: Aspirin Chewable 81 MG TAB PO SCH (13:26)
--- NOTE | 2019-04-01 06:13 | DIS ---
DATE OF ADMISSION: 03/29/2019 DATE OF DISCHARGE: 03/31/2019 DISCHARGE DIAGNOSES: 1. Chest pain. 2. Bronchitis. 3. End-stage renal disease, on hemodialysis. 4. Diabetes. 5. Chronic hypoxic respiratory failure due to some restrictive lung disease. 6. Hyperlipidemia. 7. Hypertension. 8. Morbid obesity. HISTORY OF PRESENT ILLNESS: This patient is a 69-year-old female with the above-mentioned history of chronic lung disease secondary to restrictive type lung disease. She is previously on home oxygen, followed by Dr. Buchanan and has been taken off that for now. The patient also has end-stage renal disease and is on dialysis. The patient presented via the emergency department with some chest discomfort and was initially placed on observation for concern for possible angina. She had negative initial workup including negative troponins. Her exam revealed that she was having significant cough and this was felt to be more closely related to a bronchitis. She had remained on telemetry, which was negative. She had negative enzymes. She had some bump in her blood sugar initially likely due to some steroids, did start to improve prior to discharge. She did get her usual dialysis and she was treated with an initial dose of Rocephin for the bronchitis. Subsequently, once it was clear, the patient's heart situation was stable and she was felt to be stable for discharge to home. Temperature is 97.7, pulse 73 to 100, respirations 16 to 18, O2 saturations 92% on room air, BP 108/56. General appearance, age-appropriate female, obese, no distress. Heart is regular rate and rhythm without murmurs. Lungs are clear. Abdomen is benign. Extremities, no edema. DISPOSITION: The patient is discharged to home. She is to be on a heart healthy diabetic renal diet and her activity is as tolerated. DISCHARGE MEDICATIONS: 1. She will be on prednisone 20 mg three daily x1, two daily x1, one daily x1. 2. The patient will be on doxycycline 100 mg b.i.d. 3. She will continue. a. Aspirin. b. Ventolin. c. Glipizide. d. PhosLo. e. Coreg. f. Atorvastatin. g. Guaifenesin with dextromethorphan. h. Albuterol. i. Budesonide. j. Ergocalciferol. k. Lasix. l. Levemir pen. FOLLOWUP: She will follow up with her PCP and Dr. Buchanan as already scheduled for April 06. She can return to the hospital at anytime if she feels the need. Job ID: [id number]
--- NOTE | 2019-04-10 10:59 | EKG ---
Test Reason : CHEST PAIN Blood Pressure : / mmHG Vent. Rate : 081 BPM Atrial Rate : 081 BPM P-R Int : 172 ms QRS Dur : 092 ms QT Int : 396 ms P-R-T Axes : 051 -22 025 degrees QTc Int : 460 ms Normal sinus rhythm Inferior infarct , age undetermined , old Cannot rule out Anterior infarct , age undetermined , old Abnormal ECG Confirmed by NEERU JO, SHAWN Arora ([id number]), editor continuity and script GUSTAVO LENZT ([id number]) on 04/10/2019 10:58:48 AM Referred By: Confirmed By:SHAWN SIDDIQI MD
== END 2019-03-31 14:29 | disposition home or self-care (01) ==
LOC: ERS 20:21 → 2SW 23:24
PROVIDERS: ADMIT Hospitalist; ATTEND Hospitalist
DX: R07.89 Other chest pain (principal); J40 Bronchitis, not specified as acute or chronic; I12.0 Hypertensive chronic kidney disease with stage 5 chronic kidney disease or end stage renal disease; E11.22 Type 2 diabetes mellitus with diabetic chronic kidney disease; N18.6 End stage renal disease; J98.4 Other disorders of lung; J96.11 Chronic respiratory failure with hypoxia; E78.5 Hyperlipidemia, unspecified; E66.01 Morbid (severe) obesity due to excess calories; Z68.42 Body mass index [BMI] 45.0-49.9, adult; Z79.4 Long term (current) use of insulin; Z79.51 Long term (current) use of inhaled steroids; Z79.82 Long term (current) use of aspirin; Z79.899 Other long term (current) drug therapy; Z99.2 Dependence on renal dialysis; Z99.81 Dependence on supplemental oxygen
CPT/HCPCS: 71045; 80048; 80053; 82962 ×3; 83690; 83880; 84484 ×2; 85025 ×2; 90670; 93005; 94640 ×3; 94760; 96365; 99285; G0009; G0378 ×3; 36415; 36416; 90471; 90935; G0257; J0696; J1650; J1815; J3490; J7620; J7626

== ENCOUNTER 2019-04-08 19:55 | Emergency (ER) | payer MEDICARE, MEDICAID ==
--- NOTE | 2019-04-08 20:35 | RAD ---
RADIOGRAPH CHEST 1 VIEW: DATE: 04/08/2019 HISTORY: 69-year-old female with cough FINDINGS: There is no airspace density, pulmonary edema, or pneumothorax. Magnification of cardiac shadow. Mine Expert theodore thickening of right pleural stripe.. IMPRESSION: No acute pulmonary findings.
[2019-04-08 20:39] LABS: #Basophils 0.1 thou/uL (0.0-0.2); #Eosinphils 0.6 thou/uL (0.0-0.7); #Lymphocytes 3.2 thou/uL (1.20-3.40); #Monocytes 1.1 thou/uL (0.11-0.59); #Neutrophils 9.2 thou/uL (1.40-6.50); %Basophils 0.5 % (0.0-1.0); %Eosinophils 4.3 % (0.0-10.0); %Lymphocytes 22.7 % (21.0-51.0); %Monocytes 7.5 % (0.0-10.0); %Neutrophils 65.1 % (42.0-75.0); Hemoglobin 12.8 g/dL (12.0-16.0); Mean Corpuscular HGB CONC 34.5 g/dL (32.0-36.0); Mean Corpuscular Hemoglobin 32.9 pg (27.0-31.0); Mean Corpuscular Volume 95.5 fL (78.0-98.0); Mean Platelet Volume 9.3 fL (7.4-10.4); Platelet Count 171 thou/uL (130-400); RBC Distribution Width 13.6 % (11.5-14.5); Red Blood Cell (RBC) Count 3.89 mill/uL (4.20-5.40); White Blood Cell (WBC) Count 14.2 thou/uL (4.8-10.8)
[2019-04-08 20:58] LABS: ALT (SGPT) 12 U/L (8-55); AST (SGOT) 18 U/L (5-34); Alkaline Phosphatase 96 U/L (40-110); Anion Gap 21 mmol/L (10-20); BUN (Urea Nitrogen) 56 mg/dL (9.8-20.1); Bilirubin, Total 0.3 mg/dL (0.2-1.2); CK (CPK) 80 U/L (29-168); Calc. Creatinine Clearance 0 mL/min (70-130); Calcium 8.1 mg/dL (7.8-10.44); Carbon Dioxide 26 mmol/L (23-31); Chloride 94 mmol/L (98-107); Estimated GFR-MDRD 5; Globulin 4.4 g/dL (2.4-3.5); Glucose 204 mg/dL (80-115); Lipase 71 U/L (8-78); Potassium 4.2 mmol/L (3.5-5.1); Protein, Total 8.4 g/dL (6.0-8.3); Sodium 137 mmol/L (136-145)
--- NOTE | 2019-04-13 17:16 | EKG ---
Test Reason : Blood Pressure : / mmHG Vent. Rate : 090 BPM Atrial Rate : 090 BPM P-R Int : 172 ms QRS Dur : 088 ms QT Int : 388 ms P-R-T Axes : 036 -12 027 degrees QTc Int : 474 ms Normal sinus rhythm Inferior infarct , age undetermined Anterolateral infarct , age undetermined Abnormal ECG Confirmed by MARINA JO, VIKTORIYA ([id number]), restaurant expeditor ASTON JENKINS ([id number]) on 04/13/2019 5:16:22 PM Referred By: Confirmed By:VIKTORIYA GRAY MD
== END 2019-04-09 00:53 | disposition home or self-care (01) ==
LOC: ERS 19:55
DX: J20.9 Acute bronchitis, unspecified (principal); I13.2 Hypertensive heart and chronic kidney disease with heart failure and with stage 5 chronic kidney disease, or end stage renal disease; E11.22 Type 2 diabetes mellitus with diabetic chronic kidney disease; I50.9 Heart failure, unspecified; N18.6 End stage renal disease; E78.5 Hyperlipidemia, unspecified; E78.00 Pure hypercholesterolemia, unspecified; G47.30 Sleep apnea, unspecified; Z99.2 Dependence on renal dialysis; Z79.82 Long term (current) use of aspirin; Z79.899 Other long term (current) drug therapy; Z79.51 Long term (current) use of inhaled steroids; Z79.4 Long term (current) use of insulin
CPT/HCPCS: 36415; 71045; 80053; 82550; 83690; 84484; 85025; 93005; 94640; J7620

== ENCOUNTER 2019-08-24 11:23 | Outpatient (CLI) | payer MEDICARE, MEDICAID ==
--- NOTE | 2019-08-24 14:41 | MMO ---
Bilateral MAMMO Bilat Screen [facility]DI[facility]IDE. CLINICAL HISTORY: Patient is 69 years old and is seen for screening. The patient has no family history of breast cancer. The patient has no personal history of cancer. VIEWS: The views performed were: bilateral craniocaudal with tomosynthesis and bilateral mediolateral oblique with tomosynthesis. FILMS COMPARED: The present examination has been compared to prior imaging studies performed at [facility] on 11/27/2009, 12/20/2010, 08/31/2012 and 09/16/2013. This study has been interpreted with the assistance of computer-aided detection. MAMMOGRAM FINDINGS: There are scattered fibroglandular densities. There are no suspicious masses, calcifications or areas of architectural distortion. There are benign appearing calcifications in both breasts. There are no suspicious masses, suspicious calcifications, or new areas of architectural distortion. IMPRESSION: THERE IS NO MAMMOGRAPHIC EVIDENCE OF MALIGNANCY. A ROUTINE FOLLOW-UP MAMMOGRAM IN 1 YEAR IS RECOMMENDED. THE RESULTS OF THIS EXAM WERE SENT TO THE PATIENT. ACR BI-RADS Category 2 - Benign finding MAMMOGRAPHY NOTE: 1. A negative mammogram report should not delay a biopsy if a dominant of clinically suspicious mass is present. 2. Approximately 10% to 15% of breast cancers are not detected by mammography. 3. Adenosis and dense breasts may obscure an underlying neoplasm. Reported by: CHARLES STODDARD MD Electonically Signed: [id number]
== END 2019-08-24 11:24 | disposition home or self-care (01) ==
LOC: BICMAMMO 11:23
PROVIDERS: ATTEND Family Medicine
DX: Z12.31 Encounter for screening mammogram for malignant neoplasm of breast (principal)
CPT/HCPCS: 77063; 77067

== ENCOUNTER 2019-12-13 15:21 | Observation (INO) | payer MEDICARE, MEDICAID ==
[2019-12-13 16:16] LABS: #Basophils 0.1 thou/uL (0.0-0.2); #Eosinphils 0.4 thou/uL (0.0-0.7); #Lymphocytes 1.4 thou/uL (1.20-3.40); #Monocytes 0.5 thou/uL (0.11-0.59); #Neutrophils 6.3 thou/uL (1.40-6.50); %Basophils 0.7 % (0.0-1.0); %Eosinophils 4.7 % (0.0-10.0); %Neutrophils 72.5 % (42.0-75.0); Hemoglobin 12.3 g/dL (12.0-16.0); Mean Corpuscular HGB CONC 34.6 g/dL (32.0-36.0); Mean Corpuscular Hemoglobin 34.4 pg (27.0-31.0); Mean Corpuscular Volume 99.5 fL (78.0-98.0); Mean Platelet Volume 8.7 fL (7.4-10.4); Platelet Count 146 thou/uL (130-400); RBC Distribution Width 14.9 % (11.5-14.5); Red Blood Cell (RBC) Count 3.57 mill/uL (4.20-5.40); White Blood Cell (WBC) Count 8.7 thou/uL (4.8-10.8)
--- NOTE | 2019-12-13 16:23 | RAD ---
Chest one view HISTORY: Dyspnea. COMPARISON: 04/08/2019. FINDINGS: Cardiac silhouette is magnified and enlarged. Shallow inspiration accentuates pulmonary mar kings. Mediastinum is midline with aortic calcification. Right hemidiaphragm remains elevated. Linear opacit y at the right base has the appearance of atelectasis that is similar in appearance to the prior study. No lobar consolidation or evidence of pneumothorax. IMPRESSION : Right hemidiaphragm elevation, cardiomegaly, and other chronic-type findings are stable.
[2019-12-13 16:38] LABS: ALT (SGPT) 16 U/L (8-55); AST (SGOT) 19 U/L (5-34); Alkaline Phosphatase 91 U/L (40-110); Anion Gap 17 mmol/L (10-20); BUN (Urea Nitrogen) 34 mg/dL (9.8-20.1); Bilirubin, Total 0.4 mg/dL (0.2-1.2); CK (CPK) 62 U/L (29-168); Calc. Creatinine Clearance 0 mL/min (70-130); Calcium 8.9 mg/dL (7.8-10.44); Carbon Dioxide 30 mmol/L (23-31); Chloride 95 mmol/L (98-107); Estimated GFR-MDRD 7; Globulin 4.2 g/dL (2.4-3.5); Glucose 301 mg/dL (80-115); Lipase 55 U/L (8-78); Potassium 4.3 mmol/L (3.5-5.1); Protein, Total 8.2 g/dL (6.0-8.3); Sodium 138 mmol/L (136-145)
[2019-12-13] MEDS ORDERED: Albuterol Sulfate 2.5 mg/3 ml Neb ONE ×2 (16:39→17:25)
[2019-12-13] MEDS ORDERED: predniSONE 20 MG TAB ONE ×2 (17:31→17:33)
[2019-12-13] MEDS ORDERED: Dextrose 5% in Water 1,000 ML IV PRN (20:39)
[2019-12-13] MEDS ORDERED: Dextrose 50% Abboject 50 ML SYRINGE SLOW IVP PRN (20:39)
[2019-12-13] MEDS ORDERED: Acetaminophen 325 MG TAB PO PRN (20:39)
[2019-12-13] MEDS ORDERED: HumaLOG 300 UNITS/3 ML VIAL SC PRN ×2 (20:39)
[2019-12-13] MEDS: Heparin 5,000 UNITS/ML VIAL SC SCH (21:49)
[2019-12-13 23:06] VITALS: BMI 45.1
--- NOTE | 2019-12-14 00:50 | HP ---
PRIMARY CARE PHYSICIAN: Dr. Smith CHIEF COMPLAINT: Difficulty breathing. HISTORY OF PRESENT ILLNESS: The patient is a pleasant 69-year-old female with past medical history significant for end stage renal disease on dialysis, diabetes type 2, hyperlipidemia, and hypertension. She presents to the ER today for feelings of difficulty breathing since dialysis this morning. She states that she went to dialysis on her regular scheduled day which she normally goes Friday, Friday , and Friday. Today she was up 6 kg from her dry weight, but due to recent dizzy feelings and not feeling well after dialysis, they did not remove any fluid she states, but just "cleaned her blood". She states that when she did leave this morning, she was dizzy and felt a smothered feeling, chest pain, headache and back pain. She does state that she does feel like this is partially because of the mask that she has to wear through the whole 4 hours of dialysis. She has been on home O2 the past few months but had recently been weaned from it. She also states that she had water on her lungs in the past but that it was decreased and corrected with dialysis. Today during the ER visit, they completed blood work, an EKG and chest x-ray. She was also given multiple breathing treatments. PAST MEDICAL HISTORY: Significant for end stage renal disease on dialysis, diabetes type 2, hyperlipidemia, and hypertension. PAST SURGICAL HISTORY: Includes bladder surgery, she is unsure what type. ALLERGIES: NO KNOWN DRUG ALLERGIES. MEDICATIONS: To be reconciled. Patient does not remember at this time. SOCIAL HISTORY: The patient lives at home with her son and daughter. She denies alcohol, tobacco, or illicit drug use. FAMILY HISTORY: Dad from kidney failure with diabetes. Sister at age 42 from stomach cancer. She also states of multiple family members have diabetes. REVIEW OF SYSTEMS: Patient makes very little urine with her renal disease. All other review of systems are negative and listed in the HPI today. PHYSICAL EXAMINATION: VITAL SIGNS: Currently, blood pressure 118/65, pulse 86, respiratory rate 17, temp 97.9 orally, oxygen saturation 99% on 1 L nasal cannula. GENERAL: Patient is in no apparent distress. HEENT: Head atraumatic, normocephalic. Eyes, PERRLA. Extraocular muscles intact. NECK: Trachea midline. Supple. No JVD. RESPIRATORY: Clear to auscultation bilaterally. No rales, no rhonchi, no wheezes. CARDIAC: Regular rate and rhythm. No gallops, no rubs, no murmurs. ABDOMEN: Nontender. Bowel sounds normal. No masses. No guarding. No rigidity. EXTREMITIES: 2+ edema to bilateral lower extremities, left greater than right. Diminished pedal pulses. NEUROLOGIC: The patient is alert, oriented to person, place, and time. No focal deficits. SKIN: Warm, dry, normal color. PSYCH: Normal affect. Normal behavior. LABORATORY DATA: EKG showed sinus rhythm, heart rate 83. Chest x-ray, no acute findings. Lab work revealed white blood cells 8.7, hemoglobin 12.3, hematocrit 35.6, platelets 146. Sodium 138, potassium 4.3, chloride 95, BUN 34, creatinine 5.68, GFR 7, glucose 301, troponin 0.015. BNP 34.9. IMPRESSION AND PLAN: The patient is an end-stage renal disease patient, on dialysis Friday, Friday, and Friday. She is a patient of Dr. Ramirez, whom she saw earlier this morning at dialysis. The shortness of breath has continued since that time. We will consult him to come see her while she is in the hospital. She did present to the ER with some wheezes and while there, received two breathing treatments. During exam, she is clear bilaterally to auscultation and in no acute distress. We will continue to monitor and we will restart her home medications once reconciled. Patient was started on GI and DVT prophylaxis. The patient states also that she has not had a recent echo. We will obtain one due to patient's shortness of breath along with her edematous legs. At this time, patient wishes to be a full code, although she does want to discuss with her family. Her surrogate decision maker is her son Theodore Levi, phone number [phone]. Job ID: [id number] MTDD
[2019-12-14] MEDS ORDERED: Cepastat Lozenges 1 LOZ PO PRN (02:22)
[2019-12-14] MEDS ORDERED: Albuterol Sulfate 1.25 MG/3 ML NEB NEB PRN (03:18)
[2019-12-14 04:51] LABS: #Lymphocytes 0.6 thou/uL (1.20-3.40); #Monocytes 0.1 thou/uL (0.11-0.59); #Neutrophils 5.7 thou/uL (1.40-6.50); %Eosinophils 0.2 % (0.0-10.0); %Lymphocytes 9.6 % (21.0-51.0); %Monocytes 1.5 % (0.0-10.0); %Neutrophils 88.7 % (42.0-75.0); Hemoglobin 11.8 g/dL (12.0-16.0); Mean Corpuscular HGB CONC 33.5 g/dL (32.0-36.0); Mean Corpuscular Hemoglobin 33.8 pg (27.0-31.0); Mean Platelet Volume 9.2 fL (7.4-10.4); Platelet Count 132 thou/uL (130-400); Red Blood Cell (RBC) Count 3.49 mill/uL (4.20-5.40); White Blood Cell (WBC) Count 6.4 thou/uL (4.8-10.8)
[2019-12-14 05:00] LABS: Anion Gap 21 mmol/L (10-20); BUN (Urea Nitrogen) 44 mg/dL (9.8-20.1); Calc. Creatinine Clearance 12 mL/min (70-130); Calcium 8.2 mg/dL (7.8-10.44); Carbon Dioxide 24 mmol/L (23-31); Chloride 93 mmol/L (98-107); Estimated GFR-MDRD 6; Potassium 5.4 mmol/L (3.5-5.1); Sodium 133 mmol/L (136-145)
[2019-12-14 05:04] LABS: Glucose 574 mg/dL (80-115)
[2019-12-14] MEDS ORDERED: Insulin Glargine 15 UNITS in Pre-Filled Syringe 1 EACH SC SCH ×3 (06:00→21:00)
[2019-12-14] MEDS ORDERED: Budesonide 0.25 MG/2 ML NEB INH SCH (06:30)
[2019-12-14] MEDS ORDERED: Carvedilol 6.25 MG TAB PO SCH (09:00)
[2019-12-14] MEDS ORDERED: Famotidine 20 MG TAB PO SCH (09:00)
[2019-12-14] MEDS ORDERED: Aspirin Chewable 81 MG TAB PO SCH (09:00)
[2019-12-14] MEDS ORDERED: Non-Formulary Item 1 EACH (Levemir Flexpen [Levemir Flexpen] 15 UNIT) SC SCH (09:00)
[2019-12-14] MEDS ORDERED: Gabapentin 100 MG CAP PO SCH (09:00)
[2019-12-14] MEDS: glipiZIDE 5 MG TAB PO SCH ×2 (09:24→15:54)
[2019-12-14] MEDS: Calcium Acetate 667 MG CAP PO SCH ×3 (09:24→15:54)
[2019-12-14] MEDS: Heparin 5,000 UNITS/ML VIAL SC SCH ×2 (09:26→15:54)
[2019-12-14] MEDS: HumaLOG 300 UNITS/3 ML VIAL SC PRN ×2 (11:22→16:19)
[2019-12-14] MEDS ORDERED: Meclizine HCl 25 MG TAB PO PRN (14:12)
[2019-12-14] MEDS ORDERED: Insulin Glargine 10 UNITS in Pre-Filled Syringe 1 EACH SC SCH (14:15)
--- NOTE | 2019-12-14 14:41 | PRG ---
DATE OF SERVICE: 12/14/2019 SUBJECTIVE: A 69-year-old female with end-stage renal disease, on hemodialysis, obstructive sleep apnea, chronic diastolic heart failure, and obesity, presented to the hospital with shortness of breath after dialysis. Her O2 saturation in the emergency room was 89% on room air. She was started on O2 supplementation. Shortness of breath is gradually improving. She denies any significant chest discomfort. She continues to have mild dizziness, especially on standing, which has been present on a chronic basis. She has some dry cough as well. No fever, chills, sick contacts reported. No focal deficit. REVIEW OF SYSTEMS: All other review of systems was reviewed and were found negative. CURRENT HOME MEDICATIONS: The patient is on all of her home medications including, 1. Aspirin. 2. Statins. 3. Carvedilol. 4. Gabapentin. 5. Glipizide. 6. Insulin. PHYSICAL EXAMINATION: VITAL SIGNS: Temperature 97.9 with pulse rate of 85, blood pressure 119/60, respirations of 18 with O2 saturation 94% on 2 L nasal cannula, blood pressure of 119/60. GENERAL: A 69-year-old female in no apparent distress at rest. LUNGS: Showed diminished air entry at bilateral bases with scattered rhonchi and wheezing. No significant accessory muscle use. HEART: S1 and S2 present. Regular rate and rhythm. No rubs or gallops. ABDOMEN: Soft, nontender. Bowel sounds present. No rebound or guarding. EXTREMITIES: 1+ edema in bilateral lower extremity. NEUROLOGIC: Grossly nonfocal. SKIN: Warm and dry. PSYCHIATRY: Alert, awake, and oriented x3. Normal affect. LABORATORY FINDINGS: CBC showed WBC 6.4 with hemoglobin 11.8, hematocrit 35.2 with platelet of 132. Chemistry showed sodium 133 with potassium 5.4, chloride 93, bicarb 24, BUN 44, and creatinine 7.06. Blood sugar was 574, this morning. IMAGING STUDIES: Chest x-ray by my review was negative for new infiltrate. She has chronic elevation of the right hemidiaphragm with cardiomegaly. Telemetry monitoring by my review showed sinus rhythm. IMPRESSION: 1. Acute hypoxic respiratory failure, probably secondary to acute on chronic diastolic heart failure exacerbation. 2. Diabetes mellitus type 2 with hyperglycemia, probably secondary to prednisone administered in the emergency room. 3. Obstructive sleep apnea, not compliant with CPAP. 4. Chronic anemia probably due to renal insufficiency. 5. End-stage renal disease, on hemodialysis. 6. Hyperkalemia. 7. Morbid obesity with a body mass index of 45.2. 8. Hyponatremia. PLAN: The patient will be monitored on the telemetry unit. Nephrology has been consulted for dialysis management. We will change sliding scale to aggressive. We will continue Lantus 15 units b.i.d. We will administer another dose of 10 units Lantus now. Continue aspirin. We will wean O2 as tolerated. Continue nebulizer treatment. Continue budesonide. The patient understands the above plan of care. Job ID: [id number]
[2019-12-14 15:21] VITALS: BP 109/55; TEMP 98.2
--- NOTE | 2019-12-14 17:23 | DIS ---
DATE OF ADMISSION: 12/13/2019 DATE OF DISCHARGE: 12/14/2019 DISCHARGE DISPOSITION: Home. FOLLOWUP: Follow up with primary care physician, Dr. Smith in 1 week. ALLERGIES: NO KNOWN DRUG ALLERGIES. DISCHARGE MEDICATIONS: Same as admission medications. BRIEF HOSPITAL COURSE: The patient is a 69-year-old female with end-stage renal disease, on hemodialysis; chronic diastolic heart failure; diabetes mellitus, type 2, presented to the hospital with worsening shortness of breath. Her initial O2 saturation was 89% on room air. She was placed on supplemental O2. She also received nebulizer treatment with one dose of prednisone in the emergency room. Her shortness of breath has significantly improved. She will resume hemodialysis tomorrow morning. She is currently saturating at 94% to 95% on room air. She had hyperglycemia secondary to prednisone, for which she received extra dose of Lantus. She was counseled to be compliant with CPAP. She had a repeat echocardiogram this admission, that showed ejection fraction of 60% to 65%. The patient understands the above plan of care. FINAL DIAGNOSES: 1. Acute hypoxic respiratory failure, probably secondary to mild [id number] diastolic heart failure exacerbation, improved. 2. Diabetes mellitus, type 2 with hyperglycemia secondary to prednisone administered in the emergency room. 3. Chronic anemia, probably due to renal insufficiency. 4. End-stage renal disease, on hemodialysis. 5. Obstructive sleep apnea, not compliant with CPAP. 6. Hyperkalemia of 5.4. 7. Morbid obesity with BMI of 45.2. 8. Hyponatremia. The patient understands the above plan of care. Job ID: [id number]
[2019-12-14] MEDS ORDERED: Atorvastatin Calcium 20 MG TAB PO SCH (21:00)
--- NOTE | 2019-12-15 00:39 | CON ---
DATE OF CONSULTATION: CONSULTING PHYSICIAN: Harvey Ramirez MD REQUESTING PHYSICIAN: Dr. Mcgovern. REASON FOR CONSULTATION: Need for maintenance hemodialysis. IMPRESSION: 1. End-stage renal disease, hemodialysis dependent, Friday, Friday, and Friday. 2. Obesity. 3. Diabetes. 4. Respiratory distress. PLAN: If patient remains here, we will undergo dialysis in accordance with the schedule, otherwise there is no emergent indication for renal replacement therapy. Further management will be dependent on the clinical course. HISTORY OF PRESENT ILLNESS: A 69-year-old female patient with end-stage renal disease, morbid obesity, who presented here with difficulty with breathing. The patient had dialysis yesterday. The patient seems to have added a lot of weight. The patient will be followed by the retail shift supervisor. However, she presented here status post dialysis with worsening shortness of breath. PAST MEDICAL HISTORY: Significant for end-stage renal disease, type 2 diabetes, dyslipidemia, hypertension, morbid obesity. MEDICATIONS: Reviewed and as documented in [facility]. ALLERGIES: NO KNOWN DRUG ALLERGIES. FAMILY HISTORY: Nonsignificantly related to present illness. SOCIAL HISTORY: Nonsignificantly related to present illness. REVIEW OF SYSTEMS: As documented in the body of the history. All the other systems were reviewed and found not to be significantly related to presenting illness. PHYSICAL EXAMINATION: GENERAL: The patient was found not to be in any obvious distress. Noted with the following vital signs. VITAL SIGNS: Afebrile, temperature 98.2, pulse 83, respiratory rate of 18, O2 saturations are 94%, blood pressure 109/55. HEENT EXAMINATION: Unremarkable. CARDIOVASCULAR: First and second heart sounds were heard. RESPIRATORY SYSTEM: Clear to auscultation. DIGESTIVE SYSTEM: Revealed a benign abdomen. Positive bowel sounds. EXTREMITIES: No peripheral edema. SKIN EXAMINATION: No new gross rash. LYMPHATICS: No peripheral lymphadenopathy. SUMMARY: A 69-year-old female patient with end-stage renal disease, on hemodialysis, who presented here with respiratory distress Thank you for this consultation. We will follow with you. The patient likely to benefit from a sleep study. Job ID: [id number]
[2019-12-15] MEDS ORDERED: Timolol 0.5% Ophth Soln 5 ml Bottle EA EYE SCH (09:00)
--- NOTE | 2019-12-25 12:59 | EKG ---
Test Reason : Blood Pressure : / mmHG Vent. Rate : 083 BPM Atrial Rate : 083 BPM P-R Int : 156 ms QRS Dur : 090 ms QT Int : 380 ms P-R-T Axes : 045 -13 035 degrees QTc Int : 446 ms Normal sinus rhythm Possible Anterior infarct , age undetermined Abnormal ECG Confirmed by GAYATHRI BUNN DO ([id number]), associate entertainment editor ASTON JENKINS ([id number] on 12/25/2019 12:59:33 PM Referred By: Confirmed By:GAYATHRI BUNN DO
== END 2019-12-14 18:03 | disposition home or self-care (01) ==
LOC: ERS 15:21 → 2NO 19:53
PROVIDERS: ADMIT Internal Medicine; ATTEND Internal Medicine
DX: J96.01 Acute respiratory failure with hypoxia (principal); T38.0X5A Adverse effect of glucocorticoids and synthetic analogues, initial encounter; E11.65 Type 2 diabetes mellitus with hyperglycemia; I13.2 Hypertensive heart and chronic kidney disease with heart failure and with stage 5 chronic kidney disease, or end stage renal disease; E11.22 Type 2 diabetes mellitus with diabetic chronic kidney disease; N18.6 End stage renal disease; I50.33 Acute on chronic diastolic (congestive) heart failure; D63.1 Anemia in chronic kidney disease; G47.33 Obstructive sleep apnea (adult) (pediatric); E87.5 Hyperkalemia; E87.1 Hypo-osmolality and hyponatremia; E78.5 Hyperlipidemia, unspecified; E78.00 Pure hypercholesterolemia, unspecified; E66.01 Morbid (severe) obesity due to excess calories; Z68.42 Body mass index [BMI] 45.0-49.9, adult; Z87.891 Personal history of nicotine dependence; Z79.4 Long term (current) use of insulin; Z79.82 Long term (current) use of aspirin; Z79.84 Long term (current) use of oral hypoglycemic drugs; Z79.899 Other long term (current) drug therapy; Z99.2 Dependence on renal dialysis; Y92.238 Other place in hospital as the place of occurrence of the external cause
CPT/HCPCS: 71045; 80048; 80053; 82550; 82962; 83690; 83880; 84484; 85025 ×2; 93005; 93306; 94640 ×2; 94644; 99285; G0378 ×3; 36415; 36416; J1644; J1815; J7512; J7611; J7620; J7626

== ENCOUNTER 2020-01-02 19:30 | Outpatient (CLI) | payer MEDICARE, MEDICAID | END 2020-01-02 19:31 | disposition home or self-care (01) | LOC: SLEEPLAB 19:30 | PROVIDERS: ATTEND Internal Medicine Critical Care Medicine | DX: G47.33 Obstructive sleep apnea (adult) (pediatric) (principal); R09.02 Hypoxemia | CPT/HCPCS: 95810 ==

== ENCOUNTER 2020-01-19 15:54 | Emergency (ER) | payer MEDICARE, MEDICAID ==
[2020-01-19 17:47] LABS: #Basophils 0.1 thou/uL (0.0-0.2); #Eosinphils 0.4 thou/uL (0.0-0.7); #Lymphocytes 1.3 thou/uL (1.20-3.40); #Monocytes 0.6 thou/uL (0.11-0.59); #Neutrophils 6.1 thou/uL (1.40-6.50); %Basophils 0.6 % (0.0-1.0); %Eosinophils 4.4 % (0.0-10.0); %Lymphocytes 15.2 % (21.0-51.0); %Monocytes 7.5 % (0.0-10.0); %Neutrophils 72.4 % (42.0-75.0); Hemoglobin 12.8 g/dL (12.0-16.0); Mean Corpuscular HGB CONC 33.5 g/dL (32.0-36.0); Mean Corpuscular Hemoglobin 33.4 pg (27.0-31.0); Mean Platelet Volume 8.5 fL (7.4-10.4); Platelet Count 173 thou/uL (130-400); RBC Distribution Width 13.8 % (11.5-14.5); Red Blood Cell (RBC) Count 3.83 mill/uL (4.20-5.40); White Blood Cell (WBC) Count 8.4 thou/uL (4.8-10.8)
[2020-01-19 18:11] LABS: ALT (SGPT) 18 U/L (8-55); AST (SGOT) 17 U/L (5-34); Alkaline Phosphatase 94 U/L (40-110); Anion Gap 15 mmol/L (10-20); BUN (Urea Nitrogen) 19 mg/dL (9.8-20.1); Bilirubin, Total 0.4 mg/dL (0.2-1.2); Calc. Creatinine Clearance 0 mL/min (70-130); Carbon Dioxide 32 mmol/L (23-31); Chloride 95 mmol/L (98-107); Estimated GFR-MDRD 10; Globulin 4.3 g/dL (2.4-3.5); Glucose 260 mg/dL (80-115); Lipase 31 U/L (8-78); Protein, Total 8.3 g/dL (6.0-8.3); Sodium 138 mmol/L (136-145)
--- NOTE | 2020-01-19 18:41 | CT ---
CT ABDOMEN AND PELVIS WITHOUT IV CONTRAST: 01/19/20 INDICATIONS: Abdominal pain with diarrhea. Patient is on dialysis. COMPARISON: Comparison made to CT abdomen and pelvis dated 06/06/17. FINDINGS: Lung bases are clear. Liver, spleen and pancreas unremarkable. Post cholecystectomy change. Stomach and duodenum unremarkab le. Adrenal glands normal. Kidneys unremarkable. There is bilateral perinephric stranding similar to the prior exam. There is no hydronephrosis. No urinary tract calculus. The urinary bladder is contracted and not adequately evaluated. Small bowel loops normal caliber. Appendix is not definitely identified. Some questionable mural thic kening in the right colon which is poorly evaluated due to nondistention. There is diverticulosis of the left colon and sigmoid colon without CT evidence of diverticulitis. Aorta normal caliber. No adenopathy. No free fluid. Images through the pelvis show unremarkable uterus and adnexa. Osseous structures are unremarkable. IMPRESSION: Mild mural thickening in the right colon which is poorly evaluated due to nondistention. Otherwise, n o acute process or significant interval change. POS: [facility]W
== END 2020-01-19 20:10 | disposition home or self-care (01) ==
LOC: ERS 15:54
DX: R10.31 Right lower quadrant pain (principal); R19.7 Diarrhea, unspecified; E78.5 Hyperlipidemia, unspecified; E11.9 Type 2 diabetes mellitus without complications; Z87.891 Personal history of nicotine dependence; I11.0 Hypertensive heart disease with heart failure; I50.9 Heart failure, unspecified; Z79.899 Other long term (current) drug therapy; Z79.82 Long term (current) use of aspirin; Z79.84 Long term (current) use of oral hypoglycemic drugs; Z79.4 Long term (current) use of insulin
CPT/HCPCS: 36415; 74176; 80053; 83690; 85025; 87045; 87046; 87427; 87449

== ENCOUNTER 2021-01-02 10:46 | Outpatient (CLI) | payer MEDICARE, MEDICAID | END 2021-01-02 10:47 | disposition home or self-care (01) | LOC: RAD 10:46 | PROVIDERS: ATTEND Internal Medicine Critical Care Medicine | DX: R06.00 Dyspnea, unspecified (principal) | CPT/HCPCS: 71046 ==

== ENCOUNTER 2021-01-09 14:19 | Emergency (ER) | payer MEDICARE, MEDICAID ==
[2021-01-09 15:27] LABS: #Eosinphils 0.1 thou/uL (0.0-0.7); #Lymphocytes 1.2 thou/uL (1.20-3.40); #Monocytes 0.6 thou/uL (0.11-0.59); #Neutrophils 11.6 thou/uL (1.40-6.50); %Eosinophils 0.5 % (0.0-10.0); %Lymphocytes 8.8 % (21.0-51.0); %Monocytes 4.6 % (0.0-10.0); %Neutrophils 86.1 % (42.0-75.0); Hemoglobin 11.4 g/dL (12.0-16.0); Mean Corpuscular Hemoglobin 31.7 pg (27.0-31.0); Mean Corpuscular Volume 99.1 fL (78.0-98.0); Mean Platelet Volume 8.4 fL (7.4-10.4); Platelet Count 189 thou/uL (130-400); Red Blood Cell (RBC) Count 3.59 mill/uL (4.20-5.40); White Blood Cell (WBC) Count 13.5 thou/uL (4.8-10.8)
[2021-01-09 15:44] LABS: ALT (SGPT) 12 U/L (8-55); AST (SGOT) 8 U/L (5-34); Albumin 3.4 g/dL (3.4-4.8); Alkaline Phosphatase 116 U/L (40-110); Anion Gap 21 mmol/L (10-20); BUN (Urea Nitrogen) 69 mg/dL (9.8-20.1); Bilirubin, Total 0.3 mg/dL (0.2-1.2); Calc. Creatinine Clearance 0 mL/min (70-130); Calcium 7.3 mg/dL (7.8-10.44); Carbon Dioxide 23 mmol/L (23-31); Chloride 90 mmol/L (98-107); Globulin 3.9 g/dL (2.4-3.5); Lipase 99 U/L (8-78); Magnesium 1.9 mg/dL (1.6-2.6); Phosphorus 4.9 mg/dL (2.3-4.7); Potassium 4.6 mmol/L (3.5-5.1); Protein, Total 7.3 g/dL (5.8-8.1); Sodium 129 mmol/L (136-145)
[2021-01-09 15:51] LABS: Glucose 758 mg/dL (80-115)
[2021-01-09] MEDS ORDERED: Insulin Regular 300 UNITS/3 ML VIAL ONE (16:04)
== END 2021-01-09 16:27 | disposition home or self-care (01) ==
LOC: ERS 14:19
DX: E11.65 Type 2 diabetes mellitus with hyperglycemia (principal); I10 Essential (primary) hypertension; E78.5 Hyperlipidemia, unspecified; I11.0 Hypertensive heart disease with heart failure; I50.9 Heart failure, unspecified; Z87.891 Personal history of nicotine dependence
CPT/HCPCS: 36415; 36416; 71045; 82010; 83690; 83735; 84100; 93005; 94760; J1815

== ENCOUNTER 2021-05-22 08:31 | Outpatient (CLI) | payer MEDICARE, MEDICAID | END 2021-05-22 08:32 | disposition home or self-care (01) | LOC: BICMAMMO 08:31 | PROVIDERS: ATTEND Family Medicine | DX: Z12.31 Encounter for screening mammogram for malignant neoplasm of breast (principal); Z13.820 Encounter for screening for osteoporosis; M81.0 Age-related osteoporosis without current pathological fracture | CPT/HCPCS: 77063; 77067; 77080 ==

== ENCOUNTER 2021-11-22 08:29 | Outpatient (CLI) | payer MEDICARE, MEDICAID | END 2021-11-22 08:30 | disposition home or self-care (01) | LOC: RAD 08:29 | PROVIDERS: ATTEND Internal Medicine Critical Care Medicine | DX: R06.00 Dyspnea, unspecified (principal) | CPT/HCPCS: 71046 ==

== ENCOUNTER 2023-01-16 09:37 | Outpatient (CLI) | payer OTHER, MEDICAID | END 2023-01-16 09:38 | disposition home or self-care (01) | LOC: RAD 09:37 | PROVIDERS: ATTEND Internal Medicine Critical Care Medicine | DX: R06.00 Dyspnea, unspecified (principal) | CPT/HCPCS: 71046 ==

== ENCOUNTER 2023-08-19 12:06 | Emergency (ER) | payer OTHER, MEDICAID ==
[2023-08-19 13:11] LABS: #Eosinphils 0.2 thou/uL (0.0-0.7); #Monocytes 0.5 thou/uL (0.11-0.59); #Neutrophils 4.8 thou/uL (1.40-6.50); %Basophils 0.4 % (0.0-1.0); %Eosinophils 2.7 % (0.0-10.0); %Lymphocytes 22.2 % (21.0-51.0); %Monocytes 7.3 % (0.0-10.0); %Neutrophils 67.1 % (42.0-75.0); Hematocrit 43.1 % (36.0-47.0); Hemoglobin 13.6 g/dL (12.0-16.0); Mean Corpuscular HGB CONC 31.6 g/dL (32.0-36.0); Mean Corpuscular Hemoglobin 31.6 pg (27.0-31.0); Mean Corpuscular Volume 100.2 fl (78.0-98.0); Mean Platelet Volume 10.6 fL (7.4-10.4); Platelet Count 161 10x3/uL (130-400); RBC Distribution Width 15.7 % (11.5-14.5); White Blood Cell (WBC) Count 7.1 10x3/uL (4.8-10.8)
[2023-08-19 13:38] LABS: Troponin I Less than 0.010 ng/mL (< 0.028)
[2023-08-19 14:10] LABS: ALT (SGPT) 16 U/L (8-55); AST (SGOT) 23 U/L (5-34); Alkaline Phosphatase 142 U/L (40-110); Anion Gap 19 mmol/L (10-20); BUN (Urea Nitrogen) 45 mg/dL (9.8-20.1); Bilirubin, Total 0.6 mg/dL (0.2-1.2); Calc. Creatinine Clearance 0 mL/min (70-130); Calcium 8.5 mg/dL (7.8-10.44); Carbon Dioxide 24 mmol/L (23-31); Chloride 99 mmol/L (98-107); Estimated GFR 6; Globulin 4.5 g/dL (2.4-3.5); Glucose 182 mg/dL (83-110); Lipase 46 U/L (8-78); Potassium 5.8 mmol/L (3.5-5.1); Protein, Total 8.5 g/dL (5.8-8.1); Sodium 136 mmol/L (136-145)
== END 2023-08-19 15:01 | disposition home or self-care (01) ==
LOC: ERS 12:06
DX: E11.22 Type 2 diabetes mellitus with diabetic chronic kidney disease (principal); N18.6 End stage renal disease; I13.2 Hypertensive heart and chronic kidney disease with heart failure and with stage 5 chronic kidney disease, or end stage renal disease; I50.9 Heart failure, unspecified; Z99.2 Dependence on renal dialysis; J44.9 Chronic obstructive pulmonary disease, unspecified; E78.00 Pure hypercholesterolemia, unspecified; Z79.82 Long term (current) use of aspirin; Z79.899 Other long term (current) drug therapy; Z79.4 Long term (current) use of insulin
CPT/HCPCS: 71046; 80053; 83690; 84484; 85025; 93005

== ENCOUNTER 2023-09-23 19:33 | Inpatient (IN) | payer MEDICAID, OTHER ==
[2023-09-23 20:16] LABS: #Monocytes 1.2 thou/uL (0.11-0.59); #Neutrophils 9.8 thou/uL (1.40-6.50); %Basophils 0.2 % (0.0-1.0); %Eosinophils 0.2 % (0.0-10.0); %Lymphocytes 8.6 % (21.0-51.0); %Monocytes 9.6 % (0.0-10.0); %Neutrophils 80.7 % (42.0-75.0); Hematocrit 44.5 % (36.0-47.0); Hemoglobin 13.9 g/dL (12.0-16.0); Mean Corpuscular HGB CONC 31.2 g/dL (32.0-36.0); Mean Corpuscular Hemoglobin 32.9 pg (27.0-31.0); Mean Corpuscular Volume 105.2 fl (78.0-98.0); Mean Platelet Volume 11.7 fL (7.4-10.4); Platelet Count 154 10x3/uL (130-400); RBC Distribution Width 16.8 % (11.5-14.5); Red Blood Cell (RBC) Count 4.23 mill/uL (4.20-5.40); White Blood Cell (WBC) Count 12.1 10x3/uL (4.8-10.8)
[2023-09-23 20:28] LABS: Actual Bicarbonate (HCO3v) 23.2 mEq/L (22-28); Base Excess -7.3 mEq/L (-2.0 to +3.0); Calcium, Ionized (venous) 1.03 mmol/L (1.16-1.32); Chloride (VBG) 94 mmol/L (98-106); Hematocrit-VBG 44 % (36.0-47.0); Hemoglobin (Hb) 14.9 g/dL (11.7-16.1); Sodium 135 mmol/L (133-146)
[2023-09-23 20:31] LABS: Potassium (VBG) 6.01 mmol/L (3.70-5.30); pH (venous) 7.137 (7.32-7.43)
[2023-09-23 20:34] LABS: ALT (SGPT) 278 U/L (8-55); AST (SGOT) 204 U/L (5-34); Alkaline Phosphatase 246 U/L (40-110); Anion Gap 21 mmol/L (10-20); BUN (Urea Nitrogen) 52 mg/dL (9.8-20.1); Bilirubin, Total 1.5 mg/dL (0.2-1.2); Calc. Creatinine Clearance 0 mL/min (70-130); Calcium 8.2 mg/dL (7.8-10.44); Carbon Dioxide 23 mmol/L (23-31); Chloride 95 mmol/L (98-107); Estimated GFR 5; Magnesium 2.8 mg/dL (1.6-2.6); Sodium 133 mmol/L (136-145)
[2023-09-23 20:39] LABS: Critical Call Chemistry NUR.SS14@2038; Glucose 604 mg/dL (83-110); Potassium 6.3 mmol/L (3.5-5.1)
[2023-09-23 20:46] LABS: Troponin I 0.794 ng/mL (< 0.028)
[2023-09-23] MEDS ORDERED: Aspirin 325 MG TAB ONE (21:30)
[2023-09-23] MEDS ORDERED: Insulin Regular 300 UNITS/3 ML VIAL ONE (21:31)
[2023-09-23] MEDS ORDERED: CALCIUM GLUC 1 GM (50 ML) BAG ONE (21:31)
[2023-09-23] MEDS ORDERED: Cefepime 1 GM VIAL ONE (21:31)
[2023-09-23] MEDS ORDERED: Enoxaparin 100 MG (1 mL) SYRINGE ONE (21:31)
[2023-09-23 23:15] LABS: Lactic Acid 3.6 mmol/L (0.5-2.2)
[2023-09-23] MEDS ORDERED: Dextrose 50% Abboject 50 ML SYRINGE SLOW IVP PRN (23:25)
[2023-09-23] MEDS ORDERED: Glucagon 1 MG/ML KIT IM PRN (23:25)
[2023-09-23] MEDS ORDERED: Dextrose 5% in Water 1,000 ML IV PRN (23:25)
[2023-09-23] MEDS ORDERED: Ondansetron PF 4 MG/2 ML Vial IVP PRN (23:29)
[2023-09-23] MEDS ORDERED: Ondansetron ODT 4 MG TAB PO PRN (23:29)
[2023-09-23] MEDS ORDERED: Acetaminophen 650 MG Suppository PR PRN (23:29)
[2023-09-23 23:32] LABS: Actual Bicarbonate (HCO3v) 25.3 mEq/L (22-28); Base Excess -4.9 mEq/L (-2.0 to +3.0); Calcium, Ionized (venous) 1.14 mmol/L (1.16-1.32); Chloride (VBG) 96 mmol/L (98-106); Hematocrit-VBG 42 % (36.0-47.0); Hemoglobin (Hb) 14.3 g/dL (11.7-16.1); Potassium (VBG) 5.42 mmol/L (3.70-5.30); Sodium 139 mmol/L (133-146)
[2023-09-23 23:39] LABS: Critical Call Chem Troponin I NUR.LS6@2338/; Troponin I 1.052 ng/mL (< 0.028)
[2023-09-23 23:45] LABS: Anion Gap 22 mmol/L (10-20); BUN (Urea Nitrogen) 54 mg/dL (9.8-20.1); Calc. Creatinine Clearance 0 mL/min (70-130); Calcium 9.1 mg/dL (7.8-10.44); Carbon Dioxide 23 mmol/L (23-31); Chloride 97 mmol/L (98-107); Estimated GFR 5; Glucose 324 mg/dL (83-110); Lipase 35 U/L (8-78); Potassium 5.4 mmol/L (3.5-5.1); Sodium 137 mmol/L (136-145)
[2023-09-23] MEDS ORDERED: [UNRECOGNIZED DRUG - REMARK] IVPB PRN (23:51)
[2023-09-24] MEDS ORDERED: Albuterol 2.5 MG (3 mL) NEB NEB PRN (00:21)
[2023-09-24] MEDS: Vancomycin 2.5 GM Sodium Chloride 0.9% 500 ML IVPB SCH (00:30)
[2023-09-24 00:40] VITALS: BMI 43.2
[2023-09-24] MEDS: HumaLOG 300 UNITS/3 ML VIAL SC PRN ×3 (00:48→23:54)
[2023-09-24 00:59] LABS: Actual Bicarbonate (HCO3a) 23.4 mEq/L (22-28); Base Excess (BEa) -4.2 mEq/L (-2.0 to +3.0); CO2 Tension 53.2 mmHg (35.0-45.0); Calcium, Ionized (arterial) 1.12 mmol/L (1.12-1.30); Carboxyhemoglobin (COHb) 1.4 gm% (0.0-3.0); Hematocrit-ABG 41 % (36.0-47.0); Hemoglobin (Hb) 13.9 g/dL (12.0-16.0); O2 Tension (PaO2), arterial 137.3 mmHg (> 70.0); Potassium - ABG Lab 5.34 mmol/L (3.70-5.30); Puncture Site RBA; pH, Arterial 7.261 (7.35-7.45)
[2023-09-24] MEDS: Sodium Bicarb 50 mEq/50 ML VIAL IVP SCH (01:35)
[2023-09-24] MEDS ORDERED: Ipratropium/Albuterol 3 ML NEB NEB SCH (02:30)
[2023-09-24] MEDS: Albumin 25% 25 GM (100 mL) BOT IVPB SCH (03:09)
[2023-09-24 03:47] LABS: #Basophils 0.1 thou/uL (0.0-0.2); #Eosinphils 0.1 thou/uL (0.0-0.7); #Monocytes 1.5 thou/uL (0.11-0.59); #Neutrophils 9.5 thou/uL (1.40-6.50); %Basophils 0.4 % (0.0-1.0); %Eosinophils 0.7 % (0.0-10.0); %Lymphocytes 16.2 % (21.0-51.0); %Monocytes 11.2 % (0.0-10.0); Hematocrit 36.7 % (36.0-47.0); Hemoglobin 11.3 g/dL (12.0-16.0); Mean Corpuscular HGB CONC 30.8 g/dL (32.0-36.0); Mean Corpuscular Hemoglobin 32.5 pg (27.0-31.0); Mean Corpuscular Volume 105.5 fl (78.0-98.0); Mean Platelet Volume 11.4 fL (7.4-10.4); Platelet Count 123 10x3/uL (130-400); RBC Distribution Width 16.5 % (11.5-14.5); Red Blood Cell (RBC) Count 3.48 mill/uL (4.20-5.40); White Blood Cell (WBC) Count 13.4 10x3/uL (4.8-10.8)
[2023-09-24 04:03] LABS: Lactic Acid 2.4 mmol/L (0.5-2.2)
[2023-09-24 04:05] LABS: ALT (SGPT) 358 U/L (8-55); AST (SGOT) 290 U/L (5-34); Albumin 4.3 g/dL (3.4-4.8); Alkaline Phosphatase 184 U/L (40-110); Anion Gap 22 mmol/L (10-20); BUN (Urea Nitrogen) 52 mg/dL (9.8-20.1); Bilirubin, Total 0.9 mg/dL (0.2-1.2); Calc. Creatinine Clearance 11 mL/min (70-130); Calcium 8.2 mg/dL (7.8-10.44); Carbon Dioxide 25 mmol/L (23-31); Chloride 97 mmol/L (98-107); Estimated GFR 5; Globulin 3.6 g/dL (2.4-3.5); Glucose 299 mg/dL (83-110); Potassium 5.6 mmol/L (3.5-5.1); Protein, Total 7.9 g/dL (5.8-8.1); Sodium 138 mmol/L (136-145)
[2023-09-24 04:11] LABS: Critical Call Chem Troponin I RESULT DECREASING; Troponin I 1.039 ng/mL (< 0.028)
[2023-09-24] MEDS: Ipratropium/Albuterol 3 ML NEB NEB SCH (07:49)
[2023-09-24] MEDS: methylPREDNISolone Sod Succ 40 MG VIAL IVP SCH (08:16)
[2023-09-24] MEDS: NOREPINEPHRINE 8 MG/250 ML-D5W 250 ML IVPB SCH (08:16)
[2023-09-24] MEDS: Insulin Glargine 30 UNITS/0.3 ML VIAL SC SCH (08:17)
[2023-09-24] MEDS: Famotidine/PF 20 mg/2ml Vial SLOW IVP SCH (08:18)
[2023-09-24] MEDS: Famotidine 20 MG TAB PO SCH (08:18)
[2023-09-24] MEDS ORDERED: Albuterol 200 PUFF INH INH PRN (09:37)
[2023-09-24] MEDS ORDERED: Albuterol 2.5 MG (0.5 mL) NEB NEB PRN (09:40)
[2023-09-24 15:29] LABS: pH (venous) 7.164 (7.32-7.43)
[2023-09-24] MEDS: Atorvastatin Calcium 40 MG TAB PO SCH (20:07)
[2023-09-24] MEDS: Heparin 5,000 UNITS/ML VIAL SC SCH (20:07)
[2023-09-24] MEDS: cefTRIAXone\\ROCEPHIN 1 GM in Sodium Chloride 0.9% 100 ML IVPB SCH (20:09)
[2023-09-24] MEDS: Insulin Regular 300 UNITS/3 ML VIAL SC SCH ×2 (20:30→22:01)
[2023-09-24] MEDS ORDERED: Cefepime 0.5 GM, Admixture Fee 1 EACH in Sodium Chloride 0.9% 100 ML IVPB SCH (21:00)
[2023-09-24] MEDS ORDERED: HumaLOG 300 UNITS/3 ML VIAL SC PRN (21:53)
[2023-09-24 23:05] LABS: Glucose 683 mg/dL (83-110)
[2023-09-25 05:24] LABS: #Monocytes 0.8 thou/uL (0.11-0.59); #Neutrophils 7.7 thou/uL (1.40-6.50); %Basophils 0.2 % (0.0-1.0); %Eosinophils 0.1 % (0.0-10.0); %Lymphocytes 9.5 % (21.0-51.0); %Monocytes 8.3 % (0.0-10.0); %Neutrophils 81.5 % (42.0-75.0); Hematocrit 40.1 % (36.0-47.0); Hemoglobin 12.8 g/dL (12.0-16.0); Mean Corpuscular HGB CONC 31.9 g/dL (32.0-36.0); Mean Corpuscular Hemoglobin 32.5 pg (27.0-31.0); Mean Corpuscular Volume 101.8 fl (78.0-98.0); Mean Platelet Volume 11.6 fL (7.4-10.4); Platelet Count 153 10x3/uL (130-400); RBC Distribution Width 16.4 % (11.5-14.5); Red Blood Cell (RBC) Count 3.94 mill/uL (4.20-5.40); White Blood Cell (WBC) Count 9.4 10x3/uL (4.8-10.8)
[2023-09-25 05:49] LABS: Anion Gap 18 mmol/L (10-20); BUN (Urea Nitrogen) 38 mg/dL (9.8-20.1); Calc. Creatinine Clearance 16 mL/min (70-130); Calcium 8.5 mg/dL (7.8-10.44); Carbon Dioxide 24 mmol/L (23-31); Chloride 97 mmol/L (98-107); Estimated GFR 9; Glucose 342 mg/dL (83-110); Potassium 4.1 mmol/L (3.5-5.1); Sodium 135 mmol/L (136-145)
[2023-09-25 05:50] LABS: ALT (SGPT) 323 U/L (8-55); AST (SGOT) 124 U/L (5-34); Albumin 3.7 g/dL (3.4-4.8); Alkaline Phosphatase 191 U/L (40-110); Bilirubin, Direct 0.2 mg/dL (0.1-0.3); Bilirubin, Total 0.5 mg/dL (0.2-1.2); Protein, Total 7.5 g/dL (5.8-8.1)
[2023-09-25] MEDS: Midodrine HCl 5 MG TAB PO SCH (08:48)
[2023-09-25] MEDS: methylPREDNISolone Sod Succ 40 MG VIAL IVP SCH (08:51)
[2023-09-25] MEDS: Aspirin Chewable 81 MG TAB PO SCH (08:51)
[2023-09-25] MEDS: Insulin Glargine 30 UNITS/0.3 ML VIAL SC SCH ×2 (08:52→21:07)
[2023-09-25] MEDS: glipiZIDE 5 MG TAB PO SCH (17:30)
[2023-09-25] MEDS: HumaLOG 300 UNITS/3 ML VIAL SC SCH ×2 (17:45→18:41)
[2023-09-25] MEDS: Ipratropium/Albuterol 3 ML NEB NEB SCH (19:06)
[2023-09-25 20:22] LABS: Glucose 706 mg/dL (83-110)
[2023-09-25] MEDS: HumaLOG 300 UNITS/3 ML VIAL SC PRN (21:06)
[2023-09-25 23:50] LABS: Glucose POC Confirmation 466 mg/dL (83-110)
[2023-09-26] MEDS: Acetaminophen 325 MG TAB PO PRN (00:34)
[2023-09-26 06:54] LABS: #Basophils Less than 0.0 thou/uL (0.0-0.2); #Eosinphils Less than 0.0 thou/uL (0.0-0.7); #Monocytes 0.8 thou/uL (0.11-0.59); #Neutrophils 8.3 thou/uL (1.40-6.50); %Basophils 0.2 % (0.0-1.0); %Eosinophils 0.1 % (0.0-10.0); %Lymphocytes 8.4 % (21.0-51.0); %Monocytes 8.2 % (0.0-10.0); %Neutrophils 82.7 % (42.0-75.0); Hematocrit 40.8 % (36.0-47.0); Hemoglobin 13.2 g/dL (12.0-16.0); Mean Corpuscular HGB CONC 32.4 g/dL (32.0-36.0); Mean Corpuscular Hemoglobin 32.3 pg (27.0-31.0); Mean Corpuscular Volume 99.8 fl (78.0-98.0); Mean Platelet Volume 11.3 fL (7.4-10.4); Platelet Count 156 10x3/uL (130-400); RBC Distribution Width 16.4 % (11.5-14.5); Red Blood Cell (RBC) Count 4.09 mill/uL (4.20-5.40); White Blood Cell (WBC) Count 10.1 10x3/uL (4.8-10.8)
[2023-09-26 07:16] LABS: ALT (SGPT) 275 U/L (8-55); AST (SGOT) 77 U/L (5-34); Albumin 3.8 g/dL (3.4-4.8); Alkaline Phosphatase 166 U/L (40-110); Anion Gap 21 mmol/L (10-20); BUN (Urea Nitrogen) 71 mg/dL (9.8-20.1); Bilirubin, Total 0.5 mg/dL (0.2-1.2); Calc. Creatinine Clearance 11 mL/min (70-130); Calcium 8.3 mg/dL (7.8-10.44); Carbon Dioxide 21 mmol/L (23-31); Chloride 95 mmol/L (98-107); Estimated GFR 6; Glucose 143 mg/dL (83-110); Magnesium 2.2 mg/dL (1.6-2.6); Potassium 5.1 mmol/L (3.5-5.1); Protein, Total 7.8 g/dL (5.8-8.1); Sodium 132 mmol/L (136-145)
[2023-09-26 18:45] VITALS: BP 124/71; TEMP 98.1
== END 2023-09-26 19:23 | disposition home or self-care (01) | DRG 640 ==
LOC: ERS 19:33 → CCU 22:20 → T4-B 09-24 14:45
PROVIDERS: ADMIT Student in an Organized Health Care Education/Training Program; ATTEND Hospitalist
PROC: 5A09357 Assistance with Respiratory Ventilation, Less than 24 Consecutive Hours, Continuous Positive Airway Pressure (ICD-10-PCS; principal; 2023-09-23)
DX: E87.5 Hyperkalemia (principal); G93.41 Metabolic encephalopathy; J96.22 Acute and chronic respiratory failure with hypercapnia; I21.A1 Myocardial infarction type 2; N18.6 End stage renal disease; E66.2 Morbid (severe) obesity with alveolar hypoventilation; R65.10 Systemic inflammatory response syndrome (SIRS) of non-infectious origin without acute organ dysfunction; Z68.41 Body mass index [BMI] 40.0-44.9, adult; E87.20 Acidosis, unspecified; J44.9 Chronic obstructive pulmonary disease, unspecified; E11.65 Type 2 diabetes mellitus with hyperglycemia; E78.5 Hyperlipidemia, unspecified; I50.9 Heart failure, unspecified; T38.0X5A Adverse effect of glucocorticoids and synthetic analogues, initial encounter; Z90.49 Acquired absence of other specified parts of digestive tract; Z79.82 Long term (current) use of aspirin; Z79.51 Long term (current) use of inhaled steroids; Z79.891 Long term (current) use of opiate analgesic
CPT/HCPCS: 36415; 36416; 36600; 70450; 71045; 80048; 80053; 80076; 82010; 82805; 83605; 83690; 83735; 83880; 84443; 84484; 85025; 87040; 90935; 93005; 93306; 94640; 94660; 96365; 96368; 96375; G0257; J0613; J0692; J0696; J1644; J1650; J1815; J2920; J3370; J3490; J7030; J7620; P9047; S0028

== ENCOUNTER 2023-10-04 13:31 | Emergency (ER) | payer OTHER ==
[~2023-10-04 13:31] MED LIST: Iopamidol-370 76% 500 ML MDV (1 ML CHARGE) ONE
[2023-10-04] MEDS ORDERED: Acetaminophen 500 MG TAB ONE (14:30)
[2023-10-04 14:45] LABS: #Basophils Less than 0.03 10x3/uL (0.0-0.2); %Basophils 0.3 % (0.0-1.0); %Eosinophils 1.8 % (0.0-10.0); %Lymphocytes 13.6 % (21.0-51.0); %Monocytes 8.2 % (0.0-10.0); %Neutrophils 75.7 % (42.0-75.0); Hematocrit 42.6 % (36.0-47.0); Hemoglobin 13.3 g/dL (12.0-16.0); Mean Corpuscular HGB CONC 31.2 g/dL (32.0-36.0); Mean Corpuscular Hemoglobin 32.6 pg (27.0-31.0); Mean Corpuscular Volume 104.4 fL (78.0-98.0); Mean Platelet Volume 10.5 fL (7.4-10.4); Platelet Count 176 10x3/uL (130-400); RBC Distribution Width 15.7 % (11.5-14.5); Red Blood Cell (RBC) Count 4.08 mill/uL (4.20-5.40)
[2023-10-04 15:12] LABS: ALT (SGPT) 40 U/L (8-55); AST (SGOT) 24 U/L (5-34); Albumin 3.9 g/dL (3.4-4.8); Alkaline Phosphatase 131 U/L (40-110); Anion Gap 19 mmol/L (10-20); BUN (Urea Nitrogen) 38 mg/dL (9.8-20.1); Bilirubin, Total 0.6 mg/dL (0.2-1.2); Calc. Creatinine Clearance 0 mL/min (70-130); Calcium 8.1 mg/dL (7.8-10.44); Carbon Dioxide 26 mmol/L (23-31); Chloride 99 mmol/L (98-107); Estimated GFR 6; Globulin 3.9 g/dL (2.4-3.5); Lipase 135 U/L (8-78); Potassium 5.3 mmol/L (3.5-5.1); Protein, Total 7.8 g/dL (5.8-8.1); Sodium 139 mmol/L (136-145)
[2023-10-04 15:17] LABS: Critical Call Chemistry NUR.AD10 AT 1517; Glucose 473 mg/dL (83-110)
== END 2023-10-04 16:40 | disposition home or self-care (01) ==
LOC: ERS 13:31
DX: R10.31 Right lower quadrant pain (principal); E78.00 Pure hypercholesterolemia, unspecified; E11.22 Type 2 diabetes mellitus with diabetic chronic kidney disease; N18.6 End stage renal disease; I13.2 Hypertensive heart and chronic kidney disease with heart failure and with stage 5 chronic kidney disease, or end stage renal disease; I50.9 Heart failure, unspecified; J44.9 Chronic obstructive pulmonary disease, unspecified; G51.0 Bell's palsy; Z79.899 Other long term (current) drug therapy
CPT/HCPCS: 74177; 80053; 83690; 85025; Q9967

== ENCOUNTER 2024-02-14 21:24 | Inpatient (IN) | payer OTHER, MEDICAID, MEDICARE ==
[2024-02-14] MEDS ORDERED: Piperacillin/Tazobactam 4.5 GM VIAL ONE (22:05)
[2024-02-14] MEDS ORDERED: Acetaminophen 500 MG TAB ONE (22:05)
[2024-02-14] MEDS ORDERED: Sodium Chloride 0.9% 100 ML ONE (22:05)
[2024-02-14 22:08] LABS: #Basophils 0.03 10x3/uL (0.0-0.2); %Basophils 0.2 % (0.0-1.0); %Eosinophils 0.3 % (0.0-10.0); %Lymphocytes 8.1 % (21.0-51.0); %Neutrophils 80.8 % (42.0-75.0); Hemoglobin 14.3 g/dL (12.0-16.0); Mean Corpuscular HGB CONC 30.4 g/dL (32.0-36.0); Mean Corpuscular Hemoglobin 30.4 pg (27.0-31.0); Platelet Count 236 10x3/uL (130-400); RBC Distribution Width 16.8 % (11.5-14.5)
[2024-02-14 22:20] LABS: Actual Bicarbonate (HCO3v) 28.6 mEq/L (22-28); Base Excess -1.1 mEq/L (-2.0 to +3.0); Calcium, Ionized (venous) 1.08 mmol/L (1.16-1.32); Chloride (VBG) 93 mmol/L (98-106); Hematocrit-VBG 45 % (36.0-47.0); Hemoglobin (Hb) 15.4 g/dL (11.7-16.1); Potassium (VBG) 5.19 mmol/L (3.70-5.30); Sodium 139 mmol/L (133-146); pH (venous) 7.227 (7.32-7.43)
[2024-02-14 22:27] LABS: ALT (SGPT) 21 U/L (8-55); AST (SGOT) 25 U/L (5-34); Albumin 3.2 g/dL (3.4-4.8); Alkaline Phosphatase 203 U/L (40-110); Anion Gap 17 mmol/L (10-20); BUN (Urea Nitrogen) 38 mg/dL (9.8-20.1); Bilirubin, Total 0.7 mg/dL (0.2-1.2); CK (CPK) 178 U/L (29-168); Calc. Creatinine Clearance 0 mL/min (70-130); Calcium 8.6 mg/dL (7.8-10.44); Carbon Dioxide 26 mmol/L (23-31); Chloride 96 mmol/L (98-107); Estimated GFR 8; Glucose 158 mg/dL (83-110); Protein, Total 8.2 g/dL (5.8-8.1); Sodium 134 mmol/L (136-145)
[2024-02-14 23:13] LABS: Influenza A by NAA Not Detected (NotDetected); Influenza B by NAA Not Detected (NotDetected); SARS-CoV-2 NAA Rapid Test Not Detected (NotDetected)
[2024-02-15] MEDS ORDERED: Dextrose 5% in Water 1,000 ML IV PRN (00:13)
[2024-02-15] MEDS ORDERED: Glucagon 1 MG/ML KIT IM PRN (00:13)
[2024-02-15] MEDS ORDERED: Ondansetron PF 4 MG/2 ML Vial IVP PRN (00:13)
[2024-02-15] MEDS ORDERED: Ondansetron ODT 4 MG TAB PO PRN (00:13)
[2024-02-15] MEDS ORDERED: Acetaminophen 650 MG Suppository PR PRN (00:13)
[2024-02-15] MEDS ORDERED: Dextrose 50% Abboject 50 ML SYRINGE SLOW IVP PRN (00:13)
[2024-02-15] MEDS ORDERED: cefTRIAXone\\ROCEPHIN 1 GM in Sodium Chloride 0.9% 100 ML IVPB SCH (00:15)
[2024-02-15 00:53] LABS: Troponin I 0.928 ng/mL (< 0.028)
[2024-02-15] MEDS ORDERED: NOREPINEPHRINE 8 MG/250 ML-D5W 250 ML ONE (01:20)
[2024-02-15 01:40] LABS: Actual Bicarbonate (HCO3a) 26.2 mEq/L (22-28); Base Excess (BEa) -0.7 mEq/L (-2.0 to +3.0); CO2 Tension 51.6 mmHg (35.0-45.0); Calcium, Ionized (arterial) 1.08 mmol/L (1.12-1.30); Carboxyhemoglobin (COHb) 2.4 gm% (0.0-3.0); Hematocrit-ABG 43 % (36.0-47.0); Hemoglobin (Hb) 14.6 g/dL (12.0-16.0); O2 Tension (PaO2), arterial 77.7 mmHg (> 70.0); Potassium - ABG Lab 5.14 mmol/L (3.70-5.30); pH, Arterial 7.323 (7.35-7.45)
[2024-02-15 01:41] LABS: Puncture Site Right Radial artery
[2024-02-15] MEDS ORDERED: NOREPINEPHRINE 8 MG/250 ML-D5W 250 ML IVPB SCH (01:45)
[2024-02-15] MEDS: Vancomycin (BATCH) 2 GM in Premix 1 BAG IVPB SCH (01:57)
[2024-02-15] MEDS ORDERED: Ipratropium/Albuterol 3 ML NEB NEB PRN (01:58)
[2024-02-15] MEDS ORDERED: Vancomycin Dialysis Sliding Scale (Wt > 99) FS SCH (02:45)
[2024-02-15 03:26] LABS: Troponin I 0.827 ng/mL (< 0.028)
[2024-02-15 05:32] VITALS: BMI 43.6
[2024-02-15] MEDS: Piperacillin/Tazobactam 3.375 GM in Sodium Chloride 0.9% 100 ML IVPB SCH (05:47)
[2024-02-15 06:51] LABS: #Basophils 0.05 10x3/uL (0.0-0.2); %Basophils 0.3 % (0.0-1.0); %Eosinophils 0.3 % (0.0-10.0); %Lymphocytes 6.4 % (21.0-51.0); %Monocytes 10.5 % (0.0-10.0); %Neutrophils 81.8 % (42.0-75.0); Hematocrit 47.1 % (36.0-47.0); Hemoglobin 14.3 g/dL (12.0-16.0); Mean Corpuscular HGB CONC 30.4 g/dL (32.0-36.0); Mean Corpuscular Hemoglobin 30.4 pg (27.0-31.0); Mean Platelet Volume 10.8 fL (7.4-10.4); Platelet Count 206 10x3/uL (130-400); RBC Distribution Width 16.8 % (11.5-14.5); Red Blood Cell (RBC) Count 4.71 mill/uL (4.20-5.40)
[2024-02-15] MEDS: Ipratropium/Albuterol 3 ML NEB NEB SCH (07:14)
[2024-02-15] MEDS: Insulin Lispro 100 UNIT/ML 10 ML VIAL SC PRN (07:46)
[2024-02-15 07:48] LABS: Anion Gap 18 mmol/L (10-20); BUN (Urea Nitrogen) 39 mg/dL (9.8-20.1); Calc. Creatinine Clearance 14 mL/min (70-130); Calcium 8.5 mg/dL (7.8-10.44); Carbon Dioxide 24 mmol/L (23-31); Chloride 96 mmol/L (98-107); Estimated GFR 7; Glucose 149 mg/dL (83-110); Potassium 5.3 mmol/L (3.5-5.1); Sodium 133 mmol/L (136-145)
[2024-02-15] MEDS ORDERED: Vancomycin (BATCH) 1.25 GM in Premix 1 BAG IVPB SCH (09:00)
[2024-02-15] MEDS ORDERED: Cefepime 2 GM in Sodium Chloride 0.9% 100 ML IVPB SCH (09:00)
[2024-02-15] MEDS: Heparin 5,000 UNITS/ML VIAL SC SCH (11:27)
[2024-02-15] MEDS: Acetaminophen 325 MG TAB PO PRN (13:39)
[2024-02-15 17:16] LABS: Anion Gap 19 mmol/L (10-20); BUN (Urea Nitrogen) 48 mg/dL (9.8-20.1); Calc. Creatinine Clearance 13 mL/min (70-130); Calcium 7.9 mg/dL (7.8-10.44); Carbon Dioxide 22 mmol/L (23-31); Chloride 95 mmol/L (98-107); Estimated GFR 7; Glucose 200 mg/dL (83-110); Potassium 5.7 mmol/L (3.5-5.1); Sodium 130 mmol/L (136-145)
[2024-02-15] MEDS: Senokot S 8.6-50 MG TAB PO SCH (20:15)
[2024-02-16 06:20] LABS: #Basophils 0.05 10x3/uL (0.0-0.2); %Basophils 0.3 % (0.0-1.0); %Lymphocytes 8.5 % (21.0-51.0); %Monocytes 8.9 % (0.0-10.0); %Neutrophils 80.8 % (42.0-75.0); Hematocrit 43.2 % (36.0-47.0); Hemoglobin 13.5 g/dL (12.0-16.0); Mean Corpuscular HGB CONC 31.3 g/dL (32.0-36.0); Mean Corpuscular Hemoglobin 30.5 pg (27.0-31.0); Mean Corpuscular Volume 97.7 fL (78.0-98.0); Mean Platelet Volume 10.9 fL (7.4-10.4); Platelet Count 216 10x3/uL (130-400); RBC Distribution Width 16.8 % (11.5-14.5); Red Blood Cell (RBC) Count 4.42 mill/uL (4.20-5.40)
[2024-02-16 06:28] LABS: ALT (SGPT) 19 U/L (8-55); AST (SGOT) 20 U/L (5-34); Albumin 2.8 g/dL (3.4-4.8); Alkaline Phosphatase 178 U/L (40-110); Anion Gap 19 mmol/L (10-20); BUN (Urea Nitrogen) 59 mg/dL (9.8-20.1); Bilirubin, Direct 0.4 mg/dL (0.1-0.3); Bilirubin, Total 0.9 mg/dL (0.2-1.2); Calc. Creatinine Clearance 11 mL/min (70-130); Calcium 8.2 mg/dL (7.8-10.44); Carbon Dioxide 25 mmol/L (23-31); Chloride 93 mmol/L (98-107); Estimated GFR 6; Glucose 164 mg/dL (83-110); Magnesium 2.3 mg/dL (1.6-2.6); Protein, Total 7.6 g/dL (5.8-8.1); Sodium 132 mmol/L (136-145)
[2024-02-16 07:43] LABS: Vancomycin, Trough 27.9 ug/mL
[2024-02-16] MEDS: Polyethylene Glycol 3350 17 GM Packet PO SCH (08:06)
[2024-02-16 12:28] LABS: Hep B Core Total Ab REACTIVE (NonReactive)
[2024-02-16 12:29] LABS: HBSAB Concentration 925.37 mIU/mL; HBsAg Index 0.24 S/CO (0-0.99); Hep B Core Total Index 4.35 S/CO (0-0.79); Hep B Surf AB REACTIVE (NonReactive); Hep B Surf Ag NONREACTIVE S/CO (NonReactive); Hep C IgG Ab NONREACTIVE S/CO (NonReactive)
[2024-02-16 16:04] VITALS: BMI 43.6
[2024-02-16] MEDS: Atorvastatin Calcium 20 MG TAB PO SCH (20:30)
[2024-02-17] MEDS: Senokot S 8.6-50 MG TAB PO SCH (02:37)
[2024-02-17 07:03] LABS: #Basophils 0.06 10x3/uL (0.0-0.2); %Basophils 0.6 % (0.0-1.0); %Eosinophils 1.5 % (0.0-10.0); %Lymphocytes 9.5 % (21.0-51.0); %Monocytes 9.4 % (0.0-10.0); %Neutrophils 78.6 % (42.0-75.0); Hematocrit 39.7 % (36.0-47.0); Hemoglobin 11.7 g/dL (12.0-16.0); Mean Corpuscular HGB CONC 29.5 g/dL (32.0-36.0); Mean Corpuscular Hemoglobin 29.4 pg (27.0-31.0); Mean Corpuscular Volume 99.7 fL (78.0-98.0); Mean Platelet Volume 10.6 fL (7.4-10.4); Platelet Count 195 10x3/uL (130-400); RBC Distribution Width 17.1 % (11.5-14.5); Red Blood Cell (RBC) Count 3.98 mill/uL (4.20-5.40)
[2024-02-17 07:42] LABS: Anion Gap 24 mmol/L (10-20); BUN (Urea Nitrogen) 43 mg/dL (9.8-20.1); Calc. Creatinine Clearance 16 mL/min (70-130); Calcium 6.9 mg/dL (7.8-10.44); Carbon Dioxide 19 mmol/L (23-31); Chloride 100 mmol/L (98-107); Estimated GFR 8; Glucose 145 mg/dL (83-110); Magnesium 1.9 mg/dL (1.6-2.6); Potassium 4.6 mmol/L (3.5-5.1); Sodium 138 mmol/L (136-145)
[2024-02-17] MEDS: Aspirin Chewable 81 MG TAB PO SCH (09:41)
[2024-02-17] MEDS: Calcium Gluconate 4.6 MEQ in Sodium Chloride 0.9% 100 ML IVPB ONE (10:35)
[2024-02-17] MEDS: CALCIUM GLUC 1 GM/NS 50 ML 1 GM in Premix 1 BAG IVPB SCH (10:45)
[2024-02-17] MEDS: Lorazepam 2 MG/ML VIAL ONE (15:53)
[2024-02-17] MEDS: Insulin Lispro 100 UNIT/ML 10 ML VIAL SC PRN (20:34)
[2024-02-17] MEDS: Benzonatate 100 MG CAP PO PRN (21:00)
[2024-02-18] MEDS ORDERED: Ondansetron PF 4 MG/2 ML Vial IVP PRN (02:00)
[2024-02-18] MEDS ORDERED: Acetaminophen 325 MG TAB PO PRN (02:00)
[2024-02-18] MEDS ORDERED: Ondansetron ODT 4 MG TAB SL PRN (02:00)
[2024-02-18 05:37] LABS: #Basophils 0.04 10x3/uL (0.0-0.2); %Basophils 0.4 % (0.0-1.0); %Eosinophils 1.4 % (0.0-10.0); %Lymphocytes 12.8 % (21.0-51.0); %Monocytes 9.7 % (0.0-10.0); Hematocrit 39.2 % (36.0-47.0); Hemoglobin 12.2 g/dL (12.0-16.0); Mean Corpuscular HGB CONC 31.1 g/dL (32.0-36.0); Mean Corpuscular Volume 96.6 fL (78.0-98.0); Mean Platelet Volume 10.5 fL (7.4-10.4); Platelet Count 207 10x3/uL (130-400); RBC Distribution Width 16.7 % (11.5-14.5); Red Blood Cell (RBC) Count 4.06 mill/uL (4.20-5.40)
[2024-02-18 05:49] LABS: Anion Gap 24 mmol/L (10-20); BUN (Urea Nitrogen) 65 mg/dL (9.8-20.1); Calc. Creatinine Clearance 15 mL/min (70-130); Calcium 6.9 mg/dL (7.8-10.44); Carbon Dioxide 19 mmol/L (23-31); Chloride 97 mmol/L (98-107); Estimated GFR 7; Glucose 106 mg/dL (83-110); Magnesium 1.8 mg/dL (1.6-2.6); Potassium 4.8 mmol/L (3.5-5.1); Sodium 135 mmol/L (136-145)
[2024-02-18] MEDS: Timolol 0.5% Ophth Soln 5 ml Bottle EA EYE SCH (08:08)
[2024-02-18] MEDS ORDERED: Heparin 10,000 UNITS/ 10 ML VIAL ONE (08:50)
[2024-02-18] MEDS: HYDROcodone/Acetaminophen 10/325 mg Tablet PO PRN (17:01)
[2024-02-18] MEDS ORDERED: Calcium Gluconate 100 MG/ML 10 ML IVPB SCH (17:30)
[2024-02-18] MEDS: CALCIUM GLUC 1 GM/NS 50 ML 1 GM in Premix 1 BAG IVPB SCH (18:11)
[2024-02-19 04:42] LABS: #Basophils 0.04 10x3/uL (0.0-0.2); %Basophils 0.4 % (0.0-1.0); %Eosinophils 2.2 % (0.0-10.0); %Lymphocytes 12.7 % (21.0-51.0); %Monocytes 12.3 % (0.0-10.0); %Neutrophils 71.8 % (42.0-75.0); Hematocrit 44.1 % (36.0-47.0); Hemoglobin 13.7 g/dL (12.0-16.0); Mean Corpuscular HGB CONC 31.1 g/dL (32.0-36.0); Mean Corpuscular Volume 96.7 fL (78.0-98.0); Mean Platelet Volume 10.1 fL (7.4-10.4); Platelet Count 228 10x3/uL (130-400); RBC Distribution Width 16.9 % (11.5-14.5); Red Blood Cell (RBC) Count 4.56 mill/uL (4.20-5.40)
[2024-02-19 06:25] LABS: Anion Gap 19 mmol/L (10-20); BUN (Urea Nitrogen) 52 mg/dL (9.8-20.1); Calc. Creatinine Clearance 16 mL/min (70-130); Calcium 8.4 mg/dL (7.8-10.44); Carbon Dioxide 24 mmol/L (23-31); Chloride 94 mmol/L (98-107); Estimated GFR 9; Glucose 128 mg/dL (83-110); Magnesium 2.1 mg/dL (1.6-2.6); Potassium 5.4 mmol/L (3.5-5.1); Sodium 132 mmol/L (136-145)
[2024-02-20 04:35] LABS: #Basophils 0.05 10x3/uL (0.0-0.2); %Basophils 0.5 % (0.0-1.0); %Eosinophils 1.8 % (0.0-10.0); %Lymphocytes 12.9 % (21.0-51.0); %Monocytes 10.2 % (0.0-10.0); %Neutrophils 74.1 % (42.0-75.0); Hematocrit 42.5 % (36.0-47.0); Hemoglobin 13.1 g/dL (12.0-16.0); Mean Corpuscular HGB CONC 30.8 g/dL (32.0-36.0); Mean Corpuscular Hemoglobin 29.2 pg (27.0-31.0); Mean Corpuscular Volume 94.7 fL (78.0-98.0); Mean Platelet Volume 10.1 fL (7.4-10.4); Platelet Count 235 10x3/uL (130-400); RBC Distribution Width 16.5 % (11.5-14.5); Red Blood Cell (RBC) Count 4.49 mill/uL (4.20-5.40)
[2024-02-20 05:10] LABS: Anion Gap 20 mmol/L (10-20); BUN (Urea Nitrogen) 71 mg/dL (9.8-20.1); Calc. Creatinine Clearance 13 mL/min (70-130); Calcium 8.2 mg/dL (7.8-10.44); Carbon Dioxide 22 mmol/L (23-31); Chloride 92 mmol/L (98-107); Estimated GFR 7; Glucose 220 mg/dL (83-110); Magnesium 2.2 mg/dL (1.6-2.6); Potassium 5.8 mmol/L (3.5-5.1); Sodium 128 mmol/L (136-145)
[2024-02-20] MEDS ORDERED: Heparin 10,000 UNITS/ 10 ML VIAL ONE (16:08)
[2024-02-20 16:18] VITALS: BP 145/63; TEMP 98
== END 2024-02-20 17:14 | disposition home or self-care (01) | DRG 871 ==
LOC: ERS 21:24 → ERHOLD 23:59 → CCU 02-15 05:01 → IMCU/EMU 02-16 02:04 → 2NO 02-18 00:14
PROVIDERS: ADMIT Student in an Organized Health Care Education/Training Program; ATTEND Family Medicine
PROC: 4A033R1 Measurement of Arterial Saturation, Peripheral, Percutaneous Approach (ICD-10-PCS; principal; 2024-02-15)
PROC: 5A1D70Z Performance of Urinary Filtration, Intermittent, Less than 6 Hours Per Day (ICD-10-PCS; 2024-02-15)
PROC: 5A09457 Assistance with Respiratory Ventilation, 24-96 Consecutive Hours, Continuous Positive Airway Pressure (ICD-10-PCS; 2024-02-15)
PROC: 3E033XZ Introduction of Vasopressor into Peripheral Vein, Percutaneous Approach (ICD-10-PCS; 2024-02-15)
DX: A41.9 Sepsis, unspecified organism (principal); I21.A1 Myocardial infarction type 2; R65.21 Severe sepsis with septic shock; N18.6 End stage renal disease; J96.22 Acute and chronic respiratory failure with hypercapnia; I50.33 Acute on chronic diastolic (congestive) heart failure; I13.2 Hypertensive heart and chronic kidney disease with heart failure and with stage 5 chronic kidney disease, or end stage renal disease; E87.29 Other acidosis; Z68.42 Body mass index [BMI] 45.0-49.9, adult; L03.116 Cellulitis of left lower limb; L03.115 Cellulitis of right lower limb; E87.1 Hypo-osmolality and hyponatremia; L97.429 Non-pressure chronic ulcer of left heel and midfoot with unspecified severity; E78.00 Pure hypercholesterolemia, unspecified; E78.5 Hyperlipidemia, unspecified; J44.9 Chronic obstructive pulmonary disease, unspecified; G47.33 Obstructive sleep apnea (adult) (pediatric); E11.22 Type 2 diabetes mellitus with diabetic chronic kidney disease; W06.XXXA Fall from bed, initial encounter; I35.0 Nonrheumatic aortic (valve) stenosis; E66.01 Morbid (severe) obesity due to excess calories; E83.51 Hypocalcemia; E87.5 Hyperkalemia; Z79.82 Long term (current) use of aspirin; Z79.899 Other long term (current) drug therapy; Z99.81 Dependence on supplemental oxygen; Z79.84 Long term (current) use of oral hypoglycemic drugs; Z90.49 Acquired absence of other specified parts of digestive tract; Z99.89 Dependence on other enabling machines and devices; Z99.2 Dependence on renal dialysis; Z79.4 Long term (current) use of insulin; Y93.89 Activity, other specified; Y92.89 Other specified places as the place of occurrence of the external cause; Z87.442 Personal history of urinary calculi; E11.621 Type 2 diabetes mellitus with foot ulcer
CPT/HCPCS: 11042; 36415; 36416; 36600; 71045; 80048; 80053; 80076; 80202; 82550; 82805; 83605; 83735; 83880; 84145; 84484; 85025; 86704; 86706; 86803; 87040; 87340; 90935; 93005; 93306; 94640; 94660; 94760; 96365; 96375; 97139; G0257; J0613; J1644; J1815; J2543; J3370; J7620

== ENCOUNTER 2024-02-22 13:31 | Inpatient (IN) | payer OTHER, MEDICAID, MEDICARE ==
[2024-02-22] MEDS ORDERED: predniSONE 20 MG TAB ONE (14:19)
[2024-02-22] MEDS ORDERED: Ipratropium/Albuterol 3 ML NEB ONE (14:34)
[2024-02-22 14:59] LABS: #Basophils 0.04 10x3/uL (0.0-0.2); #Eosinphils Less than 0.03 10x3/uL (0.0-0.7); %Basophils 0.3 % (0.0-1.0); %Eosinophils 0.1 % (0.0-10.0); %Lymphocytes 6.2 % (21.0-51.0); %Monocytes 9.6 % (0.0-10.0); %Neutrophils 82.3 % (42.0-75.0); Hematocrit 43.5 % (36.0-47.0); Hemoglobin 13.1 g/dL (12.0-16.0); Mean Corpuscular HGB CONC 30.1 g/dL (32.0-36.0); Mean Corpuscular Hemoglobin 29.8 pg (27.0-31.0); Mean Corpuscular Volume 99.1 fL (78.0-98.0); Mean Platelet Volume 10.4 fL (7.4-10.4); Platelet Count 223 10x3/uL (130-400); RBC Distribution Width 16.5 % (11.5-14.5); Red Blood Cell (RBC) Count 4.39 mill/uL (4.20-5.40)
[2024-02-22 15:22] LABS: Troponin I 0.057 ng/mL (< 0.028)
[2024-02-22 15:26] LABS: ALT (SGPT) 100 U/L (8-55); AST (SGOT) 125 U/L (5-34); Albumin 2.8 g/dL (3.4-4.8); Alkaline Phosphatase 405 U/L (40-110); Anion Gap 22 mmol/L (10-20); BUN (Urea Nitrogen) 78 mg/dL (9.8-20.1); Bilirubin, Total 1.7 mg/dL (0.2-1.2); Calc. Creatinine Clearance 0 mL/min (70-130); Calcium 8.4 mg/dL (7.8-10.44); Carbon Dioxide 22 mmol/L (23-31); Chloride 94 mmol/L (98-107); Estimated GFR 6; Globulin 5.5 g/dL (2.4-3.5); Glucose 192 mg/dL (83-110); Lipase 65 U/L (8-78); Magnesium 2.3 mg/dL (1.6-2.6); Potassium 6.5 mmol/L (3.5-5.1); Protein, Total 8.3 g/dL (5.8-8.1); Sodium 131 mmol/L (136-145)
[2024-02-22] MEDS ORDERED: Sodium Bicarb 50 mEq/50 ML VIAL ONE ×2 (15:31→15:46)
[2024-02-22] MEDS ORDERED: CALCIUM GLUC 1 GM/NS 50 ML IV Bag ONE (15:35)
[2024-02-22] MEDS ORDERED: Dextrose 10% in Water 250 ML ONE (15:38)
[2024-02-22] MEDS ORDERED: Insulin Regular, Human 100 UNIT/ML 10 ML VIAL ONE (15:45)
[2024-02-22] MEDS ORDERED: Heparin 10,000 UNITS/ 10 ML VIAL ONE (16:10)
[2024-02-22] MEDS ORDERED: Dextrose 5% in Water 1,000 ML IV PRN (16:29)
[2024-02-22] MEDS ORDERED: Glucagon 1 MG/ML KIT IM PRN (16:29)
[2024-02-22] MEDS ORDERED: Dextrose 50% Abboject 50 ML SYRINGE SLOW IVP PRN (16:29)
[2024-02-22] MEDS ORDERED: Morphine 2 MG/ML VIAL SLOW IVP PRN (17:10)
[2024-02-22] MEDS: Heparin 5,000 UNITS/ML VIAL SC SCH (21:53)
[2024-02-22] MEDS: Acetaminophen 325 MG TAB PO PRN (22:02)
[2024-02-23] MEDS: Ipratropium/Albuterol 3 ML NEB NEB PRN (03:07)
[2024-02-23 05:02] LABS: #Basophils 0.03 10x3/uL (0.0-0.2); #Eosinphils Less than 0.03 10x3/uL (0.0-0.7); %Basophils 0.2 % (0.0-1.0); %Lymphocytes 5.8 % (21.0-51.0); %Monocytes 6.7 % (0.0-10.0); %Neutrophils 85.9 % (42.0-75.0); Hematocrit 41.4 % (36.0-47.0); Hemoglobin 12.9 g/dL (12.0-16.0); Mean Corpuscular HGB CONC 31.2 g/dL (32.0-36.0); Mean Corpuscular Hemoglobin 29.2 pg (27.0-31.0); Mean Corpuscular Volume 93.7 fL (78.0-98.0); Mean Platelet Volume 10.7 fL (7.4-10.4); Platelet Count 237 10x3/uL (130-400); RBC Distribution Width 16.5 % (11.5-14.5); Red Blood Cell (RBC) Count 4.42 mill/uL (4.20-5.40)
[2024-02-23 05:18] LABS: ALT (SGPT) 121 U/L (8-55); AST (SGOT) 118 U/L (5-34); Albumin 2.7 g/dL (3.4-4.8); Alkaline Phosphatase 364 U/L (40-110); Anion Gap 21 mmol/L (10-20); BUN (Urea Nitrogen) 64 mg/dL (9.8-20.1); Bilirubin, Total 0.8 mg/dL (0.2-1.2); Calc. Creatinine Clearance 15 mL/min (70-130); Calcium 8.3 mg/dL (7.8-10.44); Carbon Dioxide 24 mmol/L (23-31); Chloride 92 mmol/L (98-107); Estimated GFR 8; Globulin 5.3 g/dL (2.4-3.5); Glucose 319 mg/dL (83-110); Potassium 5.9 mmol/L (3.5-5.1); Sodium 131 mmol/L (136-145)
[2024-02-23] MEDS: Insulin Regular, Human 100 UNIT/ML 10 ML VIAL SC PRN (05:48)
[2024-02-23] MEDS: Albuterol 200 PUFF (6.7GM INHALER) INH SCH (07:06)
[2024-02-23] MEDS: glipiZIDE 5 MG TAB PO SCH (08:59)
[2024-02-23] MEDS: Gabapentin 100 MG CAP PO SCH (08:59)
[2024-02-23 11:15] VITALS: BMI 45.9
[2024-02-23] MEDS: Ipratropium/Albuterol 3 ML NEB NEB SCH (11:48)
[2024-02-23] MEDS: Aspirin Chewable 81 MG TAB PO SCH (14:58)
[2024-02-23] MEDS: Timolol 0.5% Ophth Soln 5 ml Bottle EA EYE SCH ×2 (14:59→23:48)
[2024-02-23] MEDS: Pantoprazole DR 40 MG TAB PO SCH (14:59)
[2024-02-23] MEDS: Sevelamer Carbonate 800 MG TAB PO SCH (17:13)
[2024-02-23] MEDS: Insulin Glargine 30 UNITS/0.3 ML VIAL SC SCH (21:29)
[2024-02-23] MEDS ORDERED: Timolol 0.25% Ophth Soln 5 ml Bottle EA EYE SCH (23:30)
[2024-02-24] MEDS: HYDROcodone/Acetaminophen 10/325 mg Tablet PO PRN (09:32)
[2024-02-24] MEDS: Timolol 0.5% Ophth Soln 5 ml Bottle EA EYE SCH (09:34)
[2024-02-24] MEDS ORDERED: Insulin Regular, Human 100 UNIT/ML 10 ML VIAL SC PRN (10:15)
[2024-02-24 11:03] LABS: #Basophils 0.04 10x3/uL (0.0-0.2); %Basophils 0.3 % (0.0-1.0); %Eosinophils 1.2 % (0.0-10.0); %Lymphocytes 13.3 % (21.0-51.0); %Monocytes 10.7 % (0.0-10.0); Hematocrit 41.6 % (36.0-47.0); Hemoglobin 12.8 g/dL (12.0-16.0); Mean Corpuscular HGB CONC 30.8 g/dL (32.0-36.0); Mean Corpuscular Volume 97.7 fL (78.0-98.0); Mean Platelet Volume 10.6 fL (7.4-10.4); Platelet Count 246 10x3/uL (130-400); RBC Distribution Width 16.9 % (11.5-14.5); Red Blood Cell (RBC) Count 4.26 mill/uL (4.20-5.40)
[2024-02-24 11:27] LABS: Anion Gap 19 mmol/L (10-20); BUN (Urea Nitrogen) 54 mg/dL (9.8-20.1); Calc. Creatinine Clearance 18 mL/min (70-130); Calcium 7.9 mg/dL (7.8-10.44); Carbon Dioxide 26 mmol/L (23-31); Chloride 95 mmol/L (98-107); Estimated GFR 9; Glucose 184 mg/dL (83-110); Potassium 4.7 mmol/L (3.5-5.1); Sodium 135 mmol/L (136-145)
[2024-02-25 00:48] VITALS: BMI 45.6
[2024-02-25] MEDS ORDERED: Heparin 10,000 UNITS/ 10 ML VIAL ONE (08:24)
[2024-02-25 14:23] VITALS: BP 135/64; TEMP 97.2
== END 2024-02-25 15:05 | DRG 640 ==
LOC: ERS 13:31 → 2NO 16:27 → OBSVTOIN 02-24 15:41 → SURG B 02-24 19:19
PROVIDERS: ADMIT Family Medicine; ATTEND Internal Medicine
PROC: 5A1D70Z Performance of Urinary Filtration, Intermittent, Less than 6 Hours Per Day (ICD-10-PCS; principal; 2024-02-23)
PROC: F07Z9ZZ Gait Training/Functional Ambulation Treatment (ICD-10-PCS; 2024-02-25)
DX: E87.5 Hyperkalemia (principal); N18.6 End stage renal disease; I13.2 Hypertensive heart and chronic kidney disease with heart failure and with stage 5 chronic kidney disease, or end stage renal disease; Z68.42 Body mass index [BMI] 45.0-49.9, adult; J96.11 Chronic respiratory failure with hypoxia; L03.115 Cellulitis of right lower limb; L03.116 Cellulitis of left lower limb; E87.1 Hypo-osmolality and hyponatremia; J44.9 Chronic obstructive pulmonary disease, unspecified; G47.33 Obstructive sleep apnea (adult) (pediatric); Z99.2 Dependence on renal dialysis; E11.22 Type 2 diabetes mellitus with diabetic chronic kidney disease; Z79.82 Long term (current) use of aspirin; Z79.84 Long term (current) use of oral hypoglycemic drugs; Z79.899 Other long term (current) drug therapy; Z79.891 Long term (current) use of opiate analgesic; Z79.4 Long term (current) use of insulin; Z90.49 Acquired absence of other specified parts of digestive tract; I50.9 Heart failure, unspecified; E66.01 Morbid (severe) obesity due to excess calories; E78.00 Pure hypercholesterolemia, unspecified; Z99.81 Dependence on supplemental oxygen
CPT/HCPCS: 36415; 36416; 71045; 80048; 80053; 83605; 83690; 83735; 84443; 84484; 85025; 87040; 90935; 93005; 94640; 96372; 96374; 96375; 97139; G0257; G0378; J0613; J1644; J1815; J7512; J7620

== ENCOUNTER 2024-02-28 21:12 | Inpatient (IN) | payer OTHER, MEDICAID ==
[2024-02-28 22:14] LABS: #Basophils 0.05 10x3/uL (0.0-0.2); %Basophils 0.3 % (0.0-1.0); %Eosinophils 0.2 % (0.0-10.0); %Lymphocytes 6.8 % (21.0-51.0); %Monocytes 6.2 % (0.0-10.0); %Neutrophils 85.3 % (42.0-75.0); Hematocrit 41.7 % (36.0-47.0); Hemoglobin 12.9 g/dL (12.0-16.0); Mean Corpuscular HGB CONC 30.9 g/dL (32.0-36.0); Mean Corpuscular Hemoglobin 30.6 pg (27.0-31.0); Mean Platelet Volume 10.7 fL (7.4-10.4); Platelet Count 241 10x3/uL (130-400); Red Blood Cell (RBC) Count 4.21 mill/uL (4.20-5.40)
[2024-02-28 22:26] LABS: ALT (SGPT) 66 U/L (8-55); AST (SGOT) 37 U/L (5-34); Albumin 2.6 g/dL (3.4-4.8); Alkaline Phosphatase 352 U/L (40-110); Anion Gap 19 mmol/L (10-20); BUN (Urea Nitrogen) 57 mg/dL (9.8-20.1); Bilirubin, Total 0.9 mg/dL (0.2-1.2); Calc. Creatinine Clearance 0 mL/min (70-130); Calcium 8.1 mg/dL (7.8-10.44); Carbon Dioxide 26 mmol/L (23-31); Chloride 92 mmol/L (98-107); Estimated GFR 9; Globulin 5.2 g/dL (2.4-3.5); Glucose 229 mg/dL (83-110); Lipase 30 U/L (8-78); Potassium 5.8 mmol/L (3.5-5.1); Protein, Total 7.8 g/dL (5.8-8.1); Sodium 131 mmol/L (136-145)
[2024-02-28 22:47] LABS: Actual Bicarbonate (HCO3v) 27.4 mEq/L (22-28); Base Excess -3.8 mEq/L (-2.0 to +3.0); Calcium, Ionized (venous) 1.02 mmol/L (1.16-1.32); Chloride (VBG) 93 mmol/L (98-106); Hematocrit-VBG 41 % (36.0-47.0); Hemoglobin (Hb) 13.8 g/dL (11.7-16.1); Potassium (VBG) 5.73 mmol/L (3.70-5.30); Sodium 131 mmol/L (133-146)
[2024-02-28 22:49] LABS: pH (venous) 7.134 (7.32-7.43)
[2024-02-28 22:50] LABS: Troponin I 0.978 ng/mL (< 0.028)
[2024-02-29] MEDS ORDERED: Glucagon 1 MG/ML KIT IM PRN (00:59)
[2024-02-29] MEDS ORDERED: NOREPINEPHRINE 8 MG/250 ML-D5W 250 ML ONE (01:42)
[2024-02-29] MEDS ORDERED: Sodium Bicarb 50 MEQ/50 ML Abboject 8.4% SYRINGE ONE (01:42)
[2024-02-29] MEDS ORDERED: Dextrose 10% in Water 250 ML ONE (01:42)
[2024-02-29] MEDS ORDERED: Insulin Regular, Human 100 UNIT/ML 10 ML VIAL ONE (01:42)
[2024-02-29] MEDS ORDERED: CALCIUM GLUC 1 GM/NS 50 ML IV Bag ONE (01:42)
[2024-02-29] MEDS ORDERED: NOREPINEPHRINE 8 MG/250 ML-D5W 250 ML IVPB SCH (01:45)
[2024-02-29] MEDS ORDERED: Piperacillin/Tazobactam 3.375 GM in Sodium Chloride 0.9% 100 ML IVPB SCH ×2 (01:45→21:00)
[2024-02-29 02:06] LABS: Critical Call Chem Troponin I RESULT DECREASING; Troponin I 0.775 ng/mL (< 0.028)
[2024-02-29 04:08] LABS: #Basophils 0.04 10x3/uL (0.0-0.2); %Basophils 0.2 % (0.0-1.0); %Eosinophils 0.3 % (0.0-10.0); %Lymphocytes 6.9 % (21.0-51.0); %Monocytes 5.5 % (0.0-10.0); %Neutrophils 86.2 % (42.0-75.0); Hematocrit 40.1 % (36.0-47.0); Hemoglobin 12.5 g/dL (12.0-16.0); Mean Corpuscular HGB CONC 31.2 g/dL (32.0-36.0); Mean Corpuscular Hemoglobin 29.5 pg (27.0-31.0); Mean Corpuscular Volume 94.6 fL (78.0-98.0); Mean Platelet Volume 10.5 fL (7.4-10.4); Platelet Count 210 10x3/uL (130-400); Red Blood Cell (RBC) Count 4.24 mill/uL (4.20-5.40)
[2024-02-29 04:09] LABS: Actual Bicarbonate (HCO3v) 27.6 mEq/L (22-28); Base Excess -1.1 mEq/L (-2.0 to +3.0); Calcium, Ionized (venous) 0.98 mmol/L (1.16-1.32); Chloride (VBG) 93 mmol/L (98-106); Hematocrit-VBG 39 % (36.0-47.0); Hemoglobin (Hb) 13.4 g/dL (11.7-16.1); Potassium (VBG) 5.44 mmol/L (3.70-5.30); Sodium 131 mmol/L (133-146); pH (venous) 7.244 (7.32-7.43)
[2024-02-29 04:22] LABS: Anion Gap 21 mmol/L (10-20); BUN (Urea Nitrogen) 59 mg/dL (9.8-20.1); Calc. Creatinine Clearance 0 mL/min (70-130); Calcium 8.3 mg/dL (7.8-10.44); Carbon Dioxide 24 mmol/L (23-31); Chloride 93 mmol/L (98-107); Estimated GFR 9; Glucose 254 mg/dL (83-110); Potassium 5.6 mmol/L (3.5-5.1); Sodium 132 mmol/L (136-145)
[2024-02-29 04:39] LABS: Troponin I 0.816 ng/mL (< 0.028)
[2024-02-29 05:21] LABS: Actual Bicarbonate (HCO3v) 25.6 mEq/L (22-28); Base Excess -1.2 mEq/L (-2.0 to +3.0); Calcium, Ionized (venous) 0.96 mmol/L (1.16-1.32); Chloride (VBG) 95 mmol/L (98-106); Hematocrit-VBG 38 % (36.0-47.0); Hemoglobin (Hb) 12.9 g/dL (11.7-16.1); Potassium (VBG) 5.01 mmol/L (3.70-5.30); Sodium 130 mmol/L (133-146); pH (venous) 7.314 (7.32-7.43)
[2024-02-29 05:28] LABS: #Basophils 0.03 10x3/uL (0.0-0.2); %Basophils 0.2 % (0.0-1.0); %Eosinophils 0.4 % (0.0-10.0); %Monocytes 7.3 % (0.0-10.0); %Neutrophils 84.7 % (42.0-75.0); Hematocrit 38.6 % (36.0-47.0); Hemoglobin 11.7 g/dL (12.0-16.0); Mean Corpuscular HGB CONC 30.3 g/dL (32.0-36.0); Mean Corpuscular Hemoglobin 30.1 pg (27.0-31.0); Mean Corpuscular Volume 99.2 fL (78.0-98.0); Mean Platelet Volume 10.1 fL (7.4-10.4); Platelet Count 221 10x3/uL (130-400); RBC Distribution Width 17.1 % (11.5-14.5); Red Blood Cell (RBC) Count 3.89 mill/uL (4.20-5.40)
[2024-02-29 06:11] LABS: Magnesium 1.9 mg/dL (1.6-2.6)
[2024-02-29] MEDS: Mometasone 100 MCG/Formoterol 5 MCG 120 PUFF INHALER INH SCH (07:00)
[2024-02-29] MEDS: Albuterol 200 PUFF (6.7GM INHALER) INH SCH (07:00)
[2024-02-29] MEDS ORDERED: Vancomycin Dialysis Sliding Scale (Wt > 99) FS SCH (07:30)
[2024-02-29] MEDS ORDERED: Vancomycin Dose by Levels Sliding Scale (Wt > 99) FS SCH (07:30)
[2024-02-29] MEDS: Sodium Bicarb 50 MEQ/50 ML Abboject 8.4% SYRINGE IVP SCH ×2 (08:14→08:33)
[2024-02-29] MEDS: CALCIUM GLUC 1 GM/NS 50 ML 1 GM in Premix 1 BAG IVPB SCH (08:14)
[2024-02-29] MEDS: Insulin Regular, Human 100 UNIT/ML 10 ML VIAL IVP SCH (08:32)
[2024-02-29] MEDS: Heparin 5,000 UNITS/ML VIAL SC SCH (08:33)
[2024-02-29] MEDS: Piperacillin/Tazobactam 3.375 GM in Sodium Chloride 0.9% 100 ML IVPB SCH ×2 (08:33→12:04)
[2024-02-29] MEDS: Pantoprazole 40 MG VIAL IVP SCH (08:33)
[2024-02-29] MEDS: methylPREDNISolone Sod Succ 40 MG VIAL IVP SCH (08:34)
[2024-02-29] MEDS: Vancomycin (BATCH) 2 GM in Premix 1 BAG IVPB SCH (08:54)
[2024-02-29] MEDS ORDERED: Vancomycin 1.5 GM in Sodium Chloride 0.9% 250 ML 300 ML IVPB SCH (09:00)
[2024-02-29] MEDS ORDERED: Enoxaparin 40 MG (0.4 mL) SYRINGE SC SCH (09:00)
[2024-02-29] MEDS: Insulin Lispro 100 UNIT/ML 10 ML VIAL SC PRN (12:03)
[2024-02-29 12:16] LABS: Potassium 5.2 mmol/L (3.5-5.1); Sodium 134 mmol/L (136-145)
[2024-02-29] MEDS: Lorazepam 2 MG/ML VIAL SLOW IVP SCH (15:00)
[2024-02-29] MEDS: Morphine 2 MG/ML VIAL SLOW IVP SCH (16:23)
[2024-03-01 08:56] LABS: #Basophils 0.03 10x3/uL (0.0-0.2); #Eosinophils Less than 0.03 10x3/uL (0.0-0.7); %Basophils 0.1 % (0.0-1.0); %Lymphocytes 2.5 % (21.0-51.0); %Monocytes 2.6 % (0.0-10.0); %Neutrophils 93.3 % (42.0-75.0); Hematocrit 39.3 % (36.0-47.0); Mean Corpuscular HGB CONC 30.5 g/dL (32.0-36.0); Mean Corpuscular Hemoglobin 29.9 pg (27.0-31.0); Mean Platelet Volume 10.4 fL (7.4-10.4); Platelet Count 245 10x3/uL (130-400); Red Blood Cell (RBC) Count 4.01 mill/uL (4.20-5.40)
[2024-03-01 09:40] LABS: Vancomycin, Trough 31.5 ug/mL
[2024-03-01] MEDS: Atorvastatin Calcium 40 MG TAB PO SCH (21:40)
[2024-03-01] MEDS: Insulin Glargine 30 UNITS/0.3 ML VIAL SC SCH (21:41)
[2024-03-02] MEDS: traMADol HCl 50 MG TAB PO SCH (00:01)
[2024-03-02 07:45] LABS: #Basophils Less than 0.03 10x3/uL (0.0-0.2); #Eosinophils Less than 0.03 10x3/uL (0.0-0.7); %Basophils 0.1 % (0.0-1.0); %Lymphocytes 2.2 % (21.0-51.0); %Monocytes 5.1 % (0.0-10.0); %Neutrophils 91.6 % (42.0-75.0); Hematocrit 37.8 % (36.0-47.0); Hemoglobin 11.8 g/dL (12.0-16.0); Mean Corpuscular HGB CONC 31.2 g/dL (32.0-36.0); Mean Corpuscular Hemoglobin 30.1 pg (27.0-31.0); Mean Corpuscular Volume 96.4 fL (78.0-98.0); Mean Platelet Volume 10.6 fL (7.4-10.4); Platelet Count 235 10x3/uL (130-400); RBC Distribution Width 17.1 % (11.5-14.5); Red Blood Cell (RBC) Count 3.92 mill/uL (4.20-5.40)
[2024-03-02] MEDS ORDERED: Insulin Lispro 100 UNIT/ML 10 ML VIAL SC PRN (07:59)
[2024-03-02 08:16] LABS: Anion Gap 18 mmol/L (10-20); BUN (Urea Nitrogen) 69 mg/dL (9.8-20.1); Calc. Creatinine Clearance 16 mL/min (70-130); Calcium 7.7 mg/dL (7.8-10.44); Carbon Dioxide 23 mmol/L (23-31); Chloride 92 mmol/L (98-107); Estimated GFR 8; Glucose 491 mg/dL (83-110); Potassium 5.3 mmol/L (3.5-5.1); Sodium 128 mmol/L (136-145)
[2024-03-02] MEDS: Pantoprazole DR 40 MG TAB PO SCH (10:52)
[2024-03-02] MEDS: Aspirin Chewable 81 MG TAB PO SCH (10:52)
[2024-03-02] MEDS: Insulin Glargine 30 UNITS/0.3 ML VIAL SC SCH (10:53)
[2024-03-02 13:30] LABS: Anion Gap 18 mmol/L (10-20); BUN (Urea Nitrogen) 82 mg/dL (9.8-20.1); Calc. Creatinine Clearance 16 mL/min (70-130); Calcium 7.8 mg/dL (7.8-10.44); Carbon Dioxide 24 mmol/L (23-31); Chloride 89 mmol/L (98-107); Estimated GFR 8; Glucose 585 mg/dL (83-110); Potassium 5.7 mmol/L (3.5-5.1); Sodium 125 mmol/L (136-145)
[2024-03-02] MEDS: Insulin Lispro 100 UNIT/ML 10 ML VIAL SC PRN (14:24)
[2024-03-03] MEDS: traMADol HCl 50 MG TAB PO SCH (06:14)
[2024-03-03] MEDS ORDERED: Lidocaine 1% (PF) 30 ML VIAL ONE (06:27)
[2024-03-03 08:03] LABS: Potassium 5.2 mmol/L (3.5-5.1)
[2024-03-03 08:07] LABS: Vancomycin, Trough 24.8 ug/mL
[2024-03-03] MEDS ORDERED: Ketamine In 0.9 % NaCl 50 MG/5 ML SYRINGE ONE (08:19)
[2024-03-03] MEDS ORDERED: Midazolam HCl 2 mg/2 ml Vial ONE (08:20)
[2024-03-03] MEDS ORDERED: PROPOFOL 20 ML ONE (08:22)
[2024-03-03] MEDS ORDERED: ePHEDrine Sulfate 50 MG/10 ML VIAL ONE (08:30)
[2024-03-03] MEDS: HumaLOG 300 UNITS/3 ML VIAL SC SCH (13:35)
[2024-03-03] MEDS: Vancomycin HCl 500 MG in Sodium Chloride 0.9% 100 ML IVPB SCH (17:53)
[2024-03-03] MEDS: Insulin Glargine 30 UNITS/0.3 ML VIAL SC SCH (20:46)
[2024-03-03] MEDS: HYDROcodone/Acetaminophen 5/325 mg Tablet PO PRN (20:50)
[2024-03-03] MEDS: Timolol 0.5% Ophth Soln 5 ml Bottle EA EYE SCH (21:18)
[2024-03-04 07:39] LABS: #Basophils Less than 0.03 10x3/uL (0.0-0.2); %Basophils 0.2 % (0.0-1.0); %Eosinophils 0.5 % (0.0-10.0); %Lymphocytes 9.2 % (21.0-51.0); %Monocytes 8.6 % (0.0-10.0); %Neutrophils 80.5 % (42.0-75.0); Hematocrit 39.8 % (36.0-47.0); Hemoglobin 12.5 g/dL (12.0-16.0); Mean Corpuscular HGB CONC 31.4 g/dL (32.0-36.0); Mean Corpuscular Hemoglobin 29.3 pg (27.0-31.0); Mean Corpuscular Volume 93.4 fL (78.0-98.0); Mean Platelet Volume 10.1 fL (7.4-10.4); Platelet Count 206 10x3/uL (130-400); Red Blood Cell (RBC) Count 4.26 mill/uL (4.20-5.40)
[2024-03-04 08:11] LABS: Anion Gap 18 mmol/L (10-20); BUN (Urea Nitrogen) 61 mg/dL (9.8-20.1); Calc. Creatinine Clearance 20 mL/min (70-130); Calcium 7.4 mg/dL (7.8-10.44); Carbon Dioxide 24 mmol/L (23-31); Chloride 98 mmol/L (98-107); Estimated GFR 10; Glucose 50 mg/dL (83-110); Potassium 4.7 mmol/L (3.5-5.1); Sodium 135 mmol/L (136-145)
[2024-03-04] MEDS: Morphine 2 MG/ML VIAL SLOW IVP SCH (10:22)
[2024-03-04 14:24] LABS: Phosphorus 4.4 mg/dL (2.3-4.7)
[2024-03-04] MEDS: Albuterol 200 PUFF (6.7GM INHALER) INH SCH (18:55)
[2024-03-05 06:00] LABS: #Basophils 0.04 10x3/uL (0.0-0.2); %Basophils 0.2 % (0.0-1.0); %Eosinophils 0.5 % (0.0-10.0); %Neutrophils 81.1 % (42.0-75.0); Hematocrit 38.2 % (36.0-47.0); Hemoglobin 12.3 g/dL (12.0-16.0); Mean Corpuscular HGB CONC 32.2 g/dL (32.0-36.0); Mean Corpuscular Hemoglobin 29.5 pg (27.0-31.0); Mean Corpuscular Volume 91.6 fL (78.0-98.0); Mean Platelet Volume 10.4 fL (7.4-10.4); Platelet Count 184 10x3/uL (130-400); RBC Distribution Width 16.8 % (11.5-14.5); Red Blood Cell (RBC) Count 4.17 mill/uL (4.20-5.40)
[2024-03-05 06:15] LABS: Anion Gap 19 mmol/L (10-20); BUN (Urea Nitrogen) 83 mg/dL (9.8-20.1); Calc. Creatinine Clearance 17 mL/min (70-130); Carbon Dioxide 24 mmol/L (23-31); Chloride 93 mmol/L (98-107); Estimated GFR 8; Glucose 129 mg/dL (83-110); Potassium 5.6 mmol/L (3.5-5.1); Sodium 130 mmol/L (136-145)
[2024-03-05] MEDS ORDERED: Heparin 10,000 UNITS/ 10 ML VIAL ONE (10:18)
[2024-03-06 06:38] LABS: #Basophils 0.03 10x3/uL (0.0-0.2); %Basophils 0.2 % (0.0-1.0); %Eosinophils 1.2 % (0.0-10.0); %Lymphocytes 6.8 % (21.0-51.0); %Monocytes 11.2 % (0.0-10.0); %Neutrophils 79.3 % (42.0-75.0); Hematocrit 36.5 % (36.0-47.0); Hemoglobin 11.5 g/dL (12.0-16.0); Mean Corpuscular HGB CONC 31.5 g/dL (32.0-36.0); Mean Corpuscular Hemoglobin 29.6 pg (27.0-31.0); Mean Corpuscular Volume 94.1 fL (78.0-98.0); Platelet Count 174 10x3/uL (130-400); RBC Distribution Width 17.1 % (11.5-14.5); Red Blood Cell (RBC) Count 3.88 mill/uL (4.20-5.40)
[2024-03-06 07:01] LABS: Anion Gap 15 mmol/L (10-20); BUN (Urea Nitrogen) 54 mg/dL (9.8-20.1); Calc. Creatinine Clearance 21 mL/min (70-130); Calcium 7.3 mg/dL (7.8-10.44); Carbon Dioxide 27 mmol/L (23-31); Chloride 95 mmol/L (98-107); Estimated GFR 10; Glucose 104 mg/dL (83-110); Potassium 4.4 mmol/L (3.5-5.1); Sodium 133 mmol/L (136-145)
[2024-03-06] MEDS ORDERED: Morphine 4 MG/ML VIAL SLOW IVP SCH (11:15)
[2024-03-06] MEDS: Morphine 2 MG/ML VIAL SLOW IVP SCH (11:26)
[2024-03-06] MEDS: Lorazepam 2 MG/ML VIAL SLOW IVP SCH (12:27)
[2024-03-06] MEDS: Meropenem 500 MG in Sodium Chloride 0.9% 100 ML IVPB SCH (17:29)
[2024-03-07 05:59] LABS: #Basophils 0.03 10x3/uL (0.0-0.2); %Basophils 0.2 % (0.0-1.0); %Eosinophils 1.2 % (0.0-10.0); %Lymphocytes 6.8 % (21.0-51.0); %Monocytes 9.7 % (0.0-10.0); %Neutrophils 80.9 % (42.0-75.0); Hematocrit 35.2 % (36.0-47.0); Hemoglobin 11.1 g/dL (12.0-16.0); Mean Corpuscular HGB CONC 31.5 g/dL (32.0-36.0); Mean Corpuscular Hemoglobin 30.1 pg (27.0-31.0); Mean Corpuscular Volume 95.4 fL (78.0-98.0); Mean Platelet Volume 10.3 fL (7.4-10.4); Platelet Count 183 10x3/uL (130-400); RBC Distribution Width 16.9 % (11.5-14.5); Red Blood Cell (RBC) Count 3.69 mill/uL (4.20-5.40)
[2024-03-07 06:37] LABS: Anion Gap 17 mmol/L (10-20); BUN (Urea Nitrogen) 73 mg/dL (9.8-20.1); Calc. Creatinine Clearance 19 mL/min (70-130); Calcium 7.5 mg/dL (7.8-10.44); Carbon Dioxide 25 mmol/L (23-31); Chloride 92 mmol/L (98-107); Estimated GFR 9; Glucose 140 mg/dL (83-110); Potassium 4.9 mmol/L (3.5-5.1); Sodium 129 mmol/L (136-145)
[2024-03-07] MEDS: Morphine 2 MG/ML VIAL SLOW IVP SCH (10:08)
[2024-03-07] MEDS: Morphine 2 MG/ML VIAL SLOW IVP PRN (17:37)
[2024-03-08 06:28] LABS: #Basophils 0.04 10x3/uL (0.0-0.2); %Basophils 0.2 % (0.0-1.0); %Eosinophils 1.2 % (0.0-10.0); %Lymphocytes 8.1 % (21.0-51.0); %Monocytes 12.7 % (0.0-10.0); %Neutrophils 76.8 % (42.0-75.0); Hematocrit 34.2 % (36.0-47.0); Hemoglobin 10.9 g/dL (12.0-16.0); Mean Corpuscular HGB CONC 31.9 g/dL (32.0-36.0); Mean Corpuscular Hemoglobin 29.5 pg (27.0-31.0); Mean Corpuscular Volume 92.4 fL (78.0-98.0); Mean Platelet Volume 10.3 fL (7.4-10.4); Platelet Count 193 10x3/uL (130-400); RBC Distribution Width 16.8 % (11.5-14.5)
[2024-03-08 06:40] LABS: Anion Gap 18 mmol/L (10-20); BUN (Urea Nitrogen) 86 mg/dL (9.8-20.1); Calc. Creatinine Clearance 15 mL/min (70-130); Calcium 7.6 mg/dL (7.8-10.44); Carbon Dioxide 25 mmol/L (23-31); Chloride 90 mmol/L (98-107); Estimated GFR 7; Glucose 110 mg/dL (83-110); Potassium 5.6 mmol/L (3.5-5.1); Sodium 127 mmol/L (136-145)
[2024-03-08] MEDS ORDERED: Sodium Chloride 0.9% 1,000 ML IV SCH (08:45)
[2024-03-09 06:00] LABS: #Basophils 0.04 10x3/uL (0.0-0.2); %Basophils 0.2 % (0.0-1.0); %Eosinophils 1.1 % (0.0-10.0); %Monocytes 12.8 % (0.0-10.0); %Neutrophils 77.8 % (42.0-75.0); Hematocrit 35.7 % (36.0-47.0); Hemoglobin 11.1 g/dL (12.0-16.0); Mean Corpuscular HGB CONC 31.1 g/dL (32.0-36.0); Mean Corpuscular Hemoglobin 29.1 pg (27.0-31.0); Mean Corpuscular Volume 93.7 fL (78.0-98.0); Mean Platelet Volume 9.8 fL (7.4-10.4); Platelet Count 218 10x3/uL (130-400); RBC Distribution Width 16.9 % (11.5-14.5); Red Blood Cell (RBC) Count 3.81 mill/uL (4.20-5.40)
[2024-03-09 06:11] LABS: Hemoglobin A1c 7.4 % (4.0-6.0)
[2024-03-09 06:13] LABS: Anion Gap 16 mmol/L (10-20); BUN (Urea Nitrogen) 52 mg/dL (9.8-20.1); Calc. Creatinine Clearance 21 mL/min (70-130); Calcium 8.3 mg/dL (7.8-10.44); Carbon Dioxide 28 mmol/L (23-31); Chloride 94 mmol/L (98-107); Estimated GFR 11; Glucose 117 mg/dL (83-110); Magnesium 1.9 mg/dL (1.6-2.6); Potassium 4.7 mmol/L (3.5-5.1); Sodium 133 mmol/L (136-145)
[2024-03-09] MEDS: Morphine 2 MG/ML VIAL SLOW IVP SCH (09:59)
[2024-03-10 05:07] LABS: #Basophils 0.04 10x3/uL (0.0-0.2); %Basophils 0.3 % (0.0-1.0); %Eosinophils 1.3 % (0.0-10.0); %Lymphocytes 8.1 % (21.0-51.0); %Monocytes 10.8 % (0.0-10.0); %Neutrophils 78.5 % (42.0-75.0); Hematocrit 34.3 % (36.0-47.0); Hemoglobin 10.7 g/dL (12.0-16.0); Mean Corpuscular HGB CONC 31.2 g/dL (32.0-36.0); Mean Corpuscular Hemoglobin 29.2 pg (27.0-31.0); Mean Corpuscular Volume 93.7 fL (78.0-98.0); Mean Platelet Volume 10.2 fL (7.4-10.4); Platelet Count 245 10x3/uL (130-400); RBC Distribution Width 16.7 % (11.5-14.5); Red Blood Cell (RBC) Count 3.66 mill/uL (4.20-5.40)
[2024-03-10 05:22] LABS: Anion Gap 16 mmol/L (10-20); BUN (Urea Nitrogen) 67 mg/dL (9.8-20.1); Calc. Creatinine Clearance 18 mL/min (70-130); Calcium 8.6 mg/dL (7.8-10.44); Carbon Dioxide 26 mmol/L (23-31); Chloride 94 mmol/L (98-107); Estimated GFR 9; Glucose 104 mg/dL (83-110); Potassium 4.9 mmol/L (3.5-5.1); Sodium 131 mmol/L (136-145)
[2024-03-11] MEDS: Dextrose 5% in Water 1,000 ML IV PRN (05:16)
[2024-03-11] MEDS: Dextrose 50% Abboject 50 ML SYRINGE SLOW IVP PRN (05:43)
[2024-03-11 06:17] LABS: #Basophils 0.05 10x3/uL (0.0-0.2); %Basophils 0.3 % (0.0-1.0); %Eosinophils 0.9 % (0.0-10.0); %Lymphocytes 6.6 % (21.0-51.0); %Monocytes 9.2 % (0.0-10.0); Hematocrit 32.8 % (36.0-47.0); Mean Corpuscular HGB CONC 30.5 g/dL (32.0-36.0); Mean Corpuscular Hemoglobin 28.9 pg (27.0-31.0); Mean Corpuscular Volume 94.8 fL (78.0-98.0); Mean Platelet Volume 9.8 fL (7.4-10.4); Platelet Count 256 10x3/uL (130-400); RBC Distribution Width 16.4 % (11.5-14.5); Red Blood Cell (RBC) Count 3.46 mill/uL (4.20-5.40)
[2024-03-11 06:39] LABS: Anion Gap 15 mmol/L (10-20); BUN (Urea Nitrogen) 39 mg/dL (9.8-20.1); Calc. Creatinine Clearance 24 mL/min (70-130); Calcium 8.4 mg/dL (7.8-10.44); Carbon Dioxide 27 mmol/L (23-31); Chloride 96 mmol/L (98-107); Estimated GFR 12; Glucose 42 mg/dL (83-110); Potassium 4.3 mmol/L (3.5-5.1); Sodium 134 mmol/L (136-145)
[2024-03-11] MEDS: Insulin Glargine 30 UNITS/0.3 ML VIAL SC SCH (08:50)
[2024-03-11] MEDS ORDERED: Ketamine In 0.9 % NaCl 50 MG/5 ML SYRINGE ONE ×2 (13:43→16:07)
[2024-03-11] MEDS ORDERED: Midazolam HCl 2 mg/2 ml Vial ONE ×2 (13:46→16:07)
[2024-03-11] MEDS ORDERED: Morphine 2 MG/ML VIAL ONE (15:54)
[2024-03-11] MEDS ORDERED: PROPOFOL 20 ML ONE (16:07)
[2024-03-11] MEDS ORDERED: Bupivacaine PF 0.5% 30 ML VIAL ONE (16:34)
[2024-03-11] MEDS ORDERED: PHENYLEPHRINE-NS 100 MCG/ML 10 ML SYRINGE ONE (16:43)
[2024-03-11] MEDS ORDERED: ePHEDrine Sulfate 50 MG/10 ML VIAL ONE (16:51)
[2024-03-11] MEDS ORDERED: fentaNYL 50 mcg/mL 1 mL Vial ONE ×2 (17:17→17:47)
[2024-03-12 05:46] LABS: #Basophils 0.04 10x3/uL (0.0-0.2); %Basophils 0.2 % (0.0-1.0); %Eosinophils 0.7 % (0.0-10.0); %Lymphocytes 8.3 % (21.0-51.0); %Monocytes 8.7 % (0.0-10.0); %Neutrophils 81.3 % (42.0-75.0); Hematocrit 32.9 % (36.0-47.0); Hemoglobin 9.9 g/dL (12.0-16.0); Mean Corpuscular HGB CONC 30.1 g/dL (32.0-36.0); Mean Corpuscular Hemoglobin 29.5 pg (27.0-31.0); Mean Corpuscular Volume 97.9 fL (78.0-98.0); Platelet Count 286 10x3/uL (130-400); RBC Distribution Width 16.9 % (11.5-14.5); Red Blood Cell (RBC) Count 3.36 mill/uL (4.20-5.40)
[2024-03-12 05:57] LABS: Anion Gap 18 mmol/L (10-20); BUN (Urea Nitrogen) 47 mg/dL (9.8-20.1); Calc. Creatinine Clearance 19 mL/min (70-130); Calcium 8.6 mg/dL (7.8-10.44); Carbon Dioxide 24 mmol/L (23-31); Chloride 96 mmol/L (98-107); Estimated GFR 9; Glucose 107 mg/dL (83-110); Potassium 5.2 mmol/L (3.5-5.1); Sodium 133 mmol/L (136-145)
[2024-03-12] MEDS ORDERED: Ipratropium/Albuterol 3 ML NEB NEB PRN (10:28)
[2024-03-12] MEDS ORDERED: methylPREDNISolone Sod Succ/PF 125 MG/2 ML VIAL IVP SCH (10:30)
[2024-03-12] MEDS: methylPREDNISolone Sod Succ 40 MG VIAL IVP SCH (14:59)
[2024-03-12] MEDS: Sodium Chloride 0.65% Nasal 44 ML BOT EA NARE PRN (16:01)
[2024-03-13 05:14] LABS: #Basophils Less than 0.03 10x3/uL (0.0-0.2); #Eosinophils Less than 0.03 10x3/uL (0.0-0.7); %Basophils 0.2 % (0.0-1.0); %Lymphocytes 5.5 % (21.0-51.0); %Monocytes 1.4 % (0.0-10.0); %Neutrophils 92.1 % (42.0-75.0); Hematocrit 33.1 % (36.0-47.0); Hemoglobin 10.3 g/dL (12.0-16.0); Mean Corpuscular HGB CONC 31.1 g/dL (32.0-36.0); Mean Corpuscular Hemoglobin 29.8 pg (27.0-31.0); Mean Corpuscular Volume 95.7 fL (78.0-98.0); Mean Platelet Volume 9.7 fL (7.4-10.4); Platelet Count 292 10x3/uL (130-400); RBC Distribution Width 16.6 % (11.5-14.5); Red Blood Cell (RBC) Count 3.46 mill/uL (4.20-5.40)
[2024-03-13 05:34] LABS: Anion Gap 17 mmol/L (10-20); BUN (Urea Nitrogen) 33 mg/dL (9.8-20.1); Calc. Creatinine Clearance 25 mL/min (70-130); Calcium 8.8 mg/dL (7.8-10.44); Carbon Dioxide 26 mmol/L (23-31); Chloride 95 mmol/L (98-107); Estimated GFR 13; Glucose 207 mg/dL (83-110); Potassium 4.8 mmol/L (3.5-5.1); Sodium 133 mmol/L (136-145)
[2024-03-14 05:51] LABS: #Basophils Less than 0.03 10x3/uL (0.0-0.2); #Eosinophils Less than 0.03 10x3/uL (0.0-0.7); %Basophils 0.1 % (0.0-1.0); %Lymphocytes 4.2 % (21.0-51.0); %Monocytes 2.2 % (0.0-10.0); %Neutrophils 92.7 % (42.0-75.0); Hematocrit 32.8 % (36.0-47.0); Hemoglobin 10.3 g/dL (12.0-16.0); Mean Corpuscular HGB CONC 31.4 g/dL (32.0-36.0); Mean Corpuscular Hemoglobin 29.1 pg (27.0-31.0); Mean Corpuscular Volume 92.7 fL (78.0-98.0); Mean Platelet Volume 9.8 fL (7.4-10.4); Platelet Count 292 10x3/uL (130-400); RBC Distribution Width 16.1 % (11.5-14.5); Red Blood Cell (RBC) Count 3.54 mill/uL (4.20-5.40)
[2024-03-14 06:08] LABS: Anion Gap 18 mmol/L (10-20); BUN (Urea Nitrogen) 56 mg/dL (9.8-20.1); Calc. Creatinine Clearance 20 mL/min (70-130); Calcium 8.4 mg/dL (7.8-10.44); Carbon Dioxide 24 mmol/L (23-31); Chloride 94 mmol/L (98-107); Estimated GFR 10; Glucose 236 mg/dL (83-110); Potassium 4.9 mmol/L (3.5-5.1); Sodium 131 mmol/L (136-145)
[2024-03-15 06:05] LABS: #Basophils Less than 0.03 10x3/uL (0.0-0.2); #Eosinophils Less than 0.03 10x3/uL (0.0-0.7); %Basophils 0.1 % (0.0-1.0); %Lymphocytes 5.2 % (21.0-51.0); %Monocytes 4.4 % (0.0-10.0); %Neutrophils 89.6 % (42.0-75.0); Hematocrit 31.3 % (36.0-47.0); Hemoglobin 10.2 g/dL (12.0-16.0); Mean Corpuscular HGB CONC 32.6 g/dL (32.0-36.0); Mean Corpuscular Hemoglobin 29.1 pg (27.0-31.0); Mean Corpuscular Volume 89.4 fL (78.0-98.0); Mean Platelet Volume 9.9 fL (7.4-10.4); Platelet Count 290 10x3/uL (130-400); RBC Distribution Width 16.3 % (11.5-14.5)
[2024-03-15 06:20] LABS: Anion Gap 20 mmol/L (10-20); BUN (Urea Nitrogen) 79 mg/dL (9.8-20.1); Calc. Creatinine Clearance 16 mL/min (70-130); Carbon Dioxide 24 mmol/L (23-31); Chloride 92 mmol/L (98-107); Estimated GFR 8; Glucose 241 mg/dL (83-110); Potassium 5.2 mmol/L (3.5-5.1); Sodium 131 mmol/L (136-145)
[2024-03-15] MEDS ORDERED: Ondansetron PF 4 MG/2 ML Vial ONE (08:37)
[2024-03-15] MEDS ORDERED: fentaNYL PF 100 MCG/2 ML SYRINGE ONE ×2 (08:37→12:35)
[2024-03-15] MEDS ORDERED: Dexamethasone 4 mg/ml Vial ONE (08:37)
[2024-03-15] MEDS ORDERED: PROPOFOL 20 ML ONE ×2 (08:37→10:00)
[2024-03-15] MEDS ORDERED: Lidocaine 2% 6 ML (Jelly) SYR ONE (08:37)
[2024-03-15] MEDS ORDERED: Lidocaine 2% PF 5 ML VIAL ONE (08:37)
[2024-03-15] MEDS ORDERED: Midazolam HCl 2 mg/2 ml Vial ONE (08:38)
[2024-03-15] MEDS ORDERED: Promethazine HCl 25 MG/ML VIAL IM PRN (09:23)
[2024-03-15] MEDS ORDERED: Ondansetron HCl/PF 4 MG/2 ML Vial IVP PRN (09:23)
[2024-03-15] MEDS ORDERED: Ipratropium/Albuterol 3 ML NEB ONE (09:23)
[2024-03-15] MEDS ORDERED: Ketamine In 0.9 % NaCl 50 MG/5 ML SYRINGE ONE (09:34)
[2024-03-15] MEDS ORDERED: Albuterol HFA (OR) 200 PUFF INH ONE (09:54)
[2024-03-15] MEDS ORDERED: Rocuronium Bromide 10 MG/ML (10ML VIAL) ONE (09:54)
[2024-03-15] MEDS ORDERED: Lidocaine 1% (PF) 30 ML VIAL ONE (09:56)
[2024-03-15] MEDS ORDERED: ePHEDrine Sulfate 50 MG/10 ML VIAL ONE (10:15)
[2024-03-15] MEDS ORDERED: SUGAMMADEX SODIUM 200 MG/2 ML VIAL ONE (10:53)
[2024-03-15] MEDS ORDERED: Albumin 25% 100 ML ONE (11:08)
[2024-03-15] MEDS ORDERED: Bupivacaine PF 0.5% 30 ML VIAL ONE (11:28)
[2024-03-15] MEDS ORDERED: fentaNYL 50 mcg/mL 1 mL Vial ONE (13:05)
[2024-03-16 03:51] LABS: Anion Gap 18 mmol/L (10-20); BUN (Urea Nitrogen) 49 mg/dL (9.8-20.1); Calc. Creatinine Clearance 24 mL/min (70-130); Calcium 7.4 mg/dL (7.8-10.44); Carbon Dioxide 22 mmol/L (23-31); Chloride 97 mmol/L (98-107); Estimated GFR 12; Glucose 125 mg/dL (83-110); Sodium 132 mmol/L (136-145)
[2024-03-16 06:16] LABS: #Basophils Less than 0.03 10x3/uL (0.0-0.2); #Eosinophils Less than 0.03 10x3/uL (0.0-0.7); %Eosinophils 0.1 % (0.0-10.0); %Lymphocytes 7.7 % (21.0-51.0); %Monocytes 8.7 % (0.0-10.0); %Neutrophils 82.7 % (42.0-75.0); Hematocrit 27.7 % (36.0-47.0); Hemoglobin 8.7 g/dL (12.0-16.0); Mean Corpuscular HGB CONC 31.4 g/dL (32.0-36.0); Mean Corpuscular Hemoglobin 30.1 pg (27.0-31.0); Mean Corpuscular Volume 95.8 fL (78.0-98.0); Mean Platelet Volume 9.9 fL (7.4-10.4); Platelet Count 252 10x3/uL (130-400); RBC Distribution Width 16.8 % (11.5-14.5); Red Blood Cell (RBC) Count 2.89 mill/uL (4.20-5.40)
[2024-03-16] MEDS: Gabapentin 300 MG CAP PO SCH (10:25)
[2024-03-16] MEDS: Sucroferric Oxyhydroxide [Velphoro] 500 MG Tab.Chew PO SCH (15:40)
[2024-03-16] MEDS: Lanthanum Carbonate 500 mg Chewable Tablet PO SCH (17:36)
[2024-03-17 04:19] LABS: #Basophils Less than 0.03 10x3/uL (0.0-0.2); %Basophils 0.1 % (0.0-1.0); %Eosinophils 1.4 % (0.0-10.0); %Lymphocytes 12.5 % (21.0-51.0); %Monocytes 8.5 % (0.0-10.0); %Neutrophils 76.6 % (42.0-75.0); Hematocrit 28.9 % (36.0-47.0); Hemoglobin 8.9 g/dL (12.0-16.0); Mean Corpuscular HGB CONC 30.8 g/dL (32.0-36.0); Mean Corpuscular Hemoglobin 29.8 pg (27.0-31.0); Mean Corpuscular Volume 96.7 fL (78.0-98.0); Mean Platelet Volume 10.1 fL (7.4-10.4); Platelet Count 244 10x3/uL (130-400); Red Blood Cell (RBC) Count 2.99 mill/uL (4.20-5.40)
[2024-03-17 04:38] LABS: Anion Gap 16 mmol/L (10-20); BUN (Urea Nitrogen) 64 mg/dL (9.8-20.1); Calc. Creatinine Clearance 19 mL/min (70-130); Calcium 7.1 mg/dL (7.8-10.44); Carbon Dioxide 24 mmol/L (23-31); Chloride 96 mmol/L (98-107); Estimated GFR 9; Glucose 73 mg/dL (83-110); Potassium 5.4 mmol/L (3.5-5.1); Sodium 131 mmol/L (136-145)
[2024-03-17] MEDS: Midodrine HCl 5 MG TAB PO SCH (11:01)
[2024-03-17] MEDS: HYDROcodone/Acetaminophen 7.5/325 mg Tablet PO PRN (21:24)
[2024-03-18] MEDS: HYDROcodone/Acetaminophen 7.5/325 mg Tablet PO PRN (07:25)
[2024-03-18] MEDS: Morphine 2 MG/ML VIAL SLOW IVP PRN (09:10)
[2024-03-18] MEDS: Ibuprofen 600 MG TAB PO SCH (10:40)
[2024-03-18] MEDS: Acetaminophen 325 MG TAB PO SCH (10:40)
[2024-03-18] MEDS ORDERED: Senokot 8.6 MG TAB PO PRN (11:06)
[2024-03-18] MEDS ORDERED: Polyethylene Glycol 3350 17 GM Packet PO PRN (11:06)
[2024-03-18] MEDS: HYDROcodone/Acetaminophen 10/325 mg Tablet PO PRN ×2 (11:46→21:34)
[2024-03-19] MEDS: Lidocaine 4% Patch TD SCH (13:24)
[2024-03-19] MEDS: Midodrine HCl 5 MG TAB PO SCH (13:24)
[2024-03-19 20:08] LABS: Anion Gap 14 mmol/L (10-20); BUN (Urea Nitrogen) 33 mg/dL (9.8-20.1); Calc. Creatinine Clearance 26 mL/min (70-130); Calcium 7.4 mg/dL (7.8-10.44); Carbon Dioxide 29 mmol/L (23-31); Chloride 96 mmol/L (98-107); Estimated GFR 14; Glucose 171 mg/dL (83-110); Potassium 4.8 mmol/L (3.5-5.1); Sodium 134 mmol/L (136-145)
[2024-03-19] MEDS ORDERED: Ketorolac Tromethamine 30 MG (1 mL) VIAL IVP PRN (20:33)
[2024-03-19 20:42] LABS: Actual Bicarbonate (HCO3v) 28.3 mEq/L (22-28); Base Excess 2.2 mEq/L (-2.0 to +3.0); Calcium, Ionized (venous) 0.93 mmol/L (1.16-1.32); Chloride (VBG) 98 mmol/L (98-106); Hematocrit-VBG 28 % (36.0-47.0); Hemoglobin (Hb) 9.5 g/dL (11.7-16.1); Potassium (VBG) 5.01 mmol/L (3.70-5.30); Sodium 131 mmol/L (133-146); pH (venous) 7.357 (7.32-7.43)
[2024-03-19 21:28] LABS: #Basophils Less than 0.03 10x3/uL (0.0-0.2); %Basophils 0.1 % (0.0-1.0); %Eosinophils 0.8 % (0.0-10.0); %Lymphocytes 5.2 % (21.0-51.0); %Monocytes 6.8 % (0.0-10.0); %Neutrophils 85.8 % (42.0-75.0); Hematocrit 28.8 % (36.0-47.0); Hemoglobin 8.3 g/dL (12.0-16.0); Mean Corpuscular HGB CONC 28.8 g/dL (32.0-36.0); Mean Corpuscular Hemoglobin 29.6 pg (27.0-31.0); Mean Corpuscular Volume 102.9 fL (78.0-98.0); Mean Platelet Volume 10.5 fL (7.4-10.4); Platelet Count 218 10x3/uL (130-400)
[2024-03-19 22:56] LABS: Actual Bicarbonate (HCO3a) 26.6 mEq/L (22-28); Base Excess (BEa) -1.7 mEq/L (-2.0 to +3.0); CO2 Tension 66.8 mmHg (35.0-45.0); Calcium, Ionized (arterial) 1.08 mmol/L (1.12-1.30); Carboxyhemoglobin (COHb) 1.9 gm% (0.0-3.0); Hematocrit-ABG 26 % (36.0-47.0); O2 Tension (PaO2), arterial 61.5 mmHg (> 70.0); Potassium - ABG Lab 4.97 mmol/L (3.70-5.30); pH, Arterial 7.218 (7.35-7.45)
[2024-03-19 22:57] LABS: Puncture Site Right Radial artery
[2024-03-19 23:02] LABS: Anisocytosis SLIGHT = 6-15 cells HPF (0-5); Macrocytosis MODERATE=16-30 cells HPF (0-5); Ovalocytes SLIGHT = 2-5 cells HPF (0-1); Platelet Adequacy Comment Platelets Normal; Polychromasia SLIGHT = 2-3 cells HPF (0-2)
[2024-03-19] MEDS: Naloxone HCl 0.4 mg/ml Vial IV PRN (23:18)
[2024-03-19] MEDS ORDERED: Vancomycin Dialysis Sliding Scale (Wt > 99) FS SCH (23:45)
[2024-03-19 23:51] LABS: Actual Bicarbonate (HCO3a) 26.5 mEq/L (22-28); Base Excess (BEa) -1.5 mEq/L (-2.0 to +3.0); Calcium, Ionized (arterial) 1.07 mmol/L (1.12-1.30); Carboxyhemoglobin (COHb) 2.8 gm% (0.0-3.0); Hematocrit-ABG 27 % (36.0-47.0); Hemoglobin (Hb) 9.2 g/dL (12.0-16.0); O2 Tension (PaO2), arterial 78.1 mmHg (> 70.0); Potassium - ABG Lab 5.03 mmol/L (3.70-5.30); pH, Arterial 7.238 (7.35-7.45)
[2024-03-19 23:52] LABS: ALV-art Gradient 92.075 mmHg (0-20); CO2 Tension 63.5 mmHg (35.0-45.0); Puncture Site Right Radial artery
[2024-03-19] MEDS: Transdermal Patch Removal TOP SCH (23:55)
[2024-03-19] MEDS ORDERED: Piperacillin/Tazobactam 4.5 GM in Sodium Chloride 0.9% 100 ML IVPB SCH (23:59)
[2024-03-20] MEDS: Vancomycin (BATCH) 2.5 GM in Premix 1 BAG IVPB SCH (00:28)
[2024-03-20] MEDS: Piperacillin/Tazobactam 3.375 GM in Sodium Chloride 0.9% 100 ML IVPB SCH ×2 (01:00→04:34)
[2024-03-20] MEDS: Lidocaine 4% Patch TD SCH (07:58)
[2024-03-20] MEDS ORDERED: HYDROcodone/Acetaminophen 10/325 mg Tablet PO PRN ×2 (08:10)
[2024-03-20] MEDS: Pantoprazole 40 MG VIAL IVP SCH (08:26)
[2024-03-20] MEDS ORDERED: Vancomycin 1 GM in Premix 1 BAG IVPB SCH (09:00)
[2024-03-20 09:06] LABS: Actual Bicarbonate (HCO3v) 28.5 mEq/L (22-28); Base Excess 0.9 mEq/L (-2.0 to +3.0); Calcium, Ionized (venous) 1.03 mmol/L (1.16-1.32); Chloride (VBG) 97 mmol/L (98-106); Hematocrit-VBG 26 % (36.0-47.0); Hemoglobin (Hb) 8.8 g/dL (11.7-16.1); Potassium (VBG) 5.01 mmol/L (3.70-5.30); Sodium 133 mmol/L (133-146); pH (venous) 7.266 (7.32-7.43)
[2024-03-20] MEDS: Sodium Bicarb 50 MEQ/50 ML Abboject 8.4% SYRINGE ONE (18:17)
[2024-03-20] MEDS: Morphine 2 MG/ML VIAL SLOW IVP PRN (23:01)
[2024-03-21 08:35] LABS: Actual Bicarbonate (HCO3a) 27.1 mEq/L (22-28); Base Excess (BEa) -0.4 mEq/L (-2.0 to +3.0); Calcium, Ionized (arterial) 1.09 mmol/L (1.12-1.30); Carboxyhemoglobin (COHb) 1.8 gm% (0.0-3.0); Hematocrit-ABG 26 % (36.0-47.0); Hemoglobin (Hb) 8.7 g/dL (12.0-16.0); Potassium - ABG Lab 5.23 mmol/L (3.70-5.30); pH, Arterial 7.266 (7.35-7.45)
[2024-03-21 08:37] LABS: CO2 Tension 60.9 mmHg (35.0-45.0); O2 Tension (PaO2), arterial 58.6 mmHg (> 70.0); Puncture Site Right Radial artery
[2024-03-21 09:22] LABS: #Basophils 0.04 10x3/uL (0.0-0.2); %Basophils 0.2 % (0.0-1.0); %Eosinophils 0.9 % (0.0-10.0); %Lymphocytes 5.6 % (21.0-51.0); %Monocytes 12.7 % (0.0-10.0); Hemoglobin 7.7 g/dL (12.0-16.0); Mean Corpuscular HGB CONC 29.6 g/dL (32.0-36.0); Mean Corpuscular Volume 101.2 fL (78.0-98.0); Mean Platelet Volume 10.4 fL (7.4-10.4); Platelet Count 283 10x3/uL (130-400); RBC Distribution Width 17.4 % (11.5-14.5); Red Blood Cell (RBC) Count 2.57 mill/uL (4.20-5.40)
[2024-03-21 09:44] LABS: ALT (SGPT) 15 U/L (8-55); AST (SGOT) 29 U/L (5-34); Alkaline Phosphatase 266 U/L (40-110); Anion Gap 16 mmol/L (10-20); BUN (Urea Nitrogen) 50 mg/dL (9.8-20.1); Bilirubin, Total 0.5 mg/dL (0.2-1.2); Calc. Creatinine Clearance 19 mL/min (70-130); Calcium 7.9 mg/dL (7.8-10.44); Carbon Dioxide 22 mmol/L (23-31); Chloride 102 mmol/L (98-107); Estimated GFR 9; Globulin 4.3 g/dL (2.4-3.5); Glucose 69 mg/dL (83-110); Potassium 5.4 mmol/L (3.5-5.1); Protein, Total 6.3 g/dL (5.8-8.1); Sodium 135 mmol/L (136-145)
[2024-03-21 14:45] LABS: INR-International Normal Ratio 1.1; PTT 43.1 sec (22.9-36.1); Prothrombin Time 14.4 sec (12.0-14.7)
[2024-03-22] MEDS: Albumin 25% 25 GM (100 mL) BOT IVPB SCH (09:36)
[2024-03-22] MEDS: Albumin 25% 100 ML ONE (10:36)
[2024-03-22] MEDS ORDERED: Insulin Regular, Human 100 UNIT/ML 10 ML VIAL SC PRN (14:15)
[2024-03-24 06:18] LABS: #Basophils 0.05 10x3/uL (0.0-0.2); %Basophils 0.5 % (0.0-1.0); %Eosinophils 0.9 % (0.0-10.0); %Lymphocytes 12.2 % (21.0-51.0); %Monocytes 10.2 % (0.0-10.0); %Neutrophils 71.8 % (42.0-75.0); Hematocrit 25.3 % (36.0-47.0); Hemoglobin 7.4 g/dL (12.0-16.0); Mean Corpuscular HGB CONC 29.2 g/dL (32.0-36.0); Mean Corpuscular Volume 102.4 fL (78.0-98.0); Mean Platelet Volume 10.1 fL (7.4-10.4); Platelet Count 271 10x3/uL (130-400); RBC Distribution Width 18.2 % (11.5-14.5); Red Blood Cell (RBC) Count 2.47 mill/uL (4.20-5.40)
[2024-03-24 06:35] LABS: Anion Gap 18 mmol/L (10-20); BUN (Urea Nitrogen) 60 mg/dL (9.8-20.1); Calc. Creatinine Clearance 19 mL/min (70-130); Calcium 8.6 mg/dL (7.8-10.44); Carbon Dioxide 25 mmol/L (23-31); Chloride 98 mmol/L (98-107); Estimated GFR 9; Glucose 121 mg/dL (83-110); Magnesium 2.3 mg/dL (1.6-2.6); Potassium 4.9 mmol/L (3.5-5.1); Sodium 136 mmol/L (136-145)
[2024-03-24 07:02] LABS: Troponin I 0.011 ng/mL (< 0.028)
[2024-03-24] MEDS ORDERED: Midodrine HCl 5 MG TAB PO PRN (07:43)
[2024-03-24] MEDS: Midodrine HCl 5 MG TAB PO SCH (08:10)
[2024-03-24 10:48] LABS: Actual Bicarbonate (HCO3a) 23.4 mEq/L (22-28); Base Excess (BEa) -3.8 mEq/L (-2.0 to +3.0); CO2 Tension 53.9 mmHg (35.0-45.0); Calcium, Ionized (arterial) 1.11 mmol/L (1.12-1.30); Carboxyhemoglobin (COHb) 1.9 gm% (0.0-3.0); Hematocrit-ABG 26 % (36.0-47.0); Hemoglobin (Hb) 8.9 g/dL (12.0-16.0); O2 Tension (PaO2), arterial 75.5 mmHg (> 70.0); Potassium - ABG Lab 3.83 mmol/L (3.70-5.30); pH, Arterial 7.256 (7.35-7.45)
[2024-03-24 10:50] LABS: ALV-art Gradient 570.125 mmHg (0-20); Puncture Site Right Radial artery
[2024-03-24] MEDS ORDERED: HYDROcodone/Acetaminophen 10/325 mg Tablet PER TUBE PRN (10:56)
[2024-03-24] MEDS ORDERED: Ventilator Sedation Protocol 1 EACH FS SCH (11:00)
[2024-03-24] MEDS ORDERED: NOREPINEPHRINE 8 MG/250 ML-D5W 250 ML IVPB SCH (11:00)
[2024-03-24] MEDS ORDERED: Midodrine HCl 5 MG TAB PER TUBE PRN (11:03)
[2024-03-24] MEDS ORDERED: Fentanyl CADD 100 ML IV SCH (11:15)
[2024-03-24] MEDS ORDERED: DISCONTINUE PREVIOUS NARCOTIC PAIN MEDICATIONS AND BENZODIAZEPINES FS SCH (11:15)
[2024-03-24] MEDS ORDERED: Propofol 1,000 MG/100 ML VIAL IV PRN (11:15)
[2024-03-24] MEDS ORDERED: Propofol BOLUS 1,000 MG/100 ML VIAL IV PRN (11:15)
[2024-03-24] MEDS ORDERED: Fentanyl BOLUS 250 ML IVPB PRN (11:15)
[2024-03-24] MEDS ORDERED: Morphine 2 MG/ML VIAL SLOW IVP PRN (11:15)
[2024-03-24 12:22] LABS: Troponin I 0.031 ng/mL (< 0.028)
[2024-03-24] MEDS ORDERED: Heparin 10,000 UNITS/ 10 ML VIAL ONE (13:35)
[2024-03-24] MEDS: Acetaminophen 325 MG TAB PER TUBE SCH (14:03)
[2024-03-24] MEDS: Lanthanum Carbonate 500 mg Chewable Tablet PER TUBE SCH (14:04)
[2024-03-24] MEDS: EPOETIN ALFA-EPBX (ESRD) 10,000 UNITS/ML VIAL IVP SCH (15:04)
[2024-03-24] MEDS: Gabapentin 300 MG CAP PER TUBE SCH (20:51)
[2024-03-24] MEDS: Atorvastatin Calcium 40 MG TAB PER TUBE SCH (20:51)
[2024-03-24 20:53] LABS: Hematocrit 23.9 % (36.0-47.0); Hemoglobin 7.5 g/dL (12.0-16.0); Mean Corpuscular HGB CONC 31.4 g/dL (32.0-36.0); Mean Corpuscular Hemoglobin 29.9 pg (27.0-31.0); Mean Corpuscular Volume 95.2 fL (78.0-98.0); Mean Platelet Volume 10.2 fL (7.4-10.4); Platelet Count 295 10x3/uL (130-400); RBC Distribution Width 18.5 % (11.5-14.5); Red Blood Cell (RBC) Count 2.51 mill/uL (4.20-5.40)
[2024-03-25 04:56] LABS: #Basophils 0.04 10x3/uL (0.0-0.2); %Basophils 0.3 % (0.0-1.0); %Eosinophils 0.3 % (0.0-10.0); %Neutrophils 69.7 % (42.0-75.0); Hematocrit 22.6 % (36.0-47.0); Hemoglobin 6.9 g/dL (12.0-16.0); Mean Corpuscular HGB CONC 30.5 g/dL (32.0-36.0); Mean Corpuscular Hemoglobin 29.1 pg (27.0-31.0); Mean Corpuscular Volume 95.4 fL (78.0-98.0); Mean Platelet Volume 10.2 fL (7.4-10.4); Platelet Count 286 10x3/uL (130-400); RBC Distribution Width 18.8 % (11.5-14.5); Red Blood Cell (RBC) Count 2.37 mill/uL (4.20-5.40)
[2024-03-25 04:59] LABS: Anion Gap 17 mmol/L (10-20); BUN (Urea Nitrogen) 54 mg/dL (9.8-20.1); Calc. Creatinine Clearance 21 mL/min (70-130); Calcium 8.3 mg/dL (7.8-10.44); Carbon Dioxide 24 mmol/L (23-31); Chloride 100 mmol/L (98-107); Estimated GFR 11; Glucose 82 mg/dL (83-110); Potassium 4.2 mmol/L (3.5-5.1); Sodium 137 mmol/L (136-145)
[2024-03-25 06:50] LABS: Actual Bicarbonate (HCO3a) 24.1 mEq/L (22-28); Base Excess (BEa) 2.7 mEq/L (-2.0 to +3.0); CO2 Tension 25.2 mmHg (35.0-45.0); Calcium, Ionized (arterial) 1.07 mmol/L (1.12-1.30); Hematocrit-ABG 23 % (36.0-47.0); Hemoglobin (Hb) 7.8 g/dL (12.0-16.0); O2 Tension (PaO2), arterial 73.3 mmHg (> 70.0); Potassium - ABG Lab 4.14 mmol/L (3.70-5.30)
[2024-03-25 06:51] LABS: Puncture Site Right Radial artery; pH, Arterial 7.599 (7.35-7.45)
[2024-03-25] MEDS: Aspirin Chewable 81 MG TAB PER TUBE SCH (09:22)
[2024-03-25] MEDS ORDERED: Heparin 10,000 UNITS/ 10 ML VIAL ONE (13:28)
[2024-03-25 19:40] LABS: Hemoglobin 7.2 g/dL (12.0-16.0)
[2024-03-25] MEDS: Lanthanum Carbonate 500 mg Chewable Tablet PER TUBE SCH (19:44)
[2024-03-25] MEDS: Lorazepam 2 MG/ML VIAL SLOW IVP PRN (20:21)
[2024-03-26 05:02] LABS: Phosphorus 3.3 mg/dL (2.3-4.7)
[2024-03-26 05:10] LABS: Chloride 102 mmol/L (98-107); Potassium 4.2 mmol/L (3.5-5.1); Sodium 138 mmol/L (136-145)
[2024-03-26 05:19] LABS: Anion Gap 15 mmol/L (10-20); BUN (Urea Nitrogen) 63 mg/dL (9.8-20.1); Calc. Creatinine Clearance 15 mL/min (70-130); Calcium 8.1 mg/dL (7.8-10.44); Carbon Dioxide 27 mmol/L (23-31); Estimated GFR 8; Glucose 160 mg/dL (83-110)
[2024-03-26 05:38] LABS: Hematocrit 22.2 % (36.0-47.0); Hemoglobin 6.9 g/dL (12.0-16.0); Mean Corpuscular HGB CONC 31.1 g/dL (32.0-36.0); Mean Corpuscular Hemoglobin 29.9 pg (27.0-31.0); Mean Corpuscular Volume 96.1 fL (78.0-98.0); Mean Platelet Volume 10.3 fL (7.4-10.4); Platelet Count 239 10x3/uL (130-400); RBC Distribution Width 19.6 % (11.5-14.5); Red Blood Cell (RBC) Count 2.31 mill/uL (4.20-5.40)
[2024-03-26] MEDS: Midodrine HCl 5 MG TAB PER TUBE SCH (07:46)
[2024-03-26 08:08] LABS: Anisocytosis SLIGHT = 6-15 cells HPF (0-5); Band 6 % (5-11); Eosinophils 2 % (0-10); Lymphocytes 6 % (21-51); Microcytosis SLIGHT = 6-15 cells HPF (0-5); Monocytes 3 % (0-10); Neutrophil 83 % (42-75); Platelet Adequacy Comment Platelets Normal
[2024-03-26] MEDS: Acetaminophen 325 MG TAB PER TUBE PRN (10:24)
[2024-03-26] MEDS: Senokot 8.6 MG TAB PER TUBE PRN (14:06)
[2024-03-26] MEDS: Insulin Regular, Human 100 UNIT/ML 10 ML VIAL SC PRN (16:58)
[2024-03-27 04:38] LABS: Hematocrit 28.7 % (36.0-47.0); Hemoglobin 8.9 g/dL (12.0-16.0); Mean Corpuscular Volume 96.6 fL (78.0-98.0); Mean Platelet Volume 9.7 fL (7.4-10.4); Platelet Count 206 10x3/uL (130-400); RBC Distribution Width 19.9 % (11.5-14.5); Red Blood Cell (RBC) Count 2.97 mill/uL (4.20-5.40)
[2024-03-27 05:03] LABS: Anisocytosis SLIGHT = 6-15 cells HPF (0-5); Band 1 % (5-11); Lymphocytes 12 % (21-51); Macrocytosis SLIGHT = 6-15 cells HPF (0-5); Metamyelocyte 4 % (0-0); Monocytes 7 % (0-10); Neutrophil 73 % (42-75); Platelet Adequacy Comment Platelets Normal; Polychromasia SLIGHT = 2-3 cells HPF (0-2); Reactive Lymphocytes 1 % (0-10); Smudge Cells 5.9 %
[2024-03-27 05:31] LABS: Anion Gap 16 mmol/L (10-20); BUN (Urea Nitrogen) 37 mg/dL (9.8-20.1); Calc. Creatinine Clearance 22 mL/min (70-130); Calcium 8.5 mg/dL (7.8-10.44); Carbon Dioxide 26 mmol/L (23-31); Chloride 100 mmol/L (98-107); Estimated GFR 13; Glucose 160 mg/dL (83-110); Potassium 4.1 mmol/L (3.5-5.1); Sodium 138 mmol/L (136-145)
[2024-03-27 06:55] LABS: Actual Bicarbonate (HCO3a) 26.8 mEq/L (22-28); Base Excess (BEa) 2.5 mEq/L (-2.0 to +3.0); CO2 Tension 40.6 mmHg (35.0-45.0); Calcium, Ionized (arterial) 1.11 mmol/L (1.12-1.30); Carboxyhemoglobin (COHb) 1.1 gm% (0.0-3.0); Hematocrit-ABG 30 % (36.0-47.0); Hemoglobin (Hb) 10.3 g/dL (12.0-16.0); O2 Tension (PaO2), arterial 68.6 mmHg (> 70.0); Potassium - ABG Lab 3.81 mmol/L (3.70-5.30); pH, Arterial 7.438 (7.35-7.45)
[2024-03-27 07:01] LABS: Puncture Site Right Radial artery
[2024-03-28 04:46] LABS: #Basophils 0.08 10x3/uL (0.0-0.2); %Basophils 0.6 % (0.0-1.0); %Eosinophils 2.2 % (0.0-10.0); %Lymphocytes 14.4 % (21.0-51.0); %Monocytes 10.1 % (0.0-10.0); %Neutrophils 67.9 % (42.0-75.0); Hematocrit 29.3 % (36.0-47.0); Mean Corpuscular HGB CONC 30.7 g/dL (32.0-36.0); Mean Corpuscular Hemoglobin 30.6 pg (27.0-31.0); Mean Corpuscular Volume 99.7 fL (78.0-98.0); Platelet Count 177 10x3/uL (130-400); RBC Distribution Width 20.8 % (11.5-14.5); Red Blood Cell (RBC) Count 2.94 mill/uL (4.20-5.40)
[2024-03-28 04:55] LABS: Anion Gap 15 mmol/L (10-20); BUN (Urea Nitrogen) 44 mg/dL (9.8-20.1); Calc. Creatinine Clearance 17 mL/min (70-130); Calcium 8.5 mg/dL (7.8-10.44); Carbon Dioxide 26 mmol/L (23-31); Chloride 100 mmol/L (98-107); Estimated GFR 10; Glucose 150 mg/dL (83-110); Potassium 4.2 mmol/L (3.5-5.1); Sodium 137 mmol/L (136-145)
[2024-03-28] MEDS: Piperacillin/Tazobactam 3.375 GM in Sodium Chloride 0.9% 100 ML IVPB SCH ×3 (11:11→20:59)
[2024-03-29 04:59] LABS: #Basophils 0.06 10x3/uL (0.0-0.2); %Basophils 0.6 % (0.0-1.0); %Eosinophils 2.9 % (0.0-10.0); %Lymphocytes 13.6 % (21.0-51.0); %Monocytes 7.8 % (0.0-10.0); %Neutrophils 71.2 % (42.0-75.0); Hematocrit 27.2 % (36.0-47.0); Hemoglobin 8.2 g/dL (12.0-16.0); Mean Corpuscular HGB CONC 30.1 g/dL (32.0-36.0); Mean Corpuscular Hemoglobin 30.3 pg (27.0-31.0); Mean Corpuscular Volume 100.4 fL (78.0-98.0); Mean Platelet Volume 10.1 fL (7.4-10.4); Platelet Count 133 10x3/uL (130-400); RBC Distribution Width 20.7 % (11.5-14.5); Red Blood Cell (RBC) Count 2.71 mill/uL (4.20-5.40)
[2024-03-29 05:36] LABS: Anion Gap 14 mmol/L (10-20); BUN (Urea Nitrogen) 53 mg/dL (9.8-20.1); Calc. Creatinine Clearance 14 mL/min (70-130); Calcium 8.4 mg/dL (7.8-10.44); Carbon Dioxide 27 mmol/L (23-31); Chloride 100 mmol/L (98-107); Estimated GFR 8; Glucose 88 mg/dL (83-110); Potassium 4.4 mmol/L (3.5-5.1); Sodium 137 mmol/L (136-145)
[2024-03-30 04:36] LABS: #Basophils 0.06 10x3/uL (0.0-0.2); %Basophils 0.6 % (0.0-1.0); %Eosinophils 2.7 % (0.0-10.0); %Lymphocytes 11.7 % (21.0-51.0); %Monocytes 7.6 % (0.0-10.0); %Neutrophils 75.6 % (42.0-75.0); Hemoglobin 8.6 g/dL (12.0-16.0); Mean Corpuscular HGB CONC 30.7 g/dL (32.0-36.0); Mean Corpuscular Hemoglobin 29.8 pg (27.0-31.0); Mean Corpuscular Volume 96.9 fL (78.0-98.0); Mean Platelet Volume 10.2 fL (7.4-10.4); Platelet Count 153 10x3/uL (130-400); RBC Distribution Width 20.5 % (11.5-14.5); Red Blood Cell (RBC) Count 2.89 mill/uL (4.20-5.40)
[2024-03-30 07:54] LABS: Anion Gap 15 mmol/L (10-20); BUN (Urea Nitrogen) 42 mg/dL (9.8-20.1); Calc. Creatinine Clearance 16 mL/min (70-130); Calcium 8.4 mg/dL (7.8-10.44); Carbon Dioxide 27 mmol/L (23-31); Chloride 99 mmol/L (98-107); Estimated GFR 9; Glucose 150 mg/dL (83-110); Potassium 4.3 mmol/L (3.5-5.1); Sodium 137 mmol/L (136-145)
[2024-03-31] MEDS: Cefdinir 300 MG CAP PO SCH (08:37)
[2024-04-01 05:35] VITALS: BMI 42.4
[2024-04-02 05:07] LABS: #Basophils 0.03 10x3/uL (0.0-0.2); %Basophils 0.3 % (0.0-1.0); %Eosinophils 1.4 % (0.0-10.0); %Monocytes 7.6 % (0.0-10.0); %Neutrophils 76.9 % (42.0-75.0); Hematocrit 27.1 % (36.0-47.0); Hemoglobin 8.2 g/dL (12.0-16.0); Mean Corpuscular HGB CONC 30.3 g/dL (32.0-36.0); Mean Corpuscular Hemoglobin 30.5 pg (27.0-31.0); Mean Corpuscular Volume 100.7 fL (78.0-98.0); Mean Platelet Volume 10.1 fL (7.4-10.4); Platelet Count 209 10x3/uL (130-400); Red Blood Cell (RBC) Count 2.69 mill/uL (4.20-5.40)
[2024-04-02 05:27] LABS: Anion Gap 12 mmol/L (10-20); BUN (Urea Nitrogen) 32 mg/dL (9.8-20.1); Calc. Creatinine Clearance 18 mL/min (70-130); Calcium 8.5 mg/dL (7.8-10.44); Carbon Dioxide 30 mmol/L (23-31); Chloride 98 mmol/L (98-107); Estimated GFR 11; Glucose 148 mg/dL (83-110); Potassium 4.6 mmol/L (3.5-5.1); Sodium 135 mmol/L (136-145)
[2024-04-02] MEDS ORDERED: EPINEPHrine 1 MG/10 ML Abboject SYRINGE ONE (15:30)
[2024-04-02 16:08] LABS: Actual Bicarbonate (HCO3a) 21.7 mEq/L (22-28); Base Excess (BEa) -5.6 mEq/L (-2.0 to +3.0); CO2 Tension 50.9 mmHg (35.0-45.0); Calcium, Ionized (arterial) 1.16 mmol/L (1.12-1.30); Carboxyhemoglobin (COHb) 2.2 gm% (0.0-3.0); Hematocrit-ABG 31 % (36.0-47.0); Hemoglobin (Hb) 10.4 g/dL (12.0-16.0); O2 Tension (PaO2), arterial 128.2 mmHg (> 70.0); pH, Arterial 7.247 (7.35-7.45)
[2024-04-02 16:10] LABS: Puncture Site Right Brachial art
[2024-04-02 16:11] LABS: ALV-art Gradient 378.575 mmHg (0-20)
[2024-04-02] MEDS ORDERED: Fentanyl BOLUS 250 ML IVPB PRN (16:30)
[2024-04-02] MEDS ORDERED: Fentanyl CADD 100 ML IV SCH (16:30)
[2024-04-02] MEDS ORDERED: Propofol BOLUS 1,000 MG/100 ML VIAL IV PRN (16:30)
[2024-04-02] MEDS ORDERED: DISCONTINUE PREVIOUS NARCOTIC PAIN MEDICATIONS AND BENZODIAZEPINES FS SCH (16:30)
[2024-04-02] MEDS: Propofol 1,000 MG/100 ML VIAL IV ONE (16:47)
[2024-04-02] MEDS: Ventilator Sedation Protocol 1 EACH FS ONE (16:48)
[2024-04-02] MEDS: Propofol 1,000 MG/100 ML VIAL IV PRN (19:17)
[2024-04-03 05:06] LABS: #Basophils 0.06 10x3/uL (0.0-0.2); %Basophils 0.5 % (0.0-1.0); %Lymphocytes 17.1 % (21.0-51.0); %Monocytes 8.2 % (0.0-10.0); %Neutrophils 71.9 % (42.0-75.0); Hemoglobin 8.4 g/dL (12.0-16.0); Mean Corpuscular HGB CONC 31.1 g/dL (32.0-36.0); Mean Corpuscular Hemoglobin 30.3 pg (27.0-31.0); Mean Corpuscular Volume 97.5 fL (78.0-98.0); Mean Platelet Volume 9.9 fL (7.4-10.4); Platelet Count 261 10x3/uL (130-400); RBC Distribution Width 21.7 % (11.5-14.5); Red Blood Cell (RBC) Count 2.77 mill/uL (4.20-5.40)
[2024-04-03 05:21] LABS: Anion Gap 19 mmol/L (10-20); BUN (Urea Nitrogen) 41 mg/dL (9.8-20.1); Calc. Creatinine Clearance 16 mL/min (70-130); Calcium 8.7 mg/dL (7.8-10.44); Carbon Dioxide 23 mmol/L (23-31); Chloride 98 mmol/L (98-107); Estimated GFR 9; Glucose 88 mg/dL (83-110); Potassium 4.7 mmol/L (3.5-5.1); Sodium 135 mmol/L (136-145)
[2024-04-03 07:34] LABS: Actual Bicarbonate (HCO3a) 21.8 mEq/L (22-28); Base Excess (BEa) 2.4 mEq/L (-2.0 to +3.0); Calcium, Ionized (arterial) 1.08 mmol/L (1.12-1.30); Carboxyhemoglobin (COHb) 0.9 gm% (0.0-3.0); Hematocrit-ABG 28 % (36.0-47.0); Hemoglobin (Hb) 9.4 g/dL (12.0-16.0); O2 Tension (PaO2), arterial 61.4 mmHg (> 70.0); Potassium - ABG Lab 4.51 mmol/L (3.70-5.30)
[2024-04-03 07:39] LABS: CO2 Tension 19.2 mmHg (35.0-45.0); Puncture Site Right Radial artery; pH, Arterial 7.673 (7.35-7.45)
[2024-04-04 05:31] LABS: #Basophils 0.05 10x3/uL (0.0-0.2); %Basophils 0.4 % (0.0-1.0); %Lymphocytes 12.6 % (21.0-51.0); %Monocytes 9.9 % (0.0-10.0); %Neutrophils 74.1 % (42.0-75.0); Hematocrit 27.2 % (36.0-47.0); Hemoglobin 8.3 g/dL (12.0-16.0); Mean Corpuscular HGB CONC 30.5 g/dL (32.0-36.0); Mean Corpuscular Hemoglobin 30.4 pg (27.0-31.0); Mean Corpuscular Volume 99.6 fL (78.0-98.0); Mean Platelet Volume 9.8 fL (7.4-10.4); Platelet Count 273 10x3/uL (130-400); RBC Distribution Width 22.4 % (11.5-14.5); Red Blood Cell (RBC) Count 2.73 mill/uL (4.20-5.40)
[2024-04-04 05:41] LABS: Anion Gap 17 mmol/L (10-20); BUN (Urea Nitrogen) 48 mg/dL (9.8-20.1); Calc. Creatinine Clearance 14 mL/min (70-130); Calcium 8.8 mg/dL (7.8-10.44); Carbon Dioxide 24 mmol/L (23-31); Chloride 96 mmol/L (98-107); Estimated GFR 8; Glucose 152 mg/dL (83-110); Sodium 132 mmol/L (136-145)
[2024-04-04 07:27] LABS: Base Excess (BEa) 0.5 mEq/L (-2.0 to +3.0); CO2 Tension 39.3 mmHg (35.0-45.0); Calcium, Ionized (arterial) 1.14 mmol/L (1.12-1.30); Carboxyhemoglobin (COHb) 2.1 gm% (0.0-3.0); Hematocrit-ABG 29 % (36.0-47.0); O2 Tension (PaO2), arterial 66.5 mmHg (> 70.0); Potassium - ABG Lab 4.96 mmol/L (3.70-5.30); pH, Arterial 7.421 (7.35-7.45)
[2024-04-04 07:29] LABS: ALV-art Gradient 169.575 mmHg (0-20); Puncture Site Right Radial artery
[2024-04-05] MEDS: NOREPINEPHRINE 8 MG/250 ML-D5W 250 ML IVPB SCH (04:37)
[2024-04-05 05:13] LABS: #Basophils 0.06 10x3/uL (0.0-0.2); %Basophils 0.4 % (0.0-1.0); %Eosinophils 1.6 % (0.0-10.0); %Lymphocytes 12.7 % (21.0-51.0); %Monocytes 12.6 % (0.0-10.0); %Neutrophils 71.5 % (42.0-75.0); Hematocrit 29.8 % (36.0-47.0); Hemoglobin 9.3 g/dL (12.0-16.0); Mean Corpuscular HGB CONC 31.2 g/dL (32.0-36.0); Mean Corpuscular Hemoglobin 30.9 pg (27.0-31.0); Mean Platelet Volume 9.6 fL (7.4-10.4); Platelet Count 218 10x3/uL (130-400); RBC Distribution Width 22.3 % (11.5-14.5); Red Blood Cell (RBC) Count 3.01 mill/uL (4.20-5.40)
[2024-04-05 05:19] LABS: Anion Gap 17 mmol/L (10-20); BUN (Urea Nitrogen) 59 mg/dL (9.8-20.1); Calc. Creatinine Clearance 12 mL/min (70-130); Calcium 8.5 mg/dL (7.8-10.44); Carbon Dioxide 24 mmol/L (23-31); Chloride 95 mmol/L (98-107); Estimated GFR 7; Glucose 144 mg/dL (83-110); Potassium 5.4 mmol/L (3.5-5.1); Sodium 131 mmol/L (136-145)
[2024-04-05 07:24] LABS: ALV-art Gradient 169.175 mmHg (0-20); Base Excess (BEa) 0.4 mEq/L (-2.0 to +3.0); CO2 Tension 40.1 mmHg (35.0-45.0); Calcium, Ionized (arterial) 1.09 mmol/L (1.12-1.30); Carboxyhemoglobin (COHb) 1.9 gm% (0.0-3.0); Hematocrit-ABG 31 % (36.0-47.0); Hemoglobin (Hb) 10.7 g/dL (12.0-16.0); O2 Tension (PaO2), arterial 65.9 mmHg (> 70.0); Potassium - ABG Lab 5.39 mmol/L (3.70-5.30); Puncture Site Right Radial artery; pH, Arterial 7.413 (7.35-7.45)
[2024-04-06 04:14] LABS: #Basophils 0.04 10x3/uL (0.0-0.2); %Basophils 0.3 % (0.0-1.0); %Eosinophils 1.5 % (0.0-10.0); %Lymphocytes 10.9 % (21.0-51.0); %Monocytes 12.8 % (0.0-10.0); %Neutrophils 73.6 % (42.0-75.0); Hematocrit 24.3 % (36.0-47.0); Hemoglobin 7.5 g/dL (12.0-16.0); Mean Corpuscular HGB CONC 30.9 g/dL (32.0-36.0); Mean Corpuscular Hemoglobin 30.7 pg (27.0-31.0); Mean Corpuscular Volume 99.6 fL (78.0-98.0); Mean Platelet Volume 9.3 fL (7.4-10.4); Platelet Count 242 10x3/uL (130-400); RBC Distribution Width 21.7 % (11.5-14.5); Red Blood Cell (RBC) Count 2.44 mill/uL (4.20-5.40)
[2024-04-06 04:27] LABS: Anion Gap 16 mmol/L (10-20); BUN (Urea Nitrogen) 32 mg/dL (9.8-20.1); Calc. Creatinine Clearance 19 mL/min (70-130); Calcium 8.6 mg/dL (7.8-10.44); Carbon Dioxide 28 mmol/L (23-31); Chloride 97 mmol/L (98-107); Estimated GFR 12; Glucose 161 mg/dL (83-110); Potassium 3.9 mmol/L (3.5-5.1); Sodium 137 mmol/L (136-145)
[2024-04-06 08:15] LABS: Hemoglobin 7.7 g/dL (12.0-16.0); Mean Corpuscular HGB CONC 30.8 g/dL (32.0-36.0); Mean Corpuscular Hemoglobin 30.6 pg (27.0-31.0); Mean Corpuscular Volume 99.2 fL (78.0-98.0); Mean Platelet Volume 9.5 fL (7.4-10.4); Platelet Count 259 10x3/uL (130-400); RBC Distribution Width 21.8 % (11.5-14.5); Red Blood Cell (RBC) Count 2.52 mill/uL (4.20-5.40)
[2024-04-06] MEDS: Scopolamine 1 mg/72 hour Patch TD SCH (10:59)
[2024-04-07 04:57] LABS: #Basophils 0.03 10x3/uL (0.0-0.2); %Basophils 0.3 % (0.0-1.0); %Eosinophils 3.1 % (0.0-10.0); %Lymphocytes 12.2 % (21.0-51.0); %Monocytes 11.2 % (0.0-10.0); %Neutrophils 72.6 % (42.0-75.0); Hematocrit 24.3 % (36.0-47.0); Hemoglobin 7.5 g/dL (12.0-16.0); Mean Corpuscular HGB CONC 30.9 g/dL (32.0-36.0); Mean Corpuscular Hemoglobin 30.6 pg (27.0-31.0); Mean Corpuscular Volume 99.2 fL (78.0-98.0); Mean Platelet Volume 9.4 fL (7.4-10.4); Platelet Count 238 10x3/uL (130-400); Red Blood Cell (RBC) Count 2.45 mill/uL (4.20-5.40)
[2024-04-07 05:07] LABS: Anion Gap 15 mmol/L (10-20); BUN (Urea Nitrogen) 40 mg/dL (9.8-20.1); Calc. Creatinine Clearance 16 mL/min (70-130); Calcium 8.9 mg/dL (7.8-10.44); Carbon Dioxide 28 mmol/L (23-31); Chloride 96 mmol/L (98-107); Estimated GFR 10; Glucose 146 mg/dL (83-110); Sodium 135 mmol/L (136-145)
[2024-04-07] MEDS ORDERED: Heparin 10,000 UNITS/ 10 ML VIAL ONE (09:44)
[2024-04-07] MEDS: Acetaminophen 650 MG/20.3 ML UDCUP PER TUBE PRN (20:42)
[2024-04-08] MEDS: LevoFLOXacin 500 mg/D5W 500 MG in Premix 1 BAG IVPB SCH ×2 (02:37→03:04)
[2024-04-08] MEDS: NOREPINEPHRINE 8 MG/250 ML-D5W 250 ML IVPB SCH (02:40)
[2024-04-08 03:52] LABS: #Basophils 0.05 10x3/uL (0.0-0.2); %Basophils 0.3 % (0.0-1.0); %Eosinophils 1.9 % (0.0-10.0); %Lymphocytes 14.3 % (21.0-51.0); %Monocytes 13.1 % (0.0-10.0); %Neutrophils 69.1 % (42.0-75.0); Hematocrit 23.9 % (36.0-47.0); Hemoglobin 7.2 g/dL (12.0-16.0); Mean Corpuscular HGB CONC 30.1 g/dL (32.0-36.0); Mean Corpuscular Hemoglobin 30.6 pg (27.0-31.0); Mean Corpuscular Volume 101.7 fL (78.0-98.0); Mean Platelet Volume 9.7 fL (7.4-10.4); Platelet Count 291 10x3/uL (130-400); RBC Distribution Width 20.5 % (11.5-14.5); Red Blood Cell (RBC) Count 2.35 mill/uL (4.20-5.40)
[2024-04-08 04:13] LABS: Anion Gap 13 mmol/L (10-20); BUN (Urea Nitrogen) 23 mg/dL (9.8-20.1); Calc. Creatinine Clearance 22 mL/min (70-130); Calcium 9.2 mg/dL (7.8-10.44); Carbon Dioxide 27 mmol/L (23-31); Chloride 99 mmol/L (98-107); Estimated GFR 15; Glucose 152 mg/dL (83-110); Potassium 3.6 mmol/L (3.5-5.1); Sodium 135 mmol/L (136-145)
[2024-04-08] MEDS: Lansoprazole 30 MG/10 ML UDCUP PER TUBE SCH (08:29)
[2024-04-08] MEDS: Meropenem 1 GM in Sodium Chloride 0.9% 100 ML IVPB SCH (09:33)
[2024-04-08] MEDS: Glycopyrrolate 0.4 MG/ 2 ML VIAL SLOW IVP SCH (09:33)
[2024-04-08] MEDS: Lorazepam 2 MG/ML VIAL SLOW IVP PRN (20:26)
[2024-04-09 04:16] LABS: #Basophils 0.08 10x3/uL (0.0-0.2); %Basophils 0.4 % (0.0-1.0); %Eosinophils 2.1 % (0.0-10.0); %Lymphocytes 9.8 % (21.0-51.0); %Monocytes 10.7 % (0.0-10.0); %Neutrophils 75.5 % (42.0-75.0); Hematocrit 24.9 % (36.0-47.0); Hemoglobin 7.4 g/dL (12.0-16.0); Mean Corpuscular HGB CONC 29.7 g/dL (32.0-36.0); Mean Corpuscular Hemoglobin 30.1 pg (27.0-31.0); Mean Corpuscular Volume 101.2 fL (78.0-98.0); Mean Platelet Volume 9.5 fL (7.4-10.4); Platelet Count 268 10x3/uL (130-400); RBC Distribution Width 19.8 % (11.5-14.5); Red Blood Cell (RBC) Count 2.46 mill/uL (4.20-5.40)
[2024-04-09 04:28] LABS: Anion Gap 15 mmol/L (10-20); BUN (Urea Nitrogen) 34 mg/dL (9.8-20.1); Calc. Creatinine Clearance 17 mL/min (70-130); Calcium 9.1 mg/dL (7.8-10.44); Carbon Dioxide 28 mmol/L (23-31); Chloride 96 mmol/L (98-107); Estimated GFR 11; Glucose 156 mg/dL (83-110); Potassium 3.7 mmol/L (3.5-5.1); Sodium 135 mmol/L (136-145)
[2024-04-09] MEDS ORDERED: Heparin 10,000 UNITS/ 10 ML VIAL ONE (10:50)
[2024-04-09] MEDS ORDERED: EPINEPHrine 1 MG/ML VIAL ONE (12:42)
[2024-04-09] MEDS ORDERED: Bupivacaine 0.25% HCL 30 ML VIAL ONE (12:43)
[2024-04-09] MEDS: fentaNYL 50 mcg/mL 1 mL Vial SLOW IVP SCH (12:50)
[2024-04-09] MEDS: fentaNYL 50 mcg/mL 1 mL Vial ONE (13:38)
[2024-04-09] MEDS ORDERED: PHENYLEPHRINE-NS 100 MCG/ML 10 ML SYRINGE ONE (13:48)
[2024-04-09] MEDS ORDERED: Midazolam HCl 2 mg/2 ml Vial ONE (14:03)
[2024-04-09] MEDS: Meropenem 500 MG in Sodium Chloride 0.9% 100 ML IVPB SCH (20:59)
[2024-04-09] MEDS: EPOETIN ALFA-EPBX (ESRD) 10,000 UNITS/ML VIAL IVP SCH (21:02)
[2024-04-10] MEDS ORDERED: LevoFLOXacin 250 mg/D5W 250 MG in Premix 1 BAG IVPB SCH (02:00)
[2024-04-10 05:26] LABS: #Basophils 0.04 10x3/uL (0.0-0.2); #Eosinophils Less than 0.03 10x3/uL (0.0-0.7); %Basophils 0.3 % (0.0-1.0); %Eosinophils 0.1 % (0.0-10.0); %Lymphocytes 7.2 % (21.0-51.0); %Monocytes 5.5 % (0.0-10.0); %Neutrophils 84.9 % (42.0-75.0); Hematocrit 25.7 % (36.0-47.0); Hemoglobin 7.8 g/dL (12.0-16.0); Mean Corpuscular HGB CONC 30.4 g/dL (32.0-36.0); Mean Corpuscular Hemoglobin 30.2 pg (27.0-31.0); Mean Corpuscular Volume 99.6 fL (78.0-98.0); Mean Platelet Volume 9.4 fL (7.4-10.4); Platelet Count 296 10x3/uL (130-400); RBC Distribution Width 19.8 % (11.5-14.5); Red Blood Cell (RBC) Count 2.58 mill/uL (4.20-5.40)
[2024-04-10 06:11] LABS: Anion Gap 15 mmol/L (10-20); BUN (Urea Nitrogen) 23 mg/dL (9.8-20.1); Calc. Creatinine Clearance 25 mL/min (70-130); Carbon Dioxide 29 mmol/L (23-31); Chloride 97 mmol/L (98-107); Estimated GFR 18; Glucose 147 mg/dL (83-110); Potassium 4.3 mmol/L (3.5-5.1); Sodium 137 mmol/L (136-145)
[2024-04-10 13:44] VITALS: BMI 37.6
[2024-04-11 05:42] LABS: #Basophils 0.07 10x3/uL (0.0-0.2); %Basophils 0.7 % (0.0-1.0); %Eosinophils 2.9 % (0.0-10.0); %Lymphocytes 20.4 % (21.0-51.0); %Monocytes 9.6 % (0.0-10.0); %Neutrophils 63.7 % (42.0-75.0); Hematocrit 25.9 % (36.0-47.0); Hemoglobin 7.8 g/dL (12.0-16.0); Mean Corpuscular HGB CONC 30.1 g/dL (32.0-36.0); Mean Corpuscular Hemoglobin 30.1 pg (27.0-31.0); Mean Platelet Volume 9.6 fL (7.4-10.4); Platelet Count 349 10x3/uL (130-400); RBC Distribution Width 19.2 % (11.5-14.5); Red Blood Cell (RBC) Count 2.59 mill/uL (4.20-5.40)
[2024-04-11 06:34] LABS: Anion Gap 15 mmol/L (10-20); BUN (Urea Nitrogen) 35 mg/dL (9.8-20.1); Calc. Creatinine Clearance 17 mL/min (70-130); Calcium 9.1 mg/dL (7.8-10.44); Carbon Dioxide 28 mmol/L (23-31); Chloride 97 mmol/L (98-107); Estimated GFR 12; Glucose 106 mg/dL (83-110); Potassium 4.1 mmol/L (3.5-5.1); Sodium 136 mmol/L (136-145)
[2024-04-12 05:49] LABS: #Basophils 0.04 10x3/uL (0.0-0.2); %Basophils 0.4 % (0.0-1.0); %Eosinophils 2.7 % (0.0-10.0); %Monocytes 8.7 % (0.0-10.0); %Neutrophils 69.2 % (42.0-75.0); Hematocrit 25.6 % (36.0-47.0); Hemoglobin 7.7 g/dL (12.0-16.0); Mean Corpuscular HGB CONC 30.1 g/dL (32.0-36.0); Mean Corpuscular Volume 99.6 fL (78.0-98.0); Mean Platelet Volume 9.8 fL (7.4-10.4); Platelet Count 345 10x3/uL (130-400); RBC Distribution Width 18.9 % (11.5-14.5); Red Blood Cell (RBC) Count 2.57 mill/uL (4.20-5.40)
[2024-04-12 06:18] LABS: Anion Gap 17 mmol/L (10-20); BUN (Urea Nitrogen) 48 mg/dL (9.8-20.1); Calc. Creatinine Clearance 14 mL/min (70-130); Calcium 8.9 mg/dL (7.8-10.44); Carbon Dioxide 28 mmol/L (23-31); Chloride 97 mmol/L (98-107); Estimated GFR 9; Glucose 124 mg/dL (83-110); Potassium 4.1 mmol/L (3.5-5.1); Sodium 138 mmol/L (136-145)
[2024-04-12] MEDS: Morphine 2 MG/ML VIAL SLOW IVP PRN (15:30)
[2024-04-13 04:48] LABS: #Basophils 0.08 10x3/uL (0.0-0.2); %Basophils 0.5 % (0.0-1.0); %Eosinophils 2.9 % (0.0-10.0); %Lymphocytes 13.7 % (21.0-51.0); %Monocytes 6.7 % (0.0-10.0); %Neutrophils 73.8 % (42.0-75.0); Hematocrit 25.7 % (36.0-47.0); Hemoglobin 7.9 g/dL (12.0-16.0); Mean Corpuscular HGB CONC 30.7 g/dL (32.0-36.0); Mean Corpuscular Hemoglobin 29.5 pg (27.0-31.0); Mean Corpuscular Volume 95.9 fL (78.0-98.0); Platelet Count 347 10x3/uL (130-400); RBC Distribution Width 18.6 % (11.5-14.5); Red Blood Cell (RBC) Count 2.68 mill/uL (4.20-5.40)
[2024-04-13 05:01] VITALS: TEMP 99.7
[2024-04-13 05:32] LABS: Anion Gap 17 mmol/L (10-20); BUN (Urea Nitrogen) 57 mg/dL (9.8-20.1); Calc. Creatinine Clearance 11 mL/min (70-130); Calcium 8.6 mg/dL (7.8-10.44); Carbon Dioxide 27 mmol/L (23-31); Chloride 99 mmol/L (98-107); Estimated GFR 7; Glucose 130 mg/dL (83-110); Potassium 4.7 mmol/L (3.5-5.1); Sodium 138 mmol/L (136-145)
[2024-04-13 10:56] VITALS: BP 134/59
== END 2024-04-13 12:02 | disposition hospice, inpatient (51) | DRG 3 ==
LOC: ERS 21:12 → CCU 02-29 00:59 → 2NO 03-01 14:34 → T4-A 03-03 20:33 → CCU 03-19 23:28 → SURG B 03-23 08:54 → 2NO 03-24 00:10 → CCU 03-24 10:23 → IMCU/EMU 03-29 20:53 → CCU 04-02 16:03
PROVIDERS: ADMIT Internal Medicine; ATTEND Family Medicine
PROC: 02HV33Z Insertion of Infusion Device into Superior Vena Cava, Percutaneous Approach (ICD-10-PCS; principal; 2024-02-29)
PROC: 3E033XZ Introduction of Vasopressor into Peripheral Vein, Percutaneous Approach (ICD-10-PCS; 2024-02-29)
PROC: 3E03329 Introduction of Other Anti-infective into Peripheral Vein, Percutaneous Approach (ICD-10-PCS; 2024-02-29)
PROC: 5A09457 Assistance with Respiratory Ventilation, 24-96 Consecutive Hours, Continuous Positive Airway Pressure (ICD-10-PCS; 2024-02-29)
PROC: 02HV33Z Insertion of Infusion Device into Superior Vena Cava, Percutaneous Approach (ICD-10-PCS; 2024-02-29)
PROC: 0KDW0ZZ Extraction of Left Foot Muscle, Open Approach (ICD-10-PCS; 2024-03-03)
PROC: 0KDW0ZZ Extraction of Left Foot Muscle, Open Approach (ICD-10-PCS; 2024-03-11)
PROC: 0Y6J0Z3 Detachment at Left Lower Leg, Low, Open Approach (ICD-10-PCS; 2024-03-15)
PROC: 30233J1 Transfusion of Nonautologous Serum Albumin into Peripheral Vein, Percutaneous Approach (ICD-10-PCS; 2024-03-15)
PROC: 4A133R1 Monitoring of Arterial Saturation, Peripheral, Percutaneous Approach (ICD-10-PCS; 2024-03-19)
PROC: 5A12012 Performance of Cardiac Output, Single, Manual (ICD-10-PCS; 2024-03-24)
PROC: 5A1945Z Respiratory Ventilation, 24-96 Consecutive Hours (ICD-10-PCS; 2024-03-24)
PROC: 0BH17EZ Insertion of Endotracheal Airway into Trachea, Via Natural or Artificial Opening (ICD-10-PCS; 2024-03-24)
PROC: 30233N1 Transfusion of Nonautologous Red Blood Cells into Peripheral Vein, Percutaneous Approach (ICD-10-PCS; 2024-03-26)
PROC: 5A0935A Assistance with Respiratory Ventilation, Less than 24 Consecutive Hours, High Flow/Velocity Cannula (ICD-10-PCS; 2024-03-28)
PROC: 5A1955Z Respiratory Ventilation, Greater than 96 Consecutive Hours (ICD-10-PCS; 2024-04-02)
PROC: 0B113F4 Bypass Trachea to Cutaneous with Tracheostomy Device, Percutaneous Approach (ICD-10-PCS; 2024-04-09)
PROC: 0DH63UZ Insertion of Feeding Device into Stomach, Percutaneous Approach (ICD-10-PCS; 2024-04-09)
DX: A41.9 Sepsis, unspecified organism (principal); I46.9 Cardiac arrest, cause unspecified; N18.6 End stage renal disease; L89.624 Pressure ulcer of left heel, stage 4; R65.21 Severe sepsis with septic shock; J96.21 Acute and chronic respiratory failure with hypoxia; J96.22 Acute and chronic respiratory failure with hypercapnia; I50.33 Acute on chronic diastolic (congestive) heart failure; M72.6 Necrotizing fasciitis; E87.1 Hypo-osmolality and hyponatremia; L97.429 Non-pressure chronic ulcer of left heel and midfoot with unspecified severity; I13.2 Hypertensive heart and chronic kidney disease with heart failure and with stage 5 chronic kidney disease, or end stage renal disease; M86.172 Other acute osteomyelitis, left ankle and foot; E11.22 Type 2 diabetes mellitus with diabetic chronic kidney disease; D63.1 Anemia in chronic kidney disease; E11.40 Type 2 diabetes mellitus with diabetic neuropathy, unspecified; E87.5 Hyperkalemia; G47.33 Obstructive sleep apnea (adult) (pediatric); E11.621 Type 2 diabetes mellitus with foot ulcer; E66.01 Morbid (severe) obesity due to excess calories; J44.9 Chronic obstructive pulmonary disease, unspecified; Z68.37 Body mass index [BMI] 37.0-37.9, adult; E11.69 Type 2 diabetes mellitus with other specified complication; T17.990A Other foreign object in respiratory tract, part unspecified in causing asphyxiation, initial encounter; Z87.891 Personal history of nicotine dependence; Z79.899 Other long term (current) drug therapy; Z99.2 Dependence on renal dialysis; Z79.82 Long term (current) use of aspirin; Z79.51 Long term (current) use of inhaled steroids; Z90.49 Acquired absence of other specified parts of digestive tract; Z79.4 Long term (current) use of insulin; Z98.890 Other specified postprocedural states; Y83.8 Other surgical procedures as the cause of abnormal reaction of the patient, or of later complication, without mention of misadventure at the time of the procedure
CPT/HCPCS: 36415; 36416; 36430; 36556; 36600; 70450; 71045; 80048; 80053; 80202; 82306; 82805; 83036; 83605; 83690; 83735; 83880; 84100; 84132; 84145; 84484; 85025; 85610; 85730; 86141; 86850; 86900; 86901; 87040; 87070; 87076; 87077; 87186; 87205; 88307; 88311; 90935; 93005; 93010; 94002; 94003; 94660; 94664; 94760; 96361; 96365; 96375; 97139; C1713; G0257; J0171; J0613; J0665; J1100; J1644; J1815; J1956; J2001; J2060; J2185; J2250; J2272; J2310; J2405; J2470; J2543; J2704; J2919; J3010; J3370; J3490; J7070; J7620; J7999; P9016; P9047; Q5105

== ENCOUNTER 2024-04-13 12:22 | Inpatient (IN) | payer OTHER ==
[2024-04-13] MEDS ORDERED: Morphine 2 MG/ML VIAL SLOW IVP PRN (12:32)
[2024-04-13] MEDS ORDERED: Lorazepam 2 MG/ML VIAL SLOW IVP PRN (12:33)
[2024-04-13] MEDS: Morphine 2 MG/ML VIAL SLOW IVP SCH (12:41)
[2024-04-13] MEDS ORDERED: Scopolamine 1 mg/72 hour Patch TOP SCH (12:45)
== END 2024-04-13 15:19 | disposition expired | DRG 951 ==
LOC: CCU 12:22
PROVIDERS: ADMIT Internal Medicine Nephrology; ATTEND Internal Medicine Nephrology
DX: Z51.5 Encounter for palliative care (principal); J96.02 Acute respiratory failure with hypercapnia; N18.6 End stage renal disease; E87.1 Hypo-osmolality and hyponatremia; E87.5 Hyperkalemia; E11.22 Type 2 diabetes mellitus with diabetic chronic kidney disease; Z79.4 Long term (current) use of insulin; L89.629 Pressure ulcer of left heel, unspecified stage; I50.9 Heart failure, unspecified; J44.9 Chronic obstructive pulmonary disease, unspecified; Z99.2 Dependence on renal dialysis; Z79.82 Long term (current) use of aspirin; Z79.899 Other long term (current) drug therapy
CPT/HCPCS: J2272